=== PATIENT | female | born 1980 | race Two or more races ===

== ENCOUNTER 2020-09-17 15:25 | Outpatient (REF) | payer MEDICAID, SELFPAY | END 2020-09-17 15:26 | disposition home or self-care (01) | LOC: HO.LAB 15:25 | PROVIDERS: PCP Family Medicine; Visit Provider Internal Medicine | DX: Z20.822 Contact with and (suspected) exposure to COVID-19 (principal) | CPT/HCPCS: C9803; U0003; U0005 ==

== ENCOUNTER 2021-01-15 19:39 | Emergency (ER) | payer MEDICAID, SELFPAY ==
--- NOTE | ~2021-01-15 | XR_ITS ---
EXAMINATION: XR TIBIA AND FIBULA, LEFT CLINICAL INFORMATION: Leg pain. History of sarcoidosis. COMPARISON: None TECHNIQUE: AP and lateral views of the left tibia and fibula were obtained. FINDINGS: The bones and soft tissues are normal. No fracture. No osseous lesions. XR/XR tibia fibula LT 2V IMPRESSION: Normal left tibia and fibula.
--- NOTE | ~2021-01-15 | US_ITS ---
EXAMINATION: US VENOUS ULTRASOUND WITH DOPPLER LOWER EXTREMITY, LEFT CLINICAL INFORMATION: Left lower extremity deep COMPARISON: None TECHNIQUE: Ultrasound of the deep veins is performed from the hip to the calf with compression sonography and color and pulse Doppler assessment. Spectral analysis with color-flow imaging is performed. FINDINGS: There is normal venous compression and respiratory variation and augmented flow. The visualized common femoral vein, superficial femoral vein, profunda femoral vein, popliteal vein, and the trifurcation region shows no evidence of deep venous thrombosis. There is no significant popliteal fossa cyst. The contralateral right common femoral vein appears normal. If the patient's symptoms persist, followup ultrasound in 5 days 7 days might be of value to exclude proximal propagation from a non-visualized calf vein. US/US venous duplex LE IMPRESSION: No DVT demonstrated in the left lower extremity.
[2021-01-15 19:43] VITALS: BP 116/96; PULSE 101; RESP 18; TEMP 36.4; O2SAT 98; BMI 20.4
[2021-01-15 20:51] VITALS: BP 129/74; PULSE 87; RESP 18; TEMP 37.2; O2SAT 99
[2021-01-15 22:31] LABS: MANUAL DIFF FLAG NO
[2021-01-15 22:33] LABS: Basophils Percent Auto 0.2 % (0-2); Eosinophils Absolute Auto 0.1 X10*3/uL (0.0-0.4); Eosinophils Percent Auto 1.6 % (0-4); Hematocrit 33.1 % (37.0-47.0); Hemoglobin 11.4 g/dl (12.0-16.0); Imm Gran Abs Auto 0.03 X10*3/uL (0.00-0.03); Imm Gran Pct Auto 0.3 % (0.0-0.4); Lymphocytes Absolute Auto 1.8 X10*3/uL (1.2-4.9); Lymphocytes Percent Auto 19.8 % (20-40); Mean Corpuscular HGB Conc 34.4 g/dl (31.0-35.0); Mean Corpuscular Hemoglobin 29.7 pg (27.0-33.0); Mean Corpuscular Volume 86.2 fL (80.0-98.0); Mean Platelet Volume 9.4 fL (9.4-12.3); Monocytes Absolute Auto 0.7 X10*3/uL (0.1-1.2); Monocytes Percent Auto 8.2 % (2-11); Neutrophils Absolute Auto 6.3 x10*3/uL (2.0-8.3); Neutrophils Percent Auto 69.9 % (45-73); Platelet Count 290 X10*3/uL (160-400); Red Blood Count 3.84 X10*6/uL (4.20-5.50); Red Cell Distribution Width 13.1 % (11.0-16.0)
[2021-01-15 22:56] LABS: Alanine Aminotransferase 8 U/L (0-31); Albumin Level 4.4 g/dL (3.5-5.0); Alkaline Phosphatase 63 U/L (39-117); Anion Gap 9 (12-20); Aspartate Amino Transferase 15 U/L (5-31); Bilirubin Total 0.4 mg/dL (0.0-1.0); Blood Urea Nitrogen 10 mg/dL (9-16); Calcium 9.3 mg/dL (8.4-10.2); Carbon Dioxide 25 mmol/L (22-29); Chloride 108 mmol/L (96-108); Estimated Glomerular Filt Rate > 60; Glucose Random 97 mg/dL (60-115); Magnesium 2.1 mg/dL (1.6-2.6); Potassium 3.9 mmol/L (3.3-5.1); Sodium 138 mmol/L (135-145); Total Protein 7.6 g/dL (6.5-8.0)
[2021-01-15 23:07] VITALS: BP 138/79; PULSE 67; RESP 18; TEMP 36.8; O2SAT 100
--- NOTE | 2021-01-15 23:16 | ED.EXTPRO ---
HPI - Extremity Problem General Chief complaint: Extremity Problem Stated complaint: feet swelling Time Seen by Provider: 01/15/21 19:58 Source: patient Mode of arrival: ambulatory Limitations: no limitations History of Present Illness HPI Narrative: Patient with history of sarcoidosis complaining of left leg pain for last 2 weeks of atraumatic feels slightly swollen no discoloration pain get worse on standing no history of any blood clots Related Data Previous Rx's Medication Instructions Recorded oxycodone-acetaminophen 5 mg-325 1 tab PO Q6H PRN #20 tab 01/15/21 mg tablet (Percocet) Allergies Allergy/AdvReac Type Severity Reaction Status Date / Time tramadol Allergy Unknown nausea and Verified 09/24/17 00:00 vomiting No Known Allergies Allergy Unverified 11/23/19 16:47 [No Known Allergies*] Review of Systems Review of Systems: Yes all other systems are reviewed and are negative FORMERLY [facility], [facility]–1983 Past Medical History Medical History (Updated 01/16/21 @ 02:39 by Donaldo Bowser MD) Sarcoidosis Social History Social History Advance Directives: No Advance Directives Information Provided: Yes Physical Exam Vital Signs: Vital Signs: Last Vital Signs Temp 98.3 F 01/15/21 23:07 Pulse 67 01/15/21 23:07 Resp 16 01/16/21 00:42 BP 138/79 01/15/21 23:07 Pulse Ox 100 01/15/21 23:07 Body Mass Index 20.4 Appearance: Alert. Oriented X3. No acute distress. ENT: Pharynx normal. Oral Mucosa moist Neck: Normal inspection. Neck supple. CVS: Normal heart rate and rhythm. Pulses normal. Respiratory: No respiratory distress. Equal air entry bilateral, Abdomen: Soft and nontender. Skin: Skin warm and dry. Normal skin color. Normal skin turgor. Extremities: No lower extremity edema. No calf tenderness Brant sign negative diffuse tenderness left calf muscles no bony tenderness or deformity Neuro: Oriented X 3. No motor deficit. No sensory deficit MDM - Extremity (Nontraumatic) MDM Narrative Medical decision making narrative: Patient with left leg pain etiology not very clear venous Doppler negative calcium level is normal x-ray also negative for any bony involvement patient does have sarcoidosis advised to follow-up with the specialist to further evaluate for the pain Lab Data Result diagrams: 01/15/21 22:27 01/15/21 22:27 Labs: Lab Results 01/15/21 01/15/21 Range/Units 22:27 22:27 WBC 9.0 (4.8-10.8) X10*3/uL RBC 3.84 L (4.20-5.50) X10*6/uL Hgb 11.4 L (12.0-16.0) g/dl Hct 33.1 L (37.0-47.0) % MCV 86.2 (80.0-98.0) fL MCH 29.7 (27.0-33.0) pg MCHC 34.4 (31.0-35.0) g/dl RDW 13.1 (11.0-16.0) % Plt Count 290 (160-400) X10*3/uL MPV 9.4 (9.4-12.3) fL Immature Gran % (Auto) 0.3 (0.0-0.4) % Neut % (Auto) 69.9 (45-73) % Lymph % (Auto) 19.8 L (20-40) % [place] % (Auto) 8.2 (2-11) % Eos % (Auto) 1.6 (0-4) % Baso % (Auto) 0.2 (0-2) % Lymph # (Auto) 1.8 (1.2-4.9) X10*3/uL [place] # (Auto) 0.7 (0.1-1.2) X10*3/uL Eos # (Auto) 0.1 (0.0-0.4) X10*3/uL Baso # (Auto) 0.0 (0.0-0.2) X10*3/uL Abs Immat Gran (auto) 0.03 (0.00-0.03) X10*3/uL Absolute Neuts (auto) 6.3 (2.0-8.3) x10*3/uL Absolute Nucleated RBC 0.000 (0.0-0.012) X10*3/uL Nucleated RBC % (auto) 0.0 (0.0-0.2) /100WBC Sodium 138 (135-145) mmol/L Potassium 3.9 (3.3-5.1) mmol/L Chloride 108 (96-108) mmol/L Carbon Dioxide 25 (22-29) mmol/L Anion Gap 9 L (12-20) BUN 10 (9-16) mg/dL Creatinine 0.72 (0.5-1.4) mg/dL Estim Creat Clear Calc 76.0 Estimated GFR > 60 Random Glucose 97 (60-115) mg/dL Calcium 9.3 (8.4-10.2) mg/dL Magnesium 2.1 (1.6-2.6) mg/dL Total Bilirubin 0.4 (0.0-1.0) mg/dL AST 15 (5-31) U/L ALT 8 (0-31) U/L Alkaline Phosphatase 63 (39-117) U/L Total Protein 7.6 (6.5-8.0) g/dL Albumin 4.4 (3.5-5.0) g/dL Discharge Plan Discharge Clinical Impression: Musculoskeletal leg pain Qualifiers: Laterality: left Qualified Code(s): M79.605 - Pain in left leg Patient Disposition: Home, Self-Care Instructions: Leg Pain (ED) Additional Instructions: Etiology of pain in her left leg is not very clear follow-up with your specialist regarding sarcoidosis as possible cause Pain medication as advised Use crutches for ambulation Prescriptions: New oxycodone-acetaminophen [Percocet] 5-325 mg tablet 1 tab PO Q6H PRN (Reason: pain) Qty: 20 RF: 0 Interventions: ED Discharge Assessment Last Done: 01/16/21 00:39 Discharge Date/Time: 01/16/21 00:42
[2021-01-15] MEDS: oxyCODONE HCl Immed Release 5 MG TABLET PO (23:33)
[2021-01-16 00:42] VITALS: RESP 16
== END 2021-01-16 00:42 | disposition home or self-care (01) ==
PROVIDERS: Emergency Provider Internal Medicine; PCP Family Medicine
DX: M79.605 Pain in left leg (principal)
CPT/HCPCS: 36415; 73590; 80053; 83735; 85025; 93971; 99283; 99284

== ENCOUNTER 2021-05-22 08:41 | Outpatient (REF) | payer MEDICAID, SELFPAY ==
--- NOTE | ~2021-05-22 | US_ITS ---
EXAMINATION: US RETROPERITONEAL LIMITED (RENAL ONLY) CLINICAL INFORMATION: Microscopic hematuria. COMPARISON: Renal ultrasound 05/15/2016 and 11/18/2015. CT abdomen and pelvis 05/08/2015. TECHNIQUE: Real-time imaging of the kidneys. FINDINGS: RIGHT KIDNEY: 10.1 x 2.9 x 5.9 cm (SAG x AP x TRV). The kidney is normal in size, contour, and echogenicity. Renal cortical thickness is normal. No focal parenchymal lesions or hydronephrosis. There are a few echogenic stones. An upper pole stone measuring 0.4 x 0.3 cm. Midpole stone measuring 0.4 x 0.4 cm, 0.4 0.64 cm midpole/lower pole calculi measuring 0.4 x 0.3 cm and 0.3 x 0.2 cm. There is no caliectasis. LEFT KIDNEY: 9.6 x 4.6 x 4.7 cm (SAG x AP x TRV). The kidney is normal in size, contour, and echogenicity. Renal cortical thickness is normal. No calculi or focal parenchymal lesions. No hydronephrosis. There are multiple punctate calcifications seen with no twinkle. US/US renal BI IMPRESSION: Multiple nonobstructive echogenic right renal calculi. Multiple punctate echogenic calcifications left kidney. No caliectasis or hydronephrosis.
== END 2021-05-22 08:42 | disposition home or self-care (01) ==
LOC: HO.US 08:41
PROVIDERS: PCP Family Medicine; Visit Provider Emergency Medicine
DX: R31.29 Other microscopic hematuria (principal); R39.15 Urgency of urination; Z87.442 Personal history of urinary calculi
CPT/HCPCS: 76775

== ENCOUNTER 2022-01-08 10:29 | Outpatient (REF) | payer MEDICAID, SELFPAY ==
[2022-01-08 11:04] LABS: COVID-19 Test Positive (Negative); IDNOW Serial# 9DB6401D
== END 2022-01-08 10:30 | disposition home or self-care (01) ==
LOC: HO.LAB 10:29
PROVIDERS: Visit Provider Internal Medicine
DX: Z20.822 Contact with and (suspected) exposure to COVID-19 (principal)
CPT/HCPCS: 87635; C9803

== ENCOUNTER 2022-10-16 12:18 | Outpatient (REF) | payer MEDICAID, SELFPAY ==
[2022-10-16 13:50] LABS: MANUAL DIFF FLAG NO
[2022-10-16 14:05] LABS: Basophils Percent Auto 0.5 % (0-2); Eosinophils Absolute Auto 0.1 X10*3/uL (0.0-0.4); Eosinophils Percent Auto 2.4 % (0-4); Hemoglobin 12.3 g/dl (12.0-16.0); Imm Gran Abs Auto 0.02 X10*3/uL (0.00-0.03); Imm Gran Pct Auto 0.3 % (0.0-0.4); Lymphocytes Absolute Auto 1.8 X10*3/uL (1.2-4.9); Lymphocytes Percent Auto 30.9 % (20-40); Mean Corpuscular HGB Conc 34.2 g/dl (31.0-35.0); Mean Corpuscular Hemoglobin 30.2 pg (27.0-33.0); Mean Corpuscular Volume 88.5 fL (80.0-98.0); Mean Platelet Volume 10.1 fL (9.4-12.3); Monocytes Absolute Auto 0.6 X10*3/uL (0.1-1.2); Neutrophils Absolute Auto 3.1 x10*3/uL (2.0-8.3); Neutrophils Percent Auto 54.9 % (45-73); Platelet Count 306 X10*3/uL (160-400); Red Blood Count 4.07 X10*6/uL (4.20-5.50); Red Cell Distribution Width 13.3 % (11.0-16.0); White Blood Count 5.7 X10*3/uL (4.8-10.8)
[2022-10-16 14:34] LABS: Alanine Aminotransferase 7 U/L (0-31); Albumin Level 4.7 g/dL (3.5-5.0); Alkaline Phosphatase 70 U/L (39-117); Anion Gap 10 (12-20); Aspartate Amino Transferase 14 U/L (5-31); Bilirubin Total 0.5 mg/dL (0.0-1.0); Blood Urea Nitrogen 11 mg/dL (9-16); Carbon Dioxide 26 mmol/L (22-29); Chloride 109 mmol/L (96-108); Estimated Glomerular Filt Rate > 60; Glucose Random 83 mg/dL (60-115); Potassium 3.9 mmol/L (3.3-5.1); Sodium 141 mmol/L (135-145); Total Protein 8.4 g/dL (6.5-8.0)
[2022-10-16 14:40] LABS: Cholesterol 162 mg/dL; HDL Cholesterol 38 mg/dL; LDL Cholesterol Calculated 100 mg/dl; Triglycerides 122 mg/dL
[2022-10-16 15:16] LABS: Reflex LDLD? No
[2022-10-16 16:49] LABS: UPreg QC Valid YES; Urine Pregnancy NEGATIVE (NEGATIVE)
[2022-10-17 04:05] LABS: HBS Num1 7.75 mIU/mL (0-7.99); HBc Num1 0.08 S/CO (0.00-0.79); HBsAGNum1 0.41 S/CO (0.00-0.99); HIV AB/AG Nonreactive (Nonreactive); HIV Num 1 0.05 S/CO (0.00-0.99); Hepatitis B Core Antibody Nonreactive (Nonreactive); Hepatitis B Surface Antigen Negative (Negative); ~HepC Num1 0.38 S/CO (0.00-0.79); ~Hepatitis A Antibody IgM Nonreactive (Nonreactive); ~Hepatitis B Surface Antibody NONREACTIVE (Nonreactive); ~Hepatitis C Antibody Nonreactive (Nonreactive)
[2022-10-19 20:58] LABS: TS Negative Control Passed; TS Panel A 1; TS Panel B 2; TS Positive Control Passed; TSpotTB Negative (Negative)
== END 2022-10-16 12:19 | disposition home or self-care (01) ==
LOC: HO.HHCL 12:18
PROVIDERS: Visit Provider Internal Medicine
DX: Z11.4 Encounter for screening for human immunodeficiency virus [HIV] (principal); Z11.1 Encounter for screening for respiratory tuberculosis; L63.9 Alopecia areata, unspecified
CPT/HCPCS: 36415; 80053; 80061; 81025; 85025; 86481; 86704; 86706; 86709; 86803; 87340; 87389

== ENCOUNTER 2023-02-01 14:24 | Outpatient (REF) | payer MEDICAID, SELFPAY ==
[2023-02-01 14:35] LABS: MANUAL DIFF FLAG NO
[2023-02-01 15:30] LABS: Basophils Percent Auto 0.4 % (0-2); Eosinophils Absolute Auto 0.1 X10*3/uL (0.0-0.4); Eosinophils Percent Auto 1.1 % (0-4); Hematocrit 36.7 % (37.0-47.0); Hemoglobin 12.7 g/dl (12.0-16.0); Imm Gran Abs Auto 0.02 X10*3/uL (0.00-0.03); Imm Gran Pct Auto 0.3 % (0.0-0.4); Lymphocytes Absolute Auto 2.8 X10*3/uL (1.2-4.9); Lymphocytes Percent Auto 38.7 % (20-40); Mean Corpuscular HGB Conc 34.6 g/dl (31.0-35.0); Mean Corpuscular Hemoglobin 30.4 pg (27.0-33.0); Mean Corpuscular Volume 87.8 fL (80.0-98.0); Mean Platelet Volume 9.7 fL (9.4-12.3); Monocytes Absolute Auto 0.6 X10*3/uL (0.1-1.2); Monocytes Percent Auto 8.3 % (2-11); Neutrophils Absolute Auto 3.7 x10*3/uL (2.0-8.3); Neutrophils Percent Auto 51.2 % (45-73); Platelet Count 273 X10*3/uL (160-400); Red Blood Count 4.18 X10*6/uL (4.20-5.50); Red Cell Distribution Width 13.9 % (11.0-16.0); White Blood Count 7.3 X10*3/uL (4.8-10.8)
[2023-02-01 15:56] LABS: Alanine Aminotransferase 16 U/L (0-31); Albumin Level 4.9 g/dL (3.5-5.0); Alkaline Phosphatase 54 U/L (39-117); Anion Gap 11 (12-20); Aspartate Amino Transferase 21 U/L (5-31); Bilirubin Direct 0.2 mg/dL (0.0-0.5); Bilirubin Total 0.7 mg/dL (0.0-1.0); Blood Urea Nitrogen 11 mg/dL (9-16); Calcium 9.6 mg/dL (8.4-10.2); Carbon Dioxide 23 mmol/L (22-29); Chloride 108 mmol/L (96-108); Estimated Glomerular Filt Rate > 60; Glucose Random 92 mg/dL (60-115); Magnesium 2.1 mg/dL (1.6-2.6); Potassium 3.4 mmol/L (3.3-5.1); Sodium 139 mmol/L (135-145); Total Protein 8.3 g/dL (6.5-8.0)
[2023-02-01 16:13] LABS: TSH reflex Free T4 1.03 uIU/mL (0.32-4.0)
== END 2023-02-01 14:25 | disposition home or self-care (01) ==
LOC: HO.LAB 14:24
PROVIDERS: PCP Family Medicine; Visit Provider Family Medicine
DX: G43.819 Other migraine, intractable, without status migrainosus (principal)
CPT/HCPCS: 36415; 80048; 80076; 83735; 84443; 85025

== ENCOUNTER 2023-12-28 07:59 | Emergency (ER) | payer MEDICAID, SELFPAY ==
--- NOTE | ~2023-12-28 | XR_ITS ---
EXAMINATION: XR CHEST 2 VIEW CLINICAL INFORMATION: Cough, chest pain COMPARISON: 07/29/2017 TECHNIQUE: PA and lateral views of the chest obtained. FINDINGS: The lungs are hyperinflated. There are patchy bilateral airspace opacities in the periphery of the mid and upper lung zones. There are no pleural effusions. The cardiac silhouette is not enlarged. Hilar and mediastinal contours are normal. XR/XR chest 2V IMPRESSION: 1. Bilateral patchy airspace opacities, new since the prior study. Viral pneumonitis, hypersensitivity pneumonitis, bilateral bronchopneumonia, atypical pneumonia, and granulomatous disease are felt to be considered. Follow-up is recommended to confirm clearing. Thoracic CT might be of benefit in better characterizing the bilateral pulmonary opacities. Electronically signed by: Jim Love MD 12/28/2023 09:36 AM EDT
--- NOTE | 2023-12-28 08:00 | ECG_ITS ---
Test Reason : CHEST PAIN Blood Pressure : / mmHG Vent. Rate : 110 BPM Atrial Rate : 110 BPM P-R Int : 124 ms QRS Dur : 074 ms QT Int : 316 ms P-R-T Axes : 072 066 048 degrees QTc Int : 427 ms Sinus tachycardia Biatrial enlargement Abnormal ECG No previous ECGs available Referred By: Generic ED Physician Electronically Signed By:Gildardo Ramirez
[2023-12-28 08:20] VITALS: BP 119/85; PULSE 102; RESP 18; TEMP 37.5; O2SAT 97; BMI 19.8
[2023-12-28 08:55] LABS: IDNOW Serial# 08D9AD1C; Strep A Nucleic Acid Negative (Negative)
[2023-12-28 09:19] LABS: Influenza A PCR POSITIVE (Negative); Influenza B PCR NEGATIVE (Negative); Resp Syncy Virus RNA Qual PCR NEGATIVE (Negative); SARS COV2 PCR INHOUSE NEGATIVE (Negative)
--- NOTE | 2023-12-28 09:29 | ED_ITS ---
HPI - URI/Sore Throat General Chief Complaint: Upper Respiratory Symptoms Stated Complaint: Chest pain, congestion Time Seen by Provider: 12/28/23 09:06 Source: patient, RN notes reviewed and old records reviewed Mode of arrival: ambulatory History of Present Illness ED Provider: Evonne Nogueira PA-C HPI Narrative: 43-year-old female with a past medical history of sarcoidosis presenting to the ED complaining of productive cough, chest discomfort with coughing, SOB, congestion, chills x yesterday. Denies recent travel, fever, pedal edema, abdominal pain, decreased p.o. intake. Admits son recently had pneumonia. Related Data Previous Rx's ?Medication ?Instructions ?Recorded oxycodone-acetaminophen 5 mg-325 1 tab PO Q6H PRN pain #20 tabs 11//21 mg tablet (Percocet) albuterol sulfate 90 mcg/actuation 2 puff inhalation Q4-6H PRN 12/28/23 aerosol inhaler shortness of breath or wheezing #6.7 grams azithromycin 250 mg tablet See Rx Instructions PO .COMPLEX #6 12/28/23 tabs cefpodoxime 200 mg tablet 200 mg PO BID 7 days #14 tabs 12/28/23 Allergies Allergy/AdvReac Type Severity Reaction Status Date / Time tramadol Allergy Unknown nausea and Verified 12/28/23 08:23 vomiting Review of Systems Review of Systems: Yes all other systems are reviewed and are negative Constitutional: Constitutional: Reports as per [facility] Past Medical History Attestation statement: The following information was validated with the patient. Source: old records reviewed Medical History Sarcoidosis Social History Social History Advance Directives: No Do you have a plan to hurt others: No Plan Physical Exam Vital Signs: Vital Signs: Last Vital Signs Temp 98.7 F 12/28/23 10:59 Pulse 113 H 12/28/23 10:59 Resp 22 H 12/28/23 10:59 BP 00/00 L 12/28/23 10:59 Pulse Ox 98 12/28/23 10:59 O2 Del Method Room Air 12/28/23 08:20 BMI result Body Mass Index 19.8 Const: General: cooperative, healthy appearing and no acute distress Orientation/consciousness: patient oriented x3 Limitations: no limitations HEENT: Head: Yes normal to inspection and Yes atraumatic Ears: hearing grossly normal bilaterally General nose exam: Normal external nose present Face and sinus: Yes normal facial exam Throat: Yes posterior oropharynx normal, Yes uvula midline and No peritonsillar mass Eyes: General: appearance normal, both eyes and all related structures EOM: EOMs intact bilaterally Neck: Neck: Yes normal visual inspection and Yes no meningeal signs Resp: Effort & Inspection: normal respiratory effort and no respiratory distress Auscultation: clear to auscultation bilaterally, no crackles and wheezes expiratory wheezes and lower bilaterally Cardio: Rate: regular rate Heart sounds: S1 normal heart sound present and S2 normal heart sound present GI: Inspection: Yes normal to inspection Palpation (GI): Soft to palpation, nontender, no guarding and not rigid Skin: Rashes: no rashes Wounds: no wounds Neuro: General: patient oriented x3, tone normal and no meningeal signs Cranial nerves: Yes CN's II-XII intact bilaterally Gait exam (Neuro): Normal gait present Extrem: General: Yes normal to inspection and Yes no pedal edema Course Course Course Narrative: -0958--influenza a positive XR chest 2V IMPRESSION: 1. Bilateral patchy airspace opacities, new since the prior study. Viral pneumonitis, hypersensitivity pneumonitis, bilateral bronchopneumonia, atypical pneumonia, and granulomatous disease are felt to be considered. Follow-up is recommended to confirm clearing. Thoracic CT might be of benefit in better characterizing the bilateral pulmonary opacities. > Still low suspicion for severe sepsis as likely viral etiology -1029--tachycardic to 113 likely from albuterol treatment. > with shared decision-making will treat patient with antibiotics for bilateral atypical pneumonia. Will defer Tamiflu at this time Results discussed with patient including worrisome signs and symptoms and strict return precautions, and when to return to the emergency department. They verbalized understanding and feel safe for discharge at this time. > received call from pharmacy, amoxicillin interactive with patient's methotrexate. Switched to cefpodoxime Medications Administered Discontinued Medications Generic Name Dose Route Start Last Admin Trade Name Freq PRN Reason Stop Dose Admin Albuterol/Ipratropium 3 ml 12/28/23 10:06 12/28/23 10:08 Albuterol/Iprat 2.5/0.5mg 3 Ml Ampul.Neb INHALE 12/28/23 10:07 3 ml ONCE ONE Administration Medical Decision Making Medical Decision Making MDM Narrative: 43-year-old female with a past medical history of sarcoidosis presenting to the ED complaining of productive cough, chest discomfort with coughing, SOB, congestion, chills x yesterday. On exam mildly tachycardic, low-grade temp 99.5 degrees, NAD/nontoxic appearing, no respiratory distress, bibasilar expiratory wheeze appreciated. Concern for viral illness vs pneumonia vs bronchitis. Lower suspicion for ACS/PE or CHF. Unlikely DVT. Low suspicion for severe sepsis Plan: Viral testing, rapid strep, CXR Please refer to course for remaining clinical decision making, interpretation of labs/imaging results, and discussions with consultants and/or family members. Differential Diagnosis Differential Diagnoses: The differential diagnosis associated with the presentation includes As above Admission/Observation Consideration of admission/observation: Escalation of care including admission/observation considered Lab Data [facility] Lab Attestation statement: I reviewed the patient's lab results. Labs: Lab Results 12/28/23 Range/Units 08:27 Influenza Type A (PCR) POSITIVE A (Negative) Influenza Type B (PCR) NEGATIVE (Negative) RSV RNA Qual (PCR) NEGATIVE (Negative) SARS-CoV-2 RNA (RT-PCR) NEGATIVE (Negative) S. pyogenes GrpA ANGELO Negative (Negative) Independent Interpretation I performed an independent interpretation of an: Plain X-Ray Radiology Impression Discussion of test interpretation with radiology: I have reviewed the radiologist's reading. External Record Review External record reviewed: Inpatient record, Office record, Outpatient record, Prior outpatient labs, Prior outpatient radiology, Primary care record and Outside ED record Tests considered The following testing was considered but not selected: As above Prescription Management I considered prescription management with: Pain Medication, Antiviral and Antibiotic Discharge Plan Discharge Clinical Impression: Influenza A, Pneumonia Patient Disposition: Home, Self-Care Instructions: Influenza (DC), Pneumonia (ED) Additional Instructions: You have influenza a. This is contagious. Wash her hands. Wear a mask. Your x-ray also shows bilateral pneumonia. Amoxicillin and azithromycin or antibiotics please take as prescribed. Make sure you are staying hydrated. Drink plenty of fluids. Rest Alternate Tylenol and Motrin at home as needed for body aches and fever Follow-up with your doctor. If symptoms persist or worsen return to the emergency department *If you are a child & not tolerating liquid or urinating for more than 6 hours, or fevers are uncontrolled with medications at home, return to the emergency department* Prescriptions: New azithromycin 250 mg tablet See Rx Instructions .ROUTE .COMPLEX Qty: 6 0RF Rx Instructions: take 500 mg today (day 1), then 250 mg for 4 days (days 2-5) albuterol sulfate 90 mcg/actuation HFA aerosol inhaler 2 puff inhalation Q4-6H PRN (Reason: shortness of breath or wheezing) Qty: 6.7 0RF cefpodoxime 200 mg tablet 200 mg PO BID 7 Days Qty: 14 0RF Rx Instructions: must administer with a meal/food No Action oxycodone-acetaminophen [Percocet] 5-325 mg tablet 1 tab PO Q6H PRN (Reason: pain) Qty: 20 0RF Referrals: Marzena Loo MD [Primary Care Provider] - 1 week Stand Alone Forms: Work/School Release Interventions: ED Discharge Assessment Last Done: 12/28/23 10:59 Discharge Date/Time: 12/28/23 11:00 Print Language: Yakut
[2023-12-28] MEDS: Albuterol/Iprat 2.5/0.5MG 3 ML AMPUL.NEB INHALE (10:08)
[2023-12-28 10:09] VITALS: PULSE 113; RESP 22; O2SAT 96
[2023-12-28 10:59] VITALS: BP 00/00; PULSE 113; RESP 22; TEMP 37.1; O2SAT 98
== END 2023-12-28 11:00 | disposition home or self-care (01) ==
PROVIDERS: Emergency Provider Emergency Medicine; PCP Family Medicine
DX: J10.00 Influenza due to other identified influenza virus with unspecified type of pneumonia (principal); R07.89 Other chest pain; R09.89 Other specified symptoms and signs involving the circulatory and respiratory systems; R05.9 Cough, unspecified; R06.02 Shortness of breath; Z03.818 Encounter for observation for suspected exposure to other biological agents ruled out
CPT/HCPCS: 0241U; 71046; 87651; 93005; 94640; 99284

== ENCOUNTER → 2023-12-28 08:00 | Outpatient (BNV) | payer MEDICAID, SELFPAY | PROVIDERS: Emergency Provider Emergency Medicine; PCP Family Medicine; Visit Provider Internal Medicine Cardiovascular Disease | DX: R07.9 Chest pain, unspecified (principal) | CPT/HCPCS: 93010 ==

== ENCOUNTER 2023-12-30 16:36 | Emergency (ER) | payer MEDICAID, SELFPAY ==
[2023-12-30 16:40] VITALS: BP 141/84; PULSE 100; RESP 18; TEMP 36.4; O2SAT 97; BMI 18.4
--- NOTE | 2023-12-30 16:44 | ED.GENADULT ---
HPI - General Adult General Chief complaint: General Medical Stated complaint: rash ? from meds Time Seen by Provider: 12/30/23 21:37 Source: patient Mode of arrival: ambulatory Limitations: no limitations History of Present Illness ED Provider: Dr. Nicolette Chapa HPI narrative: patient comes to the emergency room complaining of a rash secondary to medications. Patient states that the rash comes and goes, states that the rash consists of her veins looking more pronounced. Patient denies hives, itching is or shortness of breath. Related Data Previous Rx's ?Medication ?Instructions ?Recorded oxycodone-acetaminophen 5 mg-325 1 tab PO Q6H PRN pain #20 tabs 01/15/21 mg tablet (Percocet) albuterol sulfate 90 mcg/actuation 2 puff inhalation Q4-6H PRN 12/28/23 aerosol inhaler shortness of breath or wheezing #6.7 grams azithromycin 250 mg tablet See Rx Instructions PO .COMPLEX #6 12/28/23 tabs cefpodoxime 200 mg tablet 200 mg PO BID 7 days #14 tabs 12/28/23 ondansetron HCl 4 mg tablet 4 mg PO BID #14 tabs 12/30/23 Allergies Allergy/AdvReac Type Severity Reaction Status Date / Time tramadol Allergy Unknown nausea and Verified 12/30/23 16:46 vomiting Review of Systems Review of Systems: Constitutional : No Weight loss, No Fever, No Chills, No Night Sweats, No Fatigue, No Malaise ENT/Mouth : No Hearing loss, No Ear Pain, No Nasal Congestion, No Sinus Pain, No Hoarseness, No sore throat, No Rhinorrhea, No Swallowing Difficulty Eyes: No Eye Pain, No Swelling, No Redness, No Foreign Body, No Discharge, No Vision Changes Cardiovascular : No Chest Pain, No SOB, No Dyspnea on Exertion, No Orthopnea, No Edema, No Palpitations Respiratory : No Cough, No Sputum, No Wheezing, No Smoke Exposure, No Dyspnea Gastrointestinal : No Nausea, No Vomiting, No Diarrhea, No Constipation, No abdominal Pain, No Hematochezia, No Melena Genitourinary : no irregular bleeding, No Dysuria, No Urinary Frequency, No Hematuria, No Urinary Incontinence, No Urgency, No Flank Pain, No Urinary Flow Changes, No Hesitancy Musculoskeletal : No joint pain, No Myalgias, No Joint Swelling Skin : Complaining of a lash consisting of the veins looking more prominent in the thighs Neuro : No Weakness, No Numbness, No Paresthesias, No Loss of Consciousness, No Dizziness, No Headache Psych : No Anxiety/Panic, No Depression, No SI/HI/AH/VH, No Social Issues, Heme/Lymph: No Bruising, No Bleeding,No Lymphadenopathy Endocrine : No Polyuria, No Polydipsia, No Temperature Intolerance PMFSH Past Medical History Medical History Sarcoidosis Social History Social History Advance Directives: No Advance Directives Information Provided: No Do you have a plan to hurt others: No Plan Physical Exam ED Vital Signs: Vital Signs - 24 hr 12/30/23 16:40 12/30/23 19:29 Temperature 97.6 F 98.0 F Pulse Rate 100 80 Respiratory Rate 18 15 Blood Pressure 141/84 H 111/80 Pulse Oximetry 97 98 Oxygen Delivery Method Room Air Room Air BMI result Body Mass Index 18.4 Const Other: Appearance: Alert. Oriented X3. No acute distress. Eyes: Pupils equal, round and reactive to light. ENT: Pharynx normal. Neck: Normal inspection. Neck supple. No lymph nodes noted. No crepitus CVS: Normal heart rate and rhythm. Pulses normal. Normal S1 and S2 Respiratory: No respiratory distress. Breath sounds normal. No Wheezing. No rales Abdomen: Soft and nontender. No rigidity. No distention. Skin: Skin warm and dry. Normal skin color. Normal skin turgor. Extremities: No lower extremity edema. No Lacerations. No Rash Neuro: Oriented X 3. No motor deficit. No sensory deficit. Moving all extremities. No slurred speech. CN 2 through 12 grossly intact Psych: calm, cooperative, normal affect Course Course Course Narrative: RME, this is a rapid medical exam performed by Randal Hoff please refer to primary provider for complete H&P- 43-year-old female presents for evaluation of vomiting and a rash. She was diagnosed with influenza a and pneumonia 2 days ago. She was discharged with azithromycin, cefuroxime for the pneumonia. She reports taking the medications. She reports noticing a rash on her thighs which she describes as ?bruising that comes and goes. plan for labs and coags Medications Administered Discontinued Medications Generic Name Dose Route Start Last Admin Trade Name Sofia PRN Reason Stop Dose Admin Ondansetron HCl 4 mg 12/30/23 21:31 12/30/23 21:35 Ondansetron Odt 4 Mg Tab.Nancy HUBER 12/30/23 21:32 4 mg ONCE ONE Administration Medical Decision Making Medical Decision Making MDM Narrative: on physical exam, patient did not have any rash. I discussed with the patient that veins looking more prominence is not an allergic reaction. Then patient went on to say that she does not like taking this medications because they make her nauseous. I offer Zofran. Patient states that she can not take Zofran under the tongue because it makes her vomit. Discussed with the patient and then she can swallow it. Also, I offered with the patient changing her antibiotics to a different antibiotic but patient declined, states that she went to [facility] and they told her that that is the only medication that works and does not interact with her infusions. - Overall, patient will take Zofran tablets before taking her current antibiotics. Patient did not have an allergic reaction. Patient asymptomatic. Lab Data 12/30/23 16:53 12/30/23 16:53 Labs: Lab Results 12/30/23 Range/Units 16:53 WBC 6.0 (4.8-10.8) X10*3/uL RBC 4.52 (4.20-5.50) X10*6/uL Hgb 13.6 (12.0-16.0) g/dl Hct 37.9 (37.0-47.0) % MCV 83.8 (80.0-98.0) fL MCH 30.1 (27.0-33.0) pg MCHC 35.9 H (31.0-35.0) g/dl RDW 12.6 (11.0-16.0) % Plt Count 281 (160-400) X10*3/uL MPV 9.9 (9.4-12.3) fL Immature Gran % (Auto) 0.3 (0.0-0.4) % Neut % (Auto) 59.7 (45-73) % Lymph % (Auto) 25.4 (20-40) % [place] % (Auto) 13.6 H (2-11) % Eos % (Auto) 0.7 (0-4) % Baso % (Auto) 0.3 (0-2) % Lymph # (Auto) 1.5 (1.2-4.9) X10*3/uL [place] # (Auto) 0.8 (0.1-1.2) X10*3/uL Eos # (Auto) 0.0 (0.0-0.4) X10*3/uL Baso # (Auto) 0.0 (0.0-0.2) X10*3/uL Abs Immat Gran (auto) 0.02 (0.00-0.03) X10*3/uL Absolute Neuts (auto) 3.6 (2.0-8.3) x10*3/uL Absolute Nucleated RBC 0.000 (0.0-0.012) X10*3/uL Nucleated RBC % (auto) 0.0 (0.0-0.2) /100WBC PT 12.4 (10.9-12.4) SEC INR 1.1 (0.9-1.1) Sodium 139 (135-145) mmol/L Potassium 3.3 (3.3-5.1) mmol/L Chloride 106 (96-108) mmol/L Carbon Dioxide 22 (22-29) mmol/L Anion Gap 14 (12-20) BUN 9 (9-16) mg/dL Creatinine 0.77 (0.5-1.4) mg/dL Estim Creat Clear Calc 64.2 Estimated GFR > 60 Random Glucose 100 (60-115) mg/dL Calcium 9.7 (8.4-10.2) mg/dL Total Bilirubin 0.4 (0.0-1.0) mg/dL AST 41 H (5-31) U/L ALT 25 (0-31) U/L Alkaline Phosphatase 76 (39-117) U/L Total Protein 8.5 H (6.5-8.0) g/dL Albumin 4.8 (3.5-5.0) g/dL Lipase 23 (8-78) U/L Discharge Plan Discharge Clinical Impression: Medication side effect, Nausea Patient Disposition: Home, Self-Care Instructions: Acute Nausea and Vomiting (ED) Additional Instructions: Please follow-up with your primary care physician tomorrow. If you have any worsening or new symptoms, please return to the emergency room or call 911 Prescriptions: New ondansetron HCl 4 mg tablet 4 mg PO BID Qty: 14 0RF Rx Instructions: take before ingesting your antibiotics No Action oxycodone-acetaminophen [Percocet] 5-325 mg tablet 1 tab PO Q6H PRN (Reason: pain) Qty: 20 0RF azithromycin 250 mg tablet See Rx Instructions .ROUTE .COMPLEX Qty: 6 0RF Rx Instructions: take 500 mg today (day 1), then 250 mg for 4 days (days 2-5) albuterol sulfate 90 mcg/actuation HFA aerosol inhaler 2 puff inhalation Q4-6H PRN (Reason: shortness of breath or wheezing) Qty: 6.7 0RF cefpodoxime 200 mg tablet 200 mg PO BID 7 Days Qty: 14 0RF Rx Instructions: must administer with a meal/food Print Language: Citizen Of [place]
[2023-12-30 17:02] LABS: MANUAL DIFF FLAG NO
[2023-12-30 17:04] LABS: Basophils Percent Auto 0.3 % (0-2); Eosinophils Percent Auto 0.7 % (0-4); Hematocrit 37.9 % (37.0-47.0); Hemoglobin 13.6 g/dl (12.0-16.0); Imm Gran Abs Auto 0.02 X10*3/uL (0.00-0.03); Imm Gran Pct Auto 0.3 % (0.0-0.4); Lymphocytes Absolute Auto 1.5 X10*3/uL (1.2-4.9); Lymphocytes Percent Auto 25.4 % (20-40); Mean Corpuscular HGB Conc 35.9 g/dl (31.0-35.0); Mean Corpuscular Hemoglobin 30.1 pg (27.0-33.0); Mean Corpuscular Volume 83.8 fL (80.0-98.0); Mean Platelet Volume 9.9 fL (9.4-12.3); Monocytes Absolute Auto 0.8 X10*3/uL (0.1-1.2); Monocytes Percent Auto 13.6 % (2-11); Neutrophils Absolute Auto 3.6 x10*3/uL (2.0-8.3); Neutrophils Percent Auto 59.7 % (45-73); Platelet Count 281 X10*3/uL (160-400); Red Blood Count 4.52 X10*6/uL (4.20-5.50); Red Cell Distribution Width 12.6 % (11.0-16.0)
[2023-12-30 17:10] LABS: INTERNATIONAL NORM RATIO 1.1 (0.9-1.1); Prothrombin Time 12.4 SEC (10.9-12.4)
[2023-12-30 17:24] LABS: Alanine Aminotransferase 25 U/L (0-31); Albumin Level 4.8 g/dL (3.5-5.0); Alkaline Phosphatase 76 U/L (39-117); Anion Gap 14 (12-20); Aspartate Amino Transferase 41 U/L (5-31); Bilirubin Total 0.4 mg/dL (0.0-1.0); Blood Urea Nitrogen 9 mg/dL (9-16); Calcium 9.7 mg/dL (8.4-10.2); Carbon Dioxide 22 mmol/L (22-29); Chloride 106 mmol/L (96-108); Creatinine Clr Calc Pharmacy 64.2; Estimated Glomerular Filt Rate > 60; Glucose Random 100 mg/dL (60-115); Lipase 23 U/L (8-78); Potassium 3.3 mmol/L (3.3-5.1); Sodium 139 mmol/L (135-145); Total Protein 8.5 g/dL (6.5-8.0)
[2023-12-30 19:29] VITALS: BP 111/80; PULSE 80; RESP 15; TEMP 36.7; O2SAT 98
[2023-12-30] MEDS: Ondansetron ODT 4 MG TAB.RAPDIS TRANSLINGU (21:35)
[2023-12-30 22:04] VITALS: BP 108/85; PULSE 91; RESP 18; TEMP 36.7; O2SAT 98
== END 2023-12-30 22:05 | disposition home or self-care (01) ==
PROVIDERS: Physician Assistant; Emergency Provider Emergency Medicine; PCP Family Medicine
DX: R11.2 Nausea with vomiting, unspecified (principal); R21 Rash and other nonspecific skin eruption; Z79.899 Other long term (current) drug therapy
CPT/HCPCS: 36415; 80053; 83690; 85025; 85610; 99283

== ENCOUNTER 2024-01-12 | Outpatient (REF) | payer MEDICAID, SELFPAY ==
[2024-01-13 10:33] LABS: HPV 16,18/45 See PAP report
[2024-01-15 00:29] LABS: C. trachomatis RNA TMA NOT DETECTED (NOT DETECTED); N. gonorrhoeae RNA TMA NOT DETECTED (NOT DETECTED)
[2024-01-15 00:33] LABS: Trichomonas (NAAT) NOT DETECTED (NOT DETECTED)
== END 2024-01-12 00:01 | disposition home or self-care (01) ==
LOC: HO.LNP
PROVIDERS: Visit Provider Family Medicine
DX: Z12.4 Encounter for screening for malignant neoplasm of cervix (principal); Z11.51 Encounter for screening for human papillomavirus (HPV); Z11.3 Encounter for screening for infections with a predominantly sexual mode of transmission
CPT/HCPCS: 87491; 87591; 87624; 87661; 88175

== ENCOUNTER 2024-01-12 08:59 | Outpatient (REF) | payer MEDICAID, SELFPAY ==
--- NOTE | ~2024-01-12 | MM_ITS ---
EXAMINATION: MM SCREENING DIGITAL BREAST TOMOSYNTHESIS, BILATERAL CLINICAL INFORMATION: Screening. Asymptomatic. COMPARISON: Mammography: Comparison is made with available priors TECHNIQUE: Digital breast mammography with tomosynthesis is performed in both the craniocaudal and mediolateral oblique views along with computer-aided detection (CAD). FINDINGS: The breasts are extremely dense, which lowers the sensitivity of mammography (ACR BI-RADS breast composition Category d). There are no significant masses, abnormal calcifications, or other abnormalities. MM/MM tomosynthesis screening BI IMPRESSION: No mammographic evidence of malignancy. ASSESSMENT: BI-RADS BI-RADS 1 - Negative RECOMMENDATION: Routine annual mammography screening. 1 year F/U This examination should not preclude the clinical evaluation of a suspicious palpable abnormality. This patient's information was entered into a reminder system with a target due date for their next mammogram. Electronically signed by: Gianna Hou DO 01/21/2024 12:59 PM CAIN
== END 2024-01-12 09:00 | disposition home or self-care (01) ==
LOC: HO.MAMMO 08:59
PROVIDERS: PCP Family Medicine; Visit Provider Family Medicine
DX: Z12.31 Encounter for screening mammogram for malignant neoplasm of breast (principal)
CPT/HCPCS: 77063; 77067

== ENCOUNTER → 2024-01-12 09:30 | Outpatient (BNV) | payer MEDICAID, SELFPAY | PROVIDERS: PCP Family Medicine; Visit Provider Internal Medicine | DX: Z12.31 Encounter for screening mammogram for malignant neoplasm of breast (principal) | CPT/HCPCS: 77063; 77067 ==

== ENCOUNTER 2024-05-07 15:26 | Emergency (ER) | payer MEDICAID, SELFPAY ==
--- NOTE | ~2024-05-07 | CT_ITS ---
CLINICAL HISTORY: flank pain. Kidney stones? CT abdomen and pelvis without contrast Comparison: CT/SR - CHEST WITH IV CONTRAST [id number] - 08/19/17 10:[address]/SR - ABD PELVIS WITH CONT [id number] - 05/08/15 16:44 EST Findings: The prior CT reports are not available for review. Examination is limited by without contrast. Opacity of the bilateral lung base. Liver, Pancreas, Spleen and both adrenals show normal size, shape and attenuation on present unenhanced scan. No CBD dilatation. No calcified gallstone in the gallbladder. Both kidneys reveal normal in size, shape, position and attenuation. There are stones in the bilateral renal pelvis. Mild dilation of the right renal pelvis is unchanged from prior examination. The IVC, aorta and portal vein are within normal position and caliber. No evidence of retroperitoneal lymphadenopathy or ascites. Small calcification of the pelvis are likely to be phleboliths. The visible parts of the bowel loops show no obvious mass lesions or wall thickening. Appendix appears normal. Urinary bladder reveals normal lumen and neumann. The pelvic organs are unremarkable. Prosthesis in the right femur. IMPRESSION: There are nonobstructing bilateral renal calculi. Stable mild hydronephrosis of the right kidney. Opacity of the bilateral lung base concerning for pneumonia. Clinical correlation is recommended. This document has been electronically signed by: Leanne Church MD on 05/07/2024 18:45:40
[2024-05-07 15:30] VITALS: BP 133/88; PULSE 86; RESP 16; TEMP 36.2; O2SAT 100; BMI 20.1
--- NOTE | 2024-05-07 15:37 | ED.GENADULT ---
HPI - General Adult General Chief complaint: Abdominal Pain Stated complaint: quest kidney stone Time Seen by Provider: 05/07/24 19:49 Source: patient, RN notes reviewed and old records reviewed Mode of arrival: ambulatory Limitations: no limitations History of Present Illness ED Provider: Luis Eduardo ASENCIO narrative: 44-year-old female presents for evaluation of right flank pain and blood in her urine. Patient reports her symptoms started this morning. She endorses urinary urgency and then reports urinating blood. She states he has happened once a little over year ago that self resolved. The patient reports a her right flank pain has also resolved. She has no nausea vomiting or diarrhea. She reports a remote history of kidney stones she reports that her last pelvic exam was about a month ago everything was normal. She also reports that she recently changed from Depo-Provera contraception to topical patch contraception that she started today denies any fevers, chills. She has a history of sarcoidosis and receives injections monthly at [facility]. She denies any cough, shortness of breath Related Data Previous Rx's ?Medication ?Instructions ?Recorded oxycodone-acetaminophen 5 mg-325 1 tab PO Q6H PRN pain #20 tabs 01/15/ mg tablet (Percocet) albuterol sulfate 90 mcg/actuation 2 puff inhalation Q4-6H PRN 12/28/23 aerosol inhaler shortness of breath or wheezing #6.7 grams azithromycin 250 mg tablet See Rx Instructions PO .COMPLEX #6 12/28/23 tabs cefpodoxime 200 mg tablet 200 mg PO BID 7 days #14 tabs 12/28/23 ondansetron HCl 4 mg tablet 4 mg PO BID #14 tabs 12/30/23 phenazopyridine 200 mg tablet 200 mg PO TID PRN pain 6 doses #6 05/07/24 (Pyridium) tabs Allergies Allergy/AdvReac Type Severity Reaction Status Date / Time tramadol Allergy Unknown nausea and Verified 05/07/24 15:32 vomiting Review of Systems Constitutional: Constitutional: Denies body ache(s), Denies chills and Denies fever(s) Eyes: Eyes: Denies blurry vision ENT: Denies vertigo Cardiovascular: Cardiovascular: Denies chest pain Gastrointestinal: Gastrointestinal: Reports abdominal pain, Denies nausea and Denies vomiting Genitourinary: Genitourinary: Reports hematuria, Denies dysuria, Denies pelvic pain and Reports urinary urgency Musculoskeletal: Musculoskeletal: Reports back pain Integumentary/Breasts: Skin/Breast: Denies rash Neurologic: Denies vertigo Psychiatric: Psychiatric: Denies anxiety PMFSH Past Medical History Medical History Sarcoidosis Physical Exam ED Vital Signs: Vital Signs - 24 hr 05/07/24 20:27 05/07/24 20:31 Temperature 98.1 F 98.1 F Pulse Rate 78 78 Respiratory Rate 16 16 Blood Pressure 117/74 117/74 Pulse Oximetry 98 98 Oxygen Delivery Method Room Air Room Air BMI result Body Mass Index 20.1 Const General: healthy appearing, comfortable, no acute distress, alert and awake Nutritional Appearance: well nourished Orientation/consciousness: patient oriented x3 HENMT Head: Yes normocephalic and Yes atraumatic Eyes Eyelids: Yes eyelids normal Conjunctivae: conjunctivae normal Sclerae: sclerae normal Corneas: corneas normal Pupils: Equal, round and reactive pupils present EOM: EOMs intact bilaterally Neck Neck: Yes full ROM Resp Effort & Inspection: normal respiratory effort, able to speak in complete sentences, no audible wheezes and not labored Auscultation: clear to auscultation bilaterally GI Inspection: No distended Palpation (GI): Soft to palpation, not firm, nontender, no guarding and not rigid Skin General skin exam: elasticity normal Neuro General: patient oriented x3 Cranial nerves: Yes Equal, round and reactive pupils present and Yes Bilaterally intact EOM present Cognition (Neuro): normal cognition Extrem Other: Moving all extremities well without any obvious deformities Course Course Course Narrative: RME: 44-year-old female presents to ED right-sided flank pain with hematuria with history <del>of</del> <del>kidney</del> <del>stones</del>. Labs UA ordered. Medications Administered Discontinued Medications Generic Name Dose Route Start Last Admin Trade Name Freq PRN Reason Stop Dose Admin Phenazopyridine HCl 200 mg 05/07/24 20:19 05/07/24 20:29 Phenazopyridine Hcl 200 Mg Tablet PO 05/07/24 20:20 200 mg ONCE ONE Administration Medical Decision Making Medical Decision Making MDM Narrative: 44-year-old female presents for evaluation of flank pain and blood in the urine. Her symptoms started this morning. She does have a mild anemia with a normal hemoglobin and this is a normocytic anemia, there is no left shift. patient's chemistries have no significant abnormalities. Urinalysis has blood but no evidence of infection. patient had a CT scan of the abdomen pelvis that showed no evidence of obstructive uropathy, hydronephrosis or perinephric fat stranding. The lungs showed opacities concerning for pneumonia. However the patient has a known history of sarcoidosis, no symptoms of pneumonia, this is likely a chronic /incidental finding. We will defer antibiotic treatment at this time. the patient is reports a recent pelvic exam with her primary. We will have the urology for likely cystoscopy due to the hematuria. She will be prescribed Pyridium for discomfort and urgency Differential Diagnosis Differential Diagnoses: The differential diagnosis associated with the presentation includes hematuria Cystitis Bladder mass Obstructive uropathy Pneumonia less likely Lab Data MDM Lab Attestation statement: I reviewed the patient's lab results. as above 05/07/24 15:59 05/07/24 15:59 Labs: Lab Results 05/07/24 Range/Units 15:59 WBC 7.2 (4.8-10.8) X10*3/uL RBC 4.19 L (4.20-5.50) X10*6/uL Hgb 12.4 (12.0-16.0) g/dl Hct 35.8 L (37.0-47.0) % MCV 85.4 (80.0-98.0) fL MCH 29.6 (27.0-33.0) pg MCHC 34.6 (31.0-35.0) g/dl RDW 13.8 (11.0-16.0) % Plt Count 303 (160-400) X10*3/uL MPV 9.7 (9.4-12.3) fL Immature Gran % (Auto) 0.3 (0.0-0.4) % Neut % (Auto) 48.3 (45-73) % Lymph % (Auto) 39.1 (20-40) % [place] % (Auto) 9.8 (2-11) % Eos % (Auto) 1.8 (0-4) % Baso % (Auto) 0.7 (0-2) % Lymph # (Auto) 2.8 (1.2-4.9) X10*3/uL [place] # (Auto) 0.7 (0.1-1.2) X10*3/uL Eos # (Auto) 0.1 (0.0-0.4) X10*3/uL Baso # (Auto) 0.1 (0.0-0.2) X10*3/uL Abs Immat Gran (auto) 0.02 (0.00-0.03) X10*3/uL Absolute Neuts (auto) 3.5 (2.0-8.3) x10*3/uL Absolute Nucleated RBC 0.000 (0.0-0.012) X10*3/uL Nucleated RBC % (auto) 0.0 (0.0-0.2) /100WBC PT 11.1 (10.9-12.4) SEC INR 1.0 (0.9-1.1) APTT 30.4 (26.0-36.8) SEC Sodium 142 (135-145) mmol/L Potassium 3.4 (3.3-5.1) mmol/L Chloride 108 (96-108) mmol/L Carbon Dioxide 25 (22-29) mmol/L Anion Gap 12 (12-20) BUN 9 (9-16) mg/dL Creatinine 0.65 (0.5-1.4) mg/dL Estim Creat Clear Calc 77.6 Estimated GFR > 60 Random Glucose 94 (60-115) mg/dL Calcium 9.5 (8.4-10.2) mg/dL Total Bilirubin 0.3 (0.0-1.0) mg/dL AST 23 (5-31) U/L ALT 16 (0-31) U/L Alkaline Phosphatase 86 (39-117) U/L Total Protein 8.6 H (6.5-8.0) g/dL Albumin 4.5 (3.5-5.0) g/dL Beta HCG, Quant < 2 mIU/mL Urine Color RED Urine Appearance Turbid Urine pH 6.5 (5.0-9.0) Ur Specific [place] 1.025 (1.005-1.025) Urine Protein 300 (3+) H (Neg-Trace) mg/dL Urine Glucose (UA) Negative (Negative) mg/dL Urine Ketones Negative (Negative) mg/dL Urine Blood Large (3+) H (Negative) Urine Nitrite Negative (Negative) Ur Leukocyte Esterase Negative (Negative) Urine RBC >20 H (0-2) /HPF Urine WBC 0-5 (0-5) /HPF Ur Squamous Epith Cells 0-2 (0-2) /HPF Urine Bacteria None Seen (None Seen) Hyaline Casts 0-2 (0-2) /LPF Urine Test NEGATIVE (NEGATIVE) Independent Interpretation I performed an independent interpretation of an: Plain X-Ray Interpretation: agree with Radiology interpretation Radiology Impression Discussion of test interpretation with radiology: I have reviewed the radiologist's reading. Radiologist Impression: IMPRESSION: There are nonobstructing bilateral renal calculi. Stable mild hydronephrosis of the right kidney. Opacity of the bilateral lung base concerning for pneumonia. Clinical correlation is recommended. This document has been electronically signed by: Leanne Church MD on 05/07/2024 18:45:40 Discharge Plan Discharge Clinical Impression: Hematuria Patient Disposition: Home, Self-Care Instructions: Hematuria (ED) Additional Instructions: your workup in the ER today was reassuring. Your urinalysis did show blood but no evidence of infection. Your CT scan showed no findings concerning on your CT scan you did have some inflammation in your lungs it was likely related to your sarcoidosis follow-up with Urology, Dr. Merino at the number provided. You may use Pyridium as needed for help with pain with urination Prescriptions: New phenazopyridine [Pyridium] 200 mg tablet 200 mg PO TID PRN (Reason: pain) Qty: 6 0RF No Action oxycodone-acetaminophen [Percocet] 5-325 mg tablet 1 tab PO Q6H PRN (Reason: pain) Qty: 20 0RF azithromycin 250 mg tablet See Rx Instructions .ROUTE .COMPLEX Qty: 6 0RF Rx Instructions: take 500 mg today (day 1), then 250 mg for 4 days (days 2-5) albuterol sulfate 90 mcg/actuation HFA aerosol inhaler 2 puff inhalation Q4-6H PRN (Reason: shortness of breath or wheezing) Qty: 6.7 0RF cefpodoxime 200 mg tablet 200 mg PO BID 7 Days Qty: 14 0RF Rx Instructions: must administer with a meal/food ondansetron HCl 4 mg tablet 4 mg PO BID Qty: 14 0RF Rx Instructions: take before ingesting your antibiotics Referrals: Elliott Merino MD [Physician] - (hematuria) Stand Alone Forms: Work/School Release Interventions: ED Discharge Assessment Last Done: 05/07/24 20:31 Discharge Date/Time: 05/07/24 20:34 Print Language: [place]
[2024-05-07 16:04] LABS: MANUAL DIFF FLAG NO
[2024-05-07 16:05] LABS: Basophils Absolute Auto 0.1 X10*3/uL (0.0-0.2); Basophils Percent Auto 0.7 % (0-2); Eosinophils Absolute Auto 0.1 X10*3/uL (0.0-0.4); Eosinophils Percent Auto 1.8 % (0-4); Hematocrit 35.8 % (37.0-47.0); Hemoglobin 12.4 g/dl (12.0-16.0); Imm Gran Abs Auto 0.02 X10*3/uL (0.00-0.03); Imm Gran Pct Auto 0.3 % (0.0-0.4); Lymphocytes Absolute Auto 2.8 X10*3/uL (1.2-4.9); Lymphocytes Percent Auto 39.1 % (20-40); Mean Corpuscular HGB Conc 34.6 g/dl (31.0-35.0); Mean Corpuscular Hemoglobin 29.6 pg (27.0-33.0); Mean Corpuscular Volume 85.4 fL (80.0-98.0); Mean Platelet Volume 9.7 fL (9.4-12.3); Monocytes Absolute Auto 0.7 X10*3/uL (0.1-1.2); Monocytes Percent Auto 9.8 % (2-11); Neutrophils Absolute Auto 3.5 x10*3/uL (2.0-8.3); Neutrophils Percent Auto 48.3 % (45-73); Platelet Count 303 X10*3/uL (160-400); Red Blood Count 4.19 X10*6/uL (4.20-5.50); Red Cell Distribution Width 13.8 % (11.0-16.0); White Blood Count 7.2 X10*3/uL (4.8-10.8)
[2024-05-07 16:17] LABS: Appearance Urine Turbid; Glucose Urine UA Negative (Negative); Leukocyte Esterase Urine Negative (Negative); Nitrite Urine Negative (Negative); PH 6.5 (5.0-9.0); Specific Gravity - Urine 1.025 (1.005-1.025); UMIC TRIGGER UACC YES; Urine Blood Large (3+) (Negative); Urine Ketones Negative (Negative); Urine Protein 300 (3+) mg/dL (Neg-Trace)
[2024-05-07 16:24] LABS: Color Urine RED
[2024-05-07 16:26] LABS: RBC Urine >20 /HPF (0-2); WBC Urine 0-5 /HPF (0-5)
[2024-05-07 16:27] LABS: Bacteria Urine None Seen (None Seen); Hyaline Casts Urine 0-2 /LPF (0-2); Squamous Epithelial Cell Urine 0-2 /HPF (0-2); UPreg QC Valid YES; Urine Pregnancy NEGATIVE (NEGATIVE)
[2024-05-07 16:33] LABS: Prothrombin Time 11.1 SEC (10.9-12.4)
[2024-05-07 16:35] LABS: Partial Thromboplastin Time 30.4 SEC (26.0-36.8)
[2024-05-07 16:51] LABS: Alanine Aminotransferase 16 U/L (0-31); Albumin Level 4.5 g/dL (3.5-5.0); Alkaline Phosphatase 86 U/L (39-117); Anion Gap 12 (12-20); Aspartate Amino Transferase 23 U/L (5-31); Bilirubin Total 0.3 mg/dL (0.0-1.0); Blood Urea Nitrogen 9 mg/dL (9-16); Calcium 9.5 mg/dL (8.4-10.2); Carbon Dioxide 25 mmol/L (22-29); Chloride 108 mmol/L (96-108); Creatinine Clr Calc Pharmacy 77.6; Estimated Glomerular Filt Rate > 60; Glucose Random 94 mg/dL (60-115); Potassium 3.4 mmol/L (3.3-5.1); Sodium 142 mmol/L (135-145); Total Protein 8.6 g/dL (6.5-8.0)
[2024-05-07 16:54] LABS: HCG Quantitative < 2 mIU/mL
--- OUTSIDE RECORDS SUMMARY | 2024-05-07 20:17 | XMS_ITS | Encounter Summary ---
Author Organization [employer] Address [address] [facility] [address] [place] [address] Care Team Providers Care Drafting Clerk Name Role Phone Marzena Loo MD Primary Care Provider [phone] Vicky Ibarar MD Unavailable + [phone] Encounter Details Date Type Department Care Team (Late st Contact Info) Description 05/07/2024 Orders Only GENERIC EXTERNAL DATA DEPARTMENT Provider, Generic External Data Social History Tobacco Use Types Packs/Day Years Used Date Smoking Tobacco: Former Cigarettes Q uit: 2020 Smokeless Tobacco: Never Alcohol Use Standard Drinks/Week Comments Never 0 (1 standard drink = 0.6 oz pur e alcohol) Depression Answer Date Recorded Patient Health Questionnaire-9 Score 3 01/12/2024 Patient Health Questionnaire-9 Score 3 01/12/2024 Last PHQ-9: Questionnaire Data Not on file 1 03/13/2023 Housing Stability Answer Date Recorded What is your housing situation today? I have dean figueroa 01/12/[address] you li ve. Do you have problems with any of the following? I am not sure 01/12/2024 Food Insecurity Answer Date Recorded Within the past 12 months, y ou worried that your food would run out before you got money to buy more: Never True 2023 Within the past 12 months,th e food you bought just didn't last and you didn't have enough money to get more: Sometimes True 01/12/2024 Transportation Answer Date Recorded In the past 12 months, has l ack of transportation kept you from medical appts, meetings, work or from getting things needed for daily living? No 01/12/2024 Utilities Answer Date Recorded In the past 12 months, has t he electric, gas, oil or water [employer] threatened to shut off services in your home? I am not sure 01/12/2024 Depression Answer Date Recorded Patient Health Questionnaire-2 Score 1 01/12/2024 Internet Access Answer Date Recorded Internet Access Q1 No 01/12/2024 Internet Access Q2 Not on file 01/12/2024 Comments No Sex and Gender Information Value Date Recorded Sex Assigned at Female 01/05/2022 10:15 AM EDT Legal Sex Female 10:15 AM EDT Gender Identity Female 01/05/2022 10:15 AM EDT Sexual Orientation Straight 01/05/2022 10 :15 AM EDT documented as of this encounter Plan of Treatment Not on file documented as of this encounter Procedures Procedure Name Priority Date/Time Associated Diagnosis Comments CT ABDOMEN PELVIS WO CONTRAST Routine 05/07/2024 6:45 PM EST URINALYSIS, COMPLETE, WITH REFLEX TO CULTURE Routine 05/07/2024 3:59 PM EST CBC WITH AUTO DIFFERENTIAL Routine 05/07/2024 3:59 PM EST HCG, QL, URINE Routine 05/07/2024 3:59 PM EST APTT Routine 05/07/2024 3:59 PM EST PROTHROMBIN TIME-INR Routine 05/07/2024 3:59 PM EST HCG, TOTAL, QN Routine 05/07/2024 3:59 PM EST COMPREHENSIVE METABOLIC PANEL Routine 05/07/2024 3:59 PM EST documented in this encounter Results * CT Abdomen Pelvis w/o Contrast (05/07/2024 6:45 PM EST) Anatomical Region Laterality Modality Body, Pelvis, Abdomen Computed T omography 05/07/2024 6:45 PM EST Narrative 05/07/2024 6:47 PM EST ? [facility] ?[address] ?[place] [address] ? CT Scan Report ? Signed ? Patient: Lew Daljit,Leila A ?MR#: ?? [id number] ? : 1980 ?Acct:[id number] ? Age/Sex: 44 / F ?ADM Date: 05/07/24 ? Loc: HO.ED ? Attending Dr: ? Ordering Physician: Jose Antonio Mills ?? Date of Service: 05/07/24 ?? Procedure(s): CT abdomen pelvis wo IV con ?? Accession Number(s): [id number] ? cc: Jose Antonio Mills; Marzena Loo MD ? Report Number: ?? [id number]: Total DLP = ??278.00 mGy-cm ? CLINICAL HISTORY: flank pain. Kidney stones? CT abdomen and pelvis without contrast ? Comparison: CT/SR - CHEST WITH IV CONTRAST [id number] - 08/19/17 10:11 EDT ?? CT/SR - ABD PELVIS WITH CONT [id number] - 05/08/15 16:44 EST ? Findings: The prior CT reports are not available for review. ?? Examination is limited by without contrast. ? Opacity of the bilateral lung base. ? Liver, Pancreas, Spleen and both adrenals show normal size, shape and ?? attenuation on present unenhanced scan. No CBD dilatation. ? No calcified gallstone in the gallbladder. ? Both kidneys reveal normal in size, shape, position and attenuation. There ?? are stones in the bilateral renal pelvis. Mild dilation of the right renal ?? pelvis is unchanged from prior examination. ? The IVC, aorta and portal vein are within normal position and caliber. No ?? evidence of retroperitoneal lymphadenopathy or ascites. Small ?? calcification of the pelvis are likely to be phleboliths. ? The visible parts of the bowel loops show no obvious mass lesions or wall ?? thickening. Appendix appears normal. ? Urinary bladder reveals normal lumen and neumann. ? The pelvic organs are unremarkable. ? Prosthesis in the right femur. ? IMPRESSION: ?? There are nonobstructing bilateral renal calculi. Stable mild ?? hydronephrosis of the right kidney. ?? Opacity of the bilateral lung base concerning for pneumonia. Clinical ?? correlation is recommended. ? This document has been electronically signed by: Leanne Church MD on ?? 05/07/2024 18:45:40 ? Dictated By: ?Leanne Church MD ? Signed By: ?<Electronically signed by Leanne Church MD in OV> ? 05/07/241845 ? DD/ 44 ? TD/TT: 05/07/24 1845 ? Financial Aid Manager: ? Procedure Note Donotuseinterpreter, Image - 05/07/[address] [place] [id number] [address] Scan Report Signed Patient: Leila Fernandez [facility]#: [id number] : 1980Acct:[id number] Age/Sex: 44 / FADM Date: 05/07/24 Loc: HO.ED Attending Dr: Ordering Physician: Jose Antonio Mills Date of Service: 05/07/24 Procedure(s): CT abdomen pelvis wo IV con Accession Number(s): [id number] cc: Jose Antonio Mills; Marzena Loo MD Report Number: [id number]: Total DLP = 278.00 mGy-cm CLINICAL HISTORY: flank pain. Kidney stones? CT abdomen and pelvis without contrast Comparison: CT/SR - CHEST WITH IV CONTRAST [id number] - 08/19/17 10:[address]/SR - ABD PELVIS WITH CONT [id number] - 05/08/15 16:44 EST Findings: The prior CT reports are not available for review. Examination is limited by without contrast. Opacity of the bilateral lung base. Liver, Pancreas, Spleen and both adrenals show normal size, shape and attenuation on present unenhanced scan. No CBD dilatation. No calcified gallstone in the gallbladder. Both kidneys reveal normal in size, shape, position and attenuation. There are stones in the bilateral renal pelvis. Mild dilation of the right renal pelvis is unchanged from prior examination. The IVC, aorta and portal vein are within normal position and caliber. No evidence of retroperitoneal lymphadenopathy or ascites. Small calcification of the pelvis are likely to be phleboliths. The visible parts of the bowel loops show no obvious mass lesions or wall thickening. Appendix appears normal. Urinary bladder reveals normal lumen and neumann. The pelvic organs are unremarkable. Prosthesis in the right femur. IMPRESSION: There are nonobstructing bilateral renal calculi. Stable mild hydronephrosis of the right kidney. Opacity of the bilateral lung base concerning for pneumonia. Clinical correlation is recommended. This document has been electronically signed by: Leanne Church MD on 05/07/2024 18:45:40 Dictated By: Leanne Church MD Signed By: <Electronically signed by Leanne Church MD in OV> 05/07/241845 DD/ 44 TD/TT: 05/07/241844 Financial Aid Manager: [facility] External Provider IMG CT PROCEDURES Edited Result - Final * hCG, Total, Quantitative (05/07/2024 3:59 PM EST) HCG Quantitative <2 mIU/mL [facility] Comment:Weeks post LMP Appro ximate hCG(Last Menstrual Period) Range (mIU/ml)3 - 4 weeks 9 - 1304 - 5 weeks 75 - 2,6005 - 6 weeks 850 - 20,8006 - 7 weeks 4000 - 100,2007 - 12 weeks 11,500 - 289,27787 - 16 weeks 18,300 - 137,71638 - 29 weeks (2nd trimester) 1,400 - 53,17274 - 41 weeks (3rd trimester) 940 - 60,000The Arthur B- hCG assay is used for the early detection ofpregnancy; it cannot be used to diagnose any conditionunrelated to . If a B-hCG level is not supportedby the clinical evidence, results should be confirmed by analternative method (qualitative urine hCG, for example). 05/07/2024 3:59 PM EST 05/07/2024 4:03 PM EST Generic External Data Provider LAB BLOOD ORDERAB LES Final Result [facility] [address] [place] [phone] * (ABNORMAL) Comprehensive Metabolic Panel (05/07/2024 3:59 PM EST) Sodium 142 135 - 145 mmol/L [facility] Potassium 3.4 3.3 - 5.1 mmol/L [facility] Chloride 108 96 - 108 mmol/L [facility] Carbon Dioxide 25 22 - 29 mmol/L [facility] Anion Gap 12 12 - 20 [facility] Urea Nitrogen (BUN) 9 9 - 16 mg/dL [facility] Creatinine, Serum 0.65 0.5 - 1.4 mg/dL [facility] Creatinine Clr Calc Pharmacy 77.6 [facility] Comment:Provided height and weight: 152.4 cm,46.8 kg.eGFR (calculated from the MDRD study equation) and eCrCl(calculated from the Cockcroft-Gault equation) are based ondifferent parameters and may not yield comparable results.If eCrCl result is absurd, please check patient'sheight/weight. Estimated Glomerular Filt Rate >60 [facility] Comment:Chronic Kidney Disea se: Estimated GFR < 60 mL/min/1.64i0Pfhfci Kidney Disease: Estimated GFR < 15 mL/min/1.73m2 Glucose 94 60 - 115 mg/dL [facility] Calcium 9.5 8.4 - 10.2 mg/dL [facility] Bilirubin, Total 0.3 0.0 - 1.0 mg/dL [facility] Aspartate Amino Transferase 23 5 - 31 U/L [facility] Alanine Aminotransferase 16 0 - 31 U/L [facility] Total Protein 8.6(H) 6.5 - 8.0 g/dL [facility] Albumin Level 4.5 3.5 - 5.0 g/dL [facility] Alkaline Phosphatase 86 39 - 117 U/L [facility] 05/07/2024 3:59 PM EST 05/07/2024 4:03 PM EST us Generic External Data Provider LAB BLOOD ORDERAB LES Final Result [facility] [address] [place] [address] [phone] * Partial Thromboplastin Time, Activated (APTT) (05/07/2024 3:59 PM EST) Partial Thromboplastin Time 30.4 26.0 - 36.8 SEC [facility] Comment:For information rega rding the monitoring of direct thrombininhibitors, please refer to Pharmacy. 05/07/2024 3:59 PM EST 05/07/2024 4:03 PM EST Generic External Data Provider LAB BLOOD ORDERAB LES Final Result Performing Organization Address [facility] Co de Phone Number [facility] [address] [place] [phone] * Prothrombin Time-INR (05/07/2024 3:59 PM EST) [facility] Prothrombin Time 11.1 10.9 - 12.4 SEC [facility] INTERNATIONAL NORM RATIO 1.0 0.9 - 1.1 [facility] Comment:INTERNATIONAL NORMAL IZED RATIO (INR) REFERENCE RANGES Reference RangeFor patients not on anticoagulant therapy: 0.9 - 1.1INR ranges for oral anticoagulanttherapy:For prevention and treatment of venous thrombosis and pulmonary embolism: 2.0 - 3.0For acute myocardial infarction with aspirin therapy: 2.0 - 3.0For acute myocardial infarction without aspirin therapy: 3.0 - 4.0For patients with mechanical prosthetic heart valves: 2.5 - 3.5 05/07/2024 3:59 PM EST 05/07/2024 4:03 PM EST [email or web address] External Data Provider LAB BLOOD ORDERAB LES Final Result Performing Organization Address [facility] de Phone Number [facility] [address] [place] [phone] * HCG, Qualitative, Urine (05/07/2024 3:59 PM EST) Pathologist [facility] Urine NEGATIVE NEGATIVE [facility] Comment:This test was develo ped to detect early . Falsenegative results may occur after the 5th - 7th week ofpregnancy when using this test method. If clinicallyindicated, consider a serum hCG. 05/07/2024 3:59 PM EST 05/07/2024 4:27 PM EST us Generic External Data Provider LAB URINE ORDERAB LES Final Result Performing Organization Address City/[facility]/ZIP Co de Phone Number [facility] [address] [place] [phone] * (ABNORMAL) Urinalysis, Complete, with Reflex to Culture (05/07/2024 3:59 PM EST) Color Urine RED [facility] Comment:Dipstick performed o n centrifuged urine. Results may notcorrelate with microscopic values. Appearance Urine Turbid [facility] PH 6.5 5.0 - 9.0 [facility] Glucose Urine UA Negative Negative mg/dL [facility] Urine Blood Large (3+)(A) Negative [facility] Specific [place] - Urine 1.025 1.005 - 1.025 [facility] Urine Protein 300 (3+)(A) Neg-Trace mg/dL [facility] Urine Ketones Negative Negative mg/dL [facility] Nitrite Urine Negative Negative [facility] Leukocyte Esterase Urine Negative Negative [facility] RBC Urine >20(A) 0 - 2 /HPF [facility] Urine WBC 0-5 0 - 5 /HPF [facility] Urine Squamous Epithelial Cell 0-2 0 - 2 /HPF [facility] Urine Bacteria None Seen None Seen [facility] Hyaline Casts, Urine 0-2 0 - 2 /LPF [facility] 05/07/2024 3:59 PM EST 05/07/2024 4:03 PM EST Narrative [facility] - 05/07/2024 4:27 PM EST [id number], Clean Catch us Generic External Data Provider LAB URINE ORDERAB LES Final Result Performing Organization Address [facility]/ZIP Co de Phone Number [facility] [address] [place] [phone] * (ABNORMAL) CBC auto differential (05/07/2024 3:59 PM EST) White Blood Count 7.2 4.8 - 10.8 X10*3/uL [facility] Red Blood Count 4.19(L) 4.20 - 5.50 X10*6/uL [facility] Hemoglobin 12.4 12.0 - 16.0 g/dl [facility] Hematocrit 35.8(L) 37.0 - 47.0 % [facility] Mean Corpuscular Volume 85.4 80.0 - 98.0 fL [facility] Mean Corpuscular Hemoglobin 29.6 27.0 - 33.0 pg [facility] Mean Corpuscular HGB Conc 34.6 31.0 - 35.0 g/dl [facility] Red Cell Distribution Width 13.8 11.0 - 16.0 % [facility] Platelet Count 303 160 - 400 X10*3/uL [facility] Mean Platelet Volume 9.7 9.4 - 12.3 fL [facility] Neutrophils Percent Auto 48.3 45 - 73 % [facility] Imm Gran Pct Auto 0.3 0.0 - 0.4 % [facility] Lymphocytes Percent Auto 39.1 20 - 40 % [facility] Monocytes Percent Auto 9.8 2 - 11 % [facility] Eosinophils Percent Auto 1.8 0 - 4 % [facility] Basophils Percent Auto 0.7 0 - 2 % [facility] NRBC Pct Auto 0.0 0.0 - 0.2 /100WBC [facility] Neutrophils Absolute Auto 3.5 2.0 - 8.3 x10*3/uL [facility] Imm Gran Abs Auto 0.02 0.00 - 0.03 X10*3/uL [facility] Lymphocytes Absolute Auto 2.8 1.2 - 4.9 X10*3/uL [facility] Monocytes Absolute Auto 0.7 0.1 - 1.2 X10*3/uL [facility] Eosinophils Absolute Auto 0.1 0.0 - 0.4 X10*3/uL [facility] Basophils Absolute Auto 0.1 0.0 - 0.2 X10*3/uL [facility] NRBC Abs Auto 0.000 0.0 - 0.012 X10*3/uL [facility] 05/07/2024 3:59 PM EST 05/07/2024 4:03 PM EST us Generic External Data Provider LAB BLOOD ORDERAB LES Final Result [facility] [address] [place] [phone] documented in this encounter Visit Diagnoses Not on filedocumented in this encounter Additional Health Concerns Assessment Noted Time PHQ-9 Depression Total Score: 3 01/12/20 24 12:28 PM EST documented as of this encounter Care Teams Drafting Clerk Relationship Specialty Start Date End Date Marzena Loo MD [address] [place] [phone] PCP - General Family Medicine 03/08/18 Vicky Ibarra MD [address] [place] [phone] Neurology 03/16/24 Dr. Erick Pitts [facility] Pulmonology [address] [place] [phone] Pulmonary Disease 03/16/24 [facility] [address] [facility] [phone] Optometry 03/16/24 documented as of this encounter
--- OUTSIDE RECORDS SUMMARY | 2024-05-07 20:17 | XMS_ITS | Clinical Summary ---
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 eligible based on patient's age to complete this topic Pneumococcal Vaccine: Pediatrics (0 to 5 Years) and At-Risk Patients (6 to 49) Years) Aged Out No longer eligible based on patient's age to complete this topic RSV under 20 months Aged Out No longe r eligible based on patient's age to complete this topic Rotavirus Vaccines Aged Out No longer eligible based on patient's age to complete this topic Procedures Procedure Name Priority Date/Time Associated Diagnosis Comments CT ABDOMEN PELVIS WO CONTRAST Routine 05/07/2024 6:45 PM EST HCG, TOTAL, QN Routine 05/07/2024 3:59 PM EST COMPREHENSIVE METABOLIC PANEL Routine 05/07/2024 3:59 PM EST APTT Routine 05/07/2024 3:59 PM EST PROTHROMBIN TIME-INR Routine 05/07/2024 3:59 PM EST HCG, QL, URINE Routine 05/07/2024 3:59 PM EST URINALYSIS, COMPLETE, WITH REFLEX TO CULTURE Routine 05/07/2024 3:59 PM EST CBC WITH AUTO DIFFERENTIAL Routine 05/07/2024 3:59 PM EST BI MAMMOGRAM SCREENING TOMOSYNTHESIS BILATERAL Routine 01/12/2024 9:30 AM EST Screening mammogram for breast cancer PAP SMEAR Routine 01/12/2024 12:00 AM EST Cervical cancer screening HEPATITIS PANEL, GENERAL Routine 10/16/2022 12:24 PM EDT Alopecia areata HIV ANTIBODY/ANTIGEN ([place] [facility]) Routine 10/16/2022 12:24 PM EDT from Last 3 Months or Most Recently Relevant to Health Maintenance Results * CT Abdomen Pelvis w/o Contrast (05/07/2024 6:45 PM EST) Anatomical Region Laterality Modality Body, Pelvis, Abdomen Computed T omography 05/07/2024 6:45 PM EST Narrative 05/07/2024 6:47 PM EST ? [facility] ?[address] ?[place] [address] ? CT Scan Report ? Signed ? Patient: Lew Daljit,Leila A ?MR#: ?? [id number] ? : 1980 ?Acct:[id number] ? Age/Sex: 44 / F ?ADM Date: 05/07/24 ? Loc: HO.ED ? Attending Dr: ? Ordering Physician: Jose Antonio Mills ?? Date of Service: 05/07/24 ?? Procedure(s): CT abdomen pelvis wo IV con ?? Accession Number(s): [id number] ? cc: Jose Antonio Mills; Marzena Loo MD ? Report Number: ?? [id number]: Total DLP = ??278.00 mGy-cm ? CLINICAL HISTORY: flank pain. Kidney stones? CT abdomen and pelvis without contrast ? Comparison: CT/SR - CHEST WITH IV CONTRAST [id number] - 08/19/17 10:[address]T ?? CT/SR - ABD PELVIS WITH CONT [id number] - 05/08/15 16:44 EST ? Findings: The [...] DD/ 44 ? TD/TT: 05/07/24 1845 ? Sports Medicine Physician: ? Procedure Note Donotuseinterpreter, Image - 05/07/[address] [place] [id number] [address] Scan Report Signed Patient: Leila Fernandez AMR#: [id number] : 1980Acct:[id number] Age/Sex: 44 / FADM Date: 05/07/24 Loc: HO.ED Attending Dr: Ordering Physician: Jose Antonio Mills Date of Service: 05/07/24 Procedure(s): CT abdomen pelvis wo IV con Accession Number(s): [id number] cc: Jose Antonio Mills; Marzena Loo MD Report Number: [id number]: Total DLP = 278.00 mGy-cm CLINICAL HISTORY: flank pain. Kidney stones? CT abdomen and pelvis without contrast Comparison: CT/SR - CHEST WITH IV CONTRAST [id number] - 08/19/17 10:[address]/SR - ABD PELVIS WITH CONT [id number] - 05/08/15 16:44 EST Findings: The prior [...] in OV> 05/07/241845 DD/ 44 TD/TT: 05/07/241844 Sports Medicine Physician: us [facility] External Provider IMG CT PROCEDURES Edited Result - Final * (ABNORMAL) Urinalysis, Complete, with Reflex to Culture (05/07/2024 3:59 PM EST) Color Urine RED [facility] Comment:Dipstick performed o n centrifuged urine. Results may notcorrelate with microscopic values. Appearance Urine Turbid [facility] PH 6.5 5.0 - 9.0 [facility] Glucose Urine UA Negative Negative mg/dL [facility] Urine Blood Large (3+)(A) Negative [facility] Specific Muse - Urine 1.025 1.005 - 1.025 [facility] Urine Protein 300 (3+)(A) Neg-Trace mg/dL [facility] Urine Ketones Negative Negative mg/dL [facility] Nitrite Urine Negative Negative [facility] Leukocyte Esterase Urine Negative Negative [facility] RBC Urine >20(A) 0 - 2 /HPF [facility] Urine WBC 0-5 0 - 5 /HPF [facility] Urine Squamous Epithelial Cell 0-2 0 - 2 /HPF [facility] Urine Bacteria None Seen None Seen [facility] Hyaline Casts, Urine 0-2 0 - 2 /LPF [facility] 05/07/2024 3:59 PM EST 05/07/2024 4:03 PM EST Narrative [facility] - 05/07/2024 4:27 PM EST [id number], [employer] Generic External Data Provider LAB URINE ORDERAB LES Final Result [facility] [address] [place] [address] [phone] * (ABNORMAL) CBC auto differential (05/07/2024 3:59 PM EST) White Blood Count 7.2 4.8 - 10.8 X10*3/uL [facility] Red Blood Count 4.19(L) 4.20 - 5.50 X10*6/uL [facility] Hemoglobin 12.4 12.0 - 16.0 g/dl [facility] Hematocrit 35.8(L) 37.0 - 47.0 % [facility] Mean Corpuscular Volume 85.4 80.0 - 98.0 fL [facility] Mean Corpuscular Hemoglobin 29.6 27.0 - 33.0 pg [facility] Mean Corpuscular HGB Conc 34.6 31.0 - 35.0 g/dl [facility] Red Cell Distribution Width 13.8 11.0 - 16.0 % [facility] Platelet Count 303 160 - 400 X10*3/uL [facility] Mean Platelet Volume 9.7 9.4 - 12.3 fL [facility] Neutrophils Percent Auto 48.3 45 - 73 % [facility] Imm Gran Pct Auto 0.3 0.0 - 0.4 % [facility] Lymphocytes Percent Auto 39.1 20 - 40 % [facility] Monocytes Percent Auto 9.8 2 - 11 % [facility] Eosinophils Percent Auto 1.8 0 - 4 % [facility] Basophils Percent Auto 0.7 0 - 2 % [facility] NRBC Pct Auto 0.0 0.0 - 0.2 /100WBC [facility] Neutrophils Absolute Auto 3.5 2.0 - 8.3 x10*3/uL [facility] Imm Gran Abs Auto 0.02 0.00 - 0.03 X10*3/uL [facility] Lymphocytes Absolute Auto 2.8 1.2 - 4.9 X10*3/uL [facility] Monocytes Absolute Auto 0.7 0.1 - 1.2 X10*3/uL [facility] Eosinophils Absolute Auto 0.1 0.0 - 0.4 X10*3/uL [facility] Basophils Absolute Auto 0.1 0.0 - 0.2 X10*3/uL [facility] NRBC Abs Auto 0.000 0.0 - 0.012 X10*3/uL [facility] 05/07/2024 3:59 PM EST 05/07/2024 4:03 PM EST us Generic External Data Provider LAB BLOOD ORDERAB LES Final Result Performing Organization Address [facility]/ZIP Co de Phone Number [facility] [address] [place] [phone] * HCG, Qualitative, Urine (05/07/2024 3:59 PM EST) Urine NEGATIVE NEGATIVE [facility] Comment:This test was develo ped to detect early . Falsenegative results may occur after the 5th - 7th week ofpregnancy when using this test method. If clinicallyindicated, consider a serum hCG. 05/07/2024 3:59 PM EST 05/07/2024 4:27 PM EST us Generic External Data Provider LAB URINE ORDERAB LES Final Result Performing Organization Address City/[facility]/ZIP Co de Phone Number [facility] [address] [place] [phone] * Partial Thromboplastin Time, Activated (APTT) (05/07/2024 3:59 PM EST) Partial Thromboplastin Time 30.4 26.0 - 36.8 SEC [facility] Comment:For information rega rding the monitoring of direct thrombininhibitors, please refer to Pharmacy. 05/07/2024 3:59 PM EST 05/07/2024 4:03 PM EST us Generic External Data Provider LAB BLOOD ORDERAB LES Final Result Performing Organization Address [facility] Co de Phone Number [facility] [address] [place] [phone] * Prothrombin Time-INR (05/07/2024 3:59 PM EST) Prothrombin Time 11.1 10.9 - 12.4 SEC [facility] INTERNATIONAL NORM RATIO 1.0 0.9 - 1.1 [facility] Comment:INTERNATIONAL NORMAL IZED RATIO (INR) [...] 3:59 PM EST 05/07/2024 4:03 PM EST [employer] External Data Provider LAB BLOOD ORDERAB LES Final Result Performing Organization Address [facility] de Phone Number [facility] [address] [place] [phone] * hCG, Total, Quantitative (05/07/2024 3:59 PM EST) HCG Quantitative <2 mIU/mL [facility] Comment:Weeks post LMP Appro ximate hCG(Last Menstrual Period) Range (mIU/ml)3 - 4 weeks 9 - 1304 - 5 weeks 75 - 2,6005 - 6 weeks 850 - 20,8006 - 7 weeks 4000 - 100,2007 - 12 weeks 11,500 - 289,70408 - 16 weeks 18,300 - 137,79452 - 29 weeks (2nd trimester) 1,400 - 53,33903 - 41 weeks (3rd trimester) 940 - [...] Provider LAB BLOOD ORDERAB LES Final Result [facility] [address] [place] [address] [phone] * (ABNORMAL) Comprehensive Metabolic Panel (05/07/2024 3:59 PM EST) Sodium 142 135 - 145 mmol/L [facility] Potassium 3.4 3.3 - 5.1 mmol/L [facility] Chloride 108 96 - 108 mmol/L [facility] Carbon Dioxide 25 22 - 29 mmol/L [facility] Anion Gap 12 12 - 20 [facility] Urea Nitrogen (BUN) 9 9 - 16 mg/dL [facility] Creatinine, Serum 0.65 0.5 - 1.4 mg/dL [facility] Creatinine Clr Calc Pharmacy 77.6 [facility] Comment:Provided height and weight: 152.4 cm,46.8 kg.eGFR (calculated from the MDRD study equation) and eCrCl(calculated from the Cockcroft-Gault equation) are based ondifferent parameters and may not yield comparable results.If eCrCl result is absurd, please check patient'sheight/weight. Estimated Glomerular Filt Rate >60 [facility] Comment:Chronic Kidney Disea se: Estimated GFR < 60 mL/min/1.94u4Mvrblx Kidney Disease: Estimated GFR < 15 mL/min/1.73m2 Glucose 94 60 - 115 mg/dL [facility] Calcium 9.5 8.4 - 10.2 mg/dL [facility] Bilirubin, Total 0.3 0.0 - 1.0 mg/dL [facility] Aspartate Amino Transferase 23 5 - 31 U/L [facility] Alanine Aminotransferase 16 0 - 31 U/L [facility] Total Protein 8.6(H) 6.5 - 8.0 g/dL [facility] Albumin Level 4.5 3.5 - 5.0 g/dL [facility] Alkaline Phosphatase 86 39 - 117 U/L [facility] 05/07/2024 3:59 PM EST 05/07/2024 4:03 PM EST us Generic External Data Provider LAB BLOOD ORDERAB LES Final Result Performing Organization Address City/State/[facility] Co de Phone Number [facility] [address] [place] [phone] * BI Mammogram Screening Tomosynthesis Bilateral (01/12/2024 9:30 AM EST) Anatomical Region Laterality Modality Breast Bilateral Mammography 01/12/2024 9:30 AM EST Narrative 01/21/2024 1:02 PM EST ? [facility] [place] ? [address] ?[place] [address] ? Mammography Report ? Signed ? Patient: Lew Daljit,Leila A ?MR#: ?? [id number] ? : 1980 ?Acct:[id number] ? Age/Sex: 44 / F ?ADM Date: 01/12/24 ? Loc: HO.MAMMO ? Attending Dr: Marzena Loo MD ? Ordering Physician: Marzena Loo MD ?Results: 1N ?? egative ? Date of Service: 01/12/24 ?Follow Up: 1 Year From Orig ?? inal Mammogram ? Procedure(s): MM tomosynthesis screening BI ?? Accession Number(s): [id number] ? cc: Marzena Loo MD ? EXAMINATION: ?? MM SCREENING DIGITAL BREAST TOMOSYNTHESIS, BILATERAL ? CLINICAL INFORMATION: ? Screening. Asymptomatic. ? COMPARISON: ?? Mammography: Comparison is made with available priors ? TECHNIQUE: ?? Digital breast mammography with tomosynthesis is performed in both the ?? craniocaudal and mediolateral oblique views along with computer-aided ?? detection (CAD). ? FINDINGS: ?? The breasts are extremely dense, which lowers the sensitivity of ?? mammography (ACR BI-RADS breast composition Category d). ? There are no significant masses, abnormal calcifications, or other ?? abnormalities. ? MM/MM tomosynthesis screening BI ?? IMPRESSION: ?? No mammographic evidence of malignancy. ? ASSESSMENT: ? BI-RADS BI-RADS 1 - Negative ? RECOMMENDATION: ?? Routine annual mammography screening. ? 1 year F/U ? This examination should not preclude the clinical evaluation of a ?? suspicious palpable abnormality. ? This patient's information was entered into a reminder system with a ?? target due date for their next mammogram. ? Electronically signed by: ??Gianna Hou DO ??01/21/2024 12:59 PM EST ? Dictated By: ?Gianna Hou DO ? Signed By: ?<Electronically signed by Gianna Hou, DO in OV> ? 01/21/24 1259 ? DD/ 0930 ? TD/TT: 01/12/24 0945 ? Sports Medicine Physician: ? Procedure Note Rashmi, Jay - 01/21/2024 [place] [facility] [address] [place], [place] [address] Mammography Report Signed Patient: Leila Fernandez AMR#: [id number] : 1980Acct:[id number] Age/Sex: 44 / FADM Date: 01/12/24 Loc: HO.MAMMO Attending Dr: Marzena Loo MD Ordering Physician: Marzena Loo MDResults: 1N egative Date of Service: 01/12/24Follow Up: 1 Year From Orig ina Mammogram Procedure(s): MM tomosynthesis screening BI Accession Number(s): [id number] cc: Marzena Loo MD EXAMINATION: MM SCREENING DIGITAL BREAST TOMOSYNTHESIS, BILATERAL CLINICAL INFORMATION: Screening. Asymptomatic. COMPARISON: Mammography: Comparison is made with available priors TECHNIQUE: Digital breast mammography with tomosynthesis is performed in both the craniocaudal and mediolateral oblique views along with computer-aided detection (CAD). FINDINGS: The breasts are extremely dense, which lowers the sensitivity of mammography (ACR BI-RADS breast composition Category d). There are no significant masses, abnormal calcifications, or other abnormalities. MM/MM tomosynthesis screening BI IMPRESSION: No mammographic evidence of malignancy. ASSESSMENT: BI-RADS BI-RADS 1 - Negative RECOMMENDATION: Routine annual mammography screening. 1 year F/U This examination should not preclude the clinical evaluation of a suspicious palpable abnormality. This patient's information was entered into a reminder system with a target due date for their next mammogram. Electronically signed by: Gianna Hou DO 01/21/2024 12:59 PM EST Dictated By: Gianna Hou DO Signed By: <Electronically signed by Gianna Hou DO in OV> 01/21/24 1259 DD/ 0930 TD/TT: 01/12/24 0945 Sports Medicine Physician: us Marzena Loo MD IMG BI PROCEDURES Final Re sult * Pap Smear (01/12/2024 12:00 AM EST) Swab Cervix uteri structure / Unknown 01/12/2024 01/13/2024 8:45 AM EST [facility] - 01/17/2024 8:26 AM EST ----- ------- Name: Leila Fernandez ? Age/Sex: 44/F ? : 1980 Unit#: [id number] ?? Attend Dr: ?Re01/12/24 ?Status: PRE REF ? Location: HO.LNP ?Disch: ? ----- ------- SPEC : [id number] ?RECD: 01/13/24 ? STATUS: ??SOUT ? REQ NUM: [id number] ? SWETA: 01/12/24- ? SUBM DR: Marzena Loo MD ? ENTERED: ??01/13/24 ?SP TYPE: Pap Smr ?OTHR : ? ORDERED: ??Pap Smear ? Interpretation ?? Satisfactory for evaluation. ?? Negative for intraepithelial lesion or malignancy. ?? Coccobacilli consistent with shift in vaginal lit. ? HPV High Risk: ??Negative ? HPV Genotyping 16: ??Negative ?? HPV Genotyping 18: ??Negative ?Clinical Information LMP: Unknown date Previous PAP test: Five years ago, WNL ? Material Received ?? ThinPrep-Cervical ----- ------- Signed (signature on file) HILARIO Duran (ASCP) 01/17/24 0826 ? ----- ------- ? END OF REPORT ? us Marzena Loo MD LAB CYTOLOGY ORDERABLES Fi nal Result [facility] [address] [place] [address] [phone] * HIV Ab/Ag ([place] [facility]) (10/16/2022 12:24 PM EDT) HIV AB/AG Nonreactive Nonreactive [facility] Comment:HIV-1 p24 Ag and/or HIV-1/HIV-2 Ab not detected.A test result that is nonreactive does not exclude thepossibility of exposure to or infection with HIV-1 and/orHIV-2. Nonreactive results in this assay for individualswith prior exposure to HIV-1 and/or HIV-2 may be due toantigen and antibody levels that are below the limit ofdetection of this assay.The [employer] HIV Ag/Ab Combo assay result andsupplemental assay results should be interpreted inconjunction with the patient's clinical presentation,history and other laboratory results. If the results areinconsistent with clinical evidence, additional testing issuggested to confirm the result. 10/16/2022 12:2 4 PM EDT 10/16/2022 1:48 PM EDT us Shelly Rodrigues MD LAB BLOOD ORDERABLES Final Re sult [facility] [address] [place] [phone] * Hepatitis A,B,C Profile (10/16/2022 12:24 PM EDT) Pathologist [facility] Hepatitis A IgM Nonreactive Nonreactive [facility] Comment:IgM antibodies to BRADLEY V not detected; does not exclude earlyacute or recovered HAV infection. ~Hepatitis B Surface Antibody NONREACTIVE Nonreactive [facility] Comment:Nonreactive: < 8.00 mIU/mL Hepatitis B Core Antibody Nonreactive Nonreactive [facility] Hepatitis C Antibody Nonreactive Nonreactive [facility] Comment:Antibodies to HCV no t detected; does not exclude early acuteHCV infection. 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 Erick Pitts [facility] Pulmonology [address] [place] [address] [place] [address] Pulmonary Disease 03/16/24 [facility] [address] [place] [address] Optometry 03/16/24
--- OUTSIDE RECORDS SUMMARY | 2024-05-07 20:17 | XMS_ITS | Encounter Summary ---
Author Organization [employer] Address [address] [facility] 7t [place] [address] Care Team Providers Care Residential Pest Control Technician Name Role Phone Marzena Loo MD Primary Care Provider [phone] Vicky Ibarra MD Unavailable + [phone] Reason for Visit * Reason Onset Date Comments Durable Medical Equipment 04/13/2024 boost Encounter Details Date Type Department Care Team ([facility] st Contact Info) Description 04/13/2024 Telephone [facility] [address] [place] [address] Marzena Loo MD [address] [place] [address] Durable Medical Equipment (boost) Social History Tobacco Use Types Packs/Day Years [...] AM EDT documented as of this encounter Miscellaneous Notes * Telephone Encounter - Nohemi Delgadillo - 04/14/2024 2:28 PM EST RX for Boost signed and faxed to Alecia . Confirmation received and sent to scan. If patient calls to check status on above, please advise them to contact Alecia at [phone]. * Telephone Encounter - Nohemi Delgadillo - 04/13/2024 2:11 PM EST DME RX for Boost generated and placed on providers desk for signature. * Telephone Encounter - Marzena Loo MD - 04/13/2024 10:[address] order for vanilla boost. I can po tid for 11 months, dx failure to thrive and sarcoidosis. Thank you. documented in this encounter Plan of Treatment Not on file documented as of this encounter Visit Diagnoses Not on filedocumented in this encounter Additional Health Concerns Assessment Noted Time PHQ-9 Depression Total Score: 3 01/12/20 24 12:28 PM EST documented as of this encounter Care Teams Residential Pest Control Technician Relationship Specialty Start Date End Date Marzena Loo MD [address] [place] [address] PCP - General Family Medicine 03/08/18 Vicky Ibarra MD [address] [place] [address] Neurology 03/16/24 Dr. Erick Pitts [facility] Pulmonology [address] [place] [address] Pulmonary Disease 03/16/24 [facility] [address] [facility] [phone] Optometry 03/16/24 documented as of this encounter
--- OUTSIDE RECORDS SUMMARY | 2024-05-07 20:17 | XMS_ITS | Encounter Summary ---
Author Organization [employer] Address [address] [facility] [address] 7[address] [place] [address] Care Team Providers Care Rug Dyer Name Role Phone Marzena Loo MD Primary Care Provider [phone]- [phone] Vicky Ibarra MD Unavailable + [phone] Reason for Visit * Reason Onset Date Comments chartprep 04/12/2024 Encounter Details Date Type Department Care Team (Late st Contact Info) Description 04/12/2024 Telephone [facility] [address] [place] [address] Pat Del Castillo MA chartprep Social History Tobacco Use Types Packs/Day Years [...] encounter Miscellaneous Notes * Telephone Encounter - Pat Del Castillo MA - 04/12/2024 2:18 PM EST Chart Prep Labs: not applicable Images: not applicable Vaccines due: Tdap Due Referrals: Not Applicable Screenings: Colonoscopy Overdue care gaps: None documented in this encounter Plan of Treatment Not on file documented as of this encounter Visit Diagnoses Not on filedocumented in this encounter Additional Health Concerns Assessment Noted Time PHQ-9 Depression Total Score: 3 01/12/20 24 12:28 PM EST documented as of this encounter Care Teams Rug Dyer Relationship Specialty Start Date End Date Marzena Loo MD [address] [place] [address] [place] [address] PCP - General Family Medicine 03/08/18 Vicky Ibarra MD [address] [place] [address] [place] [address] Neurology 03/16/24 Dr. Erick Pitts [facility] Pulmonology [address] [place] [address] Pulmonary Disease 03/16/24 [facility] [address] [facility] [address] Optometry 03/16/24 documented as of this encounter
--- OUTSIDE RECORDS SUMMARY | 2024-05-07 20:17 | XMS_ITS | Encounter Summary ---
Author Organization [employer] Address [address] [facility] 7t [place] [address] Care Team Providers Care Department Assistant Name Role Phone Marzena Loo MD Primary Care Provider [phone]- [phone] Vicky Ibarra MD Unavailable + [phone] Encounter Details Date Type Department Care Team (Latest Contact Info) Description 04/13/2024 Travel Social History Tobacco Use Types Packs/Day Years [...] documented as of this encounter Care Teams Department Assistant Relationship Specialty Start Date End Date Marzena Loo MD [address] [place] [address] PCP - General Family Medicine 03/08/18 Vicky Ibarra MD [address] [place] [address] Dr Crews [address] [place] [address] Neurology 03/16/24 Dr. Erick Pitts [facility] Pulmonology [address] [address] Pulmonary Disease 03/16/24 [facility] [address] [facility] [phone] Optometry 03/16/24 documented as of this encounter
--- OUTSIDE RECORDS SUMMARY | 2024-05-07 20:17 | XMS_ITS | Encounter Summary ---
Author Organization [employer] Address [address] [facility] 7t [place] [address] Care Team Providers Care Ad Compositor Name Role Phone Marzena Loo MD Primary Care Provider +1- [phone] Vicky Ibarra MD Unavailable + [phone] Encounter Details Date Type Department Care Team ([facility] st Contact Info) Description 04/13/2024 Telephone [facility] MEDICINE 230 [place], [place] [phone] Marzena Loo MD 230 [place], [place] [phone] Social History Tobacco Use Types Packs/Day Years [...] encounter Miscellaneous Notes * Telephone Encounter - Marzena Loo MD - 04/13/2024 10:01 AM EST Leila is switching from Depo to control patch. Instead of depo shot at her next nurse visit, she will bring in her ptch. Can you please show her how to use them and help her set up a reminder on her phone on when to change patch. It is one patch every week for 3 weeks then no patch for the 4th week. She will need a reminder on when to restart the cycle on her phone. Thank you. documented in this encounter Plan of Treatment Not on file documented as of this encounter Visit Diagnoses Not on filedocumented in this encounter Additional Health Concerns Assessment Noted Time PHQ-9 Depression Total Score: 3 01/12/20 24 12:28 PM EST documented as of this encounter Care Teams Ad Compositor Relationship Specialty Start Date End Date Marzena Loo MD [facility] [address] PCP - General Family Medicine 03/08/18 Vicky Ibarra MD [address] [place] [address] [place] [address] Neurology 03/16/[address] [facility] Pulmonology [address] [place] [address] Pulmonary Disease 03/16/24 Dr[facility] 180 [facility] [id number] Optometry 03/16/24 documented as of this encounter
--- OUTSIDE RECORDS SUMMARY | 2024-05-07 20:17 | XMS_ITS | Encounter Summary ---
Author Organization [employer] Address [address] [facility] 7t [place] [address] Care Team Providers Care Telecom Manager Name Role Phone Marzena Loo MD Primary Care Provider +1- [phone] Vicky Ibarra MD Unavailable + [phone] Encounter Details Date Type Department Care Team ([facility] st Contact Info) Description 04/13/2024 9:15 AM EST Telemedicine [facility] MEDICINE 230 [place], [place] [phone] Marzena Loo MD 230 [place], [place] [phone] Family planning (Primary Dx); Interstitial lung disease (CMS/HCC); Sarcoidosis; Acute intractable headache, unspecified headache type; 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 female with past medical history of sarcoidosis, interstitial lung disease, chronic headaches, and depression who is contacted via telemedicine for follow-up. Overall pt reports she is doing well. Pt says she saw neurology, Dr. Ibarra for her headaches in March 2023 and has been feeling better lately. He wanted to review her MRI prior to her diagnosis and she notes she did not get a follow-up after that, but notes regarding her headaches she has been doing much better. She reports in terms of her sarcoidosis she is still taking her methotrexate weekly and getting herRemicade infusions every 6 weeks. Her last one was in March. Pt believes she missed her appointment with her director of materials, Dr Pitts, but will call back to reschedule. Pt reports she has upcoming due date for seeing her eye doctor, Dr. Hodge and pt will call and schedule an appt. She reports she needs a new prescription for her vanilla flavored boost due to failure to thrive and increased metabolic needs. Pt reports she has been on Depo-Provera since 2019 and discussed family planning. Interested in changing control. Denies smoking or any personal or family history of blood clots. Problem List Items Addressed This Visit Family planning - Primary -on DepoProvera due to being on methotrexate [...] cancel her next follow-up with nurses for depo- provera and instead have her come in to get assistance with her calendar and go over patch application needed weekly for 3 weeks and then no patchon the 4th week and then restarting the cycle the 5th week. -prescribed norelgestromin-ethinyl estradiol (Xulane) 150-35 MCG/24HR 04/13/24 Relevant Medications norelgestromin-ethinyl estradiol (Xulane) 150-35 MCG/24HR Interstitial lung disease (CMS/HCC) Biopsy proven sarcoidosis dx on CT, PET [...] mildy reduced but overall stable -seen by [facility] pulmonology with Dr. Erick Pitts MD 07/28/23: methotrexate previously increased to 20mg weekly( 8 tablets of 2.5mg); continued on Remicade (infliximab 200mg) infused q 6 weeks -Thinks she might have missed appt with director of materials, given phone number to call 04/13/24 Sarcoidosis Biopsy proven sarcoidosis dx on CT, PET [...] mildy reduced but overall stable -seen by [facility] pulmonology with Dr. Erick Pitts MD 07/28/23: methotrexate previously increased to 20mg weekly( 8 tablets of 2.5mg); continued on Remicade (infliximab 200mg) infused q 6 weeks -Thinks she might have missed appt with director of materials, given phone number to call 04/13/24 Relevant Medications inFLIXimab (Remicade) 100 MG injection folic acid (Folvite) 1 MG tablet Acute intractable headache Pt with sarcoidosis, on immunosuppressive therapy with [...] to neurology 02/10/23 Ml note to pulmonology [facility]. 02/10/23 pt repots pain improved. Seen by neurologist Dr. 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 01/12/24, encouraged to call neurologist again 04/13/2024 Glaucoma associated with ocular inflammation -[facility]ed [facility] with Dr. Hodge for glaucoma, likely Kerlineterri Tabares. -due for appt, pt agrees to call, given phone number 04/13/24 Relevant Medications dorzolamide-timolol (Cosopt) 2-0.5 % ophthalmic solution Uveitis -Followed by [facility] with Dr. Hodge for glaucoma, likely Kerline Rayshawn. -due for appt, pt agrees to call, given phone number 04/13/24 Failure to thrive (child) Due to increased metabolic demand from sarcoidosis. -resent vanilla boost 04/13/24 Complex care coordination Team includes: -[facility] with Dr. Hodge for glaucoma -Dr. Vick Machado of [facility] -Pulmonology (lung doctor) [facility] [phone] -Neurology (brain doctor) Dr. Vicky Ibarra, [facility] [phone] Colon cancer screening -pt due for colon cancer screening, discuss next visit -referred to GI 01/12/24, for colonoscopy Reports upcoming appt, unsure what date 04/13/24 Follow up in about 4 months (around 08/11/2024) for sarcoidosis and control. Patient gave verbal consent to be seen in this manner. A complete assessment and plan is detailed in the note, all of which were conducted remotely using virtual audio technology. Patient identity was verbally confirmed with 2 identifiers at the start of the visit. Patient verbalized being located in the [facility] during the televisit. Provider was located at a secure location duringthe visits. I identified myself and credentials. Pt consented to telephone visit, and understand that they have the option to seek in-person care. I, Dereck Brewster, am serving as a scribe to document services personally performed by Dr. Otero, based on the patient's response to questions by provider and providers statements to me. documented in this encounter Miscellaneous Notes * Assessment & Plan Note - Dereck Brewster - 04/13/2024 12:06 PM ESTAssociated Problem(s): Colon cancer screening -pt due for colon cancer screening, discuss next visit -referred to GI 01/12/24, for colonoscopy Reports upcoming appt, unsure what date 04/13/24 * Assessment & Plan Note - Dereck Brewster - 04/13/2024 12:05 PM ESTAssociated Problem(s): Family planning -on DepoProvera due to being on methotrexate [...] cancel her next follow-up with nurses for depo- provera and instead have her come in to get assistance with her calendar and go over patch application needed weekly for 3 weeks and then no patchon the 4th week and then restarting the cycle the 5th week. -prescribed norelgestromin-ethinyl estradiol (Xulane) 150-35 MCG/24HR 04/13/24 * Assessment & Plan Note - Dereck Brewster - 04/13/2024 12:01 PM ESTAssociated Problem(s): Complex care coordination Team includes: -[facility] with Dr. Hodge for glaucoma -Dr. Vick Machado of [facility] -Pulmonology (lung doctor) [facility] [phone] -Neurology (brain doctor) Dr. Vicky Ibarra, [facility] [phone] * Assessment & Plan Note - Dereck Brewster - 04/13/2024 11:59 AM ESTAssociated Problem(s): Uveitis -Followed [facility] with Dr. Hodge for glaucoma, likely Kerline Schlossmann. -due for appt, pt agrees to call, given phone number 04/13/24 * Assessment & Plan Note - Dereck Brewster - 04/13/2024 11:59 AM ESTAssociated Problem(s): Sarcoidosis Biopsy proven sarcoidosis dx on CT, PET [...] mildy reduced but overall stable -seen by [facility] pulmonology with Dr. Erick Pitts MD 07/28/23: methotrexate previously increased to 20mg weekly( 8 tablets of 2.5mg); continued on Remicade (infliximab 200mg) infused q 6 weeks -Thinks she might have missed appt with director of materials, given phone number to call 04/13/24 * Assessment & Plan Note - Dereck Brewster - 04/13/2024 11:58 AM ESTAssociated Problem(s): Glaucoma associated with ocular inflammation -Followed by [facility] with Dr. Hodge for glaucoma, likely Kerline Schlossmann. -due for appt, pt agrees to call, given phone number 04/13/24 * Assessment & Plan Note - Dereck Brewster - 04/13/2024 11:58 AM ESTAssociated Problem(s): Failure to thrive (child) Due to increased metabolic demand from sarcoidosis. -resent vanilla boost 04/13/24 * Assessment & Plan Note - Dereck Brewster - 04/13/2024 11:57 AM ESTAssociated Problem(s): Interstitial lung disease (CMS/HCC) Biopsy proven sarcoidosis dx on CT, PET [...] mildy reduced but overall stable -seen by [facility] pulmonology with Dr. Erick Pitts MD 07/28/23: methotrexate previously increased to 20mg weekly( 8 tablets of 2.5mg); continued on Remicade (infliximab 200mg) infused q 6 weeks -Thinks she might have missed appt with director of materials, given phone number to call 04/13/24 * Assessment & Plan Note - Dereck Brewster - 04/13/2024 11:57 AM ESTAssociated Problem(s): Acute intractable headache Pt with sarcoidosis, on immunosuppressive therapy with [...] to neurology 02/10/23 Ml note to pulmonology [facility]. 02/10/23 pt repots pain improved. Seen by neurologist Dr. 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, unspecified glaucoma stage Uveitis Unspecified iridocyclitis Adult failure to thrive Complex care coordination Colon cancer screening Special screening for malignant neoplasms, colon documented in this encounter Additional Health Concerns Assessment Noted Time PHQ-9 Depression Total Score: 3 01/12/20 24 12:28 PM EST documented as of this encounter Care Teams Telecom Manager Relationship Specialty Start Date End Date Marzena Loo MD [address] [place] [address] PCP - General Family Medicine 03/08/18 Vicky Ibarra MD [address] [place] [address] [place] [address] Neurology 03/16/24 Dr. Erick Pitts [facility] Pulmonology [address] [place] [address] [place] [address] Pulmonary Disease 03/16/24 Dr[facility] 180 [facility] [phone] Optometry 03/16/24 documented as of this encounter
--- OUTSIDE RECORDS SUMMARY | 2024-05-07 20:17 | XMS_ITS | Encounter Summary ---
Author Organization [employer] Address [address] [facility] 7t [place] [address] Care Team Providers Care Health And Fitness Professor Name Role Phone Marzena Loo MD Primary Care Provider +1- [phone] Vicky Ibarra MD Unavailable + [phone] Reason for Visit * Reason Comments Med Refill Encounter Details Date Type Department Care Team ([facility] st Contact Info) Description 05/05/2022 Refill [facility] MEDICINE 230 [place] [address] Marzena Loo MD 230 [place] [address] Social History Tobacco Use Types Packs/Day Years Used Date Smoking Tobacco: Former Cigarettes Q uit: 2020 Smokeless Tobacco: Never Alcohol Use Standard Drinks/Week Comments Never 0 (1 standard drink = 0.6 oz pur e alcohol) Comments Unknown Sex and Gender Information Value Date Recorded Sex Assigned at Female 01/05/2022 10:15 AM EDT Legal Sex Female 10:15 AM EDT Gender Identity Female 01/05/2022 10:15 AM EDT Sexual Orientation Straight 01/05/2022 10 :15 AM EDT COVID-19 Exposure Response Date Recorded In the last 10 days, have yo u been in contact with someone who was confirmed or suspected to have Coronavirus/COVID-19? No / Unsure 05/01/2022 10:37 AM EST documented as of this encounter Plan of Treatment Not on file documented as of this encounter Visit Diagnoses Not on filedocumented in this encounter Care Teams Health And Fitness Professor Relationship Specialty Start Date End Date Marzena Loo MD [address] [place] [address] PCP - General Family Medicine 03/08/18 Vicky Ibarra MD [address] [place] [address] Neurology 03/16/24 Dr. Erick Pitts [facility] Pulmonology [address] [place] [address] Pulmonary Disease 03/16/24 [facility] [address] [place] [address] Optometry 03/16/24 documented as of this encounter
--- OUTSIDE RECORDS SUMMARY | 2024-05-07 20:17 | XMS_ITS | Encounter Summary ---
Author Organization [employer] Address [address] [facility] 7t [place] [address] Care Team Providers Care Cash Applications Associate Name Role Phone Marzena Loo MD Primary Care Provider +1- [phone] iVcky Ibarra MD Unavailable + [phone] Encounter Details Date Type Department Care Team ([facility] st Contact Info) Description 04/13/2024 Orders Only [facility] MEDICINE 230 [place], [place] [phone] Marzena Loo MD 230 [place] [address] Social History Tobacco Use Types Packs/Day Years [...] documented as of this encounter Care Teams Cash Applications Associate Relationship Specialty Start Date End Date Marzena Loo MD [address] [place] [address] PCP - General Family Medicine 03/08/18 Vicky Ibarra MD [address] [place] [address] Dr Crews [address] [place] [address] Neurology 03/16/24 Dr. Erick Pitts [facility] Pulmonology [address] [address] Pulmonary Disease 03/16/24 [facility] 180 [facility] [phone] Optometry 03/16/24 documented as of this encounter
--- OUTSIDE RECORDS SUMMARY | 2024-05-07 20:17 | XMS_ITS | Encounter Summary ---
Author Organization [employer] Address [address] [facility] 7t [place] [address] Care Team Providers Care Agricultural Researcher Name Role Phone Marzena Loo MD Primary Care Provider +1- [phone] Vicky Ibarra MD Unavailable + [phone] Reason for Visit * Reason Comments Med Refill Encounter Details Date Type Department Care Team ([facility] st Contact Info) Description 04/14/2024 Refill [facility] MEDICINE 230 [place] [address] Marzena Loo MD 230 [place] [address] Social History Tobacco Use Types Packs/Day Years [...] documented as of this encounter Care Teams Agricultural Researcher Relationship Specialty Start Date End Date Marzena Loo MD [address] [place] [address] PCP - General Family Medicine 03/08/18 Vicky Ibarra MD [address] [place] [address] [address] Neurology 03/16/24 Dr. Erick Pitts [facility] Pulmonology [address] [address] Pulmonary Disease 03/16/24 [facility] 180 [facility] [phone] Optometry 03/16/24 documented as of this encounter
--- OUTSIDE RECORDS SUMMARY | 2024-05-07 20:17 | XMS_ITS | Encounter Summary ---
Author Organization [employer] Address [address] [place] [address] 7 [place] [address] Care Team Providers Care Public Speaker Name Role Phone Marzena Loo MD Primary Care Provider +- [phone] Vicky Ibarra MD Unavailable + [phone] Encounter Details Date Type Department Care Team (Late st Contact Info) Description 01/30/2022 Abstract [facility] MED & PEDS [address] [place], [place] [phone] Marzena Loo MD 230 [place], [place] [phone] Social History Tobacco Use Types Packs/Day Years Used Date Smoking Tobacco: Never Assessed Comments Unknown Sex and Gender Information Value [...] on filedocumented in this encounter Care Teams Public Speaker Relationship Specialty Start Date End Date Marzena Loo MD 230 [place], [place] [phone] PCP - General Family Medicine 03/08/18 Vicky Ibarra MD [address] [place] [address] Dr [place], [place] [phone] Neurology 03/16/[address] [facility] Pulmonology [address] [address] Pulmonary Disease 03/16/24 [facility] 180 [facility] [phone] Optometry 03/16/24 documented as of this encounter
--- OUTSIDE RECORDS SUMMARY | 2024-05-07 20:17 | XMS_ITS | Encounter Summary ---
Author Organization [employer] Address [address] [facility] 7t [place] [address] Care Team Providers Care Lead Scientist Name Role Phone Marzena Loo MD Primary Care Provider +1- [phone] Vicky Ibarra MD Unavailable + [phone] Reason for Visit * Reason Onset Date Comments Medication Question 04/17/2024 Encounter Details Date Type Department Care Team ([facility] st Contact Info) Description 04/17/2024 Telephone [facility] MEDICINE 230 [place] [address] Yue Wilson, RN 230 [place], [place] [phone] Medication Question Social History Tobacco Use Types Packs/Day Years [...] encounter Miscellaneous Notes * Telephone Encounter - Yue Wilson RN - 04/17/2024 10:03 AM EST Pt presented to [facility]. Was supposed to have depo today but states PCP switched her to the patch. Did brief teaching. Explained patch is 3 weeks on, 1 week off. Makes ure she rotates sites,informed of best sites to use. Let us know if she develops a rash as this is a common side effect. Pt verbalized understanding and denied having any further questions or concerns at this time. documented in this encounter Plan of Treatment Not on file documented as of this encounter Visit Diagnoses Not on filedocumented in this encounter Additional Health Concerns Assessment Noted Time PHQ-9 Depression Total Score: 3 01/12/20 24 12:28 PM EST documented as of this encounter Care Teams Lead Scientist Relationship Specialty Start Date End Date Marzena Loo MD 230 [facility] [place] [address] PCP - General Family Medicine 03/08/18 Vicky bIarra MD [address] [place] [address] [place] [address] Neurology 03/16/24 Dr. Erick Pitts [facility] Pulmonology [address] [place] [address] Pulmonary Disease 03/16/24 [facility] 180 [facility] [address] Optometry 03/16/24 documented as of this encounter
--- OUTSIDE RECORDS SUMMARY | 2024-05-07 20:17 | XMS_ITS | Encounter Summary ---
Author Organization [employer] Address [address] [facility] 7t [place] [address] Care Team Providers Care Clay Washer Name Role Phone Marzena Loo MD Primary Care Provider +1- [phone] Vicky Ibarra MD Unavailable + [phone] Encounter Details Date Type Department Care Team (Latest Contact Info) Description 04/17/2024 Travel Social History Tobacco Use Types Packs/Day [...] documented as of this encounter Care Teams Clay Washer Relationship Specialty Start Date End Date Marzena Loo MD [address] [place] [address] PCP - General Family Medicine 03/08/18 Vicky Ibarra MD [address] [place] [place] [address] Dr Crews [address] [place] [address] Neurology 03/16/[address] [facility] Pulmonology [address] [address] Pulmonary Disease 03/16/24 [facility] 180 [facility] [phone] Optometry 03/16/24 documented as of this encounter
--- OUTSIDE RECORDS SUMMARY | 2024-05-07 20:17 | XMS_ITS | Encounter Summary ---
Author Organization [employer] Address 75 [facility] 7t [place] [address] Care Team Providers Care Wellness Coach Name Role Phone Marzena Loo MD Primary Care Provider +1- [phone] Vicky Ibarra MD Unavailable + [phone] Reason for Visit * Reason Onset Date Comments Appointment Request 05/08/2022 Encounter Details Date Type Department Care Team ([facility] st Contact Info) Description 05/08/2022 Telephone [facility] MEDICINE 230 [place] [address] Marzena Loo MD 230 [place], [place] [phone] Appointment Request Social History Tobacco Use Types Packs/Day Years [...] AM EST documented as of this encounter Miscellaneous Notes * Telephone Encounter - Prema Hamlivier Lynch - 05/08/2022 11:21 AM EST Tc from pt wanting to schedule an appt with the derm. Please contact pt at [phone] documented in this encounter Plan of Treatment Not on file documented as of this encounter Visit Diagnoses Not on filedocumented in this encounter Care Teams Wellness Coach Relationship Specialty Start Date End Date Marzena Loo MD [address] [place] [address] PCP - General Family Medicine 03/08/18 Vicky Ibarra MD [address] [place] [address] [address] Neurology 03/16/24 Dr. Erick Pitts [facility] Pulmonology [address] [address] Pulmonary Disease 03/16/24 [facility] 180 [facility] [address] Optometry 03/16/24 documented as of this encounter
[2024-05-07 20:27] VITALS: BP 117/74; PULSE 78; RESP 16; TEMP 36.7; O2SAT 98
[2024-05-07] MEDS: Phenazopyridine HCL 200 MG TABLET PO (20:29)
[2024-05-07 20:31] VITALS: BP 117/74; PULSE 78; RESP 16; TEMP 36.7; O2SAT 98
== END 2024-05-07 20:34 | disposition home or self-care (01) ==
PROVIDERS: Physician Assistant; Emergency Provider Emergency Medicine; PCP Family Medicine
DX: R10.9 Unspecified abdominal pain (principal); R10.2 Pelvic and perineal pain; R31.9 Hematuria, unspecified; D64.9 Anemia, unspecified; Z87.442 Personal history of urinary calculi; Z79.899 Other long term (current) drug therapy
CPT/HCPCS: 36415; 74176; 80053; 81001; 81025; 84702; 85025; 85610; 85730; 99284

== ENCOUNTER → 2024-05-07 17:16 | Outpatient (BNV) | payer MEDICAID, SELFPAY | PROVIDERS: PCP Family Medicine; Visit Provider Nuclear Medicine | DX: N20.0 Calculus of kidney (principal); R91.8 Other nonspecific abnormal finding of lung field | CPT/HCPCS: 74176 ==

== ENCOUNTER 2024-05-08 18:26 | Outpatient (REF) | payer MEDICAID, SELFPAY ==
--- OUTSIDE RECORDS SUMMARY | 2024-05-08 19:26 | XMS_ITS | Encounter Summary ---
Author Organization [employer] Address 75 [facility] 7t [place] [address] Care Team Providers Care E Learning Specialist Name Role Phone Marzena Loo MD Primary Care Provider +1- [phone] Vicky Ibarra MD Unavailable + [phone] Encounter Details Date Type Department Care Team ([facility] st Contact Info) Description 04/13/2024 9:15 AM EST Telemedicine [facility] MEDICINE 230 [place], [place] [phone] Marzena Loo MD 230 [place], [place] [phone] Family planning (Primary Dx); Interstitial lung disease [...] the past 12 months, has t he [place], gas, oil or water [employer] threatened to shut off services in your [...] believes she missed her appointment with her furniture removalist, Dr Pitts, but will call back to [...] mildy reduced but overall stable -seen by [facility] pulmonology with Dr. Erick Pitts MD 07/28/23: methotrexate previously increased to 20mg weekly( 8 tablets of 2.5mg); continued on Remicade (infliximab 200mg) infused q 6 weeks -Thinks she might have missed appt with furniture removalist, given phone number to call 04/13/24 Sarcoidosis [...] mildy reduced but overall stable -seen by [facility] pulmonology with Dr. Erick Pitts MD 07/28/23: methotrexate previously increased to 20mg weekly( 8 tablets of 2.5mg); continued on Remicade (infliximab 200mg) infused q 6 weeks -Thinks she might have missed appt with furniture removalist, given phone number to call 04/13/24 Relevant [...] to neurology 02/10/23 Ml note to pulmonology [facility]. 02/10/23 pt repots pain improved. Seen [...] Hodge for glaucoma -Dr. Vick Machado of [facility] -Pulmonology (lung doctor) [facility] [phone] -Neurology (brain doctor) Dr. Vicky Ibarra, [facility] [phone] Colon cancer screening -pt due for colon [...] visit. Patient verbalized being located in the [facility] during the televisit. Provider was located at [...] Hodge for glaucoma -Dr. Vick Machado of [facility] -Pulmonology (lung doctor) [facility] [phone] -Neurology (brain doctor) Dr. Vicky Ibarra, [facility] [phone] * Assessment & Plan Note - Dereck [place] - 04/13/2024 11:59 AM ESTAssociated Problem(s): Uveitis -Followed [facility] with Dr. Hodge for glaucoma, likely Kerline [...] mildy reduced but overall stable -seen by [facility] pulmonology with Dr. Erick Pitts MD 07/28/23: methotrexate previously increased to 20mg weekly( 8 tablets of 2.5mg); continued on Remicade (infliximab 200mg) infused q 6 weeks -Thinks she might have missed appt with furniture removalist, given phone number to call 04/13/24 * Assessment & Plan Note - Dereck [place] - 04/13/2024 11:58 AM ESTAssociated Problem(s): Glaucoma associated with ocular inflammation -Followed by [facility] with Dr. Hodge for glaucoma, likely Kerline [...] mildy reduced but overall stable -seen by [facility] pulmonology with Dr. Erick Pitts MD 07/28/23: methotrexate previously increased to 20mg weekly( 8 tablets of 2.5mg); continued on Remicade (infliximab 200mg) infused q 6 weeks -Thinks she might have missed appt with furniture removalist, given phone number to call 04/13/24 * [...] to neurology 02/10/23 Ml note to pulmonology [facility]. 02/10/23 pt repots pain improved. Seen [...] documented as of this encounter Care Teams E Learning Specialist Relationship Specialty Start Date End Date Marzena Loo MD [address] [place] [address] PCP - General Family Medicine 03/08/18 Vicky Ibarra MD [address] [place] [address] [place] [address] Neurology 03/16/24 Dr. Erick Pitts [facility] Pulmonology [address] [place] [address] [place] [address] Pulmonary Disease 03/16/24 [facility] 180 [facility] [id number] Optometry 03/16/24 documented as of this encounter
--- OUTSIDE RECORDS SUMMARY | 2024-05-08 19:26 | XMS_ITS | Encounter Summary ---
Author Organization [employer] Address 75 [facility] 7t [place] [address] Care Team Providers Care Seed Buyer Name Role Phone Marzena Loo MD Primary Care Provider [phone]- [phone] Vicky Ibarra MD Unavailable + [phone] Reason for Visit * Reason Onset Date Comments Appointment Request 05/08/2022 Encounter Details Date Type Department Care Team ([facility] st Contact Info) Description 05/08/2022 Telephone [facility] MEDICINE 230 [place] [address] Marzena Loo MD 230 [place], [place] [phone] Appointment Request Social History Tobacco Use Types [...] with the derm. Please contact pt at [phone] documented in this encounter Plan of Treatment Not on file documented as of this encounter Visit Diagnoses Not on filedocumented in this encounter Care Teams Seed Buyer Relationship Specialty Start Date End Date Marzena Loo MD [address] [place] [address] PCP - General Family Medicine 03/08/18 Vicky Ibarra MD [address] [place] [address] [address] Neurology 03/16/24 Dr. Erick Pitts [facility] Pulmonology [address] [address] Pulmonary Disease 03/16/24 [facility] [address] [facility] [address] Optometry 03/16/24 documented as of this encounter
--- OUTSIDE RECORDS SUMMARY | 2024-05-08 19:26 | XMS_ITS | Encounter Summary ---
Author Organization [employer] Address 75 [facility] 7t [place] [address] Care Team Providers Care Director Of Sales And Marketing Name Role Phone Marzena Loo MD Primary Care Provider +1- [phone] Vicky Ibarra MD Unavailable + [phone] Encounter Details Date Type Department Care Team ([facility] st Contact Info) Description 04/13/2024 Telephone [facility] MEDICINE 230 [place], [place] [phone] Marzena Loo MD 230 [place], [place] [phone] Social History Tobacco Use Types Packs/Day Years [...] documented as of this encounter Care Teams Director Of Sales And Marketing Relationship Specialty Start Date End Date Marzena Loo MD [facility] [place] [address] PCP - General Family Medicine 03/08/18 Vicky Ibarra MD [address] [place] [address] [place] [address] Neurology 03/16/24 Dr. Erick Pitts [facility] Pulmonology [address] [place] [address] Pulmonary Disease 03/16/24 [facility] 180 [facility] [phone] Optometry 03/16/24 documented as of this encounter
--- OUTSIDE RECORDS SUMMARY | 2024-05-08 19:26 | XMS_ITS | Encounter Summary ---
Author Organization [employer] Address [address] [facility] [address] 7t [place] [address] Care Team Providers Care Nut Orchardist Name Role Phone Marzena Loo MD Primary Care Provider +1- [phone] Vicky Ibarra MD Unavailable + [phone] Reason for Visit * Reason Comments Blood in Urine Encounter Details Date Type Department Care Team ([facility] st Contact Info) Description 05/08/2024 2:40 PM EST Office Visit [facility] 230 [place] [address] Leila Garcia MD 230 [place] [address] Acute cystitis with hematuria (Primary Dx); Hematuria, unspecified type; Kidney stones Social History Tobacco Use Types Packs/Day Years [...] AM EDT documented as of this encounter Last Filed Vital Signs Vital Sign Reading Time Taken Comments Blood Pressure 121/84 05/08/2024 2:22 PM EST Pulse 81 05/08/2024 2:22 PM EST Temperature 36.7 ??C (98.1 ??F) 05/08/2024 2:22 PM ES T Respiratory Rate 16 05/08/2024 2:22 PM EST Oxygen Saturation 99% 05/08/2024 2:22 PM EST Inhaled Oxygen Concentration - - Weight 47.2 kg (104 lb) 05/08/2024 2:22 PM EST Height - - Body Mass Index 19.65 01/12/2024 11:57 AM EST documented in this encounter Progress Notes * Leila Garcia MD - 05/08/2024 2:40 PM EST SUBJECTIVE: Leila Bocanegra is a 44 y.o. year old female who presents for Walk In Center/UTI sxs . Denies recent illness, injury, or hospitalization. Acute Concerns: Patient complaining of lower abdominal pain, increased urinary frequency, dysuria and gross hematuria x 2d. She has not had any fever, abdominal pain, nausea or vomiting. She presents severe back pain yesterday for few hours that resolved with Tylenol. She has mild back pain this morning. She went to the ED yesterday and had a CT scan of the abdomen showing bilateral renal calculi/nonobstructing with mild right hydronephrosis. There was also finding of bilateral lung opacities on the CT scan. Patient does not have any cough, chest pain shortness of breath and she is treated for sarcoidosis, she is tell me that she has had similar finding for many years and sees pulmonary at [facility]. Social History Social History Narrative Not on file Patient Active Problem List Diagnosis Anemia Chorioretinal scar Constipation Depressive disorder Glaucoma associated with ocular inflammation Interstitial lung disease (CMS/HCC) Presbyopia Primary open angle glaucoma Regular astigmatism Sarcoidosis Sickle cell trait (CMS/HCC) Uveitis Alopecia areata Other specified health status Family planning Acute intractable headache Colon cancer screening Breast screening Complex care coordination Failure to thrive (child) Acute cystitis with hematuria Hematuria Kidney stones Family History Problem Relation Name Age of Onset Colon cancer Father Diabetes Father Colon cancer Sister Review of Systems Constitutional: Negative for chills, fatigue and fever. HENT: Negative for congestion, ear pain, nosebleeds, rhinorrhea, sinus pressure, sore throat and trouble swallowing. Eyes: Negative for pain and discharge. Respiratory: Negative for cough, chest tightness and shortness of breath. Cardiovascular: Negative for chest pain, palpitations and leg swelling. Gastrointestinal: Negative for abdominal pain, blood in stool, constipation, diarrhea and nausea. Endocrine: Negative for polydipsia and polyuria. Genitourinary: Positive for dysuria, frequency, pelvic pain and urgency. Negative for genital soresand vaginal discharge. Musculoskeletal: Positive for back pain. Negative for neck pain. Skin: Negative for rash. Allergic/Immunologic: Negative for environmental allergies. Neurological: Negative for dizziness, seizures, weakness, light-headedness and headaches. Hematological: Negative for adenopathy. Psychiatric/Behavioral: Negative for agitation, behavioral problems, self-injury and suicidal ideas. OBJECTIVE: Vitals: 05/08/24 1422 BP: 121/84 Pulse: 81 Resp: 16 Temp: 98.1 ??F (36.7 ??C) SpO2: 99% Physical Exam Constitutional: Appearance: Normal appearance. HENT: Right Ear: Tympanic membrane and ear canal normal. Left Ear: Tympanic membrane and ear canal normal. Mouth/Throat: Mouth: Mucous membranes are moist. Pharynx: No oropharyngeal exudate or posterior oropharyngeal erythema. Eyes: Pupils: Pupils are equal, round, and reactive to light. Cardiovascular: Rate and Rhythm: Normal rate and regular rhythm. Heart sounds: No murmur heard. Pulmonary: Breath sounds: Normal breath sounds. No wheezing. Abdominal: General: Bowel sounds are normal. Palpations: Abdomen is soft. Tenderness: There is abdominal tenderness in the suprapubic area. There is right CVA tenderness. There is no left CVA tenderness. Musculoskeletal: General: No tenderness. Normal range of motion. Cervical back: Normal range of motion. No tenderness. Skin: General: Skin is warm. Neurological: General: No focal deficit present. Mental Status: She is alert and oriented to person, place, and time. Psychiatric: Mood and Affect: Mood normal. Office Visit on 05/08/2024 Component Date Value Ref Range Status Color, UA 05/08/2024 Red Final Clarity, UA 05/08/2024 Cloudy Final Glucose, UA 05/08/2024 2+ 125++ Final 100MG Bilirubin, UA 05/08/2024 Many Final Large Ketones, UA 05/08/2024 Positive Final 40mg Spec Grav, UA 05/08/2024 1.005 Final Blood, UA 05/08/2024 Positive (A) Negative, None Detected Final Large pH, UA 05/08/2024 8.5 Final Protein, UA 05/08/2024 3+ 500+++ Final 300mg Urobilinogen, UA 05/08/2024 >=8.0 Final Leukocytes, UA 05/08/2024 Many (A) Negative, Rare, Trace Final Large Nitrite, UA 05/08/2024 Positive (A) Negative, None Detected Final Appearance, UA 05/08/2024 Red Final Problem List Items Addressed This Visit Acute cystitis with hematuria - Primary Start Bactrim x 5 to 7 days, continue Pyridium and increase water intake. Follow-up urine culture results Take Flomax nightly for 2 to 4 weeks or until symptoms resolve completely, she has appointment withurology on June. Advised to take Tylenol or ibuprofen as needed pain and return to clinic as needed if symptoms do not resolve Hematuria Most likely related to kidney stones, see above Relevant Orders POCT urinalysis dipstick manually resulted (Completed) Culture, Urine, Routine Kidney stones Follow Up: Current Outpatient Medications on File Prior to Visit Medication Sig Dispense Refill baricitinib (Olumiant) 2 MG tablet Take 1 tablet (2 mg) by mouth in the morning. 30 tablet 3 dorzolamide-timolol (Cosopt) 2-0.5 % ophthalmic solution 1 drop 2 times daily. folic acid (Folvite) 1 MG tablet Take by mouth Once per day. Per pulmonology inFLIXimab (Remicade) 100 MG injection Infuse into a venous catheter. Per pulmonology loratadine (Claritin) 10 MG tablet TAKE 1 TABLET BY MOUTH EVERY DAY 90 tablet 1 methotrexate 2.5 MG tablet TAKE 8 TABLETS BY MOUTH EVERY WEDNESDAY norelgestromin-ethinyl estradiol (Xulane) 150-35 MCG/24HR Apply 1 patch each week for 3 weeks, thenremove for 1 week. 3 patch 12 SUMAtriptan (Imitrex) 50 MG tablet TAKE 1 TABLET BY MOUTH AT ONSET OF MIGRAINE, MAY REPEAT ONCE IN 4 HOURS, DO NOT EXCEED 2 TABLETS / 24 HOURS Current Facility-Administered Medications on File Prior to Visit Medication Dose Route Frequency Provider Last Rate Last Admin medroxyPROGESTERone (Depo-Provera) injection 150 mg 150 mg Intramuscular q3 months Yue Wilson, RN 150 mg at 01/28/24 0830 triamcinolone acetonide (Kenalog-40) injection 40 mg 40 mg Intramuscular Once Shelly Rodrigues MD documented in this encounter Miscellaneous Notes * Assessment & Plan Note - Leila Garcia MD - 05/08/2024 5:52 PM EST Associated Problem(s): Hematuria Most likely related to kidney stones, see above * Assessment & Plan Note - Leila Garcia MD - 05/08/2024 5:51 PM EST Associated Problem(s): Acute cystitis with hematuria Start Bactrim x 5 to 7 days, continue Pyridium and increase water intake. Follow-up urine culture results Take Flomax nightly for 2 to 4 weeks or until symptoms resolve completely, she has appointment withurology on June. Advised to take Tylenol or ibuprofen as needed pain and return to clinic as needed if symptoms do not resolve documented in this encounter Plan of Treatment Scheduled Orders Name Type Priority Associated Diagnoses Orde r Schedule Culture, Urine, Routine Microbiology Routine Hematuria, unspecified type Ordered: 05/08/2024 documented as of this encounter Procedures Procedure Name Priority Date/Time Associated Diagnosis Comments POCT URINALYSIS DIPSTICK Routine 05/08/2024 2:37 PM EST Hematuria, unspecified type documented in this encounter Results * (ABNORMAL) POCT urinalysis dipstick manually resulted (05/08/2024 2:37 PM EST) Color, UA Red Clarity, UA Cloudy Glucose, UA 2+ 125++ Comment:100MG Bilirubin, UA Many Comment:Large Ketones, UA Positive Comment:40mg Spec Grav, UA 1.005 Blood, UA Positive(A) Negative, None Detected Comment:Large pH, UA 8.5 Protein, UA 3+ 500+++ Comment:300mg Urobilinogen, UA >=8.0 Leukocytes, UA Many(A) Negative, Rare, Trace Comment:Large Nitrite, UA Positive(A) Negative, None Detected Appearance, UA Red Urine 05/08/2024 2:37 PM EST us Leila Garcia MD POINT OF CARE TEST ENTER /EDIT ORDERABLES Final Result documented in this encounter Visit Diagnoses Diagnosis Acute cystitis with hematuria- Primary Hematuria, unspecified type Kidney stones Calculus of kidney documented in this encounter Additional Health Concerns Assessment Noted Time PHQ-9 Depression Total Score: 3 01/12/20 24 12:28 PM EST documented as of this encounter Care Teams Nut Orchardist Relationship Specialty Start Date End Date Marzena Loo MD [address] [place] [address] PCP - General Family Medicine 03/08/18 Vicky Ibarra MD [address] [place] [address] [place] [address] Neurology 03/16/24 Dr. Erick Pitts [facility] Pulmonology [address] [place] [address] Pulmonary Disease 03/16/24 [facility] [address] [place] [id number] Optometry 03/16/24 documented as of this encounter
--- OUTSIDE RECORDS SUMMARY | 2024-05-08 19:26 | XMS_ITS | Encounter Summary ---
Author Organization [employer] Address 75 [facility] 7t [place] [address] Care Team Providers Care Pharmacy Services Director Name Role Phone Marzena Loo MD Primary Care Provider +[phone]- [phone] Vicky Ibarra MD Unavailable + [phone] Encounter Details Date Type Department Care Team ([facility] st Contact Info) Description 04/13/2024 Orders Only [facility] MEDICINE 230 [place], [place] [phone] Marzena Loo MD 230 [place] [address] Social History Tobacco Use Types Packs/Day Years [...] documented as of this encounter Care Teams Pharmacy Services Director Relationship Specialty Start Date End Date Marzena Loo MD [address] [place] [address] PCP - General Family Medicine 03/08/18 Vicky Ibarra MD [address] [place] [address] Dr Crews [address] [place] [address] Neurology 03/16/24 Dr. Erick Pitts [facility] Pulmonology [address] [address] Pulmonary Disease 03/16/24 [facility] 180 [facility] [phone] Optometry 03/16/24 documented as of this encounter
--- OUTSIDE RECORDS SUMMARY | 2024-05-08 19:26 | XMS_ITS | Encounter Summary ---
Author Organization [employer] Address 75 [facility] 7t [place] [address] Care Team Providers Care Professor Of French Name Role Phone Marzena Loo MD Primary Care Provider [phone]- [phone] Vicky Ibarra MD Unavailable + [phone] Reason for Visit * Reason Comments Med Refill Encounter Details Date Type Department Care Team ([facility] st Contact Info) Description 04/14/2024 Refill [facility] MEDICINE 230 [place] [address] Marzena Loo MD 230 [place] [address] Social History Tobacco Use Types Packs/Day Years [...] documented as of this encounter Care Teams Professor Of French Relationship Specialty Start Date End Date Marzena Loo MD [address] [place] [address] PCP - General Family Medicine 03/08/18 Vicky Ibarra MD [address] [place] [address] [address] Neurology 03/16/24 Dr. Erick Pitts [facility] Pulmonology [address] [address] Pulmonary Disease 03/16/24 [facility] 180 [facility] [phone] Optometry 03/16/24 documented as of this encounter
--- OUTSIDE RECORDS SUMMARY | 2024-05-08 19:26 | XMS_ITS | Encounter Summary ---
Author Organization [employer] Address 75 [facility] 7t [place] [address] Care Team Providers Care Teacher Vocal Name Role Phone Marzena Loo MD Primary Care Provider [phone]- [phone] Vicky Ibarra MD Unavailable + [phone] Encounter Details Date Type Department Care Team [...] documented as of this encounter Care Teams Teacher Vocal Relationship Specialty Start Date End Date Marzena Loo MD [address] [place] [address] PCP - General Family Medicine 03/08/18 Vicky Ibarra MD [address] [place] [address] Dr Crews [address] [place] [address] Neurology 03/16/24 Dr. Erick Pitts [facility] Pulmonology [address] [address] Pulmonary Disease 03/16/24 [facility] 180 [facility] [phone] Optometry 03/16/24 documented as of this encounter
--- OUTSIDE RECORDS SUMMARY | 2024-05-08 19:26 | XMS_ITS | Encounter Summary ---
Author Organization [employer] Address [address] [place] [address] 7t [place] [address] Care Team Providers Care Customer Experience Professional Name Role Phone Marzena Loo MD Primary Care Provider +- [phone] Vicky Ibarra MD Unavailable + [phone] Reason for Visit * Reason Comments Med Refill Encounter Details Date Type Department Care Team (Late st Contact Info) Description 05/10/2023 Refill [facility] MEDICINE 230 [place], [place] [phone] Dior Forman MD 230 [place], [place] [phone] Social History Tobacco Use Types Packs/Day Years Used Date Smoking Tobacco: Former Cigarettes Q uit: 2020 Smokeless Tobacco: Never Alcohol Use Standard Drinks/Week Comments Never 0 (1 standard drink = 0.6 oz pur e alcohol) Comments No Sex and Gender Information Value [...] on filedocumented in this encounter Care Teams Customer Experience Professional Relationship Specialty Start Date End Date Marzena Loo MD 230 [place], [place] [phone] PCP - General Family Medicine 03/08/18 Vicky Ibarra MD [address] [place] [address] [place] [address] Neurology 03/16/24 Dr. Erick Pitts [facility] Pulmonology [address] [place] [address] Pulmonary Disease 03/16/24 [facility] [address] [place] [address] [id number] Optometry 03/16/24 documented as of this encounter
--- OUTSIDE RECORDS SUMMARY | 2024-05-08 19:26 | XMS_ITS | Encounter Summary ---
Author Organization [employer] Address [address] [facility] 7t [place] [address] Care Team Providers Care Staple Laster Name Role Phone Marzena Loo MD Primary Care Provider [phone]- [phone] Vicky Ibarra MD Unavailable + [phone] Reason for Visit * Reason Onset Date Comments Durable Medical Equipment 04/13/2024 boost Encounter Details Date Type Department Care Team ([facility] st Contact Info) Description 04/13/2024 Telephone [facility] MEDICINE [address] [place] [address] Marzena Loo MD [address] [place] [address] Durable Medical Equipment (boost) Social History Tobacco [...] please advise them to contact Alecia at [phone]. * Telephone Encounter - Nohemi Delgadillo - [...] documented as of this encounter Care Teams Staple Laster Relationship Specialty Start Date End Date Marzena Loo MD [address] [place] [id number] PCP - General Family Medicine 03/08/18 Vicky Ibarra MD [address] [place] [address] Neurology 03/16/24 Dr. Erick Pitts [facility] Pulmonology [address] [place] [address] Pulmonary Disease 03/16/24 [facility] [address] [facility] [id number] Optometry 03/16/24 documented as of this encounter
--- OUTSIDE RECORDS SUMMARY | 2024-05-08 19:26 | XMS_ITS | Encounter Summary ---
Author Organization [employer] Address [address] [facility] 7t [place] [address] Care Team Providers Care Television Cable Installer Name Role Phone Marzena Loo MD Primary Care Provider +1- [phone] Vicky Ibarra MD Unavailable + [phone] Reason for Visit * Reason Onset Date Comments Medication Question 04/17/2024 Encounter Details Date Type Department Care Team ([facility] st Contact Info) Description 04/17/2024 Telephone [facility] MEDICINE [address] [place] [address] Yue Wilson, RN [address] [place], [place] [phone] Medication Question Social History Tobacco Use Types [...] documented as of this encounter Care Teams Television Cable Installer Relationship Specialty Start Date End Date Marzena Loo MD [address] [facility] [address] PCP - General Family Medicine 03/08/18 Vicky Ibarra MD [address] [place] [address] [place] [address] Neurology 03/16/24 Dr. Erick Pitts [facility] Pulmonology [address] [place] [address] Pulmonary Disease 03/16/24 [facility] 180 [facility] [address] Optometry 03/16/24 documented as of this encounter
--- OUTSIDE RECORDS SUMMARY | 2024-05-08 19:26 | XMS_ITS | Encounter Summary ---
Author Organization [employer] Address [address] [facility] 7[address] [place] [address] Care Team Providers Care Informatics Scientist Name Role Phone Marzena Loo MD Primary Care Provider [phone]- [phone] Vicky Ibarra MD Unavailable + [phone] Reason for Visit * Reason Onset Date Comments Nurse Triage 05/08/2024 Encounter Details Date Type Department Care Team ([facility] st Contact Info) Description 05/08/2024 Telephone [facility] MEDICINE [address] [place] [address] Marzena Loo MD [address] [place], [place] [phone] Nurse Triage Social History Tobacco Use Types Packs/Day Years [...] encounter Miscellaneous Notes * Telephone Encounter - Mary Jo Bonner LPN - 05/08/2024 10:32 AM EST Triage call returned to patient who reports that she has ongoing painful urination and is voiding blood. Patient seen at [facility] and noted to have large volume of blood in urine no noted bacteria. Urine result in chart and full note requested. Patient was told that the ED was sending medication orders to [facility]. No meds available this morning per patient call. Patient referred to Dr.Alexander Antoine to follow but first appt is 05/22/24. Patient concerned with volume of blood and that she has pain with voiding. Disposition reviewed with patient in agreement with plan. No PCP or Team appts. Available at time of call. [facility] Walk In Center hours and availability provided for patient evaluation. Triage nurse informed the patient may have a wait of 1-2 hours because Walk In Clinic may have delays due to patient volume or symptom acuity. Insurance verified as active. Protocol Used: Urine - Blood In (Adult) Protocol-Based Disposition: Go to Office or Video Visit Now Positive Triage Question: * Known sickle cell disease * All higher-acuity triage questions were negative Care Advice Discussed: * Drink Extra Fluids * Reasons To Call Back * Telephone Encounter - Mary Jo Bonner LPN - 05/08/2024 10:30 AM EST Please obtain [facility] ED note from yesterday 05/07/24 for patient chart. Pending reeval at [facility] today * Telephone Encounter - Nazanin Navas - 05/08/2024 9:52 AM EST Symptom: Urination Pain Outcome: Schedule an urgent appointment (within 1 hour) or talk to a nurse or provider soon Reason: Blood in urine The caller accepted this outcome. [phone] documented in this encounter Plan of Treatment Not on file documented as of this encounter Visit Diagnoses Not on filedocumented in this encounter Additional Health Concerns Assessment Noted Time PHQ-9 Depression Total Score: 3 01/12/20 24 12:28 PM EST documented as of this encounter Care Teams Informatics Scientist Relationship Specialty Start Date End Date Marzena Loo MD [address] [place] [address] PCP - General Family Medicine 03/08/18 Vicky Ibarra MD [address] [place] [address] [address] Neurology 03/16/24 Dr. Erick Pitts [facility] Pulmonology [address] [address] Pulmonary Disease 03/16/24 [facility] 180 [facility] [id number] Optometry 03/16/24 documented as of this encounter
--- OUTSIDE RECORDS SUMMARY | 2024-05-08 19:26 | XMS_ITS | Clinical Summary ---
Author Organization [employer] Address [address] [place] [address] [address] [place] [address] Care Team Providers Care Bead Wire Insulator Name Role Phone Marzena Loo MD Primary Care Provider [phone] Vicky Ibarra MD Unavailable [phone] Allergies Active Allergy Reactions Criticality Noted Date [...] stage 1 drop 2 times daily. Active sulfamethoxazo le-trimethopri m (Bactrim DS) 800-160 MG tablet Take 1 tablet by mouth 2 times daily for 7 days. 14 tablet 025 2024 Active tamsulosin (Flomax) 0.4 MG 24 hr capsule Take 1 capsule (0.4 mg) by mouth Once per day. 30 capsule Active acetaminophen (Tylenol Extra Strength) 500 MG tablet Take 1 tablet (500 mg) by mouth every 8 (eight) hours if needed for mild pain. 90 tablet 025 2024 Active ibuprofen 400 MG tablet Take 1.5 tablets (600 mg) by mouth every 8 (eight) hours if needed for mild pain or moderate pain. 60 tablet 025 2024 Active dorzolamide-ti molol (Cosopt) 22.3-6.8 MG/ML ophthalmic [...] Active Problems Problem Noted Date Diagnosed Date Acute cystitis with hematuria 05/08/2024 Assessment & Plan (05/08/2024 5:51 PM EST): Start Bactrim x 5 to 7 days, continue Pyridium and increase water intake. Follow-up urine culture results Take Flomax nightly for 2 to 4 weeks or until symptoms resolve completely, she has appointment with urology on June. Advised to take Tylenol or ibuprofen as needed pain and return to clinic as needed if symptoms do not resolve Hematuria 05/08/2024 Overview (05/08/2024): [place] [facility] [place]: nonobstructing bilateral renal calculi. Stable mild hydronephrosis of the right kidney. Assessment & Plan (05/08/2024 5:52 PM EST): Most likely related to kidney stones, see above Kidney stones 05/08/2024 Failure to thrive (child) 04/13/2024 Overview (04/13/2024): [...] Hodge for glaucoma -Dr. Vick Machado of [facility] -Pulmonology (lung doctor) [facility] [phone] -Neurology (brain doctor) Dr. Vicky Ibarra, [facility] [phone] Assessment & Plan (04/13/2024 12:01 PM EST): Team includes: -[facility]. [facility] with Dr. Hodge for glaucoma -Dr. Vick Machado of [facility] -Pulmonology (lung doctor) [facility] [phone] -Neurology (brain doctor) Dr. Vicky Ibarra, [facility] [phone] Colon cancer screening 04/14/2023 Overview (04/13/2024): -pt [...] to neurology 02/10/23 Ml note to pulmonology [facility]. 02/10/23 pt repots pain improved. Seen [...] to neurology 02/10/23 Ml note to pulmonology [facility]. 02/10/23 pt repots pain improved. Seen [...] to neurology 02/10/23 Ml note to pulmonology [facility]. 02/10/23 pt repots pain improved. Seen [...] to neurology 02/10/23 Ml note to pulmonology [facility]. 02/10/23 pt repots pain improved. Other specified health status 01/16/2023 Overview (01/12/2024): -next comprehensive annual evaluation due after 01/11/25 -followed by Dr. Vick Machado of [facility] -dental home [place] [facility] proxy given and filed 01/12/24 Assessment & Plan (01/12/2024 12:04 PM EST): -next comprehensive annual evaluation due after 01/11/25 -followed by Dr. Vick Machado of [facility] -dental home is at the [facility] proxy given and filed 01/12/24 Family planning [...] mildy reduced but overall stable -seen by [facility] pulmonology with Dr. Erick Pitts MD 07/28/23: methotrexate previously increased to 20mg weekly( 8 tablets of 2.5mg); continued on Remicade (infliximab 200mg) infused q 6 weeks -Thinks she might have missed appt with manager field investigations, given phone number to call 04/13/24 Assessment [...] mildy reduced but overall stable -seen by [facility] pulmonology with Dr. Erick Pitts MD 07/28/23: methotrexate previously increased to 20mg weekly( 8 tablets of 2.5mg); continued on Remicade (infliximab 200mg) infused q 6 weeks -Thinks she might have missed appt with manager field investigations, given phone number to call 04/13/24 Primary [...] mildy reduced but overall stable -seen by [facility] pulmonology with Dr. Erick Pitts MD 07/28/23: methotrexate previously increased to 20mg weekly( 8 tablets of 2.5mg); continued on Remicade (infliximab 200mg) infused q 6 weeks -Thinks she might have missed appt with manager field investigations, given phone number to call 04/13/24 Assessment [...] mildy reduced but overall stable -seen by [facility] pulmonology with Dr. Erick Pitts MD 07/28/23: methotrexate previously increased to 20mg weekly( 8 tablets of 2.5mg); continued on Remicade (infliximab 200mg) infused q 6 weeks -Thinks she might have missed appt with manager field investigations, given phone number to call 04/13/24 Assessment [...] mildy reduced but overall stable -seen by [facility] pulmonology with Dr. Erick Pitts MD [...] -HIV negative 07/29/2017 -continue Methotrexate 12.mg on arted 05/04/2019 with folic acid (Deop Provera for control) -CT 05/2020 nodular component of pulmonary parenchyma c/w sarcoidosis, PFTs mild reduced diffusion capacity of 59% predicted at 11.83 mL/min/mmHg -continue Remicade (infliximab) q 6weeks with Dr. Erick Pitts of [facility] pulmonology -Seen previously with Dr. Dex Whitney at the [facility] last 04/08/2021 -[facility]. Hodge for glaucoma, likely Kerline Schlossmann. 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, likely Kerline Schlossmann. Presbyopia 07/28/2017 Depressive disorder 09/24/2011 Sickle cell trait 09/24/2011 Anemia 08/26/2011 Constipation 08/26/2011 Encounters Date Type Department Care Team Description 05/08/2024 2:40 PM EST Office Visit [facility] [address] [place] [phone] Leila Garcia MD Acute cystitis with hematuria (Primary Dx); Hematuria, unspecified type; Kidney stones 05/08/2024 Telephone [facility] [address] [place] [phone] Marzena Loo MD Nurse Triage 05/07/2024 Orders Only GENERIC EXTERNAL DATA DEPARTMENT Provider, Generic External Data 04/17/[address] [address] Yue Wilson, can patcher Question 04/17/2024 Travel 04/14/[address] [address] Marzena Loo MD 04/13/2024 9:15 AM EST Telemedicine [address] [address] Marzena Loo MD Family planning (Primary Dx); Interstitial lung disease (CMS/HCC); Sarcoidosis; Acute intractable headache, unspecified headache type; 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, unspecified glaucoma stage; Uveitis; Adult failure to thrive; Complex care coordination; Colon cancer screening 04/13/[address] [address] Marzena Loo MD Durable Medical Equipment (boost) 04/13/[address] [address] Marzena Loo MD 04/13/2024 Orders Only [facility] [address] [place] [address] Marzena Loo MD 04/13/2024 Travel 04/12/2024 Telephone [facility] [address] [place] [address] Pat Del Castillo MA chartprep 04/01/2024 Telephone [facility] [address] [place] [address] Marzena Loo MD 04/01/2024 Travel 03/16/[address] [address] Marzena Loo MD Paperwork/Forms 03/09/2024 Telephone [facility] [address] [place] [address] Yun Jackson MA April Recall 02/09/2024 Telephone [facility] [address] [place], [place] [phone] Kali Buck MA DME L&C from Last 3 Months Immunizations Name Administration [...] (104 lb) 05/08/2024 2:22 PM EST Height 154.9 cm (5' 1 ) 01/12/2024 11:57 AM EST Body Mass Index 19.65 01/12/2024 11:57 AM EST Plan of Treatment [...] 01/11/2029 HPV/Cotest 01/11/2029 Pap Smear 01/11/2029 01/12/2024, 10/0 03/2020, 12/06/2020, Additional history exists RSV Patients and [...] 05/08/2024 2:37 PM EST Hematuria, unspecified type CT ABDOMEN PELVIS WO CONTRAST Routine 05/07/2024 [...] Recently Relevant to Health Maintenance Results * (ABNORMAL) POCT urinalysis dipstick manually [...] CARE TEST ENTER /EDIT ORDERABLES Final Result * CT Abdomen Pelvis w/o Contrast (05/07/2024 6:45 PM EST) Anatomical Region Laterality Modality Body, Pelvis, Abdomen Computed T omography 05/07/2024 6:45 PM EST Narrative 05/07/2024 6:47 PM EST ? [facility] ?[address] ?[place] [address] ? CT Scan Report ? Signed ? Patient: Leila Fernandez ?MR#: ?? [id number] ? : 1980 ?Acct:[id number] ? Age/Sex: 44 / F ?ADM Date: 05/07/24 ? Loc: HO.ED ? Attending Dr: ? Ordering Physician: Jose Antonio Mills ?? Date of Service: 05/07/24 ?? Procedure(s): CT abdomen pelvis wo IV con ?? Accession Number(s): [id number] ? cc: Jose Antonio Mills; Marzena oLo MD ? Report Number: ?? [id number]: Total DLP = ??278.00 mGy-cm ? CLINICAL HISTORY: flank pain. Kidney stones? CT abdomen and pelvis without contrast ? Comparison: CT/SR - CHEST WITH IV CONTRAST [id number] - 08/19/17 10:11 EDT ?? CT/SR - ABD PELVIS WITH CONT [id number] - 05/08/15 16:44 EST ? Findings: The [...] by Leanne Church MD in OV> ? 05/07/24 1846 ? DD/ 44 ? TD/TT: 05/07/241844 ? Vocational Aide: ? Procedure Note Rashmi, Jay - 05/07/[address] [place] [address] [address] Scan Report Signed Patient: Leila Fernandez AMR#: [id number] : 1980Acct:[id number] Age/Sex: 44 / FADM Date: 05/07/24 Loc: HO.ED Attending Dr: Ordering Physician: Jose Antonio Mills Date of Service: 05/07/24 Procedure(s): CT abdomen pelvis wo IV con Accession Number(s): [id number] cc: Jose Antonio Mills; Marzena Loo MD Report Number: [id number]: Total DLP = 278.00 mGy-cm CLINICAL HISTORY: flank pain. Kidney stones? CT abdomen and pelvis without contrast Comparison: CT/SR - CHEST WITH IV CONTRAST [id number] - 08/19/17 10:[address]/SR - ABD PELVIS WITH CONT [id number] - 05/08/15 16:44 EST Findings: The prior [...] in OV> 05/07/241845 DD/ 44 TD/TT: 05/07/241844 Vocational Aide: [facility] External Provider IMG CT PROCEDURES Edited Result - Final * (ABNORMAL) Urinalysis, Complete, with Reflex to Culture (05/07/2024 3:59 PM EST) Color Urine RED [facility] Comment:Dipstick performed o n centrifuged urine. Results may notcorrelate with microscopic values. Appearance Urine Turbid [facility] PH 6.5 5.0 - 9.0 [facility] Glucose Urine UA Negative Negative mg/dL [facility] Urine Blood Large (3+)(A) Negative [facility] Specific [place] - Urine 1.025 1.005 - 1.025 [facility] Urine Protein 300 (3+)(A) Neg-Trace mg/dL [facility] Urine Ketones Negative Negative mg/dL [facility] Nitrite Urine Negative Negative [facility] Leukocyte Esterase Urine Negative Negative [facility] RBC Urine >20(A) 0 - 2 /HPF [facility] Urine WBC 0-5 0 - 5 /HPF [facility] Urine Squamous Epithelial Cell 0-2 0 - 2 /HPF [facility] Urine Bacteria None Seen None Seen [facility] Hyaline Casts, Urine 0-2 0 - 2 /LPF [facility] 05/07/2024 3:59 PM EST 05/07/2024 4:03 PM EST Narrative [facility] - 05/07/2024 4:27 PM EST [id number], Clean [employer] us Generic External Data Provider LAB URINE ORDERAB LES Final Result [facility] [address] [place] [phone] * (ABNORMAL) CBC auto differential (05/07/2024 3:59 PM EST) White Blood Count 7.2 4.8 - 10.8 X10*3/uL [facility] Red Blood Count 4.19(L) 4.20 - 5.50 X10*6/uL [facility] Hemoglobin 12.4 12.0 - 16.0 g/dl [facility] Hematocrit 35.8(L) 37.0 - 47.0 % [facility] Mean Corpuscular Volume 85.4 80.0 - 98.0 fL [facility] Mean Corpuscular Hemoglobin 29.6 27.0 - 33.0 pg [facility] Mean Corpuscular HGB Conc 34.6 31.0 - 35.0 g/dl [facility] Red Cell Distribution Width 13.8 11.0 - 16.0 % [facility] Platelet Count 303 160 - 400 X10*3/uL [facility] Mean Platelet Volume 9.7 9.4 - 12.3 fL [facility] Neutrophils Percent Auto 48.3 45 - 73 % [facility] Imm Gran Pct Auto 0.3 0.0 - 0.4 % [facility] Lymphocytes Percent Auto 39.1 20 - 40 % [facility] Monocytes Percent Auto 9.8 2 - 11 % [facility] Eosinophils Percent Auto 1.8 0 - 4 % [facility] Basophils Percent Auto 0.7 0 - 2 % [facility] NRBC Pct Auto 0.0 0.0 - 0.2 /100WBC [facility] Neutrophils Absolute Auto 3.5 2.0 - 8.3 x10*3/uL [facility] Imm Gran Abs Auto 0.02 0.00 - 0.03 X10*3/uL [facility] Lymphocytes Absolute Auto 2.8 1.2 - 4.9 X10*3/uL [facility] Monocytes Absolute Auto 0.7 0.1 - 1.2 X10*3/uL [facility] Eosinophils Absolute Auto 0.1 0.0 - 0.4 X10*3/uL [facility] Basophils Absolute Auto 0.1 0.0 - 0.2 X10*3/uL [facility] NRBC Abs Auto 0.000 0.0 - 0.012 X10*3/uL [facility] 05/07/2024 3:59 PM EST 05/07/2024 4:03 PM EST us Generic External Data Provider LAB BLOOD ORDERAB LES Final Result [facility] [address] [place] [address] [phone] * HCG, Qualitative, Urine (05/07/2024 3:59 PM EST) Urine NEGATIVE NEGATIVE [facility] Comment:This test was develo ped to detect early . Falsenegative results may occur after the 5th - 7th week ofpregnancy when using this test method. If clinicallyindicated, consider a serum hCG. 05/07/2024 3:59 PM EST 05/07/2024 4:27 PM EST us Generic External Data Provider LAB URINE ORDERAB LES Final Result Performing Organization Address [facility] Co de Phone Number [facility] [address] [place] [phone] * Partial Thromboplastin Time, Activated (APTT) (05/07/2024 3:59 PM EST) Partial Thromboplastin Time 30.4 26.0 - 36.8 SEC [facility] Comment:For information rega rding the monitoring of direct thrombininhibitors, please refer to Pharmacy. 05/07/2024 3:59 PM EST 05/07/2024 4:03 PM EST Generic External Data Provider LAB BLOOD ORDERAB LES Final Result Performing Organization Address [facility] Co de Phone Number [facility] [address] [place] [phone] * Prothrombin Time-INR (05/07/2024 3:59 PM EST) Prothrombin Time 11.1 10.9 - 12.4 SEC [facility] INTERNATIONAL NORM RATIO 1.0 0.9 - 1.1 [facility] Comment:INTERNATIONAL NORMAL IZED RATIO (INR) [...] ORDERAB LES Final Result Performing Organization Address [facility] Co de Phone Number [facility] [address] [place] [phone] * hCG, Total, Quantitative (05/07/2024 3:59 PM EST) Pathologist [facility] HCG Quantitative <2 mIU/mL [facility] Comment:Weeks post LMP Appr oximate hCG(Last Menstrual Period) Range (mIU/ml)3 - 4 weeks 9 - 1304 - 5 weeks 75 - 2,6005 - 6 weeks 850 - 20,8006 - 7 weeks 4000 - 100,2007 - 12 weeks 11,500 - 289,82766 - 16 weeks 18,300 - 137,71992 - 29 weeks (2nd trimester) 1,400 - 53,73862 - 41 weeks (3rd trimester) 940 - 60,000The Arthur B-hCG assay is used for the early detection ofpregnancy; it cannot be used to diagnose any conditionunrelated to . If a B-hCG level is not supportedby the clinical evidence, results should be confirmed by analternative method (qualitative urine hCG, for example). 05/07/2024 3:59 PM EST 05/07/2024 4:03 PM EST us Generic External Data Provider LAB BLOOD ORDERAB LES Final Result [facility] [address] [place] [address] [phone] * (ABNORMAL) Comprehensive Metabolic Panel (05/07/2024 3:59 PM EST) [facility] Sodium 142 135 - 145 mmol/L [facility] Potassium 3.4 3.3 - 5.1 mmol/L [facility] Chloride 108 96 - 108 mmol/L [facility] Carbon Dioxide 25 22 - 29 mmol/L [facility] Anion Gap 12 12 - 20 [facility] Urea Nitrogen (BUN) 9 9 - 16 mg/dL [facility] Creatinine, Serum 0.65 0.5 - 1.4 mg/dL [facility] Creatinine Clr Calc Pharmacy 77.6 [facility] Comment:Provided height and weight: 152.4 cm,46.8 kg.eGFR (calculated from the MDRD study equation) and eCrCl(calculated from the Cockcroft-Gault equation) are based ondifferent parameters and may not yield comparable results.If eCrCl result is absurd, please check patient'sheight/weight. Estimated Glomerular Filt Rate >60 [facility] Comment:Chronic Kidney Disea se: Estimated GFR < 60 mL/min/1.72t5Fjtxmc Kidney Disease: Estimated GFR < 15 mL/min/1.73m2 Glucose 94 60 - 115 mg/dL [facility] Calcium 9.5 8.4 - 10.2 mg/dL [facility] Bilirubin, Total 0.3 0.0 - 1.0 mg/dL [facility] Aspartate Amino Transferase 23 5 - 31 U/L [facility] Alanine Aminotransferase 16 0 - 31 U/L [facility] Total Protein 8.6(H) 6.5 - 8.0 g/dL [facility] Albumin Level 4.5 3.5 - 5.0 g/dL [facility] Alkaline Phosphatase 86 39 - 117 U/L [facility] 05/07/2024 3:59 PM EST 05/07/2024 4:03 PM EST us Generic External Data Provider LAB BLOOD ORDERAB LES Final Result Performing Organization Address City/State/[facility] Co de Phone Number [facility] [address] [place] [phone] * BI Mammogram Screening Tomosynthesis Bilateral (01/12/2024 9:30 AM EST) Anatomical Region Laterality Modality Breast Bilateral Mammography 01/12/2024 9:30 AM EST Narrative 01/21/2024 1:02 PM EST ? [facility] ? [address] ?[place] [address] ? Mammography Report ? Signed ? Patient: Lew Daljit,Leila A ?MR#: ?? [id number] ? : 1980 ?Acct:[id number] ? Age/Sex: 44 / F ?ADM Date: 01/11/ ? Loc: HO.MAMMO ? Attending Dr: Marzena Loo MD ? Ordering Physician: Marzena Loo MD ?Results: 1N ?? egative ? Date of Service: 01/12/24 ?Follow Up: 1 Year From Orig ?? inal Mammogram ? Procedure(s): MM tomosynthesis screening BI ?? Accession Number(s): [id number] ? cc: Marzena Loo MD ? EXAMINATION: [...] ??Gianna Hou DO ??01/21/2024 12:59 PM EST ?? RP ? Dictated By: ?Gianna Hou DO ? Signed By: ?<Electronically signed by Gianna Hou, DO in OV> ? 01/21/24 1259 ? DD/ 0930 ? TD/TT: 01/12/24 0945 ? Vocational Aide: ? Procedure Note Donotuseinterpreter, Image - 01/21/2024 [facility] [address] [place] [address] Mammography Report Signed Patient: Leila Fernandez AMR#: [id number] : 1980Acct:[id number] Age/Sex: 44 / FADM Date: 01/12/24 Loc: HO.MAMMO Attending Dr: Marzena Loo MD Ordering Physician: Marzena Loo MDResults: 1N egative Date of Service: 01/12/24Follow Up: 1 Year From Orig inal Mammogram Procedure(s): MM tomosynthesis screening BI Accession Number(s): [id number] cc: Marzena Loo MD EXAMINATION: MM SCREENING [...] Gianna Hou DO 01/21/2024 12:59 PM EST RP Dictated By: Gianna Hou DO Signed By: <Electronically signed by Gianna Hou DO in OV> 01/21/24 1259 DD/ 9 TD/TT: 01/12/24944 Vocational Aide: Marzena Loo MD IMG BI PROCEDURES Final Re sult * Pap Smear (01/12/2024 12:00 AM EST) Swab Cervix uteri structure / Unknown 01/12/2024 01/13/2024 8:45 AM EST Ryder [facility] - 01/17/2024 8:26 AM EST ----- ------- Name: Leila Fernandez ? Age/Sex: 44/F ? : 1980 Unit#: [id number] ?? Attend Dr: ?Re01/12/24 ?Status: PRE REF ? Location: HO.LNP ?Disch: ? ----- ------- SPEC : [id number] ?RECD: 01/13/24 ? STATUS: ??SOUT ? REQ NUM: [id number] ? SWETA: 01/12/24 ? SUBM DR: Marzena Loo MD ? [...] ThinPrep-Cervical ----- ------- Signed (signature on file) Reymundo HILARIO Loera (ASCP) 01/17/24 0826 ? ----- ------- ? END OF REPORT ? us Marzena Loo MD LAB CYTOLOGY ORDERABLES Fi nal Result Performing Organization Address [facility] Co de Phone Number [facility] [address] [place] [phone] * HIV Ab/Ag ([facility]) (10/16/2022 12:24 PM EDT) [facility] HIV AB/AG Nonreactive Nonreactive [facility] Comment:HIV-1 p24 Ag and/or HIV-1/HIV-2 Ab not detected.A test result that is nonreactive does not exclude thepossibility of exposure to or infection with HIV-1 and/orHIV-2. Nonreactive results in this assay for individualswith prior exposure to HIV-1 and/or HIV-2 may be due toantigen and antibody levels that are below the limit ofdetection of this assay.The [facility] [employer] HIV Ag/Ab Combo assay result andsupplemental assay results should be interpreted inconjunction with the patient's clinical presentation,history and other laboratory results. If the results areinconsistent with clinical evidence, additional testing issuggested to confirm the result. 10/16/2022 12:2 4 PM EDT 10/16/2022 1:48 PM EDT us Shelly Rodrigues MD LAB BLOOD ORDERABLES Final Re sult Performing Organization Address [facility] Co de Phone Number [facility] [address] [place] [address] [phone] * Hepatitis A,B,C Profile (10/16/2022 12:24 PM EDT) Hepatitis A IgM Nonreactive Nonreactive [facility] Comment:IgM antibodies to BRADLEY V not detected; does not exclude earlyacute or recovered HAV infection. ~Hepatitis B Surface Antibody NONREACTIVE Nonreactive [facility] Comment:Nonreactive: < 8.00 mIU/mL Hepatitis B Core Antibody Nonreactive Nonreactive [facility] Hepatitis C Antibody Nonreactive Nonreactive [facility] Comment:Antibodies to HCV no t detected; does not exclude early acuteHCV infection. Hepatitis B Surface Ag Negative Negative [facility] Blood 10/16/2022 12:2 4 PM EDT 10/16/2022 1:48 PM EDT Shelly Rodrigues MD LAB BLOOD ORDERABLES Final Re sult Performing Organization Address [facility] Co de Phone Number [facility] [address] [place] [address] [phone] from Last 3 Months or Most Recently Relevant to Health Maintenance Insurance [facility] C3 Advance Directives Documents on File Type Date Recorded Patient House Repairer Expl anation Advance Directives and Living Will 01/14/2024 11:42 AM Health Care Proxy Care Teams Bead Wire Insulator Relationship Specialty Start Date End Date [place], MD Marzena [address] [place] [phone] PCP - General Family Medicine 03/08/18 Vicky Ibarra MD [address] [place] [address] [place] [address] Neurology 03/16/[address] [facility] Pulmonology [address] [address] Pulmonary Disease 03/16/24 Dr. [facility] [address] [facility] [address] Optometry 03/16/24
--- OUTSIDE RECORDS SUMMARY | 2024-05-08 19:26 | XMS_ITS | Encounter Summary ---
Author Organization [employer] Address [address] [facility] 7t [place] [address] Care Team Providers Care Stewardess Supervisor Name Role Phone Marzena Loo MD Primary Care Provider +1- [phone] Vicky Ibarra MD Unavailable + [phone] Encounter Details Date Type Department Care Team [...] t he electric, gas, oil or water [employer] threatened to shut off services in your [...] EST Narrative 05/07/2024 6:47 PM EST ? [facility] ?[address] ?[place] [address] ? CT Scan Report ? Signed ? Patient: Lew Daljit,Leila A ?MR#: ?? [id number] ? : 1980 ?Acct:[id number] ? Age/Sex: 44 / F ?ADM Date: 05/07/24 ? Loc: HO.ED ? Attending Dr: ? Ordering Physician: Jose Antonio Mills ?? Date of Service: 05/07/24 ?? Procedure(s): CT abdomen pelvis wo IV con ?? Accession Number(s): [id number] ? cc: Jose Antonio Mills; Marzena Loo MD ? Report Number: ?? [id number]: Total DLP = ??278.00 mGy-cm ? CLINICAL HISTORY: flank pain. Kidney stones? CT abdomen and pelvis without contrast ? Comparison: CT/SR - CHEST WITH IV CONTRAST [id number] - 08/19/17 10:[address]T ?? CT/SR - ABD PELVIS WITH CONT [id number] - 05/08/15 16:44 EST ? Findings: The [...] DD/ 44 ? TD/TT: 05/07/24 1845 ? Paste Thinner: ? Procedure Note Donotuseinterpreter, Image - 05/07/[address] [place] [id number] [address] Scan Report Signed Patient: Leila Fernandez AMR#: [id number] : 1980Acct:[id number] Age/Sex: 44 / FADM Date: 05/07/24 Loc: HO.ED Attending Dr: Ordering Physician: Jose Antonio Mills Date of Service: 05/07/24 Procedure(s): CT abdomen pelvis wo IV con Accession Number(s): [id number] cc: Jose Antonio Mills; Marzena Loo MD Report Number: [id number]: Total DLP = 278.00 mGy-cm CLINICAL HISTORY: flank pain. Kidney stones? CT abdomen and pelvis without contrast Comparison: CT/SR - CHEST WITH IV CONTRAST [id number] - 08/19/17 10:[address]/SR - ABD PELVIS WITH CONT [id number] - 05/08/15 16:44 EST Findings: The prior [...] document has been electronically signed by: Leanne Chucrh MD on 05/07/2024 18:45:40 Dictated By: Leanne Church MD Signed By: <Electronically signed by Leanne Church MD in OV> 05/07/241845 DD/ 44 TD/TT: 05/07/241844 Paste Thinner: [facility] External Provider IMG CT PROCEDURES Edited Result - Final * hCG, Total, Quantitative (05/07/2024 3:59 PM EST) HCG Quantitative <2 mIU/mL [facility] Comment:Weeks post LMP Appro ximate hCG(Last Menstrual Period) Range (mIU/ml)3 - 4 weeks 9 - 1304 - 5 weeks 75 - 2,6005 - 6 weeks 850 - 20,8006 - 7 weeks 4000 - 100,2007 - 12 weeks 11,500 - 289,32217 - 16 weeks 18,300 - 137,30100 - 29 weeks (2nd trimester) 1,400 - 53,99932 - 41 weeks (3rd trimester) 940 - [...] Provider LAB BLOOD ORDERAB LES Final Result [facility] [address] [place] [address] [phone] * (ABNORMAL) Comprehensive Metabolic Panel (05/07/2024 3:59 PM EST) Sodium 142 135 - 145 mmol/L [facility] Potassium 3.4 3.3 - 5.1 mmol/L [facility] Chloride 108 96 - 108 mmol/L [facility] Carbon Dioxide 25 22 - 29 mmol/L [facility] Anion Gap 12 12 - 20 [facility] Urea Nitrogen (BUN) 9 9 - 16 mg/dL [facility] Creatinine, Serum 0.65 0.5 - 1.4 mg/dL [facility] Creatinine Clr Calc Pharmacy 77.6 [facility] Comment:Provided height and weight: 152.4 cm,46.8 kg.eGFR (calculated from the MDRD study equation) and eCrCl(calculated from the Cockcroft-Gault equation) are based ondifferent parameters and may not yield comparable results.If eCrCl result is absurd, please check patient'sheight/weight. Estimated Glomerular Filt Rate >60 [facility] Comment:Chronic Kidney Disea se: Estimated GFR < 60 mL/min/1.24g2Rczwge Kidney Disease: Estimated GFR < 15 mL/min/1.73m2 Glucose 94 60 - 115 mg/dL [facility] Calcium 9.5 8.4 - 10.2 mg/dL [facility] Bilirubin, Total 0.3 0.0 - 1.0 mg/dL [facility] Aspartate Amino Transferase 23 5 - 31 U/L [facility] Alanine Aminotransferase 16 0 - 31 U/L [facility] Total Protein 8.6(H) 6.5 - 8.0 g/dL [facility] Albumin Level 4.5 3.5 - 5.0 g/dL [facility] Alkaline Phosphatase 86 39 - 117 U/L [facility] 05/07/2024 3:59 PM EST 05/07/2024 4:03 PM EST us Generic External Data Provider LAB BLOOD ORDERAB LES Final Result [facility] [address] [place] [address] [phone] * Partial Thromboplastin Time, Activated (APTT) (05/07/2024 3:59 PM EST) Partial Thromboplastin Time 30.4 26.0 - 36.8 SEC [facility] Comment:For information rega rding the monitoring of direct thrombininhibitors, please refer to Pharmacy. 05/07/2024 3:59 PM EST 05/07/2024 4:03 PM EST Generic External Data Provider LAB BLOOD ORDERAB LES Final Result Performing Organization Address [facility] Co de Phone Number [facility] [address] [place] [phone] * Prothrombin Time-INR (05/07/2024 3:59 PM EST) [facility] Prothrombin Time 11.1 10.9 - 12.4 SEC [facility] INTERNATIONAL NORM RATIO 1.0 0.9 - 1.1 [facility] Comment:INTERNATIONAL NORMAL IZED RATIO (INR) REFERENCE [...] 3:59 PM EST 05/07/2024 4:03 PM EST [employer] External Data Provider LAB BLOOD ORDERAB LES Final Result Performing Organization Address [facility] de Phone Number [facility] [address] [place] [phone] * HCG, Qualitative, Urine (05/07/2024 3:59 PM EST) Pathologist [facility] Urine NEGATIVE NEGATIVE [facility] Comment:This test was develo ped to detect early . Falsenegative results may occur after the 5th - 7th week ofpregnancy when using this test method. If clinicallyindicated, consider a serum hCG. 05/07/2024 3:59 PM EST 05/07/2024 4:27 PM EST us Generic External Data Provider LAB URINE ORDERAB LES Final Result Performing Organization Address City/[facility]/ZIP Co de Phone Number [facility] [address] [place] [phone] * (ABNORMAL) Urinalysis, Complete, with Reflex to Culture (05/07/2024 3:59 PM EST) Color Urine RED [facility] Comment:Dipstick performed o n centrifuged urine. Results may notcorrelate with microscopic values. Appearance Urine Turbid [facility] PH 6.5 5.0 - 9.0 [facility] Glucose Urine UA Negative Negative mg/dL [facility] Urine Blood Large (3+)(A) Negative [facility] Specific [place] - Urine 1.025 1.005 - 1.025 [facility] Urine Protein 300 (3+)(A) Neg-Trace mg/dL [facility] Urine Ketones Negative Negative mg/dL [facility] Nitrite Urine Negative Negative [facility] Leukocyte Esterase Urine Negative Negative [facility] RBC Urine >20(A) 0 - 2 /HPF [facility] Urine WBC 0-5 0 - 5 /HPF [facility] Urine Squamous Epithelial Cell 0-2 0 - 2 /HPF [facility] Urine Bacteria None Seen None Seen [facility] Hyaline Casts, Urine 0-2 0 - 2 /LPF [facility] 05/07/2024 3:59 PM EST 05/07/2024 4:03 PM EST Narrative [facility] - 05/07/2024 4:27 PM EST [id number], Clean [employer] us Generic External Data Provider LAB URINE ORDERAB LES Final Result Performing Organization Address [facility]/ZIP Co de Phone Number [facility] [address] [place] [phone] * (ABNORMAL) CBC auto differential (05/07/2024 3:59 PM EST) White Blood Count 7.2 4.8 - 10.8 X10*3/uL [facility] Red Blood Count 4.19(L) 4.20 - 5.50 X10*6/uL [facility] Hemoglobin 12.4 12.0 - 16.0 g/dl [facility] Hematocrit 35.8(L) 37.0 - 47.0 % [facility] Mean Corpuscular Volume 85.4 80.0 - 98.0 fL [facility] Mean Corpuscular Hemoglobin 29.6 27.0 - 33.0 pg [facility] Mean Corpuscular HGB Conc 34.6 31.0 - 35.0 g/dl [facility] Red Cell Distribution Width 13.8 11.0 - 16.0 % [facility] Platelet Count 303 160 - 400 X10*3/uL [facility] Mean Platelet Volume 9.7 9.4 - 12.3 fL [facility] Neutrophils Percent Auto 48.3 45 - 73 % [facility] Imm Gran Pct Auto 0.3 0.0 - 0.4 % [facility] Lymphocytes Percent Auto 39.1 20 - 40 % [facility] Monocytes Percent Auto 9.8 2 - 11 % [facility] Eosinophils Percent Auto 1.8 0 - 4 % [facility] Basophils Percent Auto 0.7 0 - 2 % [facility] NRBC Pct Auto 0.0 0.0 - 0.2 /100WBC [facility] Neutrophils Absolute Auto 3.5 2.0 - 8.3 x10*3/uL [facility] Imm Gran Abs Auto 0.02 0.00 - 0.03 X10*3/uL [facility] Lymphocytes Absolute Auto 2.8 1.2 - 4.9 X10*3/uL [facility] Monocytes Absolute Auto 0.7 0.1 - 1.2 X10*3/uL [facility] Eosinophils Absolute Auto 0.1 0.0 - 0.4 X10*3/uL [facility] Basophils Absolute Auto 0.1 0.0 - 0.2 X10*3/uL [facility] NRBC Abs Auto 0.000 0.0 - 0.012 X10*3/uL [facility] 05/07/2024 3:59 PM EST 05/07/2024 4:03 PM EST us Generic External Data Provider LAB BLOOD ORDERAB LES Final Result [facility] [address] [place] [phone] documented in this encounter Visit Diagnoses Not on filedocumented in this encounter Additional Health Concerns Assessment Noted Time PHQ-9 Depression Total Score: 3 01/12/20 24 12:28 PM EST documented as of this encounter Care Teams Stewardess Supervisor Relationship Specialty Start Date End Date Marzena Loo MD [address] [place] [phone] PCP - General Family Medicine 03/08/18 Vicky Ibarra MD [address] [place] [address] Neurology 03/16/24 Dr. Erick Pitts [facility] Pulmonology [address] [place] [address] Pulmonary Disease 03/16/24 Dr[facility] 180 [facility] [phone] Optometry 03/16/24 documented as of this encounter
--- OUTSIDE RECORDS SUMMARY | 2024-05-08 19:26 | XMS_ITS | Encounter Summary ---
Author Organization [employer] Address [address] [facility] 7t [place] [address] Care Team Providers Care Vp Lab Name Role Phone Marzena Loo MD Primary Care Provider [phone]- [phone] Vicky Ibarra MD Unavailable + [phone] Reason for Visit * Reason Comments Med Refill Encounter Details Date Type Department Care Team ([facility] st Contact Info) Description 05/05/2022 Refill [facility] MED[facility]INE [address] [place] [address] Marzena Loo MD [address] [place] [address] Social History Tobacco Use Types Packs/Day Years [...] on filedocumented in this encounter Care Teams Vp Lab Relationship Specialty Start Date End Date Marzena Loo MD [address] [place] [address] PCP - General Family Medicine 03/08/18 Vicky Ibarra MD [address] [place] [address] Neurology 03/16/24 Dr. Erick Pitts [facility] Pulmonology [address] [place] [address] Pulmonary Disease 03/16/24 [facility] [address] [place] [address] Optometry 03/16/24 documented as of this encounter
--- OUTSIDE RECORDS SUMMARY | 2024-05-08 19:26 | XMS_ITS | Encounter Summary ---
Author Organization [employer] Address [address] [place] [address] 7 [place] [address] Care Team Providers Care Toll Bridge Operator Name Role Phone Marzena Loo MD Primary Care Provider +- [phone] Vicky Ibarra MD Unavailable + [phone] Encounter Details Date Type Department Care Team (Late st Contact Info) Description 01/30/2022 Abstract [facility] MED & PEDS [address] [place], [place] [phone] Marzena Loo MD [address] [place], [place] [phone] Social History Tobacco Use Types Packs/Day Years [...] on filedocumented in this encounter Care Teams Toll Bridge Operator Relationship Specialty Start Date End Date Marzena Loo MD [address] [place], [place] [phone] PCP - General Family Medicine 03/08/18 Vicky Ibarra MD [address] [place] [address] Dr [place], [place] [phone] Neurology 03/16/24 Dr. Erick Pitts [facility] Pulmonology [address] [address] Pulmonary Disease 03/16/24 [facility] 180 [facility] [phone] Optometry 03/16/24 documented as of this encounter
--- OUTSIDE RECORDS SUMMARY | 2024-05-08 19:26 | XMS_ITS | Encounter Summary ---
Author Organization [employer] Address [address] [facility] [address] 7t [place] [address] Care Team Providers Care Manager E Commerce Name Role Phone Marzena Loo MD Primary Care Provider +1- [phone] Vicky Ibarra MD Unavailable + [phone] Reason for Visit * Reason Onset Date Comments chartprep 04/12/2024 Encounter Details Date Type Department Care Team (Late st Contact Info) Description 04/12/2024 Telephone [facility] MEDICINE [address] [place] [address] Pat Del Castillo MA chartprep Social History [...] documented as of this encounter Care Teams Manager E Commerce Relationship Specialty Start Date End Date Marzena Loo MD [address] [place] [address] [place] [address] PCP - General Family Medicine 03/08/18 Vicky Ibarra MD [address] [place] [address] [place] [address] Neurology 03/16/24 Dr. Erick Pitts [facility] Pulmonology [address] [place] [address] Pulmonary Disease 03/16/24 [facility] 180 [facility] [address] Optometry 03/16/24 documented as of this encounter
--- OUTSIDE RECORDS SUMMARY | 2024-05-08 19:26 | XMS_ITS | Encounter Summary ---
Author Organization [employer] Address [address] [facility] 7t [place] [address] Care Team Providers Care Joint Special Operations Name Role Phone Marzena Loo MD Primary Care Provider +1- [phone] Vicky Ibarra MD Unavailable + [phone] Encounter Details Date Type Department Care Team [...] documented as of this encounter Care Teams Joint Special Operations Relationship Specialty Start Date End Date Marzena Loo MD [address] [place] [address] PCP - General Family Medicine 03/08/18 Vicky Ibarra MD [address] [place] [address] Dr [address] [place] [address] Neurology 03/16/24 Dr. Erick Pitts [facility] Pulmonology [address] [address] Pulmonary Disease 03/16/24 [facility] 180 [facility] [phone] Optometry 03/16/24 documented as of this encounter
== END 2024-05-08 18:27 | disposition home or self-care (01) ==
LOC: HO.HHCLNP 18:26
PROVIDERS: Visit Provider Internal Medicine
DX: R31.9 Hematuria, unspecified (principal)
CPT/HCPCS: 87086

== ENCOUNTER 2024-05-11 18:40 | Outpatient (REF) | payer MEDICAID, SELFPAY ==
--- OUTSIDE RECORDS SUMMARY | 2024-05-11 19:48 | XMS_ITS | Encounter Summary ---
Author Organization [employer] Address [address] [facility] 7t [place] [address] Care Team Providers Care Vest Finisher Name Role Phone Marzena Loo MD Primary Care Provider +1- [phone] Vicky Ibarra MD Unavailable + [phone] Encounter Details Date Type Department Care Team ([facility] st Contact Info) Description 04/13/2024 9:15 AM EST Telemedicine [facility] MEDICINE [address] [place], [place] [phone] Marzena Loo MD [address] [place], [place] [phone] Family planning (Primary Dx); Interstitial lung disease [...] the past 12 months, has t he [employer], gas, oil or water [employer] threatened to shut off services in your [...] believes she missed her appointment with her correspondence review clerk, Dr Pitts, but will call back to [...] mildy reduced but overall stable -seen by [facility] pulmonology with Dr. Erick Pitts MD 07/28/23: methotrexate previously increased to 20mg weekly( 8 tablets of 2.5mg); continued on Remicade (infliximab 200mg) infused q 6 weeks -Thinks she might have missed appt with correspondence review clerk, given phone number to call 04/13/24 Sarcoidosis [...] mildy reduced but overall stable -seen by [facility] pulmonology with Dr. Erick Pitts MD 07/28/23: methotrexate previously increased to 20mg weekly( 8 tablets of 2.5mg); continued on Remicade (infliximab 200mg) infused q 6 weeks -Thinks she might have missed appt with correspondence review clerk, given phone number to call 04/13/24 Relevant [...] to neurology 02/10/23 Ml note to pulmonology [facility]. 02/10/23 pt repots pain improved. Seen [...] Hodge for glaucoma -Dr. Vick Machado of [facility] -Pulmonology (lung doctor) [facility] [phone] -Neurology (brain doctor) Dr. Vicky Ibarra, [facility] [phone] Colon cancer screening -pt due for colon [...] visit. Patient verbalized being located in the [facility] during the televisit. Provider was located at [...] Hodge for glaucoma -Dr. Vick Machado of [facility] -Pulmonology (lung doctor) [facility] [phone] -Neurology (brain doctor) Dr. Vicky Ibarra, [facility] [phone] * Assessment & Plan Note - Dereck Brewster - 04/13/2024 11:59 AM ESTAssociated Problem(s): Uveitis -[facility]ed [facility] [place] with Dr. Hodge for glaucoma, likely Kerline [...] mildy reduced but overall stable -seen by [facility] pulmonology with Dr. Erick Pitts MD 07/28/23: methotrexate previously increased to 20mg weekly( 8 tablets of 2.5mg); continued on Remicade (infliximab 200mg) infused q 6 weeks -Thinks she might have missed appt with correspondence review clerk, given phone number to call 04/13/24 * Assessment & Plan Note - Dereck Brewster - 04/13/2024 11:58 AM ESTAssociated Problem(s): Glaucoma associated with ocular inflammation -Followed by [facility] with Dr. Hodge for glaucoma, likely [...] mildy reduced but overall stable -seen by [facility] pulmonology with Dr. Erick Pitts MD 07/28/23: methotrexate previously increased to 20mg weekly( 8 tablets of 2.5mg); continued on Remicade (infliximab 200mg) infused q 6 weeks -Thinks she might have missed appt with correspondence review clerk, given phone number to call 04/13/24 * [...] to neurology 02/10/23 Ml note to pulmonology [facility]. 02/10/23 pt repots pain improved. Seen [...] documented as of this encounter Care Teams Vest Finisher Relationship Specialty Start Date End Date Marzena Loo MD [address] [place] [address] PCP - General Family Medicine 03/08/18 Vicky Ibarra MD [address] [place] [address] [place] [address] Neurology 03/16/24 Dr. Erick Pitts [facility] Pulmonology [address] [place] [address] [place] [address] Pulmonary Disease 03/16/24 [facility] 180 [facility] [phone] Optometry 03/16/24 documented as of this encounter
--- OUTSIDE RECORDS SUMMARY | 2024-05-11 19:48 | XMS_ITS | Encounter Summary ---
Author Organization [employer] Address [address] [facility] [address] 7[address] [place] [address] Care Team Providers Care Cage Loader Name Role Phone Marzena Loo MD Primary Care Provider [phone]- [phone] Vicky Ibarra MD Unavailable + [phone] Reason for Visit * Reason Onset Date Comments chartprep 04/12/2024 Encounter Details Date Type Department Care Team (Late st Contact Info) Description 04/12/2024 Telephone [facility] MEDICINE [address] [place] [address] Pat Del Castillo MA chartprep Social History [...] documented as of this encounter Care Teams Cage Loader Relationship Specialty Start Date End Date Marznea Loo MD [address] [place] [address] [facility] [place] [address] PCP - General Family Medicine 03/08/18 Vicky Ibarra MD [address] [place] [address] [place] [address] Neurology 03/16/24 Dr. Erick Pitts [facility] Pulmonology [address] [place] [address] Pulmonary Disease 03/16/24 [facility] 180 [facility] [address] Optometry 03/16/24 documented as of this encounter
--- OUTSIDE RECORDS SUMMARY | 2024-05-11 19:48 | XMS_ITS | Clinical Summary ---
Author Organization [employer] Address [address] [place] [address] 7[address] [place] [address] Care Team Providers Care Triage Registered Nurse Name Role Phone Marzena Loo MD Primary Care Provider [phone] Vicky Ibarra MD Unavailable [phone] Allergies Active Allergy Reactions Criticality Noted Date [...] Active Problems Problem Noted Date Diagnosed Date Generalized abdominal pain 05/09/2024 Overview (05/09/2024): -CT in ER 05/08/24 IMPRESSION: There are nonobstructing bilateral renal calculi. Stable mild hydronephrosis of the right kidney. Opacity of the bilateral lung base concerning for pneumonia. Clinical correlation is recommended. Acute cystitis with hematuria 05/08/2024 Assessment & [...] (05/08/2024): CT scan abdomen and pelvis at [facility] on 05/07/2024: nonobstructing bilateral renal calculi. Stable [...] Hodge for glaucoma -Dr. Vick Machado of [facility] -Pulmonology (lung doctor) [facility] [phone] -Neurology (brain doctor) Dr. Vicky Ibarra, [facility] [phone] Assessment & Plan (04/13/2024 12:01 PM EST): Team includes: -Dr. [facility] with Dr. Hodge for glaucoma -Dr. Vick Machado of [facility] -Pulmonology (lung doctor) [facility] [phone] -Neurology (brain doctor) Dr. Vicky Ibarra, [facility] [phone] Colon cancer screening 04/14/2023 Overview (04/13/2024): -pt [...] to neurology 02/10/23 Ml note to pulmonology [facility]. 02/10/23 pt repots pain improved. Seen [...] to neurology 02/10/23 Ml note to pulmonology [facility]. 02/10/23 pt repots pain improved. Seen [...] [facility] repots pain improved. Seen [...] to neurology 02/10/23 Ml note to pulmonology [facility]. 02/10/23 pt repots pain improved. Other specified health status 01/16/2023 Overview (01/12/2024): -next comprehensive annual evaluation due after 01/11/25 -followed by Dr. Vick Machado of [facility] -dental home is at the [facility] -[place] [facility] proxy given and filed 01/12/24 Assessment & Plan (01/12/2024 12:04 PM EST): -next comprehensive annual evaluation due after 01/11/25 -followed by Dr. Vick Machado of [facility] -dental home is at the [facility] proxy given and filed 01/12/24 Family planning [...] mildy reduced but overall stable -seen by [facility] pulmonology with Dr. Erick Pitts MD 07/28/23: methotrexate previously increased to 20mg weekly( 8 tablets of 2.5mg); continued on Remicade (infliximab 200mg) infused q 6 weeks -Thinks she might have missed appt with coupon redemption clerk, given phone number to call 04/13/24 Assessment [...] mildy reduced but overall stable -seen by [facility] pulmonology with Dr. Erick Pitts MD 07/28/23: methotrexate previously increased to 20mg weekly( 8 tablets of 2.5mg); continued on Remicade (infliximab 200mg) infused q 6 weeks -Thinks she might have missed appt with coupon redemption clerk, given phone number to call 04/13/24 Primary [...] mildy reduced but overall stable -seen by [facility] pulmonology with Dr. Erick Pitts MD 07/28/23: methotrexate previously increased to 20mg weekly( 8 tablets of 2.5mg); continued on Remicade (infliximab 200mg) infused q 6 weeks -Thinks she might have missed appt with coupon redemption clerk, given phone number to call 04/13/24 Assessment [...] mildy reduced but overall stable -seen by [facility] pulmonology with Dr. Erick Pitts MD 07/28/23: methotrexate previously increased to 20mg weekly( 8 tablets of 2.5mg); continued on Remicade (infliximab 200mg) infused q 6 weeks -Thinks she might have missed appt with coupon redemption clerk, given phone number to call 04/13/24 Assessment [...] mildy reduced but overall stable -seen by [facility] pulmonology with Dr. Erick Pitts MD [...] q 6weeks with Dr. Erick Pitts of [facility] pulmonology -Seen previously with Dr. Dex Whitney at the [facility] at [facility] last 04/08/2021 -[facility], likely Kerline [...] inflammation Overview (04/13/2024): -[facility]. Hodge for glaucoma, likely Kerline Schlossmann. -due for appt, pt agrees to call, given phone number 04/13/24 Assessment & Plan (04/13/2024 11:58 AM EST): -Followed by [facility] with Dr. Hodge for glaucoma, likely Kerline Schalanssaureliano. -due for appt, pt agrees to call, given phone number 04/13/24 Assessment & Plan (02/10/2022 12:20 PM EST): -[facility] Dr. Hodge for glaucoma, likely Kerline Delgadomann. Presbyopia 07/28/2017 Depressive disorder 09/24/2011 Sickle cell trait 09/24/2011 Anemia 08/26/2011 Constipation 08/26/2011 Encounters Date Type Department Care Team Description 05/11/2024 11:20 AM EST Office Visit [address] [address] Leonardo Peterson MD Hematuria, unspecified type 05/08/2024 2:40 PM EST Office Visit [address] [address] Leila Garcia MD Acute cystitis with hematuria (Primary Dx); Hematuria, unspecified type; Kidney stones 05/08/[address] [address] Marzena Loo MD Nurse Triage 05/07/2024 Orders Only GENERIC EXTERNAL DATA DEPARTMENT Provider, Generic External Data Generalized abdominal pain (Primary Dx) 04/17/[address] [address] Yue Wilson, needle maker Question 04/17/2024 Travel 04/14/[address] [phone] Marzena Loo MD 04/13/2024 9:15 AM EST Telemedicine [address] [address] Marzena Loo MD Family planning (Primary Dx); Interstitial lung disease (CMS/HCC); Sarcoidosis; Acute intractable headache, unspecified headache type; 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, unspecified glaucoma stage; Uveitis; Adult failure to thrive; Complex care coordination; Colon cancer screening 04/13/[address] [address] Marzena Loo MD Durable Medical Equipment (boost) 04/13/[address] [address] Marzena Loo MD 04/13/2024 Orders Only [facility] [address] [place] [address] Marzena Loo MD 04/13/2024 Travel 04/12/2024 Telephone [facility] [address] [place] [address] Pat Del Castillo MA chartprep 04/01/2024 Telephone [facility] [address] [place] [address] Marzena Loo MD 04/01/2024 Travel 03/16/2024 Telephone [facility] [address] [place] [address] Marzena Loo MD Paperwork/Forms 03/09/2024 Telephone [facility] [address] [place] [address] Yun Jackson MA April Recall from Last 3 Months Immunizations Name Administration [...] Access Q2 Not on file 01/12/2024 Comments Unknown Sex and Gender Information Value Date Recorded Sex Assigned at Female 01/05/2022 10:15 AM EDT Legal Sex Female 10:15 AM EDT Gender Identity Female 01/05/2022 10:15 AM EDT Sexual Orientation Straight 01/05/2022 10 :15 AM EDT Last Filed Vital Signs Vital Sign Reading Time Taken Comments Blood Pressure 118/82 05/11/2024 11:29 AM EST Pulse 109 05/11/2024 11:29 AM EST Temperature 36.2 ??C (97.1 ??F) 05/11/2024 11:[address] Respiratory Rate 24 05/11/2024 11:29 AM EST Oxygen Saturation 98% 05/11/2024 11:29 AM EST Inhaled Oxygen Concentration - - Weight 45 kg (99 lb 2 oz) 05/11/2024 11:29 AM ES T Height 154.9 cm (5' 1 ) 05/11/2024 11:29 AM EST Body Mass Index 18.73 05/11/2024 11:29 AM EST Plan of Treatment Health Maintenance [...] 01/12/2024 Mammogram 01/20/2025 01/12/2024, 05/31/2018 Tobacco Screening 05/11/2025 05/11/2024 Zoster Vaccines (1 of 2) 01/07/2028 Cervical [...] Associated Diagnosis Comments POCT URINALYSIS DIPSTICK Routine 05/11/2024 11:43 AM EST Hematuria, unspecified type CULTURE, URINE, ROUTINE Routine 05/08/2024 2:57 PM EST Hematuria, unspecified type POCT URINALYSIS DIPSTICK Routine 05/08/2024 2:37 PM [...] 12:24 PM EDT Alopecia areata HIV ANTIBODY/ANTIGEN ([facility]) Routine 10/16/2022 12:24 PM EDT from Last 3 Months or Most Recently Relevant to Health Maintenance Results * (ABNORMAL) POCT Urinalysis (05/11/2024 11:43 AM EST) Only the most recent of2 resultswithin the time period is included. Color, UA Red Clarity, UA Turbid Glucose, UA 1+ 70+ Comment:100mg/dL Bilirubin, UA Many Comment:Large Ketones, UA Positive Comment:160mg/dL Spec Grav, UA 1.005 Blood, UA Positive(A) Negative, None Detected Comment:Large pH, UA 9.0 Protein, UA 3+ 500+++ Comment:300mg/dL Urobilinogen, UA >=8.0 Leukocytes, UA Many(A) Negative, Rare, Trace Comment:Large Nitrite, UA Positive(A) Negative, None Detected QC Media Lot # [id number] Lot# Expiration Date Urine 05/11/2024 11:4 3 AM EST us Leonardo Peterson MD POINT OF CARE TEST ENTER/EDIT OR DERABLES Final Result * Culture, Urine, Routine (05/08/2024 2:57 PM EST) Urine Urine specimen obtained by clean catch procedure / Unknown 05/08/2024 2:57 PM EST 05/08/2024 6:27 PM EST Comment:UACC Narrative [facility] - 05/10/2024 11:13 AM EST Urine Culture No growth. Specimen Source: Urine clean catch us Leila Garcia MD LAB MICROBIOLOGY - GENER AL ORDERABLES Final Result [facility] [address] [place] [phone] * CT Abdomen Pelvis w/o Contrast (05/07/2024 6:45 PM EST) Anatomical Region Laterality Modality Body, Pelvis, Abdomen Computed T omography 05/07/2024 6:45 PM EST Narrative 05/07/2024 6:47 PM EST ? [facility] ?[address] ?[place], [place] [address] ? CT Scan Report ? Signed ? Patient: Vipin BocanegraLeila A ?MR#: ?? [id number] ? : 1980 ?Acct:[id number] ? Age/Sex: 44 / F ?ADM Date: 05/07/24 ? Loc: HO.ED ? Attending Dr: ? Ordering Physician: Jose Antonio Mills ?? Date of Service: 05/07/24 ?? Procedure(s): CT abdomen pelvis wo IV con ?? Accession Number(s): [id number] ? cc: Jose Antonio Mills; Marzena Loo MD ? Report Number: ?? [id number]: Total DLP = ??278.00 mGy-cm ? CLINICAL HISTORY: flank pain. Kidney stones? CT abdomen and pelvis without contrast ? Comparison: CT/SR - CHEST WITH IV CONTRAST [id number] - 08/19/17 10:11 EDT ?? CT/SR - ABD PELVIS WITH CONT [id number] - 05/08/15 16:44 EST ? Findings: The [...] in OV> ? 05/07/24 1846 ? DD/ 1845 ? TD/TT: 05/07/24 1845 ? Key Bed Installer: ? Procedure Note Donotuseinterpreter, Image - 05/07/[address] [place] [id number] [address] Scan Report Signed Patient: Leila Fernandez AMR#: [id number] : 1980Acct:[id number] Age/Sex: 44 / FADM Date: 05/07/24 Loc: HO.ED Attending Dr: Ordering Physician: Jose Antonio Mills Date of Service: 05/07/24 Procedure(s): CT abdomen pelvis wo IV con Accession Number(s): [id number] cc: Jose Antonio Mills; Marzena Loo MD Report Number: [id number]: Total DLP = 278.00 mGy-cm CLINICAL HISTORY: flank pain. Kidney stones? CT abdomen and pelvis without contrast Comparison: CT/SR - CHEST WITH IV CONTRAST [id number] - 08/19/17 10:[address]/SR - ABD PELVIS WITH CONT [id number] - 05/08/15 16:44 EST Findings: The prior [...] in OV> 05/07/241845 DD/ 44 TD/TT: 05/07/241844 Key Bed Installer: [facility] External Provider IMG CT PROCEDURES Edited Result - Final * (ABNORMAL) Urinalysis, Complete, with Reflex to Culture (05/07/2024 3:59 PM EST) Color Urine RED [facility] Comment:Dipstick performed o n centrifuged urine. Results may notcorrelate with microscopic values. Appearance Urine Turbid [facility] PH 6.5 5.0 - 9.0 [facility] Glucose Urine UA Negative Negative mg/dL [facility] Urine Blood Large (3+)(A) Negative [facility] Specific [place] - Urine 1.025 1.005 - 1.025 [facility] Urine Protein 300 (3+)(A) Neg-Trace mg/dL [facility] Urine Ketones Negative Negative mg/dL [facility] Nitrite Urine Negative Negative [facility] Leukocyte Esterase Urine Negative Negative [facility] RBC Urine >20(A) 0 - 2 /HPF [facility] Urine WBC 0-5 0 - 5 /HPF [facility] Urine Squamous Epithelial Cell 0-2 0 - 2 /HPF [facility] Urine Bacteria None Seen None Seen [facility] Hyaline Casts, Urine 0-2 0 - 2 /LPF [facility] 05/07/2024 3:59 PM EST 05/07/2024 4:03 PM EST Narrative [facility] - 05/07/2024 4:27 PM EST [id number], Clean Catch us Generic External Data Provider LAB URINE ORDERAB LES Final Result [facility] [address] [place] [phone] * (ABNORMAL) CBC auto differential (05/07/2024 3:59 PM EST) White Blood Count 7.2 4.8 - 10.8 X10*3/uL [facility] Red Blood Count 4.19(L) 4.20 - 5.50 X10*6/uL [facility] Hemoglobin 12.4 12.0 - 16.0 g/dl [facility] Hematocrit 35.8(L) 37.0 - 47.0 % [facility] Mean Corpuscular Volume 85.4 80.0 - 98.0 fL [facility] Mean Corpuscular Hemoglobin 29.6 27.0 - 33.0 pg [facility] Mean Corpuscular HGB Conc 34.6 31.0 - 35.0 g/dl [facility] Red Cell Distribution Width 13.8 11.0 - 16.0 % [facility] Platelet Count 303 160 - 400 X10*3/uL [facility] Mean Platelet Volume 9.7 9.4 - 12.3 fL [facility] Neutrophils Percent Auto 48.3 45 - 73 % [facility] Imm Gran Pct Auto 0.3 0.0 - 0.4 % [facility] Lymphocytes Percent Auto 39.1 20 - 40 % [facility] Monocytes Percent Auto 9.8 2 - 11 % [facility] Eosinophils Percent Auto 1.8 0 - 4 % [facility] Basophils Percent Auto 0.7 0 - 2 % [facility] NRBC Pct Auto 0.0 0.0 - 0.2 /100WBC [facility] Neutrophils Absolute Auto 3.5 2.0 - 8.3 x10*3/uL [facility] Imm Gran Abs Auto 0.02 0.00 - 0.03 X10*3/uL [facility] Lymphocytes Absolute Auto 2.8 1.2 - 4.9 X10*3/uL [facility] Monocytes Absolute Auto 0.7 0.1 - 1.2 X10*3/uL [facility] Eosinophils Absolute Auto 0.1 0.0 - 0.4 X10*3/uL [facility] Basophils Absolute Auto 0.1 0.0 - 0.2 X10*3/uL [facility] NRBC Abs Auto 0.000 0.0 - 0.012 X10*3/uL [facility] 05/07/2024 3:59 PM EST 05/07/2024 4:03 PM EST Generic External Data Provider LAB BLOOD ORDERAB LES Final Result Performing Organization Address [facility] de Phone Number [facility] [address] [place] [phone] * HCG, Qualitative, Urine (05/07/2024 3:59 PM EST) Pathologist [facility] Urine NEGATIVE NEGATIVE [facility] Comment:This test was develo ped to detect early . Falsenegative results may occur after the 5th - 7th week ofpregnancy when using this test method. If clinicallyindicated, consider a serum hCG. 05/07/2024 3:59 PM EST 05/07/2024 4:27 PM EST Generic External Data Provider LAB URINE ORDERAB LES Final Result Performing Organization Address [facility] de Phone Number [facility] [address] [place] [phone] * Partial Thromboplastin Time, Activated (APTT) (05/07/2024 3:59 PM EST) Pathologist [facility] Partial Thromboplastin Time 30.4 26.0 - 36.8 SEC [facility] Comment:For information rega rding the monitoring of direct thrombininhibitors, please refer to Pharmacy. 05/07/2024 3:59 PM EST 05/07/2024 4:03 PM EST Generic External Data Provider LAB BLOOD ORDERAB LES Final Result Performing Organization Address [facility] Co de Phone Number [facility] [address] [place] [phone] * Prothrombin Time-INR (05/07/2024 3:59 PM EST) Prothrombin Time 11.1 10.9 - 12.4 SEC [facility] INTERNATIONAL NORM RATIO 1.0 0.9 - 1.1 [facility] Comment:INTERNATIONAL NORMAL IZED RATIO (INR) [...] Final Result Performing Organization Address [facility] Co de Phone Number [facility] [address] [place] [phone] * hCG, Total, Quantitative (05/07/2024 3:59 PM EST) HCG Quantitative <2 mIU/mL [facility] Comment:Weeks post LMP Appr oximate hCG(Last Menstrual Period) Range (mIU/ml)3 - 4 weeks 9 - 1304 - 5 weeks 75 - 2,6005 - 6 weeks 850 - 20,8006 - 7 weeks 4000 - 100,2007 - 12 weeks 11,500 - 289,75557 - 16 weeks 18,300 - 137,12428 - 29 weeks (2nd trimester) 1,400 - 53,57158 - 41 weeks (3rd trimester) 940 - [...] Provider LAB BLOOD ORDERAB LES Final Result [facility] [address] [place] [phone] * (ABNORMAL) Comprehensive Metabolic Panel (05/07/2024 3:59 PM EST) Sodium 142 135 - 145 mmol/L [facility] Potassium 3.4 3.3 - 5.1 mmol/L [facility] Chloride 108 96 - 108 mmol/L [facility] Carbon Dioxide 25 22 - 29 mmol/L [facility] Anion Gap 12 12 - 20 [facility] Urea Nitrogen (BUN) 9 9 - 16 mg/dL [facility] Creatinine, Serum 0.65 0.5 - 1.4 mg/dL [facility] Creatinine Clr Calc Pharmacy 77.6 [facility] Comment:Provided height and weight: 152.4 cm,46.8 kg.eGFR (calculated from the MDRD study equation) and eCrCl(calculated from the Cockcroft-Gault equation) are based ondifferent parameters and may not yield comparable results.If eCrCl result is absurd, please check patient'sheight/weight. Estimated Glomerular Filt Rate >60 [facility] Comment:Chronic Kidney Disea se: Estimated GFR < 60 mL/min/1.55u6Lhqqfl Kidney Disease: Estimated GFR < 15 mL/min/1.73m2 Glucose 94 60 - 115 mg/dL [facility] Calcium 9.5 8.4 - 10.2 mg/dL [facility] Bilirubin, Total 0.3 0.0 - 1.0 mg/dL [facility] Aspartate Amino Transferase 23 5 - 31 U/L [facility] Alanine Aminotransferase 16 0 - 31 U/L [facility] Total Protein 8.6(H) 6.5 - 8.0 g/dL [facility] Albumin Level 4.5 3.5 - 5.0 g/dL [facility] Alkaline Phosphatase 86 39 - 117 U/L [facility] 05/07/2024 3:59 PM EST 05/07/2024 4:03 PM EST us Generic External Data Provider LAB BLOOD ORDERAB LES Final Result Performing Organization Address [facility]/State/[facility] Co de Phone Number [facility] [address] [place] [address] [phone] * BI Mammogram Screening Tomosynthesis Bilateral (01/12/2024 9:30 AM EST) Anatomical Region Laterality Modality Breast Bilateral Mammography 01/12/2024 9:30 AM EST Narrative 01/21/2024 1:02 PM EST ? [facility] ? [address] ?[place] [address] ? Mammography Report ? Signed ? Patient: Lew Daljit,Leila A ?MR#: ?? [id number] ? : 1980 ?Acct:[id number] ? Age/Sex: 44 / F ?ADM Date: 11//24 ? Loc: HO.MAMMO ? Attending : Marzena Loo MD ? Ordering Physician: Marzena Loo MD ?Results: 1N ?? egative ? Date of Service: 01/12/24 ?Follow Up: 1 Year From Orig ?? inal Mammogram ? Procedure(s): MM tomosynthesis screening BI ?? Accession Number(s): [id number] ? cc: Marzena Loo MD ? EXAMINATION: [...] DD/ 0930 ? TD/TT: 01/12/24 0945 ? Key Bed Installer: ? Procedure Note Rashmi, Image - 01/21/2024 [facility] [address] [place], [place] [address] Mammography Report Signed Patient: Leila Fernandez AMR#: [id number] : 1980Acct:[id number] Age/Sex: 44 / FADM Date: 01/12/24 Loc: HO.MAMMO Attending Dr: Marzena Loo MD Ordering Physician: Marzena Loo MDResults: 1N egative Date of Service: 01/12/24Follow Up: 1 Year From Orig inal Mammogram Procedure(s): MM tomosynthesis screening BI Accession Number(s): [id number] cc: Marzena Loo MD EXAMINATION: MM SCREENING [...] OV> 01/21/24 1259 DD/ 9 TD/TT: 01/12/24944 Key Bed Installer: Marzena Loo MD IMG BI PROCEDURES Final Re sult * Pap Smear (01/12/2024 12:00 AM EST) Swab Cervix uteri structure / Unknown 01/12/2024 01/13/2024 8:45 AM EST Narrative [facility] - 01/17/2024 8:26 AM EST ----- ------- Name: Leila Fernandez ? Age/Sex: 44/F ? : 1980 Unit#: [id number] ?? Attend : ?Re01/12/24 ?Status: PRE REF ? Location: HO.LNP ?Disch: ? ----- ------- SPEC : [id number] ?RECD: 01/13/24-844 ? STATUS: ??SOUT ? REQ NUM: [id number] ? SWETA: 01/12/24-0000 ? SUBM DR: Marzena Loo MD ? ENTERED: ??01/13/24-916 ?SP TYPE: Pap Smr ?OTHR : ? [...] Signed (signature on file) HILARIO Duran (ASCP) 01/17/[address] ? ----- ------- ? END OF REPORT ? us Marzena Loo MD LAB CYTOLOGY ORDERABLES Fi nal Result Performing Organization Address [facility]/ZIP Co de Phone Number [facility] [address] [place] [phone] * HIV Ab/Ag ([place] DP) (10/16/2022 12:24 PM EDT) Pathologist [facility] HIV AB/AG Nonreactive Nonreactive [facility] Comment:HIV-1 p24 Ag and/or HIV-1/HIV-2 Ab not detected.A test result that is nonreactive does not exclude thepossibility of exposure to or infection with HIV-1 and/orHIV-2. Nonreactive results in this assay for individualswith prior exposure to HIV-1 and/or HIV-2 may be due toantigen and antibody levels that are below the limit ofdetection of this assay.The [employer] Officer HIV Ag/Ab Combo assay result andsupplemental assay results should be interpreted inconjunction with the patient's clinical presentation,history and other laboratory results. If the results areinconsistent with clinical evidence, additional testing issuggested to confirm the result. 10/16/2022 12:2 4 PM EDT 10/16/2022 1:48 PM EDT Shelly Rodrigues MD LAB BLOOD ORDERABLES Final Re sult Performing Organization Address [facility]/ZIP Co de Phone Number [facility] [address] [place] [phone] * Hepatitis A,B,C Profile (10/16/2022 12:24 PM EDT) [facility] Hepatitis A IgM Nonreactive Nonreactive [facility] Comment:IgM antibodies to BRADLEY V not detected; does not exclude earlyacute or recovered HAV infection. ~Hepatitis B Surface Antibody NONREACTIVE Nonreactive [facility] Comment:Nonreactive: < 8.00 mIU/mL Hepatitis B Core Antibody Nonreactive Nonreactive [facility] Hepatitis C Antibody Nonreactive Nonreactive [facility] Comment:Antibodies to HCV no t detected; does not exclude early acuteHCV infection. Hepatitis B Surface Ag Negative Negative [facility] Blood 10/16/2022 12:2 4 PM EDT 10/16/2022 1:48 PM EDT us Shelly Rodrigues MD LAB BLOOD ORDERABLES Final Re sult [facility] [address] [place] [address] [phone] from Last 3 Months or Most Recently Relevant to Health Maintenance [facility] Advance Directives Documents on File Type Date Recorded Patient Wireless Technician Expl anation Advance Directives and Living Will 01/14/2024 11:42 AM Health Care Proxy Care Teams Triage Registered Nurse Relationship Specialty Start Date End Date La Paz, Marzena, MD [address] [place] [address] PCP - General Family Medicine 03/08/18 Vicky Ibarra MD [address] [place] [address] Neurology 03/16/24 Dr. Erick Pitts [facility] Pulmonology [address] [address] Pulmonary Disease 03/16/24 [facility] 180 [facility] [address] Optometry 03/16/24
--- OUTSIDE RECORDS SUMMARY | 2024-05-11 19:48 | XMS_ITS | Encounter Summary ---
Author Organization [employer] Address 75 [facility] 7t [place] [address] Care Team Providers Care Tumbler Plater Name Role Phone Marzena Loo MD Primary Care Provider +1- [phone] Vicky Ibarra MD Unavailable + [phone] Reason for Visit * Reason Onset Date Comments Appointment Request 05/08/2022 Encounter Details Date Type Department Care Team ([facility] st Contact Info) Description 05/08/2022 Telephone [facility] 230 [place] [address] Marzena Loo MD 230 [place], [place] [phone] Appointment Request Social History Tobacco Use Types [...] with the derm. Please contact pt at [phone] documented in this encounter Plan of Treatment Not on file documented as of this encounter Visit Diagnoses Not on filedocumented in this encounter Care Teams Tumbler Plater Relationship Specialty Start Date End Date Marzena Loo MD [address] [place] [address] PCP - General Family Medicine 03/08/18 Vicky Ibarra MD [address] [place] [address] [address] Neurology 03/16/24 Dr. Erick Pitts [facility] Pulmonology [address] [address] Pulmonary Disease 03/16/24 [facility] 180 [facility] [address] Optometry 03/16/24 documented as of this encounter
--- OUTSIDE RECORDS SUMMARY | 2024-05-11 19:48 | XMS_ITS | Encounter Summary ---
Author Organization [employer] Address 75 [facility] 7t [place] [address] Care Team Providers Care Transmission Superintendent Name Role Phone Marzena Loo MD Primary Care Provider +1- [phone] Vicky Ibarra MD Unavailable + [phone] Reason for Visit * Reason Onset Date Comments Durable Medical Equipment 04/13/2024 boost Encounter Details Date Type Department Care Team ([facility] st Contact Info) Description 04/13/2024 Telephone [facility] 230 [place] [address] Marzena Loo MD 230 [place] [address] Durable Medical Equipment (boost) Social History Tobacco [...] please advise them to contact Alecia at [phone]. * Telephone Encounter - Nohemi Delgadillo - [...] documented as of this encounter Care Teams Transmission Superintendent Relationship Specialty Start Date End Date Marzena Loo MD [address] [place] [address] PCP - General Family Medicine 03/08/18 Vicky Ibarra MD [address] [place] [address] Neurology 03/16/24 Dr. Erick Pitts [facility] Pulmonology [address] [place] [address] Pulmonary Disease 03/16/24 [facility] 180 [facility] [phone] Optometry 03/16/24 documented as of this encounter
--- OUTSIDE RECORDS SUMMARY | 2024-05-11 19:48 | XMS_ITS | Encounter Summary ---
Author Organization [employer] Address 75 [facility] 7t [place] [address] Care Team Providers Care Logistics Center Manager Name Role Phone Marzena Loo MD Primary Care Provider +1- [phone] Vicky Ibarra MD Unavailable + [phone] Encounter Details Date Type Department Care Team [...] documented as of this encounter Care Teams Logistics Center Manager Relationship Specialty Start Date End Date Marzena Loo MD [address] [place] [address] PCP - General Family Medicine 03/08/18 Vicky Ibarra MD [address] [place] [address] Dr Crews [address] [place] [address] Neurology 03/16/24 Dr. Erick Pitts [facility] Pulmonology [address] [address] Pulmonary Disease 03/16/24 [facility] 180 [facility] [phone] Optometry 03/16/24 documented as of this encounter
--- OUTSIDE RECORDS SUMMARY | 2024-05-11 19:48 | XMS_ITS | Encounter Summary ---
Author Organization [employer] Address 75 [facility] 7t [place] [address] Care Team Providers Care Rotary Lithographic Press Operator Name Role Phone Marzena Loo MD Primary Care Provider +1- [phone] Vicky Ibarra MD Unavailable + [phone] Reason for Visit * Reason Comments Med Refill Encounter Details Date Type Department Care Team ([facility] st Contact Info) Description 05/05/2022 Refill [facility] MEDICINE 230 [place] [address] Marzena Loo MD 230 [place] [address] Social History Tobacco Use Types Packs/Day Years [...] on filedocumented in this encounter Care Teams Rotary Lithographic Press Operator Relationship Specialty Start Date End Date Marzena Loo MD [address] [place] [address] PCP - General Family Medicine 03/08/18 Vicky Ibarra MD [address] [place] [address] Neurology 03/16/24 Dr. Erick Pitts [facility] Pulmonology [address] [place] [address] Pulmonary Disease 03/16/24 [facility] [address] [place] [address] Optometry 03/16/24 documented as of this encounter
--- OUTSIDE RECORDS SUMMARY | 2024-05-11 19:48 | XMS_ITS | Encounter Summary ---
Author Organization [employer] Address 75 [facility] 7t [place] [address] Care Team Providers Care Director Of Teenage Activities Name Role Phone Marzena Loo MD Primary Care Provider +1- [phone] Vicky Ibarra MD Unavailable + [phone] Reason for Visit * Reason Onset Date Comments Medication Question 04/17/2024 Encounter Details Date Type Department Care Team ([facility] st Contact Info) Description 04/17/2024 Telephone [facility] MEDICINE 230 [place] [address] Yue Wilson, RN 230 [place], [place] [phone] Medication Question Social History Tobacco Use Types [...] of this encounter Care Teams Director Of Teenage Activities Relationship Specialty Start Date End Date Marzena Loo MD 230 [facility] [place] [address] PCP - General Family Medicine 03/08/18 Vicky Ibarra MD [address] [place] [address] [place] [address] Neurology 03/16/24 Dr. Erick Pitts [facility] Pulmonology [address] [place] [address] Pulmonary Disease 03/16/24 [facility] 180 [facility] [address] Optometry 03/16/24 documented as of this encounter
--- OUTSIDE RECORDS SUMMARY | 2024-05-11 19:48 | XMS_ITS | Encounter Summary ---
Author Organization [employer] Address [address] [facility] [address] 7t [place] [address] Care Team Providers Care Signaling Project Engineer Name Role Phone Marzena Loo MD Primary Care Provider +1- [phone] Vicky Ibarra MD Unavailable + [phone] Encounter Details Date Type Department Care Team ([facility] st Contact Info) Description 05/11/2024 11:20 AM EST Office Visit [facility] [address] [place] [address] [phone] Leonardo Peterson MD 230 [place], [place] [phone] Hematuria, unspecified type Social History Tobacco Use Types Packs/Day Years [...] Mass Index 18.73 05/11/2024 11:29 AM EST documented in this encounter Progress Notes * Leonardo Peterson MD - 05/11/2024 11:20 AM EST Subjective History was provided by the patient. Leila Bocanegra is a 44 y.o. female who presents for evaluation of hematuria. Was evaluated at [facility] ER on 05/07/2024. Found to have non-obstructing bilateral renal calculi with mild hydronephrosis of the right kidney on CT. Also found to have bilateral basilar lung opacity (patient reports thisis a known issue due to underlying sarcoidosis; also followed by Pulmonology). Denies cough, fever,CP, or SOB. ER labs show WBC 7.2, INR 1.0, Urine Negative, and BUN/Cr 9/0.65. Was seen at [facility] subsequently on 05/08/2024 and started on Bactrim 7-day course. Denies dysuria, but has mild right-sided pelvic pain. Urine Culture was negative. Currently scheduled to see Urology on 05/22/2024. Denies F/C/N/V/D. Objective Vitals: 05/11/24 1129 BP: 118/82 BP Location: Right arm Patient Position: Sitting BP Cuff Size: Adult Pulse: 109 Resp: 24 Temp: 97.1 ??F (36.2 ??C) TempSrc: Oral SpO2: 98% Weight: 99 lb 2 oz (45 kg) Height: 5' 1 (1.549 m) Physical Exam Vitals reviewed. Constitutional: Appearance: Normal appearance. She is normal weight. HENT: Head: Normocephalic and atraumatic. Right Ear: External ear normal. Left Ear: External ear normal. Nose: Nose normal. Mouth/Throat: Mouth: Mucous membranes are moist. Pharynx: Oropharynx is clear. Eyes: Extraocular Movements: Extraocular movements intact. Conjunctiva/sclera: Conjunctivae normal. Cardiovascular: Rate and Rhythm: Normal rate and regular rhythm. Heart sounds: Normal heart sounds. Pulmonary: Effort: Pulmonary effort is normal. Breath sounds: Normal breath sounds. Abdominal: General: Abdomen is flat. Bowel sounds are normal. There is no distension. Palpations: Abdomen is soft. Tenderness: There is no abdominal tenderness. There is no right CVA tenderness, left CVA tenderness, guarding or rebound. Musculoskeletal: General: Normal range of motion. Cervical back: Neck supple. Skin: General: Skin is warm and dry. Neurological: General: No focal deficit present. Mental Status: She is alert and oriented to person, place, and time. Psychiatric: Mood and Affect: Mood normal. Behavior: Behavior normal. Office Visit on 05/11/2024 Component Date Value Ref Range Status Color, UA 05/11/2024 Red Final Clarity, UA 05/11/2024 Turbid Final Glucose, UA 05/11/2024 1+ 70+ Final 100mg/dL Bilirubin, UA 05/11/2024 Many Final Large Ketones, UA 05/11/2024 Positive Final 160mg/dL Spec Grav, UA 05/11/2024 1.005 Final Blood, UA 05/11/2024 Positive (A) Negative, None Detected Final Large pH, UA 05/11/2024 9.0 Final Protein, UA 05/11/2024 3+ 500+++ Final 300mg/dL Urobilinogen, UA 05/11/2024 >=8.0 Final Leukocytes, UA 05/11/2024 Many (A) Negative, Rare, Trace Final Large Nitrite, UA 05/11/2024 Positive (A) Negative, None Detected Final QC Media Lot # 05/11/2024 [id number] Final Lot# Expiration Date 05/11/2024 11,302,025 Final Diagnoses and all orders for this visit: Hematuria, unspecified type - POCT Urinalysis - Culture, Urine, Routine; Future Patient presents to [facility] due to ongoing hematuria and nephrolithiasis Was initially evaluated at [facility], then at [facility] this week Positive leukocytes and nitrite, but Urine Culture negative Advised to complete the Bactrim course; another Urine Culture sent out today Found to have non-obstructing bilateral renal calculi with mild hydronephrosis of the right kidney on CT Recent WBC 7.2 and INR 1.0 Scheduled to see Urology on 05/22/2024 Denies F/C/N/V/D Advised to call the Urology clinic to be placed on their cancellation list No clinical evidence of acute abdomen Indications for UC/ER use reviewed Advised to contact the clinic if any persistent or worsening symptoms documented in this encounter Plan of Treatment Scheduled Orders Name Type Priority Associated Diagnoses Orde r Schedule Culture, Urine, Routine Microbiology Routine Hematuria, unspecified type Expected: 05/11/2024 (Approximate), Expires: 05/11/2025 documented as of this encounter Procedures Procedure Name Priority Date/Time Associated Diagnosis Comments POCT URINALYSIS DIPSTICK Routine 05/11/2024 11:43 AM EST Hematuria, unspecified type documented in this encounter Results * (ABNORMAL) POCT Urinalysis (05/11/2024 11:43 AM EST) Color, UA Red Clarity, UA Turbid Glucose, [...] Date Urine 05/11/2024 11:4 3 AM EST Leonardo Peterson MD POINT OF CARE TEST ENTER/EDIT OR DERABLES Final Result documented in this encounter Visit Diagnoses Diagnosis Hematuria, unspecified type documented in this encounter Additional Health Concerns Assessment Noted Time PHQ-9 Depression Total Score: 3 01/12/20 24 12:28 PM EST documented as of this encounter Care Teams Signaling Project Engineer Relationship Specialty Start Date End Date Marzena Loo MD [address] [place] [address] PCP - General Family Medicine 03/08/18 Vicky Ibarra MD [address] [place] [address] [place] [address] Neurology 03/16/24 Dr. Erick Pitts [facility] Pulmonology [address] [address] Pulmonary Disease 03/16/24 [facility] 180 [facility] [phone] Optometry 03/16/24 documented as of this encounter
--- OUTSIDE RECORDS SUMMARY | 2024-05-11 19:48 | XMS_ITS | Encounter Summary ---
Author Organization [employer] Address 75 [facility] 7t [place] [address] Care Team Providers Care Gas Manager Name Role Phone Marzena Loo MD Primary Care Provider +1- [phone] Vicky Ibarra MD Unavailable + [phone] Encounter Details Date Type Department Care Team ([facility] st Contact Info) Description 04/13/2024 Orders Only [facility] MEDICINE 230 [place], [place] [phone] Marzena Loo MD 230 [place] [address] Social History Tobacco Use Types Packs/Day Years [...] documented as of this encounter Care Teams Gas Manager Relationship Specialty Start Date End Date Marzena Loo MD [address] [place] [address] PCP - General Family Medicine 03/08/18 Vicky Ibarra MD [address] [place] [address] Dr [address]s [address] [place] [address] Neurology 03/16/24 Dr. Erick Pitts [facility] Pulmonology [address] [address] Pulmonary Disease 03/16/24 [facility] 180 [facility] [phone] Optometry 03/16/24 documented as of this encounter
--- OUTSIDE RECORDS SUMMARY | 2024-05-11 19:48 | XMS_ITS | Encounter Summary ---
Author Organization [facility] [employer] Address 75 [facility] 7t [place] [address] Care Team Providers Care Manufacturing Inspector Name Role Phone Marzena Loo MD Primary Care Provider +1- [phone] Vicky Ibarra MD Unavailable + [phone] Reason for Visit * Reason Comments Med Refill Encounter Details Date Type Department Care Team ([facility] st Contact Info) Description 04/14/2024 Refill [facility] MEDICINE 230 [place] [address] Marzena Loo MD 230 [place] [address] Social History Tobacco Use Types Packs/Day Years [...] documented as of this encounter Care Teams Manufacturing Inspector Relationship Specialty Start Date End Date Marzena Loo MD [address] [place] [address] PCP - General Family Medicine 03/08/18 Vicky Ibarra MD [address] [place] [address] [address] Neurology 03/16/24 Dr. Erick Pitts [facility] Pulmonology [address] [address] Pulmonary Disease 03/16/24 [facility] 180 [facility] [phone] Optometry 03/16/24 documented as of this encounter
--- OUTSIDE RECORDS SUMMARY | 2024-05-11 19:48 | XMS_ITS | Encounter Summary ---
Author Organization [facility] [employer] Address 75 [facility] 7t [place] [address] Care Team Providers Care Dental Assistant Instructor Name Role Phone Marzena Loo MD Primary Care Provider +1- [phone] Vicky Ibarra MD Unavailable + [phone] Encounter Details Date Type Department Care Team ([facility] st Contact Info) Description 04/13/2024 Telephone [facility] MEDICINE 230 [place], [place] [phone] Marzena Loo MD 230 [place], [place] [phone] Social History Tobacco Use Types Packs/Day Years [...] documented as of this encounter Care Teams Dental Assistant Instructor Relationship Specialty Start Date End Date Marzena Loo MD [facility] [place] [address] PCP - General Family Medicine 03/08/18 Vicky Ibarra MD [address] [place] [address] [place] [address] Neurology 03/16/[address] [facility] Pulmonology [address] [place] [address] Pulmonary Disease 03/16/24 [facility] 180 [facility] [phone] Optometry 03/16/24 documented as of this encounter
--- OUTSIDE RECORDS SUMMARY | 2024-05-11 19:48 | XMS_ITS | Encounter Summary ---
Author Organization [employer] Address 75 [facility] 7t [place] [address] Care Team Providers Care Registered Nurse Post Partum Name Role Phone Marzena Loo MD Primary Care Provider +1- [phone] Vicky Ibarra MD Unavailable + [phone] Reason for Visit * Reason Onset Date Comments Nurse Triage 05/08/2024 Encounter Details Date Type Department Care Team ([facility] st Contact Info) Description 05/08/2024 Telephone [facility] MEDICINE 230 [place] [address] Marzena Loo MD 230 [place], [place] [phone] Nurse Triage Social History Tobacco Use Types [...] and is voiding blood. Patient seen at [facility] ED and noted to have large volume of blood in urine no noted bacteria. Urine result in chart and full note requested. Patient was told that the ED was sending medication orders to [facility]. No meds available this morning per patient call. Patient referred to Dr.Alexander Antoine to follow but first appt is 05/22/24. Patient concerned with volume of blood and that she has pain with voiding. Disposition reviewed with patient in agreement with plan. No PCP or Team appts. Available at time of call. [facility] Walk In Center hours and availability [...] - 05/08/2024 10:30 AM EST Please obtain [facility] note from yesterday 05/07/24 for patient chart. Pending reeval at [facility] today * Telephone Encounter - Nazanin Navas - 05/08/2024 9:52 AM EST Symptom: Urination Pain Outcome: Schedule an urgent appointment (within 1 hour) or talk to a nurse or provider soon Reason: Blood in urine The caller accepted this outcome. [phone] documented in this encounter Plan of Treatment Not on file documented as of this encounter Visit Diagnoses Not on filedocumented in this encounter Additional Health Concerns Assessment Noted Time PHQ-9 Depression Total Score: 3 01/12/20 24 12:28 PM EST documented as of this encounter Care Teams Registered Nurse Post Partum Relationship Specialty Start Date End Date Marzena Loo MD [address] [place] [address] PCP - General Family Medicine 03/08/18 Vicky Ibarra MD [address] [place] [address] [address] Neurology 03/16/24 Dr. Erick Pitts [facility] Pulmonology [address] [address] Pulmonary Disease 03/16/24 [facility] 180 [facility] [phone] Optometry 03/16/24 documented as of this encounter
--- OUTSIDE RECORDS SUMMARY | 2024-05-11 19:48 | XMS_ITS | Encounter Summary ---
Author Organization [employer] Address [address] [place] [address] 7t [place] [address] Care Team Providers Care Manager Product Design Name Role Phone Marzena Loo MD Primary Care Provider +- [phone] Vicky Ibarra MD Unavailable + [phone] Reason for Visit * Reason Comments Med Refill Encounter Details Date Type Department Care Team (Late st Contact Info) Description 05/10/2023 Refill [facility] MEDICINE 230 [place], [place] [phone] Dior Forman MD 230 [place], [place] [phone] Social History Tobacco Use Types Packs/Day Years [...] on filedocumented in this encounter Care Teams Manager Product Design Relationship Specialty Start Date End Date Marzena Loo MD 230 [place], [place] [phone] PCP - General Family Medicine 03/08/18 Vicky Ibarra MD [address] [place] [address] [place] [address] Neurology 03/16/24 Dr. Erick Pitts [facility] Pulmonology [address] [place] [address] Pulmonary Disease 03/16/24 [facility] [address] [place] [address] [phone] Optometry 03/16/24 documented as of this encounter
--- OUTSIDE RECORDS SUMMARY | 2024-05-11 19:48 | XMS_ITS | Encounter Summary ---
Author Organization [employer] Address [address] [facility] 7t [place] [address] Care Team Providers Care Racing Board Marker Name Role Phone Marzena Loo MD Primary Care Provider +1- [phone] Vicky Ibarra MD Unavailable + [phone] Encounter Details Date Type Department Care Team (Late st Contact Info) Description 05/07/2024 Orders Only GENERIC EXTERNAL DATA DEPARTMENT Provider, Generic External Data Generalized abdominal pain (Primary Dx) Social History Tobacco Use Types Packs/Day Years [...] the past 12 months, has t he [employer] oil or water company threatened to shut [...] EST Narrative 05/07/2024 6:47 PM EST ? [facility] ?[address] ?[place] [address] ? CT Scan Report ? Signed ? Patient: Lew Daljit,Leila A ?MR#: ?? [id number] ? : 1980 ?Acct:[id number] ? Age/Sex: 44 / F ?ADM Date: 05/07/24 ? Loc: HO.ED ? Attending Dr: ? Ordering Physician: Jose Antonio Mills ?? Date of Service: 05/07/24 ?? Procedure(s): CT abdomen pelvis wo IV con ?? Accession Number(s): [id number] ? cc: Jose Antonio Mills; Marzena Loo MD ? Report Number: ?? [id number]: Total DLP = ??278.00 mGy-cm ? CLINICAL HISTORY: flank pain. Kidney stones? CT abdomen and pelvis without contrast ? Comparison: CT/SR - CHEST WITH IV CONTRAST [id number] - 08/19/17 10:[address]T ?? CT/SR - ABD PELVIS WITH CONT [id number] - 05/08/15 16:44 EST ? Findings: The [...] DD/ 44 ? TD/TT: 05/07/24 1845 ? Carcass Trimmer: ? Procedure Note Donotuseinterpreter, Image - 05/07/[address] [address] [address] Scan Report Signed Patient: Leila Fernandez AMR#: [id number] : 1980Acct:[id number] Age/Sex: 44 / FADM Date: 05/07/24 Loc: HO.ED Attending Dr: Ordering Physician: Jose Antonio Mills Date of Service: 05/07/24 Procedure(s): CT abdomen pelvis wo IV con Accession Number(s): [id number] cc: Jose Antonio Mills; Marzena Loo MD Report Number: [id number]: Total DLP = 278.00 mGy-cm CLINICAL HISTORY: flank pain. Kidney stones? CT abdomen and pelvis without contrast Comparison: CT/SR - CHEST WITH IV CONTRAST [id number] - 08/19/17 10:[address]/SR - ABD PELVIS WITH CONT [id number] - 05/08/15 16:44 EST Findings: The prior [...] in OV> 05/07/241845 DD/ 44 TD/TT: 05/07/241844 Carcass Trimmer: [facility] External Provider IMG CT PROCEDURES Edited Result - Final * hCG, Total, Quantitative (05/07/2024 3:59 PM EST) HCG Quantitative <2 mIU/mL [facility] Comment:Weeks post LMP Appro ximate hCG(Last Menstrual Period) Range (mIU/ml)3 - 4 weeks 9 - 1304 - 5 weeks 75 - 2,6005 - 6 weeks 850 - 20,8006 - 7 weeks 4000 - 100,2007 - 12 weeks 11,500 - 289,35487 - 16 weeks 18,300 - 137,95860 - 29 weeks (2nd trimester) 1,400 - 53,32688 - 41 weeks (3rd trimester) 940 - [...] Provider LAB BLOOD ORDERAB LES Final Result [facility] [address] [place] [phone] * (ABNORMAL) Comprehensive Metabolic Panel (05/07/2024 3:59 PM EST) Sodium 142 135 - 145 mmol/L [facility] Potassium 3.4 3.3 - 5.1 mmol/L [facility] Chloride 108 96 - 108 mmol/L [facility] Carbon Dioxide 25 22 - 29 mmol/L [facility] Anion Gap 12 12 - 20 [facility] Urea Nitrogen (BUN) 9 9 - 16 mg/dL [facility] Creatinine, Serum 0.65 0.5 - 1.4 mg/dL [facility] Creatinine Clr Calc Pharmacy 77.6 [facility] Comment:Provided height and weight: 152.4 cm,46.8 kg.eGFR (calculated from the MDRD study equation) and eCrCl(calculated from the Cockcroft-Gault equation) are based ondifferent parameters and may not yield comparable results.If eCrCl result is absurd, please check patient'sheight/weight. Estimated Glomerular Filt Rate >60 [facility] Comment:Chronic Kidney Disea se: Estimated GFR < 60 mL/min/1.53a1Itxtrb Kidney Disease: Estimated GFR < 15 mL/min/1.73m2 Glucose 94 60 - 115 mg/dL [facility] Calcium 9.5 8.4 - 10.2 mg/dL [facility] Bilirubin, Total 0.3 0.0 - 1.0 mg/dL [facility] Aspartate Amino Transferase 23 5 - 31 U/L [facility] Alanine Aminotransferase 16 0 - 31 U/L [facility] Total Protein 8.6(H) 6.5 - 8.0 g/dL [facility] Albumin Level 4.5 3.5 - 5.0 g/dL [facility] Alkaline Phosphatase 86 39 - 117 U/L [facility] 05/07/2024 3:59 PM EST 05/07/2024 4:03 PM EST us Generic External Data Provider LAB BLOOD ORDERAB LES Final Result [facility] [address] [place] [phone] [phone] * Partial Thromboplastin Time, Activated (APTT) (05/07/2024 3:59 PM EST) Pathologist [facility] Partial Thromboplastin Time 30.4 26.0 - 36.8 SEC [facility] Comment:For information rega rding the monitoring of direct thrombininhibitors, please refer to Pharmacy. 05/07/2024 3:59 PM EST 05/07/2024 4:03 PM EST Generic External Data Provider LAB BLOOD ORDERAB LES Final Result Performing Organization Address [facility] Co de Phone Number [facility] [address] [place] [phone] * Prothrombin Time-INR (05/07/2024 3:59 PM EST) [facility] Prothrombin Time 11.1 10.9 - 12.4 SEC [facility] INTERNATIONAL NORM RATIO 1.0 0.9 - 1.1 [facility] Comment:INTERNATIONAL NORMAL IZED RATIO (INR) [...] 3:59 PM EST 05/07/2024 4:03 PM EST [employer] External Data Provider LAB BLOOD ORDERAB LES Final Result Performing Organization Address [facility] de Phone Number [facility] [address] [place] [phone] * HCG, Qualitative, Urine (05/07/2024 3:59 PM EST) Pathologist [facility] Urine NEGATIVE NEGATIVE [facility] Comment:This test was develo ped to detect early . Falsenegative results may occur after the 5th - 7th week ofpregnancy when using this test method. If clinicallyindicated, consider a serum hCG. 05/07/2024 3:59 PM EST 05/07/2024 4:27 PM EST us Generic External Data Provider LAB URINE ORDERAB LES Final Result Performing Organization Address City/[facility]/ZIP Co de Phone Number [facility] [address] [place] [address] [phone] * (ABNORMAL) Urinalysis, Complete, with Reflex to Culture (05/07/2024 3:59 PM EST) Color Urine RED [facility] Comment:Dipstick performed o n centrifuged urine. Results may notcorrelate with microscopic values. Appearance Urine Turbid [facility] PH 6.5 5.0 - 9.0 [facility] Glucose Urine UA Negative Negative mg/dL [facility] Urine Blood Large (3+)(A) Negative [facility] Specific Crowder - Urine 1.025 1.005 - 1.025 [facility] Urine Protein 300 (3+)(A) Neg-Trace mg/dL [facility] Urine Ketones Negative Negative mg/dL [facility] Nitrite Urine Negative Negative [facility] Leukocyte Esterase Urine Negative Negative [facility] RBC Urine >20(A) 0 - 2 /HPF [facility] Urine WBC 0-5 0 - 5 /HPF [facility] Urine Squamous Epithelial Cell 0-2 0 - 2 /HPF [facility] Urine Bacteria None Seen None Seen [facility] Hyaline Casts, Urine 0-2 0 - 2 /LPF [facility] 05/07/2024 3:59 PM EST 05/07/2024 4:03 PM EST Narrative [facility] - 05/07/2024 4:27 PM EST [id number], Clean Catch us Generic External Data Provider LAB URINE ORDERAB LES Final Result Performing Organization Address City/[facility]/ZIP Co de Phone Number [facility] [address] [place] [address] [phone] * (ABNORMAL) CBC auto differential (05/07/2024 3:59 PM EST) White Blood Count 7.2 4.8 - 10.8 X10*3/uL [facility] Red Blood Count 4.19(L) 4.20 - 5.50 X10*6/uL [facility] Hemoglobin 12.4 12.0 - 16.0 g/dl [facility] Hematocrit 35.8(L) 37.0 - 47.0 % [facility] Mean Corpuscular Volume 85.4 80.0 - 98.0 fL [facility] Mean Corpuscular Hemoglobin 29.6 27.0 - 33.0 pg [facility] Mean Corpuscular HGB Conc 34.6 31.0 - 35.0 g/dl [facility] Red Cell Distribution Width 13.8 11.0 - 16.0 % [facility] Platelet Count 303 160 - 400 X10*3/uL [facility] Mean Platelet Volume 9.7 9.4 - 12.3 fL [facility] Neutrophils Percent Auto 48.3 45 - 73 % [facility] Imm Gran Pct Auto 0.3 0.0 - 0.4 % [facility] Lymphocytes Percent Auto 39.1 20 - 40 % [facility] Monocytes Percent Auto 9.8 2 - 11 % [facility] Eosinophils Percent Auto 1.8 0 - 4 % [facility] Basophils Percent Auto 0.7 0 - 2 % [facility] NRBC Pct Auto 0.0 0.0 - 0.2 /100WBC [facility] Neutrophils Absolute Auto 3.5 2.0 - 8.3 x10*3/uL [facility] Imm Gran Abs Auto 0.02 0.00 - 0.03 X10*3/uL [facility] Lymphocytes Absolute Auto 2.8 1.2 - 4.9 X10*3/uL [facility] Monocytes Absolute Auto 0.7 0.1 - 1.2 X10*3/uL [facility] Eosinophils Absolute Auto 0.1 0.0 - 0.4 X10*3/uL [facility] Basophils Absolute Auto 0.1 0.0 - 0.2 X10*3/uL [facility] NRBC Abs Auto 0.000 0.0 - 0.012 X10*3/uL [facility] 05/07/2024 3:59 PM EST 05/07/2024 4:03 PM EST us Generic External Data Provider LAB BLOOD ORDERAB LES Final Result [facility] [address] [place] [address] [phone] documented in this encounter Visit Diagnoses Diagnosis Generalized abdominal pain- Primary Abdominal pain, generalized documented in this encounter Additional Health Concerns Assessment Noted Time PHQ-9 Depression Total Score: 3 01/12/20 24 12:28 PM EST documented as of this encounter Care Teams Racing Board Marker Relationship Specialty Start Date End Date Marzena Loo MD [address] [place] [phone] PCP - General Family Medicine 03/08/18 Vicky Ibarra MD [address] [place] [address] [address] Neurology 03/16/24 Dr. Erick Pitts [facility] Pulmonology [address] [place] [address] Pulmonary Disease 03/16/24 [facility] [address] [facility] [phone] Optometry 03/16/24 documented as of this encounter
--- OUTSIDE RECORDS SUMMARY | 2024-05-11 19:48 | XMS_ITS | Encounter Summary ---
Author Organization [employer] Address [address] [place] [address] 7 [place] [address] Care Team Providers Care Sde Name Role Phone Marzena Loo MD Primary Care Provider +- [phone] Vicky Ibarra MD Unavailable + [phone] Encounter Details Date Type Department Care Team (Late st Contact Info) Description 01/30/2022 Abstract [facility] [address] [place], [place] [phone] Marzena Loo MD [address] [place], [place] [phone] Social History Tobacco Use Types Packs/Day Years [...] on filedocumented in this encounter Care Teams Sde Relationship Specialty Start Date End Date Marzena Loo MD [address] [place], [place] [phone] PCP - General Family Medicine 03/08/18 Vicky Ibarra MD [address] [place] [address] Dr [place], [place] [phone] Neurology 03/16/24 Dr. Erick Pitts [facility] Pulmonology [address] [address] Pulmonary Disease 03/16/24 [facility] 180 [facility] [phone] Optometry 03/16/24 documented as of this encounter
--- OUTSIDE RECORDS SUMMARY | 2024-05-11 19:48 | XMS_ITS | Encounter Summary ---
Author Organization [employer] Address [address] [facility] 7t [place] [address] Care Team Providers Care Geospatial Information Technologist Name Role Phone Marzena Loo MD Primary Care Provider +1- [phone] Vicky Ibarra MD Unavailable + [phone] Encounter Details Date Type Department Care Team [...] documented as of this encounter Care Teams Geospatial Information Technologist Relationship Specialty Start Date End Date Marzena Loo MD [address] [place] [address] PCP - General Family Medicine 03/08/18 Vicky Ibarra MD [address] [place] [address] Dr Crews [address] [place] [address] Neurology 03/16/24 Dr. Erick Pitts [facility] Pulmonology [address] [address] Pulmonary Disease 03/16/24 [facility] 180 [facility] [phone] Optometry 03/16/24 documented as of this encounter
--- OUTSIDE RECORDS SUMMARY | 2024-05-11 19:48 | XMS_ITS | Encounter Summary ---
Author Organization [employer] Address [address] [facility] [address] 7t [place] [address] Care Team Providers Care Aircraft Maintenance Manager Name Role Phone Marzena Loo MD Primary Care Provider [phone]- [phone] Vicky Ibarra MD Unavailable + [phone] Reason for Visit * Reason Comments Blood in Urine Encounter Details Date Type Department Care Team ([facility] st Contact Info) Description 05/08/2024 2:40 PM EST Office Visit [facility] [address] [place] [address] Leila Garcia MD [address] [place] [address] Acute cystitis with hematuria (Primary Dx); Hematuria, [...] for many years and sees pulmonary at [facility]. Social History Social History Narrative Not on [...] Procedure Name Priority Date/Time Associated Diagnosis Comments CULTURE, URINE, ROUTINE Routine 05/08/2024 2:57 PM EST Hematuria, unspecified type POCT URINALYSIS DIPSTICK Routine 05/08/2024 2:37 PM EST Hematuria, unspecified type documented in this encounter Results * Culture, Urine, Routine (05/08/2024 2:57 PM EST) Urine Urine specimen obtained by clean catch procedure / Unknown 05/08/2024 2:57 PM EST 05/08/2024 6:27 PM EST Comment:UACC Narrative [facility] - 05/10/2024 11:13 AM EST Urine Culture No growth. Specimen Source: Urine clean catch us Leila Garcia MD LAB MICROBIOLOGY - GENER AL ORDERABLES Final Result [facility] [address] [place] [phone] * (ABNORMAL) POCT urinalysis dipstick manually resulted [...] UA Red Urine 05/08/2024 2:37 PM EST Leila Garcia MD POINT OF CARE TEST ENTER /EDIT ORDERABLES Final Result documented in this encounter Visit Diagnoses Diagnosis Acute cystitis with hematuria- Primary Hematuria, unspecified type Kidney stones Calculus of kidney documented in this encounter Additional Health Concerns Assessment Noted Time PHQ-9 Depression Total Score: 3 01/12/20 24 12:28 PM EST documented as of this encounter Care Teams Aircraft Maintenance Manager Relationship Specialty Start Date End Date Marzena Loo MD [address] [place] [address] PCP - General Family Medicine 03/08/18 Vicky Ibarra MD [address] [place] [address] Dr [address] [place] [address] Neurology 03/16/24 Dr. Erick Pitts [facility] Pulmonology [address] [place] [address] Pulmonary Disease 03/16/24 [facility] 180 [facility] [phone] Optometry 03/16/24 documented as of this encounter
== END 2024-05-11 18:41 | disposition home or self-care (01) ==
LOC: HO.LNP 18:40
PROVIDERS: Visit Provider Family Medicine
DX: R31.9 Hematuria, unspecified (principal)
CPT/HCPCS: 87086

== ENCOUNTER 2024-06-21 10:45 | Outpatient (AMB) | payer MEDICAID, SELFPAY ==
--- NOTE | 2024-06-21 10:50 | A.OFFVIS_ITS ---
Vital Signs 06/21/24 10:52 Height 5 ft Weight 102 lb 4.712 oz BMI 20.0 BP 102/71 Blood Pressure Location Lt brachial Position Sitting Pulse 87 Intake Visit Reasons: Colonoscopy Screening Intake Note: New patient in office today for colonoscopy screening. CC: Patient reports a lot of gas and gas pain, and blood in stool. Side Guider Required: No Information Interpreted: non-clinical only Accompanied by: Self / Same As Patient Allergies tramadol Allergy (Unknown, Verified 06/21/24 11:03) nausea and vomiting HPI HPI Colonoscopy Screening: Details: 44-year-old female here for preprocedural meeting to discuss a screening colonoscopy. She is referred by [facility]. PMX Sarcoidosis -interstitial lung disease Sickle cell trait Constipation Depression Glaucoma Astigmatism Migraines GERD Alopecia areata * SURGICAL HISTORY Colonoscopy - 2020 * ALLERGIES Tramadol - upsest stomach * [facility]: Laboratory Tests 05/07/24 15:59 WBC 7.2 Hgb 12.4 Hct 35.8 L Plt Count 303 Estimated GFR > 60 Total Bilirubin 0.3 AST 23 ALT 16 Alkaline Phosphatase 86 TODAY'S VISIT This will be her third colonoscopy, she has a hx of TA's. She suffers CIC but it is controlled as is her GERD. She is fairly naive to anesthesia and sedation but there are no prior problems with procedures. She has interstitial lung disease that is well controlled on her monthly Remicaid treatments and she denies any diagnosed cardiac problems but [facility] was born with foramen ovale. No ID problems. There is no known FHX of CRC or polyps but she has PHX polyps. PFSH Medical History Sarcoidosis Surgical History H/O endoscopy Family History Sister Stomach cancer Sister Cancer Father Stomach cancer Review of Systems Const Denies fatigue, Denies fever(s), Denies night sweats, Denies poor appetite and Denies weight loss ENT Reports Normal hearing present, Denies dental pain, Denies dysphagia, Denies hearing loss, Denies mouth pain, Denies odynophagia, Denies throat swelling, Denies tongue swelling and Reports other (Dentition adequate) Card Reports no additional complaints Resp Reports no additional complaints GI Details: Denies abdominal pain, Denies melena, Denies bloating, Denies hematochezia, Reports constipation, Denies GI cramping, Denies dysphagia, Denies excessive flatus, Denies early satiety, Reports heartburn, Denies diarrhea, Denies nausea, Denies odynophagia, Denies vomiting and Denies hematemesis Skin/Breast Denies pruritus, Denies lesions, Denies rash and Denies jaundice Neuro Reports Normal hearing present and Denies Abnormal speech present Endo Denies fatigue Aller/Immun Denies throat swelling and Denies tongue swelling Physical Exam Vital Signs: Last Vital Signs Pulse 87 06/21/24 10:52 BP 102/71 06/21/24 10:52 BMI result Body Mass Index 20.0 Const General: cooperative, no acute distress, well developed and well groomed Nutritional Appearance: average body habitus and well nourished Orientation/consciousness: oriented to person, oriented to place and oriented to time Limitations: No language barrier HEENT Head: Yes normocephalic and Yes atraumatic Eyes General: appearance normal, both eyes and all related structures Pupils: Equal, round and reactive pupils present Neck Neck: Yes normal visual inspection and Yes no lymphadenopathy Thyroid: Thyroid normal Resp Effort & Inspection: normal respiratory effort and able to speak in complete sentences Auscultation: clear to auscultation bilaterally Cardio Rate: regular rate Rhythm: regular rhythm Heart sounds: Normal, physiologic split S2 sound present Peripheral pulses: radial pulses present and posterior tibial pulses present GI Inspection: No distended and No Abdominal panniculus present Palpation (GI): Soft to palpation, nontender, no guarding, not rigid and No hepatosplenomegaly present Percussion: Yes normal to percussion Auscultation: normal bowel sounds Rectal Exam - Female: deferred Skin General skin exam: no rashes or lesions noted, turgor normal, skin not dry, no jaundice, No spider nevi and no striae Rashes: no rashes Nails: normal Neuro General: oriented to person, oriented to place and oriented to time Cranial nerves: Yes Equal, round and reactive pupils present and Yes Normal hearing present Speech: No Abnormal speech present Extrem General: Yes normal to inspection, No clubbing, No cyanosis and No edema Psych Appearance: grossly normal and well kempt Mental Status: mental status grossly normal Speech and movement: Normal speech and movement present Affect: Animated affect present Attitude: cooperative Thought process: Normal thought process present and not confabulating Thought content: Normal thought content present Insight: Fair insight present (Psych) Judgement: Fair judgement present (Psych) Assessment & Plan Assessment & Plan (1) Pre-op examination: Code(s): Z01.818 - Encounter for other preprocedural examination Category: Medical (2) Interstitial lung disease: Code(s): J84.9 - Interstitial pulmonary disease, unspecified Category: Medical (3) Sarcoidosis: Code(s): D86.9 - Sarcoidosis, unspecified Category: Medical (4) GERD (gastroesophageal reflux disease): Code(s): K21.9 - Gastro-esophageal reflux disease without esophagitis Category: Medical (5) Constipation: Code(s): K59.00 - Constipation, unspecified Category: Medical Plan This will be her third colonoscopy, she has a hx of TA's. She suffers CIC but it is controlled as is her GERD. She is fairly naive to anesthesia and sedation but there are no prior problems with procedures. She has interstitial lung disease that is well controlled on her monthly Remicaid treatments and she denies any diagnosed cardiac problems but seh was born with foramen ovale. No ID problems. There is no known FHX of CRC or polyps but she has PHX polyps. Orders: Orders 2 Colonoscopy - GI Use Only Today Z01.818 - Encounter for other preprocedural examination Medications: New peg 3350-electrolytes 236-22.74-6.74 -5.86 gram (Golytely) until fecal effluent is clear; do not exceed a total volume of 2,000 mL 240 mL PO Q10M 4,000 mL 0RF 1 day Z12.11 - Encounter for screening for malignant neoplasm of colon bisacodyl (Dulcolax (bisacodyl)) 10 mg (2 x 5 mg) PO BEDTIME 4 tabs 0RF 2 days Discontinued oxycodone-acetaminophen 5-325 mg (Percocet) Discontinued Reason: Patient Completed Course 1 tab PO Q6H PRN 20 tabs 0RF pain azithromycin Discontinued Reason: Patient Completed Course take 500 mg today (day 1), then 250 mg for 4 days (days 2-5) 6 tabs 0RF Coding Level of Care Code New Pt Level 3 (47671) Diagnoses Pre-op examination Z01.818 Interstitial lung disease J84.9 Sarcoidosis D86.9 GERD (gastroesophageal reflux disease) K21.9 Constipation K59.00
[2024-06-21 10:52] VITALS: BP 102/71; PULSE 87
--- OUTSIDE RECORDS SUMMARY | 2024-06-21 12:44 | XMS_ITS | Encounter Summary ---
Author Organization [employer] Address [address] [facility] 7t [place] [address] Care Team Providers Care Primer And Powder Canning Leader Name Role Phone Marzena Loo MD Primary Care Provider [phone]- [phone] Vicky Ibarra MD Unavailable + [phone] Encounter Details Date Type Department Care Team ([facility] st Contact Info) Description 04/13/2024 Orders Only [facility] [address] [place], [place] [phone] Marzena Loo MD [address] [place] [address] Social History Tobacco Use Types Packs/Day Years [...] as of this encounter Plan of Treatment Upcoming Encounters Date Type Department Care Team (Late st Contact Info) Description 08/09/2024 9:30 AM EDT Office Visit [facility] [address] [place] [phone] Marzena Loo MD [address] [place] [address] 08/18/2024 9:00 AM EDT Office Visit [address] [address] Shelly Rodrigues MD [address] [place] [address] documented as of this encounter Visit Diagnoses Not on filedocumented in this encounter Additional Health Concerns Assessment Noted Time PHQ-9 Depression Total Score: 3 01/12/20 24 12:28 PM EST documented as of this encounter Care Teams Primer And Powder Canning Leader Relationship Specialty Start Date End Date Marzena Loo MD [address] [place] [address] PCP - General Family Medicine 03/08/18 Vicky Ibarra MD [address] [place] [address] [place] [address] Neurology 03/16/24 Dr. Erick Pitts [facility] Pulmonology [address] [place] [address] [place] [address] Pulmonary Disease 03/16/24 [facility] 180 [facility] [phone] Optometry 03/16/24 documented as of this encounter
--- OUTSIDE RECORDS SUMMARY | 2024-06-21 12:44 | XMS_ITS | Encounter Summary ---
Author Organization [employer] Address [address] [facility] [address] [place] [address] Care Team Providers Care Gore Cutter Name Role Phone Marzena Loo MD Primary Care Provider [phone]- [phone] Vicky Ibarra MD Unavailable + [phone] Reason for Visit * Reason Onset Date Comments Nurse Triage 06/14/2024 Encounter Details Date Type Department Care Team ([facility] st Contact Info) Description 06/14/2024 Telephone [facility] [address] [place] [address] Marzena Loo MD [address] [place], [place] [phone] Nurse Triage Social History Tobacco Use Types [...] encounter Miscellaneous Notes * Telephone Encounter - Carols Inman [place] - 06/19/2024 9:22 AM EDT T/c to pt schedule appt 08/18/2024 at 9:00am appt mail. * Telephone Encounter - Mayda Stein RN - 06/14/2024 9:54 AM EDT Called pt to triage, spoke to pt. Pt declines triage at this time and is calling for derm follow up. Pt reports persistent hair loss in mostly the same spot as usual. Will task to the Dermatology pool for scheduling as appropriate. * Telephone Encounter - Nazanin Navas - 06/14/2024 9:20 AM EDT Symptom: Hair Loss (alopecia) Outcome: Schedule an appointment to be seen within 3 days Reason: This is the only possible outcome for this symptom The caller accepted this outcome. documented in this encounter Plan of Treatment Upcoming Encounters Date Type Department Care Team (Late st Contact Info) Description 08/09/2024 9:30 AM EDT Office Visit [facility] [place] [address] Marzena Loo MD [address] [place] [phone] 08/18/2024 9:00 AM EDT Office Visit [facility] [place] [address] Shelly Rodrigues MD [address] [place] [address] [phone] documented as of this encounter Visit Diagnoses Not on filedocumented in this encounter Additional Health Concerns Assessment Noted Time PHQ-9 Depression Total Score: 3 01/12/20 24 12:28 PM EST documented as of this encounter Care Teams Gore Cutter Relationship Specialty Start Date End Date Marzena Loo MD [address] [place] [address] [phone] PCP - General Family Medicine 03/08/18 Vicky Ibarra MD [address] [place] [address] [phone] Neurology 03/16/24 Dr. Erick Pitts [facility] Pulmonology [address] [address] Pulmonary Disease 03/16/24 [facility] [address] [facility] [phone] Optometry 03/16/24 documented as of this encounter
--- OUTSIDE RECORDS SUMMARY | 2024-06-21 12:44 | XMS_ITS | Encounter Summary ---
Author Organization [facility] Address [address] [facility] 7[address] [place] [address] Care Team Providers Care Intervention Analyst Name Role Phone Marzena Loo MD Primary Care Provider +1- [phone] Vicky Ibarra MD Unavailable + [phone] Reason for Visit * Reason Comments Med Refill Encounter Details Date Type Department Care Team (Late st Contact Info) Description 05/05/2022 Refill [facility] [address] [place] [phone] Marzena Loo MD [address] [place], [place] [phone] Social History Tobacco Use Types Packs/Day Years [...] 08/09/2024 9:30 AM EDT Office Visit [facility] [address] [place], [place] [phone] Marzena Loo MD [address] [place], [place] [phone] 08/18/2024 9:00 AM EDT Office Visit [facility] [address] [place], [place] [phone] Shelly Rodrigues MD [address] [place], [place] [phone] documented as of this encounter Visit Diagnoses Not on filedocumented in this encounter Care Teams Intervention Analyst Relationship Specialty Start Date End Date Marzena Loo MD [address] [place], [place] [phone] PCP - General Family Medicine 03/08/18 Vicky Ibarra MD [address] [place] [address] [phone] Neurology 03/16/24 Dr. Erick Pitts [facility] Pulmonology [address] [place] [phone] Pulmonary Disease 03/16/24 [facility] [address] [facility] [phone] Optometry 03/16/24 documented as of this encounter
--- OUTSIDE RECORDS SUMMARY | 2024-06-21 12:44 | XMS_ITS | Clinical Summary ---
Author Organization [employer] Address [address] [facility] [address] [place] [address] Care Team Providers Care Director Of Philanthropy Name Role Phone Marzena Loo MD Primary Care Provider [phone] Vicky Ibarra MD Unavailable [phone] Allergies Active Allergy Reactions Criticality Noted Date Comments Tramadol Unknown 10/11/2018 Medications baricitinib (Olumiant) 2 MG tabletIndicatio ns:Alopecia areata Take 1 tablet (2 mg) by mouth in the morning. 30 tablet 3 3 Active loratadine (Claritin) 10 MG tabletIndicatio ns:Seasonal allergies TAKE 1 TABLET BY MOUTH EVERY DAY 90 tablet 1 4 Active methotrexate 2.5 MG tabletIndicatio ns:Sarcoidosis TAKE 8 TABLETS BY MOUTH EVERY WEDNESDAY Active SUMAtriptan (Imitrex) 50 MG tabletIndicatio ns:Acute intractable headache, unspecified headache type TAKE 1 TABLET BY MOUTH AT ONSET OF MIGRAINE, MAY REPEAT ONCE IN 4 HOURS, DO NOT EXCEED 2 TABLETS / 24 HOURS 4 Active norelgestromin- ethinyl estradiol (Xulane) 150-35 MCG/24HRIndicat ions:Family planning Apply 1 patch each week for 3 weeks, then remove for 1 week. 3 patch 12 5 04/13/19 26 Active inFLIXimab (Remicade) 100 MG injectionIndica tions:Sarcoidos is Infuse into a venous catheter. Per pulmonology Active folic acid (Folvite) 1 MG tabletIndicatio ns:Sarcoidosis Take by mouth Once per day. 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 Active tamsulosin (Flomax) 0.4 MG 24 hr capsule Take 1 capsule (0.4 mg) by mouth Once per day. 30 capsule Active ibuprofen 400 MG tablet Take 1.5 tablets (600 mg) by mouth every 8 (eight) hours if needed for mild pain or moderate pain. 60 tablet 5 07/08/19 25 Active acetaminophen (Tylenol Extra Strength) 500 MG tablet Take 1 tablet (500 mg) by mouth every 8 (eight) hours if needed for mild pain. 90 tablet 5 06/08/19 25 Hospital, Clinic, or Other Facility Administered Medication [...] (05/08/2024): [place] [facility]: nonobstructing bilateral renal calculi. Stable [...] Hodge for glaucoma -Dr. Vick Machado of [facility] -Pulmonology (lung doctor) [facility] [phone] -Neurology (brain doctor) Dr. Vicky Ibarra, [facility] [phone] Assessment & Plan (04/13/2024 12:01 PM EST): Team includes: -Dr. [facility] with Dr. Hodge for glaucoma -Dr. Vick Machado of [facility] -Pulmonology (lung doctor) [facility] [phone] -Neurology (brain doctor) Dr. Vicky Ibarra, [facility] [phone] Colon cancer screening 04/14/2023 Overview (04/13/2024): -pt [...] to neurology 02/10/23 Ml note to pulmonology [facility]. 02/10/23 pt repots pain improved. Seen [...] to neurology 02/10/23 Ml note to pulmonology [facility]. 02/10/23 pt repots pain improved. Seen [...] to neurology 02/10/23 Ml note to pulmonology [facility]. 02/10/23 pt repots pain improved. Seen [...] to neurology 02/10/23 Ml note to pulmonology [facility]. 02/10/23 pt repots pain improved. Other specified health status 01/16/2023 Overview (01/12/2024): -next comprehensive annual evaluation due after 01/11/25 -followed by Dr. Vick Machado of [facility] -dental home is at the [facility] -[place] care proxy given and filed 01/12/24 Assessment & Plan (01/12/2024 12:04 PM EST): -next comprehensive annual evaluation due after 01/11/25 -followed by Dr. Vick Machado of [facility] -dental home is at the [facility] -[place] care proxy given and filed 01/12/24 Family planning [...] 2.5mg per mL administered in [facility] -Total used: 0.5cc Uveitis 02/10/2022 Overview (04/13/2024): [...] Dr. Hodge for glaucoma, likely Kerline Rayshawn. -controlled on Rx for sarcosis. No inflammation [...] mildy reduced but overall stable -seen by [facility] pulmonology with Dr. Erick Pitts MD 07/28/23: methotrexate previously increased to 20mg weekly( 8 tablets of 2.5mg); continued on Remicade (infliximab 200mg) infused q 6 weeks -Thinks she might have missed appt with crepe laminator operator, given phone number to call 04/13/24 Assessment [...] mildy reduced but overall stable -seen by [facility] pulmonology with Dr. Erick Pitts MD 07/28/23: methotrexate previously increased to 20mg weekly( 8 tablets of 2.5mg); continued on Remicade (infliximab 200mg) infused q 6 weeks -Thinks she might have missed appt with crepe laminator operator, given phone number to call 04/13/24 Primary open angle glaucoma 01/28/2022 Sarcoidosis 02/06/2018 Overview (05/16/2024): Biopsy proven sarcoidosis dx on CT, PET [...] stability, DLCO mildy reduced but overall stable -PFTs 01/2024mshow preserved spirometry and lung volumes but mild reduced diffusing capacity. , overall stable. -seen by [facility] pulmonology with Dr. Erick Pitts MD 07/28/23: methotrexate previously increased to 20mg weekly( 8 tablets of 2.5mg); continued on Remicade (infliximab 200mg) infused q 6 weeks -Pulmoary visit with Dr. Pitts 03/30/24 for follow up, contune meds, repeate PFTs in July 2024, Return 08/2024 repeat quantitative infliximab level and antibodies in july prior to or August return -addendum Apr 27 by pulmonary Assessment & Plan (04/13/2024 11:59 AM EST): [...] mildy reduced but overall stable -seen by [facility] pulmonology with Dr. Erick Pitts MD 07/28/23: methotrexate previously increased to 20mg weekly( 8 tablets of 2.5mg); continued on Remicade (infliximab 200mg) infused q 6 weeks -Thinks she might have missed appt with crepe laminator operator, given phone number to call 04/13/24 Assessment [...] mildy reduced but overall stable -seen by [facility] pulmonology with Dr. Erick Pitts MD [...] q 6weeks with Dr. Erick Pitts of [facility] pulmonology -Seen previously with Dr. Dex Whitney at the [facility] last 04/08/2021 -Followed [facility] with Dr. Hodge for glaucoma, likely Kerline Dannymann. Regular astigmatism 08/13/2017 Chorioretinal scar 07/28/2017 Overview [...] with Dr. Hodge for glaucoma, likely Kerline Dannymann. -due for appt, pt agrees to call, given phone number 2/6/25 Assessment & Plan (04/13/2024 11:58 AM EST): -Followed [facility] [place] with Dr. Hodge for glaucoma, likely Kerline Schlossmann. -due for appt, pt agrees to call, given phone number 04/13/24 Assessment & Plan (02/10/2022 12:20 PM EST): -Followed by [facility] [place] with Dr. Hodge for glaucoma, likely Kerline Schlossmann. Presbyopia 07/28/2017 Depressive disorder 09/24/2011 Sickle cell trait 09/24/2011 Anemia 08/26/2011 Constipation 08/26/2011 Encounters Date Type Department Care Team Description 06/14/2024 Telephone [facility] [address] [place] [phone] Marzena Loo MD Nurse Triage 05/22/[address] [address] Marzena Loo MD ER Follow-up 05/19/2024 Population Health Risk Score [facility] Department [address] [phone] Provider, Population Health Generic 05/16/[address] [address] Marzena Loo MD august recalls 05/16/2024 Travel 05/11/2024 11:20 AM EST Office Visit [facility] [address] [place] [phone] Leonardo Peterson MD Hematuria, unspecified type 05/08/2024 2:40 PM EST Office Visit [facility] [address] [address] Leila Garcia MD Acute cystitis with hematuria (Primary Dx); Hematuria, unspecified type; Kidney stones 05/08/2024 Telephone [facility] [address] [place] [phone] Marzena Loo MD Nurse Triage 05/07/2024 Orders Only GENERIC EXTERNAL DATA DEPARTMENT Provider, Generic External Data Generalized abdominal pain (Primary Dx) 04/17/2024 Telephone [facility] [address] [place] [phone] Yue Wilson RN Medication Question 04/17/2024 Travel 04/14/2024 Refill [facility] [address] [place] [phone] Marzena Loo MD 04/13/2024 9:15 AM EST Telemedicine [facility] [address] [place] [phone] Marzena Loo MD Family planning (Primary Dx); Interstitial lung disease (CMS/HCC); Sarcoidosis; Acute intractable headache, unspecified headache type; 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, unspecified glaucoma stage; Uveitis; Adult failure to thrive; Complex care coordination; Colon cancer screening 04/13/2024 Telephone [facility] [address] [place] [phone] Marzena Loo MD Durable Medical Equipment (boost) 04/13/[address] [address] Marzena Loo MD 04/13/2024 Orders Only [facility] [address] [place] [phone] Marzena Loo MD 04/13/2024 Travel 04/12/[address] [address] Pat Del Castillo MA chartprep 04/01/2024 Telephone [facility] [address] [place] [phone] Marzena Loo MD 04/01/2024 Travel from Last 3 Months Immunizations Name Administration [...] Date Smoking Tobacco: Former Cigarettes Q uit: 2019 Smokeless Tobacco: Never Tobacco Cessation:Counseling Given: Not [...] 05/11/2024 11:29 AM EST Plan of Treatment Upcoming Encounters Date Type Department Care Team (Late st Contact Info) Description 08/09/2024 9:30 AM EDT Office Visit [facility] [address] [place] [phone] Marzena Loo MD [address] [place] [phone] 08/18/2024 9:00 AM EDT Office Visit [facility] [address] [place] [phone] Shelly Rodrigues MD [address] [place] [phone] Health Maintenance Due Date Last Done Comments [...] Associated Diagnosis Comments CULTURE, URINE, ROUTINE Routine 05/11/2024 11:50 AM EST Hematuria, unspecified type POCT URINALYSIS DIPSTICK Routine 05/11/2024 11:43 AM [...] Recently Relevant to Health Maintenance Results * Culture, Urine, Routine (05/11/2024 11:50 AM EST) Only the most recent of2 resultswithin the time period is included. Urine Urine specimen obtained by clean catch procedure / Unknown 05/11/2024 11:50 AM EST 05/11/2024 6:47 PM EST Comment:UACC Narrative [facility] - 05/13/2024 10:45 AM EST Urine Culture No growth. Specimen Source: Urine clean catch Leonardo Peterson MD LAB MICROBIOLOGY - GENERAL ORDER CONCEPCION Final Result [facility] [address] [place] [phone] * (ABNORMAL) POCT Urinalysis (05/11/2024 11:43 AM [...] TEST ENTER/EDIT OR DERABLES Final Result * CT Abdomen Pelvis w/o Contrast (05/07/2024 6:45 PM EST) Anatomical Region Laterality Modality Body, Pelvis, Abdomen Computed T omography 05/07/2024 6:45 PM EST Narrative 05/07/2024 6:47 PM EST ? [facility] ?[address] ?[place] [address] ? CT Scan Report ? Signed ? Patient: Lew Daljit,Leila A ?MR#: ?? [id number] ? : 1980 ?Acct:[id number] ? Age/Sex: 44 / F ?ADM Date: 05/07/24 ? Loc: HO.ED ? Attending Dr: ? Ordering Physician: Jose Antonio Mills ?? Date of Service: 05/07/24 ?? Procedure(s): CT abdomen pelvis wo IV con ?? Accession Number(s): [id number] ? cc: Jose Antonio Mills; Marzena Loo MD ? Report Number: ?? [id number]: Total DLP = ??278.00 mGy-cm ? CLINICAL HISTORY: flank pain. Kidney stones? CT abdomen and pelvis without contrast ? Comparison: CT/SR - CHEST WITH IV CONTRAST [id number] - 08/19/17 10:11 [address]T ?? CT/SR - ABD PELVIS WITH CONT [id number] - 05/08/15 16:44 EST ? Findings: The [...] DD/ 44 ? TD/TT: 05/07/24 1845 ? Central Supply Clerk: ? Procedure Note Donotuseinterpreter, Image - 05/07/[address] [place] [id number] [address] Scan Report Signed Patient: Leila Fernandez AMR#: [id number] : 1980Acct:[id number] Age/Sex: 44 / FADM Date: 05/07/24 Loc: HO.ED Attending Dr: Ordering Physician: Jose Antonio Mills Date of Service: 05/07/24 Procedure(s): CT abdomen pelvis wo IV con Accession Number(s): [id number] cc: Jose Antonio Mills; Marzena Loo MD Report Number: [id number]: Total DLP = 278.00 mGy-cm CLINICAL HISTORY: flank pain. Kidney stones? CT abdomen and pelvis without contrast Comparison: CT/SR - CHEST WITH IV CONTRAST [id number] - 08/19/17 10:[address]/SR - ABD PELVIS WITH CONT [id number] - 05/08/15 16:44 EST Findings: The prior [...] in OV> 05/07/241845 DD/ 44 TD/TT: 05/07/241844 Central Supply Clerk: us [facility] External Provider IMG CT PROCEDURES Edited Result - Final * (ABNORMAL) Urinalysis, Complete, with Reflex to Culture (05/07/2024 3:59 PM EST) Color Urine RED [facility] Comment:Dipstick performed o n centrifuged urine. Results may notcorrelate with microscopic values. Appearance Urine Turbid [facility] PH 6.5 5.0 - 9.0 [facility] Glucose Urine UA Negative Negative mg/dL [facility] Urine Blood Large (3+)(A) Negative [facility] Specific [place]aney - Urine 1.025 1.005 - 1.025 [facility] Urine Protein 300 (3+)(A) Neg-Trace mg/dL [facility] Urine Ketones Negative Negative mg/dL [facility] Nitrite Urine Negative Negative [facility] Leukocyte Esterase Urine Negative Negative [facility] RBC Urine >20(A) 0 - 2 /HPF [facility] Urine WBC 0-5 0 - 5 /HPF [facility] Urine Squamous Epithelial Cell 0-2 0 - 2 /HPF [facility] Urine Bacteria None Seen None Seen [facility] Hyaline Casts, Urine 0-2 0 - 2 /LPF [facility] 05/07/2024 3:59 PM EST 05/07/2024 4:03 PM EST Narrative [facility] - 05/07/2024 4:27 PM EST [id number], Clean Catch Generic External Data Provider LAB URINE ORDERAB LES Final Result [facility] [address] [place] [phone] [phone] * (ABNORMAL) CBC auto differential (05/07/2024 3:59 PM EST) White Blood Count 7.2 4.8 - 10.8 X10*3/uL [facility] Red Blood Count 4.19(L) 4.20 - 5.50 X10*6/uL [facility] Hemoglobin 12.4 12.0 - 16.0 g/dl [facility] Hematocrit 35.8(L) 37.0 - 47.0 % [facility] Mean Corpuscular Volume 85.4 80.0 - 98.0 fL [facility] Mean Corpuscular Hemoglobin 29.6 27.0 - 33.0 pg [facility] Mean Corpuscular HGB Conc 34.6 31.0 - 35.0 g/dl [facility] Red Cell Distribution Width 13.8 11.0 - 16.0 % [facility] Platelet Count 303 160 - 400 X10*3/uL [facility] Mean Platelet Volume 9.7 9.4 - 12.3 fL [facility] Neutrophils Percent Auto 48.3 45 - 73 % [facility] Imm Gran Pct Auto 0.3 0.0 - 0.4 % [facility] Lymphocytes Percent Auto 39.1 20 - 40 % [facility] Monocytes Percent Auto 9.8 2 - 11 % [facility] Eosinophils Percent Auto 1.8 0 - 4 % [facility] Basophils Percent Auto 0.7 0 - 2 % [facility] NRBC Pct Auto 0.0 0.0 - 0.2 /100WBC [facility] Neutrophils Absolute Auto 3.5 2.0 - 8.3 x10*3/uL [facility] Imm Gran Abs Auto 0.02 0.00 - 0.03 X10*3/uL [facility] Lymphocytes Absolute Auto 2.8 1.2 - 4.9 X10*3/uL [facility] Monocytes Absolute Auto 0.7 0.1 - 1.2 X10*3/uL [facility] Eosinophils Absolute Auto 0.1 0.0 - 0.4 X10*3/uL [facility] Basophils Absolute Auto 0.1 0.0 - 0.2 X10*3/uL [facility] NRBC Abs Auto 0.000 0.0 - 0.012 X10*3/uL [facility] 05/07/2024 3:59 PM EST 05/07/2024 4:03 PM EST us Generic External Data Provider LAB BLOOD ORDERAB LES Final Result Performing Organization Address City/[facility]/ZIP Co de Phone Number [facility] [address] [place] [phone] * HCG, Qualitative, Urine (05/07/2024 3:59 PM EST) Urine NEGATIVE NEGATIVE [facility] Comment:This test was develo ped to detect early . Falsenegative results may occur after the 5th - 7th week ofpregnancy when using this test method. If clinicallyindicated, consider a serum hCG. 05/07/2024 3:59 PM EST 05/07/2024 4:27 PM EST us Generic External Data Provider LAB URINE ORDERAB LES Final Result Performing Organization Address City/[facility]/ZIP Co de Phone Number [facility] [address] [place] [phone] * Partial Thromboplastin Time, Activated (APTT) (05/07/2024 3:59 PM EST) Partial Thromboplastin Time 30.4 26.0 - 36.8 SEC [facility] Comment:For information rega rding the monitoring of direct thrombininhibitors, please refer to Pharmacy. 05/07/2024 3:59 PM EST 05/07/2024 4:03 PM EST us Generic External Data Provider LAB BLOOD ORDERAB LES Final Result Performing Organization Address [facility] Co de Phone Number [facility] [address] [place] [phone] * Prothrombin Time-INR (05/07/2024 3:59 PM EST) Prothrombin Time 11.1 10.9 - 12.4 SEC [facility] INTERNATIONAL NORM RATIO 1.0 0.9 - 1.1 [facility] Comment:INTERNATIONAL NORMAL IZED RATIO (INR) [...] ORDERAB LES Final Result Performing Organization Address [facility] Co de Phone Number [facility] [address] [place] [phone] * hCG, Total, Quantitative (05/07/2024 3:59 PM EST) HCG Quantitative <2 mIU/mL [facility] Comment:Weeks post LMP Appro ximate hCG(Last Menstrual Period) Range (mIU/ml)3 - 4 weeks 9 - 1304 - 5 weeks 75 - 2,6005 - 6 weeks 850 - 20,8006 - 7 weeks 4000 - 100,2007 - 12 weeks 11,500 - 289,22584 - 16 weeks 18,300 - 137,74863 - 29 weeks (2nd trimester) 1,400 - 53,83883 - 41 weeks (3rd trimester) 940 - [...] Provider LAB BLOOD ORDERAB LES Final Result [facility] [address] [place] [address] [phone] * (ABNORMAL) Comprehensive Metabolic Panel (05/07/2024 3:59 PM EST) Sodium 142 135 - 145 mmol/L [facility] Potassium 3.4 3.3 - 5.1 mmol/L [facility] Chloride 108 96 - 108 mmol/L [facility] Carbon Dioxide 25 22 - 29 mmol/L [facility] Anion Gap 12 12 - 20 [facility] Urea Nitrogen (BUN) 9 9 - 16 mg/dL [facility] Creatinine, Serum 0.65 0.5 - 1.4 mg/dL [facility] Creatinine Clr Calc Pharmacy 77.6 [facility] Comment:Provided height and weight: 152.4 cm,46.8 kg.eGFR (calculated from the MDRD study equation) and eCrCl(calculated from the Cockcroft-Gault equation) are based ondifferent parameters and may not yield comparable results.If eCrCl result is absurd, please check patient'sheight/weight. Estimated Glomerular Filt Rate >60 [facility] Comment:Chronic Kidney Disea se: Estimated GFR < 60 mL/min/1.94h5Oppjhk Kidney Disease: Estimated GFR < 15 mL/min/1.73m2 Glucose 94 60 - 115 mg/dL [facility] Calcium 9.5 8.4 - 10.2 mg/dL [facility] Bilirubin, Total 0.3 0.0 - 1.0 mg/dL [facility] Aspartate Amino Transferase 23 5 - 31 U/L [facility] Alanine Aminotransferase 16 0 - 31 U/L [facility] Total Protein 8.6(H) 6.5 - 8.0 g/dL [facility] Albumin Level 4.5 3.5 - 5.0 g/dL [facility] Alkaline Phosphatase 86 39 - 117 U/L [facility] 05/07/2024 3:59 PM EST 05/07/2024 4:03 PM EST us Generic External Data Provider LAB BLOOD ORDERAB LES Final Result Performing Organization Address City/State/[facility] Co de Phone Number [facility] [address] [place] [phone] [phone] * BI Mammogram Screening Tomosynthesis Bilateral (01/12/2024 9:30 AM EST) Anatomical Region Laterality Modality Breast Bilateral Mammography 01/12/2024 9:30 AM EST Narrative 01/21/2024 1:02 PM EST ? [facility] ? [address] ?[place] [address] ? Mammography Report ? Signed ? Patient: Lew Daljit,Leila A ?MR#: ?? [id number] ? : 1980 ?Acct:[id number] ? Age/Sex: 44 / F ?ADM Date: 01/11/ ? Loc: HO.MAMMO ? Attending Dr: Marzena Loo MD ? Ordering Physician: Marzena Loo MD ?Results: 1N ?? egative ? Date of Service: 01/12/24 ?Follow Up: 1 Year From Orig ?? inal Mammogram ? Procedure(s): MM tomosynthesis screening BI ?? Accession Number(s): [id number] ? cc: Marzena Loo MD ? EXAMINATION: [...] DD/ 0930 ? TD/TT: 01/12/24 0945 ? Central Supply Clerk: ? Procedure Note Rashmi, Jay - 01/21/2024 [facility] [address] [place] [address] [place] [address] Mammography Report Signed Patient: Leila Fernandez AMR#: [id number] : 1980Acct:[id number] Age/Sex: 44 / FADM Date: 01/12/24 Loc: HO.MAMMO Attending Dr: Marzena Loo MD Ordering Physician: Marzena Loo MDResults: 1N egative Date of Service: 01/12/24Follow Up: 1 Year From Orig ina Mammogram Procedure(s): MM tomosynthesis screening BI Accession Number(s): [id number] cc: Marzena Loo MD EXAMINATION: MM SCREENING [...] Hou DO in OV> 01/21/24 1259 DD/ TD/TT: 01/12/24 0945 Central Supply Clerk: us Marzena Loo MD IMG BI PROCEDURES Final Re sult * Pap Smear (01/12/2024 12:00 AM EST) Swab Cervix uteri structure / Unknown 01/12/2024 01/13/2024 8:45 AM EST [facility] - 01/17/2024 8:26 AM EST ----- ------- Name: Leila Fernandez ? Age/Sex: 44/F ? : 1980 Unit#: [id number] ?? Attend Dr: ?Re01/12/24 ?Status: PRE REF ? Location: HO.LNP ?Disch: ? ----- ------- SPEC : [id number] ?RECD: 01/13/24 ? STATUS: ??SOUT ? REQ NUM: [id number] ? SWETA: 01/12/24 ? SUBM DR: Marzena [...] MD LAB CYTOLOGY ORDERABLES Fi nal Result [facility] [address] [place] [phone] [phone] * HIV Ab/Ag (SHANTEL DP) (10/16/2022 12:24 PM EDT) HIV AB/AG Nonreactive Nonreactive [facility] Comment:HIV-1 p24 Ag and/or HIV-1/HIV-2 Ab not detected.A test result that is nonreactive does not exclude thepossibility of exposure to or infection with HIV-1 and/orHIV-2. Nonreactive results in this assay for individualswith prior exposure to HIV-1 and/or HIV-2 may be due toantigen and antibody levels that are below the limit ofdetection of this assay.The Arthur Cage/Vault Supervisor HIV Ag/Ab Combo assay result andsupplemental assay results should be interpreted inconjunction with the patient's clinical presentation,history and other laboratory results. If the results areinconsistent with clinical evidence, additional testing issuggested to confirm the result. 10/16/2022 12:2 4 PM EDT 10/16/2022 1:48 PM EDT us Shelly Rodrigues MD LAB BLOOD ORDERABLES Final Re sult [facility] [address] [place] [phone] * Hepatitis A,B,C Profile (10/16/2022 12:24 PM EDT) Pathologist [facility] Hepatitis A IgM Nonreactive Nonreactive [facility] Comment:IgM antibodies to BRADLEY V not detected; does not exclude earlyacute or recovered HAV infection. ~Hepatitis B Surface Antibody NONREACTIVE Nonreactive [facility] Comment:Nonreactive: < 8.00 mIU/mL Hepatitis B Core Antibody Nonreactive Nonreactive [facility] Hepatitis C Antibody Nonreactive Nonreactive [facility] Comment:Antibodies to HCV no t detected; does not exclude early acuteHCV infection. Hepatitis B Surface Ag Negative Negative [facility] Blood 10/16/2022 12:2 4 PM EDT 10/16/2022 1:48 PM EDT us Shelly Rodrigues MD LAB BLOOD ORDERABLES Final Re sult [facility] [address] [place] [address] [phone] from Last 3 Months or Most Recently Relevant to Health Maintenance Insurance [employer] Advance Directives Documents on File Type Date Recorded Patient Sports [employer] Membership Advisors Expl anation Advance Directives and Living Will 01/14/2024 11:42 AM Health Care Proxy Care Teams Director Of Philanthropy Relationship Specialty Start Date End Date Eze, MD Marzena [address] [place] [address] PCP - General Family Medicine 03/08/18 Vicky Ibarra MD [address] [place] [address] [place] [address] Neurology 03/16/24 Dr. Erick Pitts [facility] Pulmonology [address] [place] [address] [place] [address] Pulmonary Disease 03/16/24 [facility] [address] [place] [address] Optometry 03/16/24
--- OUTSIDE RECORDS SUMMARY | 2024-06-21 12:44 | XMS_ITS | Encounter Summary ---
Author Organization [employer] Address 75 [facility] 7t [place] [address] Care Team Providers Care Laborer Powerhouse Name Role Phone Marzena Loo MD Primary Care Provider +1- [phone] Vicky Ibarra MD Unavailable + [phone] Reason for Visit * Reason Onset Date Comments Appointment Request 05/08/2022 Encounter Details Date Type Department Care Team ([facility] st Contact Info) Description 05/08/2022 Telephone [facility] MEDICINE [address] [place] [address] Marzena Loo MD [address] [place], [place] [phone] Appointment Request Social History Tobacco Use Types [...] with the derm. Please contact pt at [phone] documented in this encounter Plan of Treatment Upcoming Encounters Date Type Department Care Team (Late st Contact Info) Description 08/09/2024 9:30 AM EDT Office Visit [facility] MEDICINE [address] [place] [address] Marzena Loo MD [address] [place] [address] 08/18/2024 9:00 AM EDT Office Visit [facility] MEDICINE [address] [place] [address] Shelly Rodrigues MD [address] [place] [address] documented as of this encounter Visit Diagnoses Not on filedocumented in this encounter Care Teams Laborer Powerhouse Relationship Specialty Start Date End Date Marzena Loo MD [address] [place] [address] PCP - General Family Medicine 03/08/18 Vicky Ibarra MD [address] [place] [address] [place] [address] Neurology 03/16/24 Dr. Erick Pitts [facility] Pulmonology [address] [address] Pulmonary Disease 03/16/24 [facility] 180 [facility] [phone] Optometry 03/16/24 documented as of this encounter
--- OUTSIDE RECORDS SUMMARY | 2024-06-21 12:44 | XMS_ITS | Encounter Summary ---
Author Organization [employer] Address [address] [place] [address] 7t [place] [address] Care Team Providers Care Health And Safety Instructor Name Role Phone Marzena Loo MD Primary Care Provider +- [phone] Vicky Ibarra MD Unavailable + [phone] Reason for Visit * Reason Comments Med Refill Encounter Details Date Type Department Care Team (Late st Contact Info) Description 05/10/2023 Refill [facility] MEDICINE [address] [place] [address] [phone] Dior Forman MD [address] [place] [address] [phone] Social History Tobacco Use Types Packs/Day Years [...] Description 08/09/2024 9:30 AM EDT Office Visit [facility] MEDICINE 230 [place], [place] [phone] Marzena Loo MD 230 [place], [place] [phone] 08/18/2024 9:00 AM EDT Office Visit [facility] MEDICINE [address] [place] [address] Shelly Rodrigues MD 230 [place] [address] documented as of this encounter Visit Diagnoses Not on filedocumented in this encounter Care Teams Health And Safety Instructor Relationship Specialty Start Date End Date Marzena Loo MD 230 [place] [address] PCP - General Family Medicine 03/08/18 Vicky Ibarra MD [address] [place] [address] [address] Neurology 03/16/24 Dr. Erick Pitts [facility] Pulmonology [address] [address] Pulmonary Disease 03/16/24 [facility] 180 [facility] [phone] Optometry 03/16/24 documented as of this encounter
--- OUTSIDE RECORDS SUMMARY | 2024-06-21 12:44 | XMS_ITS | Encounter Summary ---
Author Organization [employer] Address [address] [place] [address] 7t [place] [address] Care Team Providers Care Blackjack Dealer Name Role Phone Marzena Loo MD Primary Care Provider +- [phone] Vicky Ibarra MD Unavailable + [phone] Encounter Details Date Type Department Care Team (Late st Contact Info) Description 01/30/2022 Abstract [facility] MED & PEDS [address] [place], [place] [phone] Marzena Loo MD [address] [place] [address] [phone] Social History Tobacco Use Types Packs/Day Years [...] Description 08/09/2024 9:30 AM EDT Office Visit [facility] MEDICINE [address] [place] [address] [phone] Marzena Loo MD [address] [place] [address] [phone] 08/18/2024 9:00 AM EDT Office Visit [address] [phone] Shelly Rodrigues MD 230 [place], [place] [phone] documented as of this encounter Visit Diagnoses Not on filedocumented in this encounter Care Teams Blackjack Dealer Relationship Specialty Start Date End Date Marzena Loo MD 230 [place], [place] [phone] PCP - General Family Medicine 03/08/18 Vicky Ibarra MD [address] [place] [address] Neurology 03/16/24 Dr. Erick Pitts [facility] Pulmonology [address] [address] Pulmonary Disease 03/16/24 [facility] 180 [facility] [address] Optometry 03/16/24 documented as of this encounter
--- OUTSIDE RECORDS SUMMARY | 2024-06-21 12:44 | XMS_ITS | Encounter Summary ---
Author Organization [employer] Address 75 [facility] 7t [place] [address] Care Team Providers Care Wedding Coordinator Name Role Phone Marzena Loo MD Primary Care Provider +1- [phone] Vicky Ibarra MD Unavailable + [phone] Reason for Visit * Reason Comments Med Refill Encounter Details Date Type Department Care Team ([facility] st Contact Info) Description 04/14/2024 Refill [facility]INE 230 [place] [address] Marzena Loo MD 230 [place] [address] Social History Tobacco Use Types Packs/Day Years [...] Description 08/09/2024 9:30 AM EDT Office Visit [facility] MEDICINE [address] [place] [address] Marzena Loo MD [address] [place] [address] 08/18/2024 9:00 AM EDT Office Visit [facility] MEDICINE [address] [place] [address] Shelly Rodrigues MD [address] [place] [address] documented as of this encounter Visit Diagnoses Not on filedocumented in this encounter Additional Health Concerns Assessment Noted Time PHQ-9 Depression Total Score: 3 01/12/20 24 12:28 PM EST documented as of this encounter Care Teams Wedding Coordinator Relationship Specialty Start Date End Date Marzena Loo MD [address] [place] [address] PCP - General Family Medicine 03/08/18 Vicky Ibarra MD [address] [place] [address] Dr Crews 140 [place] [address] Neurology 03/16/24 Dr. Erick Pitts [facility] Pulmonology [address] [place] [address] [place] [address] Pulmonary Disease 03/16/24 [facility] [address] [place] [address] Optometry 03/16/24 documented as of this encounter
== END 2024-06-21 11:37 | disposition home or self-care (01) ==
PROVIDERS: PCP Family Medicine; Visit Provider Nurse Practitioner
DX: Z01.818 Encounter for other preprocedural examination (principal); Z12.11 Encounter for screening for malignant neoplasm of colon; Z86.0101 Personal history of adenomatous and serrated colon polyps; K59.00 Constipation, unspecified
CPT/HCPCS: 99202

== ENCOUNTER → 2024-06-21 10:45 | Outpatient (BNVA) | payer MEDICAID, SELFPAY | PROVIDERS: PCP Family Medicine; Visit Provider Nurse Practitioner | DX: Z01.818 Encounter for other preprocedural examination (principal); J84.9 Interstitial pulmonary disease, unspecified; D86.9 Sarcoidosis, unspecified; K21.9 Gastro-esophageal reflux disease without esophagitis; K59.00 Constipation, unspecified | CPT/HCPCS: 99212 ==

== ENCOUNTER 2024-06-22 08:02 | Outpatient (REF) | payer MEDICAID, SELFPAY ==
--- OUTSIDE RECORDS SUMMARY | 2024-06-22 09:33 | XMS_ITS | Encounter Summary ---
Author Organization [employer] Address [address] [facility] 7t [place] [address] Care Team Providers Care Executive Chef Name Role Phone Marzena Loo MD Primary Care Provider [phone]- [phone] Vicky Ibarra MD Unavailable + [phone] Reason for Visit * Reason Onset Date Comments Appointment Request 05/08/2022 Encounter Details Date Type Department Care Team ([facility] st Contact Info) Description 05/08/2022 Telephone [facility] MEDICINE [address] [place] [address] Marzena Loo MD [address] [place], [place] [phone] Appointment Request Social History Tobacco Use Types [...] with the derm. Please contact pt at [phone] documented in this encounter Plan of Treatment Upcoming Encounters Date Type Department Care Team (Late st Contact Info) Description 08/09/2024 9:30 AM EDT Office Visit [facility] MED[facility]INE [address] [place] [address] Marzena Loo MD [address] [place] [address] 08/18/2024 9:00 AM EDT Office Visit [facility] MED[facility]INE [address] [place] [address] Shelly Rodrigues MD [address] [place] [address] documented as of this encounter Visit Diagnoses Not on filedocumented in this encounter Care Teams Executive Chef Relationship Specialty Start Date End Date Marzena Loo MD [address] [place] [address] PCP - General Family Medicine 03/08/18 Vicky Ibarra MD [address] [place] [address] [place] [address] Neurology 03/16/24 Dr. Erick Pitts [facility] Pulmonology [address] [address] Pulmonary Disease 03/16/24 [facility] 180 [facility] [phone] Optometry 03/16/24 documented as of this encounter
--- OUTSIDE RECORDS SUMMARY | 2024-06-22 09:33 | XMS_ITS | Encounter Summary ---
Author Organization [employer] Address [address] [place] [address] 7t [place] [address] Care Team Providers Care Camp Guard Name Role Phone Marzena Loo MD Primary Care Provider +- [phone] Vicky Ibarra MD Unavailable + [phone] Encounter Details Date Type Department Care Team (Late st Contact Info) Description 01/30/2022 Abstract [facility] [address] [place], [place] [phone] Marzena Loo MD [address] [place] [address] [phone] Social History Tobacco Use Types Packs/Day Years [...] Description 08/09/2024 9:30 AM EDT Office Visit [facility] [address] [place] [address] [phone] Marzena Loo MD [address] [place] [address] [phone] 08/18/2024 9:00 AM EDT Office Visit [address] [phone] Shelly Rodrigues MD [address] [place], [place] [phone] documented as of this encounter Visit Diagnoses Not on filedocumented in this encounter Care Teams Camp Guard Relationship Specialty Start Date End Date Marzena Loo MD [address] [place], [place] [phone] PCP - General Family Medicine 03/08/18 Vicky Ibarra MD [address] [place] [address] Neurology 03/16/24 Dr. Erick Pitts [facility] Pulmonology [address] [address] Pulmonary Disease 03/16/24 [facility] 180 [facility] [address] Optometry 03/16/24 documented as of this encounter
--- OUTSIDE RECORDS SUMMARY | 2024-06-22 09:33 | XMS_ITS | Encounter Summary ---
Author Organization [employer] Address [address] [facility] 7t [place] [address] Care Team Providers Care Economic Historian Name Role Phone Marzena Loo MD Primary Care Provider [phone]- [phone] Vicky Ibarra MD Unavailable + [phone] Reason for Visit * Reason Comments Med Refill Encounter Details Date Type Department Care Team ([facility] st Contact Info) Description 04/14/2024 Refill [facility] MEDICINE [address] [place] [address] Marzena Loo MD [address] [place] [address] Social History Tobacco Use Types Packs/Day Years [...] 08/09/2024 9:30 AM EDT Office Visit [facility] [address] [place] [address] Marznea Loo MD [address] [place] [address] 08/18/2024 9:00 AM EDT Office Visit [facility] [address] [place] [address] Shelly Rodrigues MD [address] [place] [address] documented as of this encounter Visit Diagnoses Not on filedocumented in this encounter Additional Health Concerns Assessment Noted Time PHQ-9 Depression Total Score: 3 01/12/20 24 12:28 PM EST documented as of this encounter Care Teams Economic Historian Relationship Specialty Start Date End Date Marzena Loo MD [address] [place] [address] PCP - General Family Medicine 03/08/18 Vicky Ibarra MD [address] [place] [address] Dr Crews [address] [place] [address] Neurology 03/16/24 Dr. Erick Pitts [facility] Pulmonology [address] [place] [address] [place] [address] Pulmonary Disease 03/16/24 [facility] [address] [place] [address] Optometry 03/16/24 documented as of this encounter
--- OUTSIDE RECORDS SUMMARY | 2024-06-22 09:33 | XMS_ITS | Encounter Summary ---
Author Organization [employer] [facility] Address [address] [facility] 7t [place] [address] Care Team Providers Care Annealing Furnace Tender Name Role Phone Marzena Loo MD Primary Care Provider [phone]- [phone] Vicky Ibarra MD Unavailable + [phone] Reason for Visit * Reason Comments Med Refill Encounter Details Date Type Department Care Team (Late st Contact Info) Description 05/05/2022 Refill [facility] MEDICINE [address] [place] [address] Marzena Loo MD [address] [place], [place] [phone] Social History Tobacco Use Types Packs/Day Years [...] Description 08/09/2024 9:30 AM EDT Office Visit [facility] MED[facility]INE [address] [place], [place] [phone] Marzena Loo MD [address] [place], [place] [phone] 08/18/2024 9:00 AM EDT Office Visit [facility] [address] [place], [place] [phone] Shelly Rodrigues MD [address] [place], [place] [phone] documented as of this encounter Visit Diagnoses Not on filedocumented in this encounter Care Teams Annealing Furnace Tender Relationship Specialty Start Date End Date Marzena Loo MD [address] [place], [place] [phone] PCP - General Family Medicine 03/08/18 Vicky Ibarra MD [address] [place] [address] [phone] Neurology 03/16/24 Dr. Erick Pitts [facility] Pulmonology [address] [place] [address] Pulmonary Disease 03/16/24 [facility] 180 [facility] [phone] Optometry 03/16/24 documented as of this encounter
--- OUTSIDE RECORDS SUMMARY | 2024-06-22 09:33 | XMS_ITS | Encounter Summary ---
Author Organization [employer] Address [address] [place] [address] 7[address] [place] [address] Care Team Providers Care Customer Success Associate Name Role Phone Marzena Loo MD Primary Care Provider +- [phone] Vicky Ibarra MD Unavailable + [phone] Reason for Visit * Reason Comments Med Refill Encounter Details Date Type Department Care Team (Late st Contact Info) Description 05/10/2023 Refill [facility] MEDICINE [address] [place] [address] [phone] Dior Forman MD [address] [place] [address] [phone] Social History Tobacco Use Types Packs/Day Years [...] 08/09/2024 9:30 AM EDT Office Visit [facility] MEDICINE [address] [place], [place] [phone] Marzena Loo MD [address] [place], [place] [phone] 08/18/2024 9:00 AM EDT Office Visit [facility] MEDICINE [address] [place] [address] Shelly Rodrigues MD [address] [place] [address] documented as of this encounter Visit Diagnoses Not on filedocumented in this encounter Care Teams Customer Success Associate Relationship Specialty Start Date End Date Marzena Loo MD [address] [place] [address] PCP - General Family Medicine 03/08/18 Vicky Ibarra MD [address] [place] [address] [address] Neurology 03/16/24 Dr. Erick Pitts [facility] Pulmonology [address] [address] Pulmonary Disease 03/16/24 [facility] 180 [facility] [phone] Optometry 03/16/24 documented as of this encounter
--- OUTSIDE RECORDS SUMMARY | 2024-06-22 09:34 | XMS_ITS | Clinical Summary ---
Author Organization [employer] Address [address] [facility] [address] [place] [address] Care Team Providers Care Boardinghouse Keeper Name Role Phone Marzena Loo MD Primary Care Provider [phone] Vicky Ibarra MD Unavailable [phone] Allergies Active Allergy Reactions Criticality Noted Date [...] (05/08/2024): CT scan abdomen and pelvis at [facility] on 05/07/2024: nonobstructing bilateral [...] glaucoma -Dr. Vick Machado of [facility] -Pulmonology (lung doctor) [facility] [phone] -Neurology (brain doctor) Dr. Vicky Ibarra, [facility] [phone] Assessment & Plan (04/13/2024 12:01 PM EST): Team includes: -[facility] with Dr. Hodge for glaucoma -Dr. Vick Machado of [facility] -Pulmonology (lung doctor) [facility] [phone] -Neurology (brain doctor) Dr. Vicky Ibarra, [facility] [phone] Colon cancer screening 04/14/2023 Overview (06/21/2024): -pt [...] to neurology 02/10/23 Ml note to pulmonology [facility]. 02/10/23 pt repots pain improved. Seen [...] refer [facility]y [facility] pt repots pain improved. Seen [...] refer to neurology [facility] pt repots pain improved. Seen [...] to neurology 02/10/23 Ml note to pulmonology [facility]. 02/10/23 pt repots pain improved. Other specified health status 01/16/2023 Overview (01/12/2024): -next comprehensive annual evaluation due after 01/11/25 -followed by Dr. Vick Machado of [facility] -dental home is at the [facility] proxy given and filed 01/12/24 Assessment & Plan (01/12/2024 12:04 PM EST): -next comprehensive annual evaluation due after 01/11/25 -followed by Dr. Vick Machado of [facility] -dental home is at the [facility] proxy given and filed 01/12/24 Family [...] 2.5mg per mL [place] [facility] -Total used: 0.5cc Uveitis 02/10/2022 Overview [...] mildy reduced but overall stable -seen by [facility] pulmonology with Dr. Erick Pitts MD 07/28/23: methotrexate previously increased to 20mg weekly( 8 tablets of 2.5mg); continued on Remicade (infliximab 200mg) infused q 6 weeks -Thinks she might have missed appt with icebox worker, given phone number to call 04/13/24 Assessment [...] mildy reduced but overall stable -seen by [facility] pulmonology with Dr. Erick Pitts MD 07/28/23: methotrexate previously increased to 20mg weekly( 8 tablets of 2.5mg); continued on Remicade (infliximab 200mg) infused q 6 weeks -Thinks she might have missed appt with icebox worker, given phone number to call 04/13/24 Primary [...] diffusing capacity. , overall stable. -seen by [facility] pulmonology with Dr. Erick Pitts [...] mildy reduced but overall stable -seen by [facility] pulmonology with Dr. Erick Pitts MD 07/28/23: methotrexate previously increased to 20mg weekly( 8 tablets of 2.5mg); continued on Remicade (infliximab 200mg) infused q 6 weeks -Thinks she might have missed appt with icebox worker, given phone number to call 04/13/24 Assessment [...] mildy reduced but overall stable -seen by [facility] pulmonology with Dr. Erick Pitts [...] q 6weeks with Dr. Erick Pitts of [facility] pulmonology -Seen previously with Dr. Dex Whitney at the S[facility] last 04/08/2021 -Followed by [facility] [...] PM EST): -Followed by [facility] [place] with Dr. Hodge for glaucoma, likely Kerline Schlossmann. Presbyopia 07/28/2017 Depressive disorder 09/24/2011 Sickle cell trait 09/24/2011 Anemia 08/26/2011 Constipation 08/26/2011 Encounters Date Type Department Care Team Description 06/14/2024 Telephone [facility] [address] [place] [address] Marzena Loo MD Nurse Triage 05/22/[address] [address] Marzena Loo MD ER Follow-up 05/19/2024 Population Health Risk Score [facility] () Department [address] [phone] Provider, Population Health Generic 05/16/[address] [address] Marzena Loo MD august recalls 05/16/2024 Travel 05/11/2024 11:20 AM EST Office Visit [facility] [address] [address] Leonardo Peterson MD Hematuria, unspecified type 05/08/2024 2:40 PM EST [facility] [address] [address] Leila Garcia MD Acute cystitis with hematuria (Primary Dx); Hematuria, unspecified type; Kidney stones 05/08/[address] [address] Marzena Loo MD Nurse Triage 05/07/2024 Orders Only GENERIC EXTERNAL DATA DEPARTMENT Provider, Generic External Data Generalized abdominal pain (Primary Dx) 04/17/2024 Telephone [facility] [address] [place] [address] Yue Wilson pantograph watcher Question 04/17/2024 Travel 04/14/2024 Refill [facility] [address] [place] [address] Marzena Loo MD 04/13/2024 9:15 AM EST Telemedicine [facility] [address] [place] [address] Marzena Loo MD Family planning (Primary Dx); Interstitial lung disease (CMS/HCC); Sarcoidosis; Acute intractable headache, unspecified headache type; 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, unspecified glaucoma stage; Uveitis; Adult failure to thrive; Complex care coordination; Colon cancer screening 04/13/2024 Telephone [facility] [address] [place] [address] Marzena Loo MD Durable Medical Equipment (boost) 04/13/[address] [address] Marzena Loo MD 04/13/2024 Orders Only [facility] [address] [place] [address] Marzena Loo MD 04/13/2024 Travel 04/12/2024 Telephone [facility] [address] [place] [address] Pat Del Castillo MA chartprep 04/01/2024 Telephone [facility] [address] [place] [address] Marzena Loo MD 04/01/2024 Travel from Last [...] 9:30 AM EDT Office Visit [facility] [address] [place] [address] Marzena Loo MD [address] [place] [address] 08/18/2024 9:00 AM EDT Office Visit [facility] [address] [place] [address] Shelly Rodrigues MD [address] [place] [address] Health Maintenance Due Date Last Done Comments [...] EST 05/11/2024 6:47 PM EST Comment:UACC Narrative [facility] - 05/13/2024 10:45 AM EST Urine Culture No growth. Specimen Source: Urine clean catch Leonardo Peterson MD LAB MICROBIOLOGY - GENERAL ORDER CONCEPCION Final Result [facility] [address] [place] [phone] * (ABNORMAL) POCT Urinalysis (05/11/2024 11:43 [...] EST Narrative 05/07/2024 6:47 PM EST ? [facility] ?[address] ?[place] [address] ? CT Scan Report ? Signed ? Patient: Lew Daljit,Leila A ?MR#: ?? [id number] ? : 1980 ?Acct:[id number] ? Age/Sex: 44 / F ?ADM Date: 05/07/24 ? Loc: HO.ED ? Attending Dr: ? Ordering Physician: Jose Antonio Mills ?? Date of Service: 05/07/24 ?? Procedure(s): CT abdomen pelvis wo IV con ?? Accession Number(s): [id number] ? cc: Jose Antonio Mills; Marzena Loo MD ? Report Number: ?? [id number]: Total DLP = ??278.00 mGy-cm ? CLINICAL HISTORY: flank pain. Kidney stones? CT abdomen and pelvis without contrast ? Comparison: CT/SR - CHEST WITH IV CONTRAST [id number] - 08/19/17 10:11 EDT ?? CT/SR - ABD PELVIS WITH CONT [id number] - 05/08/15 16:44 EST ? Findings: The [...] ? DD/ 44 ? TD/TT: 05/07/245 ? Technical Marketing Engineer: ? Procedure Note Donotuseinterpreter, Image - 05/07/[address] [place] [address] [address] Scan Report Signed Patient: Leila Fernandez AMR#: [id number] : 1980Acct:[id number] Age/Sex: 44 / FADM Date: 05/07/24 Loc: HO.ED Attending Dr: Ordering Physician: Jose Antonio Mills Date of Service: 05/07/24 Procedure(s): CT abdomen pelvis wo IV con Accession Number(s): [id number] cc: Jose Antonio Mills; Marzena Loo MD Report Number: [id number]: Total DLP = 278.00 mGy-cm CLINICAL HISTORY: flank pain. Kidney stones? CT abdomen and pelvis without contrast Comparison: CT/SR - CHEST WITH IV CONTRAST [id number] - 08/19/17 10:[address]/SR - ABD PELVIS WITH CONT [id number] - 05/08/15 16:44 EST Findings: The prior [...] in OV> 05/07/241845 DD/ 44 TD/TT: 05/07/241844 Technical Marketing Engineer: us [facility] External Provider IMG CT PROCEDURES Edited Result - Final * (ABNORMAL) Urinalysis, Complete, with Reflex to Culture (05/07/2024 3:59 PM EST) Color Urine RED [facility] Comment:Dipstick performed o n centrifuged urine. Results may notcorrelate with microscopic values. Appearance Urine Turbid [facility] PH 6.5 5.0 - 9.0 [facility] Glucose Urine UA Negative Negative mg/dL [facility] Urine Blood Large (3+)(A) Negative [facility] Specific [place] - Urine 1.025 1.005 - 1.025 [facility] Urine Protein 300 (3+)(A) Neg-Trace mg/dL [facility] Urine Ketones Negative Negative mg/dL [facility] Nitrite Urine Negative Negative [facility] Leukocyte Esterase Urine Negative Negative [facility] RBC Urine >20(A) 0 - 2 /HPF [facility] Urine WBC 0-5 0 - 5 /HPF [facility] Urine Squamous Epithelial Cell 0-2 0 - 2 /HPF [facility] Urine Bacteria None Seen None Seen [facility] Hyaline Casts, Urine 0-2 0 - 2 /LPF [facility] 05/07/2024 3:59 PM EST 05/07/2024 4:03 PM EST Narrative [facility] - 05/07/2024 4:27 PM EST [id number], Clean Catch Generic External Data Provider LAB URINE ORDERAB LES Final Result [facility] [address] [place] [address] [phone] * (ABNORMAL) CBC auto differential (05/07/2024 3:59 PM EST) White Blood Count 7.2 4.8 - 10.8 X10*3/uL [facility] Red Blood Count 4.19(L) 4.20 - 5.50 X10*6/uL [facility] Hemoglobin 12.4 12.0 - 16.0 g/dl [facility] Hematocrit 35.8(L) 37.0 - 47.0 % [facility] Mean Corpuscular Volume 85.4 80.0 - 98.0 fL [facility] Mean Corpuscular Hemoglobin 29.6 27.0 - 33.0 pg [facility] Mean Corpuscular HGB Conc 34.6 31.0 - 35.0 g/dl [facility] Red Cell Distribution Width 13.8 11.0 - 16.0 % [facility] Platelet Count 303 160 - 400 X10*3/uL [facility] Mean Platelet Volume 9.7 9.4 - 12.3 fL [facility] Neutrophils Percent Auto 48.3 45 - 73 % [facility] Imm Gran Pct Auto 0.3 0.0 - 0.4 % [facility] Lymphocytes Percent Auto 39.1 20 - 40 % [facility] Monocytes Percent Auto 9.8 2 - 11 % [facility] Eosinophils Percent Auto 1.8 0 - 4 % [facility] Basophils Percent Auto 0.7 0 - 2 % [facility] NRBC Pct Auto 0.0 0.0 - 0.2 /100WBC [facility] Neutrophils Absolute Auto 3.5 2.0 - 8.3 x10*3/uL [facility] Imm Gran Abs Auto 0.02 0.00 - 0.03 X10*3/uL [facility] Lymphocytes Absolute Auto 2.8 1.2 - 4.9 X10*3/uL [facility] Monocytes Absolute Auto 0.7 0.1 - 1.2 X10*3/uL [facility] Eosinophils Absolute Auto 0.1 0.0 - 0.4 X10*3/uL [facility] Basophils Absolute Auto 0.1 0.0 - 0.2 X10*3/uL [facility] NRBC Abs Auto 0.000 0.0 - 0.012 X10*3/uL [facility] 05/07/2024 3:59 PM EST 05/07/2024 4:03 PM EST us Generic External Data Provider LAB BLOOD ORDERAB LES Final Result Performing Organization Address City/[facility]/ZIP Co de Phone Number [facility] [address] [place] [phone] * HCG, Qualitative, Urine (05/07/2024 3:59 PM EST) Urine NEGATIVE NEGATIVE [facility] Comment:This test was develo ped to detect early . Falsenegative results may occur after the 5th - 7th week ofpregnancy when using this test method. If clinicallyindicated, consider a serum hCG. 05/07/2024 3:59 PM EST 05/07/2024 4:27 PM EST us Generic External Data Provider LAB URINE ORDERAB LES Final Result Performing Organization Address City/[facility]/ZIP Co de Phone Number [facility] [address] [place] [phone] * Partial Thromboplastin Time, Activated (APTT) (05/07/2024 3:59 PM EST) Partial Thromboplastin Time 30.4 26.0 - 36.8 SEC [facility] Comment:For information rega rding the monitoring of direct thrombininhibitors, please refer to Pharmacy. 05/07/2024 3:59 PM EST 05/07/2024 4:03 PM EST us Generic External Data Provider LAB BLOOD ORDERAB LES Final Result Performing Organization Address [facility] Co de Phone Number [facility] [address] [place] [phone] * Prothrombin Time-INR (05/07/2024 3:59 PM EST) Prothrombin Time 11.1 10.9 - 12.4 SEC [facility] INTERNATIONAL NORM RATIO 1.0 0.9 - 1.1 [facility] Comment:INTERNATIONAL NORMAL IZED RATIO (INR) REFERENCE [...] ORDERAB LES Final Result Performing Organization Address [facility] de Phone Number [facility] [address] [place] [phone] * hCG, Total, Quantitative (05/07/2024 3:59 PM EST) HCG Quantitative <2 mIU/mL [facility] Comment:Weeks post LMP Appro ximate hCG(Last Menstrual Period) Range (mIU/ml)3 - 4 weeks 9 - 1304 - 5 weeks 75 - 2,6005 - 6 weeks 850 - 20,8006 - 7 weeks 4000 - 100,2007 - 12 weeks 11,500 - 289,24570 - 16 weeks 18,300 - 137,98344 - 29 weeks (2nd trimester) 1,400 - 53,60195 - 41 weeks (3rd trimester) 940 - [...] Provider LAB BLOOD ORDERAB LES Final Result [facility] [address] [place] [address] [phone] * (ABNORMAL) Comprehensive Metabolic Panel (05/07/2024 3:59 PM EST) Sodium 142 135 - 145 mmol/L [facility] Potassium 3.4 3.3 - 5.1 mmol/L [facility] Chloride 108 96 - 108 mmol/L [facility] Carbon Dioxide 25 22 - 29 mmol/L [facility] Anion Gap 12 12 - 20 [facility] Urea Nitrogen (BUN) 9 9 - 16 mg/dL [facility] Creatinine, Serum 0.65 0.5 - 1.4 mg/dL [facility] Creatinine Clr Calc Pharmacy 77.6 [facility] Comment:Provided height and weight: 152.4 cm,46.8 kg.eGFR (calculated from the MDRD study equation) and eCrCl(calculated from the Cockcroft-Gault equation) are based ondifferent parameters and may not yield comparable results.If eCrCl result is absurd, please check patient'sheight/weight. Estimated Glomerular Filt Rate >60 [facility] Comment:Chronic Kidney Disea se: Estimated GFR < 60 mL/min/1.79m7Pirreo Kidney Disease: Estimated GFR < 15 mL/min/1.73m2 Glucose 94 60 - 115 mg/dL [facility] Calcium 9.5 8.4 - 10.2 mg/dL [facility] Bilirubin, Total 0.3 0.0 - 1.0 mg/dL [facility] Aspartate Amino Transferase 23 5 - 31 U/L [facility] Alanine Aminotransferase 16 0 - 31 U/L [facility] Total Protein 8.6(H) 6.5 - 8.0 g/dL [facility] Albumin Level 4.5 3.5 - 5.0 g/dL [facility] Alkaline Phosphatase 86 39 - 117 U/L [facility] 05/07/2024 3:59 PM EST 05/07/2024 4:03 PM EST us Generic External Data Provider LAB BLOOD ORDERAB LES Final Result [facility] [address] [place] [address] [phone] * BI Mammogram Screening Tomosynthesis Bilateral (01/12/2024 9:30 AM EST) Anatomical Region Laterality Modality Breast Bilateral Mammography 01/12/2024 9:30 AM EST Narrative 01/21/2024 1:02 PM EST ? [facility] ? [address] ?[place] [address] ? Mammography Report ? Signed ? Patient: Lew Daljit,Leila A ?MR#: ?? [id number] ? : 1980 ?Acct:[id number] ? Age/Sex: 44 / F ?ADM Date: 01/11/ ? Loc: HO.MAMMO ? Attending Dr: Marzena Loo MD ? Ordering Physician: Marzena Loo MD ?Results: 1N ?? egative ? Date of Service: 01/12/24 ?Follow Up: 1 Year From Orig ?? inal Mammogram ? Procedure(s): MM tomosynthesis screening BI ?? Accession Number(s): [id number] ? cc: Marzena Loo MD ? EXAMINATION: [...] DD/ 0930 ? TD/TT: 01/12/24 0945 ? Technical Marketing Engineer: ? Procedure Note Rashmi, Jay - 01/21/2024 [facility] [address] [place] [address] Dr. Wang, SHANTEL [address] Mammography Report Signed Patient: Lew Leila Bocanegra AMR#: [id number] : 1980Acct:[id number] Age/Sex: 44 / FADM Date: 01/12/24 Loc: HO.MAMMO Attending Dr: Marzena Loo MD Ordering Physician: Marzena Loo MDResults: 1N egative Date of Service: 01/12/24Follow Up: 1 Year From Orig inal Mammogram Procedure(s): MM tomosynthesis screening BI Accession Number(s): [id number] cc: Marzena Loo MD EXAMINATION: MM SCREENING [...] 01/21/24 1259 DD/ 0930 TD/TT: 01/12/24 0945 Technical Marketing Engineer: us Marzena Loo MD IMG BI PROCEDURES Final Re sult * Pap Smear (01/12/2024 12:00 AM EST) Swab Cervix uteri structure / Unknown 01/12/2024 01/13/2024 8:45 AM EST [facility] - 01/17/2024 8:26 AM EST ----- ------- Name: Leila Fernandez ? Age/Sex: 44/F ? : 1980 Unit#: [id number] ?? Attend Dr: ?Re01/12/24 ?Status: PRE REF ? Location: HO.LNP ?Disch: ? ----- ------- SPEC : [id number] ?RECD: 01/13/24 ? STATUS: ??SOUT ? REQ NUM: [id number] ? SWETA: 01/12/24- ? SUBM DR: Marzena [...] MD LAB CYTOLOGY ORDERABLES Fi nal Result [facility] [address] [place] [address] [phone] HIV Ab/Ag (SHANTEL DP) (10/16/2022 12:24 PM EDT) HIV AB/AG Nonreactive Nonreactive [facility] Comment:HIV-1 p24 Ag and/or HIV-1/HIV-2 Ab not detected.A test result that is nonreactive does not exclude thepossibility of exposure to or infection with HIV-1 and/orHIV-2. Nonreactive results in this assay for individualswith prior exposure to HIV-1 and/or HIV-2 may be due toantigen and antibody levels that are below the limit ofdetection of this assay.The [employer] HIV Ag/Ab Combo assay result andsupplemental assay results should be interpreted inconjunction with the patient's clinical presentation,history and other laboratory results. If the results areinconsistent with clinical evidence, additional testing issuggested to confirm the result. 10/16/2022 12:2 4 PM EDT 10/16/2022 1:48 PM EDT us Shelly Rodrigues MD LAB BLOOD ORDERABLES Final Re sult [facility] [address] [place] [phone] * Hepatitis A,B,C Profile (10/16/2022 12:24 PM EDT) Hepatitis A IgM Nonreactive Nonreactive [facility] Comment:IgM antibodies to BRADLEY V not detected; does not exclude earlyacute or recovered HAV infection. ~Hepatitis B Surface Antibody NONREACTIVE Nonreactive [facility] Comment:Nonreactive: < 8.00 mIU/mL Hepatitis B Core Antibody Nonreactive Nonreactive [facility] Hepatitis C Antibody Nonreactive Nonreactive [facility] Comment:Antibodies to HCV no t detected; does not exclude early acuteHCV infection. Hepatitis B Surface Ag Negative Negative [facility] Blood 10/16/2022 12:2 4 PM EDT 10/16/2022 1:48 PM EDT us Shelly Rodrigues MD LAB BLOOD ORDERABLES Final Re sult [facility] [address] [place] [address] [phone] from Last 3 Months or Most Recently Relevant to Health Maintenance Insurance Linkage C3 Advance Directives Documents on File Type Date Recorded Patient Dental Office Coordinator Expl anation Advance Directives and Living Will 01/14/2024 11:42 AM Health Care Proxy Care Teams Boardinghouse Keeper Relationship Specialty Start Date End Date Eze, MD Marzena [address] [place] [phone] PCP - General Family Medicine 03/08/18 Vicky Ibarra MD [address] [place] [address] [place] [address] Neurology 03/16/24 Dr. Erick Pitts [facility] [address] [place] [address] [place] [address] Pulmonary Disease 03/16/24 [facility] [address] [facility] [phone] Optometry 03/16/24
--- OUTSIDE RECORDS SUMMARY | 2024-06-22 09:34 | XMS_ITS | Encounter Summary ---
Author Organization [employer] Address [address] [facility] 7t [place] [address] Care Team Providers Care Milling/Polishing Operator Name Role Phone Marzena Loo MD Primary Care Provider +1- [phone] Vicky Ibarra MD Unavailable + [phone] Reason for Visit * Reason Onset Date Comments Nurse Triage 06/14/2024 Encounter Details Date Type Department Care Team ([facility] st Contact Info) Description 06/14/2024 Telephone [facility] [address] [place] [address] Marzena Loo MD [address] [place], [place] [phone] Nurse Triage Social History Tobacco Use Types [...] Description 08/09/2024 9:30 AM EDT Office Visit [facility] [place] [address] Marzena Loo MD [address] [place] [address] 08/18/2024 9:00 AM EDT Office Visit [facility] [place] [address] Shelly Rodrigues MD [address] [place] [address] [phone] documented as of this encounter Visit Diagnoses Not on filedocumented in this encounter Additional Health Concerns Assessment Noted Time PHQ-9 Depression Total Score: 3 01/12/20 24 12:28 PM EST documented as of this encounter Care Teams Milling/Polishing Operator Relationship Specialty Start Date End Date Marzena Loo MD [address] [place] [address] [phone] PCP - General Family Medicine 03/08/18 Vicky Ibarra MD [address] [place] [address] [address] Neurology 03/16/24 Dr. Erick Pitts [facility] Pulmonology [address] [address] Pulmonary Disease 03/16/24 [facility] 180 [facility] [phone] Optometry 03/16/24 documented as of this encounter
--- OUTSIDE RECORDS SUMMARY | 2024-06-22 09:34 | XMS_ITS | Encounter Summary ---
Author Organization [employer] Address [address] [facility] [address] 7t [place] [address] Care Team Providers Care Development Lead Name Role Phone Marzena Loo MD Primary Care Provider +1- [phone] Vicky Ibarra MD Unavailable + [phone] Encounter Details Date Type Department Care Team ([facility] st Contact Info) Description 04/13/2024 Orders Only [facility] [address] [place], [place] [phone] Marzena Loo MD 230 [place] [address] Social History Tobacco Use Types Packs/Day Years [...] Description 08/09/2024 9:30 AM EDT Office Visit [facility] [address] [place] [address] Marzena Loo MD [address] [place] [address] 08/18/2024 9:00 AM EDT Office Visit [address] [address] Shelly Rodrigues MD [address] [place] [phone] documented as of this encounter Visit Diagnoses Not on filedocumented in this encounter Additional Health Concerns Assessment Noted Time PHQ-9 Depression Total Score: 3 01/12/20 24 12:28 PM EST documented as of this encounter Care Teams Development Lead Relationship Specialty Start Date End Date Marzena Loo MD [address] [place] [phone] PCP - General Family Medicine 03/08/18 Vicky Ibarra MD [address] [place] [address] [place] [address] Neurology 03/16/24 Dr. Erick Pitts [facility] Pulmonology [address] [place] [address] [place] [address] Pulmonary Disease 03/16/24 [facility] 180 [facility] [phone] Optometry 03/16/24 documented as of this encounter
[2024-06-22 17:31] LABS: Urine Cytology See Pathology rpt
== END 2024-06-22 08:03 | disposition home or self-care (01) ==
LOC: HO.LAB 08:02
PROVIDERS: PCP Family Medicine; Visit Provider Nurse Practitioner Family
DX: N20.0 Calculus of kidney (principal); F12.20 Cannabis dependence, uncomplicated; R31.0 Gross hematuria
CPT/HCPCS: 81003; 88112; 99212

== ENCOUNTER 2024-06-22 08:02 | Outpatient (AMB) | payer MEDICAID, SELFPAY ==
--- OUTSIDE RECORDS SUMMARY | 2024-06-22 08:11 | XMS_ITS | Encounter Summary ---
Author Organization [employer] Address 75 [facility] 7t [place] [address] Care Team Providers Care Lead Slot Technician Name Role Phone Marzena Loo MD Primary Care Provider +1- [phone] Vicky Ibarra MD Unavailable + [phone] Reason for Visit * Reason Onset Date Comments Appointment Request 05/08/2022 Encounter Details Date Type Department Care Team ([facility] st Contact Info) Description 05/08/[address] [facility] MEDICINE 230 [place] [address] Marzena Loo MD 230 [place], [place] [phone] Appointment Request Social History Tobacco Use Types [...] with the derm. Please contact pt at [phone] documented in this encounter Plan of Treatment Upcoming Encounters Date Type Department Care Team (Late st Contact Info) Description 08/09/2024 9:30 AM EDT Office Visit [facility] MEDICINE [address] [place] [address] Marzena Loo MD 230 [place] [address] 08/18/2024 9:00 AM EDT Office Visit [facility] MEDICINE [address] [place] [address] Shelly Rodrigues MD [address] [place] [address] documented as of this encounter Visit Diagnoses Not on filedocumented in this encounter Care Teams Lead Slot Technician Relationship Specialty Start Date End Date Marzena Loo MD [address] [place] [address] PCP - General Family Medicine 03/08/18 Vicky Ibarra MD [address] [place] [address] [place] [address] Neurology 03/16/24 Dr. Erick Pitts [facility] Pulmonology [address] [address] Pulmonary Disease 03/16/24 [facility] 180 [facility] [phone] Optometry 03/16/24 documented as of this encounter
--- OUTSIDE RECORDS SUMMARY | 2024-06-22 08:11 | XMS_ITS | Encounter Summary ---
Author Organization [employer] Address [address] [facility] [address] 7t [place] [address] Care Team Providers Care Pickling Machine Operator Name Role Phone Marzena Loo MD Primary Care Provider +1- [phone] Vicky Ibarra MD Unavailable + [phone] Encounter Details Date Type Department Care Team ([facility] st Contact Info) Description 04/13/2024 Orders Only [facility] MEDICINE 230 [place], [place] [phone] Marzena Loo MD 230 [place] [address] Social History Tobacco Use Types Packs/Day Years [...] Description 08/09/2024 9:30 AM EDT Office Visit [facility] MEDICINE [address] [place] [address] Mazrena Loo MD [address] [place] [address] 08/18/2024 9:00 AM EDT Office Visit [address] [address] Shelly Rodrigues MD [address] [place] [address] documented as of this encounter Visit Diagnoses Not on filedocumented in this encounter Additional Health Concerns Assessment Noted Time PHQ-9 Depression Total Score: 3 01/12/20 24 12:28 PM EST documented as of this encounter Care Teams Pickling Machine Operator Relationship Specialty Start Date End Date Marzena Loo MD [address] [place] [address] PCP - General Family Medicine 03/08/18 Vicky Ibarra MD [address] [place] [address] [place] [address] Neurology 03/16/[address] [facility] Pulmonology [address] [place] [address] [place] [address] Pulmonary Disease 03/16/24 [facility] 180 [facility] [phone] Optometry 03/16/24 documented as of this encounter
--- OUTSIDE RECORDS SUMMARY | 2024-06-22 08:11 | XMS_ITS | Encounter Summary ---
Author Organization [employer] [facility] Address 75 [facility] 7t [place] [address] Care Team Providers Care Recyclable Materials Collector Name Role Phone Marzena Loo MD Primary Care Provider +1- [phone] Vicky Ibarra MD Unavailable + [phone] Reason for Visit * Reason Comments Med Refill Encounter Details Date Type Department Care Team (Late st Contact Info) Description 05/05/2022 Refill [facility] MEDICINE [address] [place] [address] Marzena Loo MD 230 [place], [place] [phone] Social History Tobacco Use Types Packs/Day Years [...] Description 08/09/2024 9:30 AM EDT Office Visit [facility] MEDICINE 230 [place], [place] [phone] Marzena Loo MD 230 [place], [place] [phone] 08/18/2024 9:00 AM EDT Office Visit [facility] MEDICINE 230 [place], [place] [phone] Shelly Rodrigues MD 230 [place], [place] [phone] documented as of this encounter Visit Diagnoses Not on filedocumented in this encounter Care Teams Recyclable Materials Collector Relationship Specialty Start Date End Date Marzena Loo MD 230 [place], [place] [phone] PCP - General Family Medicine 03/08/18 Vicky Ibarra MD [address] [place] [address] [phone] Neurology 03/16/24 Dr. Erick Pitts [facility] Pulmonology [address] [place] [address] Pulmonary Disease 03/16/24 [facility] 180 [facility] [phone] Optometry 03/16/24 documented as of this encounter
--- OUTSIDE RECORDS SUMMARY | 2024-06-22 08:11 | XMS_ITS | Encounter Summary ---
Author Organization [employer] Address [address] [place] [address] 7t [place] [address] Care Team Providers Care Collections Technician Name Role Phone Marzena Loo MD Primary Care Provider +- [phone] Vicky Ibarra MD Unavailable + [phone] Encounter Details Date Type Department Care Team (Late st Contact Info) Description 01/30/2022 Abstract [facility] MED & PEDS 505 [place], [place] [phone] Marzena Loo MD [address] [place] [address] [phone] Social History Tobacco Use Types Packs/Day Years [...] Description 08/09/2024 9:30 AM EDT Office Visit [facility] MEDICINE [address] [place] [address] [phone] Marzena Loo MD [address] [place] [address] [phone] 08/18/2024 9:00 AM EDT Office Visit [address] [phone] Shelly Rodrigues MD 230 [place], [place] [phone] documented as of this encounter Visit Diagnoses Not on filedocumented in this encounter Care Teams Collections Technician Relationship Specialty Start Date End Date Marzena Loo MD 230 [place], [place] [phone] PCP - General Family Medicine 03/08/18 Vicky bIarra MD [address] [place] [address] Neurology 03/16/24 Dr. Erick Pitts [facility] Pulmonology [address] [address] Pulmonary Disease 03/16/24 [facility] 180 [facility] [address] Optometry 03/16/24 documented as of this encounter
--- OUTSIDE RECORDS SUMMARY | 2024-06-22 08:11 | XMS_ITS | Encounter Summary ---
Author Organization [employer] Address 75 [facility] 7t [place] [address] Care Team Providers Care Asphalt Heater Tender Name Role Phone Marzena Loo MD Primary Care Provider +1- [phone] Vicky Ibarra MD Unavailable + [phone] Reason for Visit * Reason Onset Date Comments Nurse Triage 06/14/2024 Encounter Details Date Type Department Care Team ([facility] st Contact Info) Description 06/14/2024 Telephone [facility] MEDICINE 230 [place] [address] Marzena Loo MD 230 [place], [place] [phone] Nurse Triage Social History Tobacco Use Types [...] encounter Miscellaneous Notes * Telephone Encounter - Carlos Inman [place] - 06/19/2024 9:22 AM EDT [...] [facility] [place] [address] Marzena Loo MD [address] [place] [address] 08/18/2024 9:00 AM EDT Office Visit [facility] [place] [address] Shelly Rodrigues MD [address] [place] [address] [phone] documented as of this encounter Visit Diagnoses Not on filedocumented in this encounter Additional Health Concerns Assessment Noted Time PHQ-9 Depression Total Score: 3 01/12/20 24 12:28 PM EST documented as of this encounter Care Teams Asphalt Heater Tender Relationship Specialty Start Date End Date Marzena Loo MD [address] [place] [address] [phone] PCP - General Family Medicine 03/08/18 Vicky Ibarra MD [address] [place] [address] [address] Neurology 03/16/[address] [facility] Pulmonology [address] [address] Pulmonary Disease 03/16/24 [facility] 180 [facility] [phone] Optometry 03/16/24 documented as of this encounter
--- OUTSIDE RECORDS SUMMARY | 2024-06-22 08:11 | XMS_ITS | Encounter Summary ---
Author Organization [employer] Address 75 [facility] 7t [place] [address] Care Team Providers Care Fishing Rod Trimmer Name Role Phone Marzena Loo MD Primary Care Provider +1- [phone] Vicky Ibarra MD Unavailable + [phone] Reason for Visit * Reason Comments Med Refill Encounter Details Date Type Department Care Team ([facility] st Contact Info) Description 04/14/2024 Refill [facility] MEDICINE 230 [place] [address] Marzena Loo MD 230 [place] [address] Social History Tobacco Use Types Packs/Day Years [...] Description 08/09/2024 9:30 AM EDT Office Visit [facility] MEDICINE [address] [place] [address] Marzena Loo MD [address] [place] [address] 08/18/2024 9:00 AM EDT Office Visit [facility] MEDICINE [address] [place] [address] Shelly Rodrigues MD [address] [place] [address] documented as of this encounter Visit Diagnoses Not on filedocumented in this encounter Additional Health Concerns Assessment Noted Time PHQ-9 Depression Total Score: 3 01/12/20 24 12:28 PM EST documented as of this encounter Care Teams Fishing Rod Trimmer Relationship Specialty Start Date End Date Marzena Loo MD [address] [place] [address] PCP - General Family Medicine 03/08/18 Vicky Ibarra MD [address] [place] [address] Dr Crews 140 [place] [address] Neurology 03/16/24 Dr. Erick Pitts [facility] Pulmonology [address] [place] [address] [place] [address] Pulmonary Disease 03/16/24 [facility] [address] [place] [address] Optometry 03/16/24 documented as of this encounter
--- OUTSIDE RECORDS SUMMARY | 2024-06-22 08:11 | XMS_ITS | Encounter Summary ---
Author Organization [employer] Address [address] [place] [address] 7t [place] [address] Care Team Providers Care Physician Pediatrician Name Role Phone Marzena Loo MD Primary Care Provider +- [phone] Vicky Ibarra MD Unavailable + [phone] Reason for Visit * Reason Comments Med Refill Encounter Details Date Type Department Care Team (Late st Contact Info) Description 05/10/2023 Refill [facility] MEDICINE [address] [place] [address] [phone] Dior Forman MD [address] [place] [address] [phone] Social History Tobacco Use Types Packs/Day Years [...] Description 08/09/2024 9:30 AM EDT Office Visit [facility] MEDICINE 230 [place], [place] [phone] Marzena Loo MD 230 [place], [place] [phone] 08/18/2024 9:00 AM EDT Office Visit [facility]INE 230 [place] [address] Shelly Rodrigues MD 230 [place] [address] documented as of this encounter Visit Diagnoses Not on filedocumented in this encounter Care Teams Physician Pediatrician Relationship Specialty Start Date End Date Marzena Loo MD 230 [place] [address] PCP - General Family Medicine 03/08/18 Vicky Ibarra MD [address] [place] [address] [address] Neurology 03/16/24 Dr. Erick Pitts [facility] Pulmonology [address] [address] Pulmonary Disease 03/16/24 [facility] 180 [facility] [phone] Optometry 03/16/24 documented as of this encounter
--- OUTSIDE RECORDS SUMMARY | 2024-06-22 08:11 | XMS_ITS | Clinical Summary ---
Author Organization [employer] Address [address] [facility] [address] [place] [address] Care Team Providers Care Lockstitch Waistband Setter Name Role Phone Marzena Loo MD Primary Care Provider [phone] Vicky Ibarra MD Unavailable [phone] Allergies Active Allergy Reactions Criticality Noted Date [...] (05/08/2024): CT scan abdomen and pelvis at [facility] [place] [place] on 05/07/2024: nonobstructing bilateral renal calculi. Stable [...] Hodge for glaucoma -Dr. Vick Machado of [facility] -Pulmonology (lung doctor) [facility] [phone] -Neurology (brain doctor) Dr. Vicky Ibarra, [facility] [phone] Assessment & Plan (04/13/2024 12:01 PM EST): Team includes: -Dr. [facility] with Dr. Hodge for glaucoma -Dr. Vick Machado of [facility] -Pulmonology (lung doctor) [facility] [phone] -Neurology (brain doctor) Dr. Vicky Ibarra, [facility] [phone] Colon cancer screening 04/14/2023 Overview (06/21/2024): -pt due for colon cancer screening, discuss next visit -referred to GI 01/12/24 or colonoscopy -intake with Rocio Niño NP 06/21/24 Assessment & Plan (04/13/2024 12:06 PM EST): [...] to neurology 02/10/23 Ml note to pulmonology [facility]. 02/10/23 pt repots pain improved. Seen [...] [facility] pt repots pain improved. Seen by [...] refer [facility] pt repots pain improved. Seen by [...] to neurology 02/10/23 Ml note to pulmonology [facility]. 02/10/23 pt repots pain improved. Other specified health status 01/16/2023 Overview (01/12/2024): -next comprehensive annual evaluation due after 01/11/25 -followed by Dr. Vick Machado of [facility] -[facility] -[facility] proxy given and filed 01/12/24 Assessment & Plan (01/12/2024 12:04 PM EST): -next comprehensive annual evaluation due after 01/11/25 -followed by Dr. Vick Machado of [facility] -[facility] -[facility] proxy given and filed [...] 2.5mg per mL [facility] -Total used: 0.5cc Uveitis 02/10/2022 Overview (04/13/2024): [...] with Dr. Hodge for glaucoma, likely Kerline Schkellymann. -controlled on Rx for sarcosis. No inflammation [...] mildy reduced but overall stable -seen by [facility] pulmonology with Dr. Erick Pitts MD 07/28/23: methotrexate previously increased to 20mg weekly( 8 tablets of 2.5mg); continued on Remicade (infliximab 200mg) infused q 6 weeks -Thinks she might have missed appt with hair spring cutter, given phone number to call 04/13/24 Assessment [...] mildy reduced but overall stable -seen by [facility] pulmonology with Dr. Erick Pitts MD 07/28/23: methotrexate previously increased to 20mg weekly( 8 tablets of 2.5mg); continued on Remicade (infliximab 200mg) infused q 6 weeks -Thinks she might have missed appt with hair spring cutter, given phone number to call 04/13/24 Primary [...] diffusing capacity. , overall stable. -seen by [facility] pulmonology with Dr. Erick Pitts MD [...] mildy reduced but overall stable -seen by [facility] pulmonology with Dr. Erick Pitts MD 07/28/23: methotrexate previously increased to 20mg weekly( 8 tablets of 2.5mg); continued on Remicade (infliximab 200mg) infused q 6 weeks -Thinks she might have missed appt with hair spring cutter, given phone number to call 04/13/24 Assessment [...] mildy reduced but overall stable -seen by [facility] pulmonology with Dr. Erick Pitts MD [...] q 6weeks with Dr. Erick Pitts of [facility] pulmonology -Seen previously with Dr. Dex Whitney at the Sarcoidosis [facility]ter at [facility] last 04/08/2021 -Followed by [facility] with Dr. Hodge for glaucoma, likely Kerline Rayshawn. Regular astigmatism 08/13/2017 Chorioretinal scar 07/28/2017 Overview [...] with Dr. Hodge for glaucoma, likely Kerline Schkellymann. -due for appt, pt agrees to call, given phone number 04/13/24 Assessment & Plan (04/13/2024 11:58 AM EST): -Followed [facility] with Dr. Hodge for glaucoma, likely Kerline Schlossmann. -due for appt, pt agrees to call, given phone number 04/13/24 Assessment & Plan (02/10/2022 12:20 PM EST): -Followed [facility] [place] with Dr. Hodge for glaucoma, likely Kerline Schlossmann. Presbyopia 07/28/2017 Depressive disorder 09/24/2011 Sickle cell trait 09/24/2011 Anemia 08/26/2011 Constipation 08/26/2011 Encounters Date Type Department Care Team Description 06/14/2024 Telephone [facility] [address] [place] [phone] Marzena Loo MD Nurse Triage 05/22/[address] [address] Marzena Loo MD ER Follow-up 05/19/2024 Population Health Risk Score Community [facility] () Department [address] [phone] Provider, Population Health Generic 05/16/[address] [address] Marzena Loo MD august recalls 05/16/2024 Travel 05/11/2024 11:20 AM EST Office Visit [facility] [address] [address] Leonardo Peterson MD Hematuria, unspecified type 05/08/2024 2:40 PM EST [facility] [address] [address] Leila Garcia MD Acute cystitis with hematuria (Primary Dx); Hematuria, unspecified type; Kidney stones 05/08/[address] [address] Marzena Loo MD Nurse Triage 05/07/2024 Orders Only GENERIC EXTERNAL DATA DEPARTMENT Provider, Generic External Data Generalized abdominal pain (Primary Dx) 04/17/2024 Telephone [facility] [address] [place] [phone] Yue Wilson 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 off saw operator Question 04/17/2024 Travel 04/14/2024 Refill [facility] [address] [place] [phone] Marzena Loo MD 04/13/2024 9:15 AM EST Telemedicine [facility] [address] [place] [phone] Marzena Loo MD Family planning (Primary Dx); Interstitial lung disease (CMS/HCC); Sarcoidosis; Acute intractable headache, unspecified headache type; 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, unspecified glaucoma stage; Uveitis; Adult failure to thrive; Complex care coordination; Colon cancer screening 04/13/2024 Telephone [facility] [address] [place] [phone] Marzena Loo MD Durable Medical Equipment (boost) 04/13/[address] [address] Marzena Loo MD 04/13/2024 Orders Only [facility] [address] [place] [phone] Marzena Loo MD 04/13/2024 Travel 04/12/2024 Telephone [facility] [address] [place] [address] Pat Del Castillo MA chartprep 04/01/2024 Telephone [facility] [address] [place] [address] Marzena Loo MD 04/01/2024 Travel from Last [...] Description 08/09/2024 9:30 AM EDT Office Visit [facility] [address] [place] [address] Marzena Loo MD [address] [place] [phone] 08/18/2024 9:00 AM EDT Office Visit [facility] [address] [place] [phone] Shelly Rodrigues MD [address] [place] [address] Health Maintenance Due Date Last Done Comments [...] EST 05/11/2024 6:47 PM EST Comment:UACC Narrative [facility] - 05/13/2024 10:45 AM EST Urine Culture No growth. Specimen Source: Urine clean catch Leonardo Peterson MD LAB MICROBIOLOGY - GENERAL ORDER CONCEPCION Final Result [facility] [address] [place] [phone] * (ABNORMAL) POCT Urinalysis (05/11/2024 11:43 [...] EST Narrative 05/07/2024 6:47 PM EST ? [facility] ?[address] ?[place] [address] ? CT Scan Report ? Signed ? Patient: Lew Daljit,Leila A ?MR#: ?? [id number] ? : 1980 ?Acct:[id number] ? Age/Sex: 44 / F ?ADM Date: 05/07/24 ? Loc: HO.ED ? Attending Dr: ? Ordering Physician: Jose Antonio Mills ?? Date of Service: 05/07/24 ?? Procedure(s): CT abdomen pelvis wo IV con ?? Accession Number(s): [id number] ? cc: Jose Antonio Mills; Marzena Loo MD ? Report Number: ?? [id number]: Total DLP = ??278.00 mGy-cm ? CLINICAL HISTORY: flank pain. Kidney stones? CT abdomen and pelvis without contrast ? Comparison: CT/SR - CHEST WITH IV CONTRAST [id number] - 08/19/17 10:11 EDT ?? CT/SR - ABD PELVIS WITH CONT [id number] - 05/08/15 16:44 EST ? Findings: The [...] ? 05/07/241845 ? DD/ 44 ? TD/TT: 05/07/245 ? Brand Strategist: ? Procedure Note Donotuseinterpreter, Image - 05/07/[address] [place] [address] [address] Scan Report Signed Patient: Leila Fernandez AMR#: [id number] : 1980Acct:[id number] Age/Sex: 44 / FADM Date: 05/07/24 Loc: HO.ED Attending Dr: Ordering Physician: Jose Antonio Mills Date of Service: 05/07/24 Procedure(s): CT abdomen pelvis wo IV con Accession Number(s): [id number] cc: Jose Antonio Mills; Marzena Loo MD Report Number: [id number]: Total DLP = 278.00 mGy-cm CLINICAL HISTORY: flank pain. Kidney stones? CT abdomen and pelvis without contrast Comparison: CT/SR - CHEST WITH IV CONTRAST [id number] - 08/19/17 10:[address]/SR - ABD PELVIS WITH CONT [id number] - 05/08/15 16:44 EST Findings: The prior [...] in OV> 05/07/241845 DD/ 44 TD/TT: 05/07/241844 Brand Strategist: us [facility] External Provider IMG CT PROCEDURES Edited Result - Final * (ABNORMAL) Urinalysis, Complete, with Reflex to Culture (05/07/2024 3:59 PM EST) Color Urine RED [facility] Comment:Dipstick performed o n centrifuged urine. Results may notcorrelate with microscopic values. Appearance Urine Turbid [facility] PH 6.5 5.0 - 9.0 [facility] Glucose Urine UA Negative Negative mg/dL [facility] Urine Blood Large (3+)(A) Negative [facility] Specific Mcpherson - Urine 1.025 1.005 - 1.025 [facility] Urine Protein 300 (3+)(A) Neg-Trace mg/dL [facility] Urine Ketones Negative Negative mg/dL [facility] Nitrite Urine Negative Negative [facility] Leukocyte Esterase Urine Negative Negative [facility] RBC Urine >20(A) 0 - 2 /HPF [facility] Urine WBC 0-5 0 - 5 /HPF [facility] Urine Squamous Epithelial Cell 0-2 0 - 2 /HPF [facility] Urine Bacteria None Seen None Seen [facility] Hyaline Casts, Urine 0-2 0 - 2 /LPF [facility] 05/07/2024 3:59 PM EST 05/07/2024 4:03 PM EST Narrative [facility] - 05/07/2024 4:27 PM EST [id number], Clean Catch Generic External Data Provider LAB URINE ORDERAB LES Final Result [facility] [address] [place] [address] [phone] * (ABNORMAL) CBC auto differential (05/07/2024 3:59 PM EST) White Blood Count 7.2 4.8 - 10.8 X10*3/uL [facility] Red Blood Count 4.19(L) 4.20 - 5.50 X10*6/uL [facility] Hemoglobin 12.4 12.0 - 16.0 g/dl [facility] Hematocrit 35.8(L) 37.0 - 47.0 % [facility] Mean Corpuscular Volume 85.4 80.0 - 98.0 fL [facility] Mean Corpuscular Hemoglobin 29.6 27.0 - 33.0 pg [facility] Mean Corpuscular HGB Conc 34.6 31.0 - 35.0 g/dl [facility] Red Cell Distribution Width 13.8 11.0 - 16.0 % [facility] Platelet Count 303 160 - 400 X10*3/uL [facility] Mean Platelet Volume 9.7 9.4 - 12.3 fL [facility] Neutrophils Percent Auto 48.3 45 - 73 % [facility] Imm Gran Pct Auto 0.3 0.0 - 0.4 % [facility] Lymphocytes Percent Auto 39.1 20 - 40 % [facility] Monocytes Percent Auto 9.8 2 - 11 % [facility] Eosinophils Percent Auto 1.8 0 - 4 % [facility] Basophils Percent Auto 0.7 0 - 2 % [facility] NRBC Pct Auto 0.0 0.0 - 0.2 /100WBC [facility] Neutrophils Absolute Auto 3.5 2.0 - 8.3 x10*3/uL [facility] Imm Gran Abs Auto 0.02 0.00 - 0.03 X10*3/uL [facility] Lymphocytes Absolute Auto 2.8 1.2 - 4.9 X10*3/uL [facility] Monocytes Absolute Auto 0.7 0.1 - 1.2 X10*3/uL [facility] Eosinophils Absolute Auto 0.1 0.0 - 0.4 X10*3/uL [facility] Basophils Absolute Auto 0.1 0.0 - 0.2 X10*3/uL [facility] NRBC Abs Auto 0.000 0.0 - 0.012 X10*3/uL [facility] 05/07/2024 3:59 PM EST 05/07/2024 4:03 PM EST us Generic External Data Provider LAB BLOOD ORDERAB LES Final Result Performing Organization Address City/[facility]/ZIP Co de Phone Number [facility] [address] [place] [phone] * HCG, Qualitative, Urine (05/07/2024 3:59 PM EST) Urine NEGATIVE NEGATIVE [facility] Comment:This test was develo ped to detect early . Falsenegative results may occur after the 5th - 7th week ofpregnancy when using this test method. If clinicallyindicated, consider a serum hCG. 05/07/2024 3:59 PM EST 05/07/2024 4:27 PM EST us Generic External Data Provider LAB URINE ORDERAB LES Final Result Performing Organization Address City/[facility]/ZIP Co de Phone Number [facility] [address] [place] [phone] * Partial Thromboplastin Time, Activated (APTT) (05/07/2024 3:59 PM EST) Partial Thromboplastin Time 30.4 26.0 - 36.8 SEC [facility] Comment:For information rega rding the monitoring of direct thrombininhibitors, please refer to Pharmacy. 05/07/2024 3:59 PM EST 05/07/2024 4:03 PM EST us Generic External Data Provider LAB BLOOD ORDERAB LES Final Result Performing Organization Address [facility] Co de Phone Number [facility] [address] [place] [phone] * Prothrombin Time-INR (05/07/2024 3:59 PM EST) Prothrombin Time 11.1 10.9 - 12.4 SEC [facility] INTERNATIONAL NORM RATIO 1.0 0.9 - 1.1 [facility] Comment:INTERNATIONAL NORMAL IZED RATIO (INR) [...] ORDERAB LES Final Result Performing Organization Address [facility] de Phone Number [facility] [address] [place] [phone] * hCG, Total, Quantitative (05/07/2024 3:59 PM EST) HCG Quantitative <2 mIU/mL [facility] Comment:Weeks post LMP Appro ximate hCG(Last Menstrual Period) Range (mIU/ml)3 - 4 weeks 9 - 1304 - 5 weeks 75 - 2,6005 - 6 weeks 850 - 20,8006 - 7 weeks 4000 - 100,2007 - 12 weeks 11,500 - 289,02510 - 16 weeks 18,300 - 137,64404 - 29 weeks (2nd trimester) 1,400 - 53,95949 - 41 weeks (3rd trimester) 940 - [...] BLOOD ORDERAB LES Final Result [facility] [address] [place] [phone] [phone] * (ABNORMAL) Comprehensive Metabolic Panel (05/07/2024 3:59 PM EST) Sodium 142 135 - 145 mmol/L [facility] Potassium 3.4 3.3 - 5.1 mmol/L [facility] Chloride 108 96 - 108 mmol/L [facility] Carbon Dioxide 25 22 - 29 mmol/L [facility] Anion Gap 12 12 - 20 [facility] Urea Nitrogen (BUN) 9 9 - 16 mg/dL [facility] Creatinine, Serum 0.65 0.5 - 1.4 mg/dL [facility] Creatinine Clr Calc Pharmacy 77.6 [facility] Comment:Provided height and weight: 152.4 cm,46.8 kg.eGFR (calculated from the MDRD study equation) and eCrCl(calculated from the Cockcroft-Gault equation) are based ondifferent parameters and may not yield comparable results.If eCrCl result is absurd, please check patient'sheight/weight. Estimated Glomerular Filt Rate >60 [facility] Comment:Chronic Kidney Disea se: Estimated GFR < 60 mL/min/1.29h8Wjgxdv Kidney Disease: Estimated GFR < 15 mL/min/1.73m2 Glucose 94 60 - 115 mg/dL [facility] Calcium 9.5 8.4 - 10.2 mg/dL [facility] Bilirubin, Total 0.3 0.0 - 1.0 mg/dL [facility] Aspartate Amino Transferase 23 5 - 31 U/L [facility] Alanine Aminotransferase 16 0 - 31 U/L [facility] Total Protein 8.6(H) 6.5 - 8.0 g/dL [facility] Albumin Level 4.5 3.5 - 5.0 g/dL [facility] Alkaline Phosphatase 86 39 - 117 U/L [facility] 05/07/2024 3:59 PM EST 05/07/2024 4:03 PM EST us Generic External Data Provider LAB BLOOD ORDERAB LES Final Result [facility] [address] [place] [phone] [phone] * BI Mammogram Screening Tomosynthesis Bilateral (01/12/2024 9:30 AM EST) Anatomical Region Laterality Modality Breast Bilateral Mammography 01/12/2024 9:30 AM EST Narrative 01/21/2024 1:02 PM EST ? [facility] ? [address] ?[place] [address] ? Mammography Report ? Signed ? Patient: Lew Daljit,Leila A ?MR#: ?? [id number] ? : 1980 ?Acct:[id number] ? Age/Sex: 44 / F ?ADM Date: 01/11/ ? Loc: HO.MAMMO ? Attending Dr: Marzena Loo MD ? Ordering Physician: Marzena Loo MD ?Results: 1N ?? egative ? Date of Service: 01/12/24 ?Follow Up: 1 Year From Orig ?? inal Mammogram ? Procedure(s): MM tomosynthesis screening BI ?? Accession Number(s): [id number] ? cc: Marzena Loo MD ? EXAMINATION: [...] DD/ 0930 ? TD/TT: 01/12/24 0945 ? Brand Strategist: ? Procedure Note Rashmi, Jay - 01/21/2024 [facility] [address] [place] [address] Dr. Wang, SHANTEL [address] Mammography Report Signed Patient: Lew Leila Bocanegra AMR#: [id number] : 1980Acct:[id number] Age/Sex: 44 / FADM Date: 01/12/24 Loc: HO.MAMMO Attending Dr: Marzena Loo MD Ordering Physician: Marzena Loo MDResults: 1N egative Date of Service: 01/12/24Follow Up: 1 Year From Orig inal Mammogram Procedure(s): MM tomosynthesis screening BI Accession Number(s): [id number] cc: Marzena Loo MD EXAMINATION: MM SCREENING [...] 01/21/24 1259 DD/ 0930 TD/TT: 01/12/24 0945 Brand Strategist: us Marzena Loo MD IMG BI PROCEDURES Final Re sult * Pap Smear (01/12/2024 12:00 AM EST) Swab Cervix uteri structure / Unknown 01/12/2024 01/13/2024 8:45 AM EST [facility] - 01/17/2024 8:26 AM EST ----- ------- Name: Leila Fernandez ? Age/Sex: 44/F ? : 1980 Unit#: [id number] ?? Attend Dr: ?Re01/12/24 ?Status: PRE REF ? Location: HO.LNP ?Disch: ? ----- ------- SPEC : [id number] ?RECD: 01/13/24 ? STATUS: ??SOUT ? REQ NUM: [id number] ? SWETA: 01/12/24- ? SUBM DR: Marzena [...] MD LAB CYTOLOGY ORDERABLES Fi nal Result [facility] [address] [place] [phone] [phone] * HIV Ab/Ag (SHANTEL DP) (10/16/2022 12:24 PM EDT) HIV AB/AG Nonreactive Nonreactive [facility] Comment:HIV-1 p24 Ag and/or HIV-1/HIV-2 Ab not detected.A test result that is nonreactive does not exclude thepossibility of exposure to or infection with HIV-1 and/orHIV-2. Nonreactive results in this assay for individualswith prior exposure to HIV-1 and/or HIV-2 may be due toantigen and antibody levels that are below the limit ofdetection of this assay.The [employer] HIV Ag/Ab Combo assay result andsupplemental assay results should be interpreted inconjunction with the patient's clinical presentation,history and other laboratory results. If the results areinconsistent with clinical evidence, additional testing issuggested to confirm the result. 10/16/2022 12:2 4 PM EDT 10/16/2022 1:48 PM EDT us Shelly Rodrigues MD LAB BLOOD ORDERABLES Final Re sult [facility] [address] [place] [phone] * Hepatitis A,B,C Profile (10/16/2022 12:24 PM EDT) Hepatitis A IgM Nonreactive Nonreactive [facility] Comment:IgM antibodies to BRADLEY V not detected; does not exclude earlyacute or recovered HAV infection. ~Hepatitis B Surface Antibody NONREACTIVE Nonreactive [facility] Comment:Nonreactive: < 8.00 mIU/mL Hepatitis B Core Antibody Nonreactive Nonreactive [facility] Hepatitis C Antibody Nonreactive Nonreactive [facility] Comment:Antibodies to HCV no t detected; does not exclude early acuteHCV infection. 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 Erick Pitts [facility] Pulmonology [address] [place] [address] [place] [address] Pulmonary Disease 03/16/24 Dr. [facility] [address] [facility] [phone] Optometry 03/16/24
--- NOTE | 2024-06-22 08:13 | A.OFFVIS_ITS ---
Intake Visit Reasons: hematuria Intake Note: New Patient presents for initial visit for hematuria Urology Medications: none Blood Thinner: none smoker: yes;smoked socially x5yrs, smokes marijuana Floor Attendant Required: No Accompanied by: Self / Same As Patient Allergies tramadol Allergy (Unknown, Verified 06/22/24 08:59) nausea and vomiting Medication List - Last Reconciled 06/23/24 by KASSI Villalobos- albuterol sulfate 90 mcg/actuation 2 puffs inhalation Q4-6H PRN bisacodyl (Dulcolax (bisacodyl)) 10 mg (2 x 5 mg) PO BEDTIME 2 days loratadine 10 mg PO DAILY methotrexate sodium 20 mg PO QWEEK norelgestromin-ethin.estradiol 150-35 mcg/24 hr (Xulane) patches topical ondansetron HCl 4 mg PO BID peg 3350-electrolytes 236-22.74-6.74 -5.86 gram (Golytely) 240 mL PO Q10M 1 day sumatriptan succinate 50 mg PO HPI Comments Details: Leila is a very pleasant 44-year-old female patient of Dr. Loo. She has a past medical history of sarcoidoisis and nephrolithiasis. In discussion with the patient today she reports having seeked emergency room care approximately 6 weeks ago for gross hematuria she had been experiencing at which time a CT was ordered and performed. These results were reviewed and communicated with the patient today 05/30 both kidneys reveal normal in size, shape, and attenuation. There are stones in the bilateral renal pelvis. Mild dilatation of the right renal pelvis unchanged prior exam. Urinary bladder reveals normal lumen and neumann. When asked she does report a longstanding history of nephrolithiasis however never requiring surgical intervention. When asked she does report a longstanding history of recreational marijuana use however she denies any workplace chemical exposure and or nicotine dependence. We discussed potential causes of gross hematuria. I discussed reasons for blood in the urine may include but are not limited to kidney stones, cancer in the uri nary tract, kidney stone disease or inflammatory conditions of the urinary tract. I have discussed workup to include cystoscopy evaluation. She reports gross hematuria has since subsided over the last 2 weeks. In office urinalysis results reviewed with the patient today no microscopic hematuria noted. Will send for urine cytology. She otherwise denies urinary urgency, urinary frequency, incontinence, nocturia, dysuria, foul smelling urine, changes to urinary stream, flank pain, fever, and or chills.She is happy with her current voiding parameters. She otherwise offers no other issues or concerns at this time. Discussion Notes The patient presented with a prior history of nephrolithiasis and persistent hematuria for one month, improved by today's examination. I discussed the potent ial need for a cystoscopy, primarily due to the patient?s history of smoking, despite the cessation of visible hematuria, to rule out any bladder abnormalities. The patient expressed understanding and willingness to proceed with the procedure during a subsequent visit. Additionally, we briefly discussed episodic abdominal pain which appears intermittent and potentially related to gastrointestinal gas. I recommended managing symptoms with supportive care, and no immediate diagnostic imaging is planned except for the upcoming cystoscopy. Plan A cystoscopy is planned to evaluate potential bladder pathology given the history of hematuria and smoking. The patient was informed about the procedure, and consent was informally obtained. The recent improvement in urine clarity suggests no immediate intervention for nephrolithiasis other than monitoring. The episodic abdominal pain is likely due to gastrointestinal causes; thus, symptomatic management is advised. No immediate changes to medications or follow-up imaging for abdominal pain are planned unless symptoms worsen. [facility] History Sarcoidosis Surgical History H/O endoscopy Family History Sister Stomach cancer Sister Cancer Father Stomach cancer Review of Systems Const All systems reviewed & are unremarkable except as noted in HPI and below Physical Exam Const General: cooperative, healthy appearing, comfortable, no acute distress, well developed, alert and awake Nutritional Appearance: average body habitus Orientation/consciousness: patient oriented x3 Limitations: no limitations HEENT Head: Yes normal to inspection, Yes normocephalic and Yes atraumatic Ears: hearing grossly normal bilaterally Eyes General: appearance normal, both eyes and all related structures Neck Neck: Yes normal visual inspection and Yes trachea midline Chest Chest palpation & inspection: normal inspection of the chest Resp Effort & Inspection: normal respiratory effort and able to speak in complete sentences Cardio Rate: regular rate GI Inspection: Yes normal to inspection General: Yes no CVA tenderness Back/Spine/Pelvis Back: no CVA tenderness Skin General skin exam: no rashes or lesions noted Neuro General: patient oriented x3 Extrem General: Yes normal to inspection Psych Appearance: grossly normal and well kempt Mental Status: mental status grossly normal Speech and movement: Normal speech and movement present and Clear speech present Affect: normal affect Attitude: cooperative Thought process: Normal thought process present Thought content: Normal thought content present Insight: Fair insight present (Psych) Judgement: Fair judgement present (Psych) Results AMB Urinalysis, Automated UA Leukoctes 70 Melina/uL Last Edit by [employer] on 06/22/24 10:14 UA Nitrite Last Edit by [employer] on 06/22/24 10:14 UA Urobilinogen 0.2 mg/dL Last Edit by [employer] on 06/22/24 10:14 UA Protein 0 mg/dL Last Edit by [employer] on 06/22/24 10:14 UA pH 6.5 Last Edit by [employer] on 06/22/24 10:14 UA Blood 0 Hpan/uL Last Edit by [employer] on 06/22/24 10:14 UA Specific [place] 1.015 Last Edit by [employer] on 06/22/24 10:14 UA Ketone Last Edit by [employer] on 06/22/24 10:14 UA Bilirubin 0 mg/dL Last Edit by [employer] on 06/22/24 10:14 UA Glucose 0 mg/dL Last Edit by [employer] on 06/22/24 10:14 Results Reviewed Results Reviewed: Laboratory Last Values Urine pH (Auto) 6.5 06/22/24 10:12 Specific [place] (Auto) 1.015 06/22/24 10:12 Urine Protein (Auto) 0 mg/dL 06/22/24 10:12 Glucose (UA)(Auto) 0 mg/dL 06/22/24 10:12 Urine Blood (Auto) 0 Phan/uL 06/22/24 10:12 Urine Bilirubin (Auto) 0 mg/dL 06/22/24 10:12 Urine Urobilinogen (Auto) 0.2 mg/dL 06/22/24 10:12 Leukocyte Esterase (Auto) 70 Melina/uL 06/22/24 10:12 Date of Service: 05/07/24 Procedure(s): CT abdomen pelvis wo IV con Findings: The prior CT reports are not available for review. Examination is limited by without contrast. Opacity of the bilateral lung base. Liver, Pancreas, Spleen and both adrenals show normal size, shape and attenuation on present unenhanced scan. No CBD dilatation. No calcified gallstone in the gallbladder. Both kidneys reveal normal in size, shape, position and attenuation. There are stones in the bilateral renal pelvis. Mild dilation of the right renal pelvis is unchanged from prior examination. The IVC, aorta and portal vein are within normal position and caliber. No evidence of retroperitoneal lymphadenopathy or ascites. Small calcification of the pelvis are likely to be phleboliths. The visible parts of the bowel loops show no obvious mass lesions or wall thickening. Appendix appears normal. Urinary bladder reveals normal lumen and neumann. The pelvic organs are unremarkable. Prosthesis in the right femur. IMPRESSION: There are nonobstructing bilateral renal calculi. Stable mild hydronephrosis of the right kidney. Opacity of the bilateral lung base concerning for pneumonia. Clinical correlation is recommended. Assessment & Plan Assessment & Plan (1) Nephrolithiasis: Code(s): N20.0 - Calculus of kidney Category: Medical (2) Marijuana dependence: Code(s): F12.20 - Cannabis dependence, uncomplicated Category: Medical (3) Gross hematuria: Code(s): R31.0 - Gross hematuria Category: Medical Plan In office urinalysis results reviewed with the patient today; as noted above; will send for urine cytology We discussed at length potential causes of gross hematuria We discussed further workup to include in office cystoscopy; risks and benefits of these interventions were discussed We discussed potential causes of nephrolithiasis We discussed importance of adequate hydration relation to nephrolithiasis as well as overall health and well-being. She currently denies any bothersome urinary issues. She reports be happy with current voiding parameters. Recent CT results reviewed with the patient today; as noted above. We discussed potential near future metabolic workup. We discussed importance of limiting/quitting of marijuana dependence. Will schedule for next available in office cystoscopy Follow-up per doctor's orders; or sooner with any issues, concerns, and or questions. Orders: Orders Urine Cytology 06/22/24 F12.20 - Cannabis dependence, uncomplicated, N20.0 - Calculus of kidney, R31.0 - Gross hematuria AMB Urinalysis Automated 06/22/24 Z13.9 - Encounter for screening, unspecified Patient Instructions: The patient had an opportunity to ask questions regarding the treatment plan. All questions were answered. Physical exam, labs, and imaging were discussed and reviewed in detail. As well as risks, benefits, and discussion of treatment c hoices. No major barriers to understanding were identified. The patient expressed understanding and agreement with the above treatment plan. The patient was made aware they should contact our office by phone for worsening of their current condition, the appearance of new symptoms, or with any questions or concerns. Compliance is encouraged with any medications and follow up testing that is ordered. It is a privilege to be allowed the opportunity to participate in? your urological care.? Again, if you have any questions or concerns If you have any questions or concerns please do not hesitate to contact me. The office is [phone]. This note is constructed using voice recognition software. While every effort has been made to ensure accuracy skein yard drier errors may have been included. Yours sincerely, NITHIN Villalobos Coding Level of Care Code New Pt Level 3 (94180) Diagnoses Nephrolithiasis N20.0 Marijuana dependence F12.20 Gross hematuria R31.0
== END 2024-06-22 08:47 | disposition home or self-care (01) ==
LOC: HO.HUSH 08:03
PROVIDERS: PCP Family Medicine; Visit Provider Nurse Practitioner Family
DX: Z13.9 Encounter for screening, unspecified (principal)

== ENCOUNTER 2024-08-25 11:29 | Outpatient (REF) | payer MEDICAID, SELFPAY | END 2024-08-25 11:30 | disposition home or self-care (01) | LOC: HO.HHCLNP 11:29 | PROVIDERS: Visit Provider Family Medicine | DX: R31.9 Hematuria, unspecified (principal) | CPT/HCPCS: 87086 ==

== ENCOUNTER 2024-09-25 08:19 | Outpatient (REF) | payer MEDICAID, SELFPAY | END 2024-09-25 08:20 | disposition home or self-care (01) | LOC: HO.LAB 08:19 | PROVIDERS: PCP Family Medicine; Visit Provider Urology | DX: N20.0 Calculus of kidney (principal); R31.0 Gross hematuria | CPT/HCPCS: 52000; 81003; 87086 ==

== ENCOUNTER 2024-09-25 08:19 | Outpatient (AMB) | payer MEDICAID, SELFPAY ==
--- OUTSIDE RECORDS SUMMARY | 2024-09-25 08:26 | XMS_ITS | Encounter Summary ---
Author Organization [employer] Address [address] [place] [address] 7t [place] [address] Care Team Providers Care Legal Cashier Name Role Phone Marzena Loo MD Primary Care Provider +- [phone] Vicky Ibarra MD Unavailable [phone]- [phone] Meka Cuba NP Unavailable Reason for Visit * Reason Comments Med Refill Encounter Details Date Type Department Care Team (Late Contact Info) Description 05/10/2023 Refill [facility] [address] [place] [address] Dior Forman MD [address] [place] [address] [phone] Social History Tobacco Use Types Packs/Day Years [...] Encounters Date Type Department Care Team (Late Contact Info) Description 10/20/2024 9:00 AM EDT Office Visit [facility] [address] [place] [address] [phone] Shelly Rodrigues MD [address] [place], [place] [phone] documented as of this encounter Visit Diagnoses Not on filedocumented in this encounter Care Teams Legal Cashier Relationship Specialty Start Date End Date Marzena Loo MD 230 [place] [address] PCP - General Family Medicine 03/08/18 Vicky Ibarra MD [address] [place] [address] Neurology 03/16/24 Meka Cuba NP [address] [place] [address] Drive [address] [place] [address] Urology 06/27/24 Dr. Erick Pitts [facility] Pulmonology [address] [place] [address] Pulmonary Disease 03/16/24 [facility] 180 [facility] [address] Optometry 03/16/24 Harish Villafuerte MD Neurology 08/15/24 documented as of this encounter
--- NOTE | 2024-09-25 08:30 | A.OFFVIS_ITS ---
Intake Visit Reasons: cysto Intake Note: Patient presents today for cystoscopy Urology Medications: none Blood Thinner: none Lot #: [id number] Exp: 06/01/27 Director Of Strategic Communications Required: No Accompanied by: Self / Same As Patient Allergies tramadol Allergy (Unknown, Verified 09/25/24 08:30) nausea and vomiting HPI Comments Details: 09/25/24--for office cystoscopy. She is being evaluated due to episode of gross hematuria. Cystoscopy findings: thrombosed prominent vasculature, no suspicious bladder lesions visualized. History of tobacco use. Quit 5 years ago. Repeat urine cytology Follow-up with nurse practitioner in 9 months, monitor kidney stones and microscopic hematuria monitoring. 06/22/24--Leila is a very pleasant 44-year-old female patient of Dr. Loo. She has a past medical history of sarcoidoisis and nephrolithiasis. In discussion with the patient today she reports having seeked emergency room care approximately 6 weeks ago for gross hematuria she had been experiencing at which time a CT was ordered and performed. These results were reviewed and communicated with the patient today 05/30 both kidneys reveal normal in size, shape, and attenuation. There are stones in the bilateral renal pelvis. Mild dilatation of the right renal pelvis unchanged prior exam. Urinary bladder reveals normal lumen and neumann. When asked she does report a longstanding history of nephrolithiasis however never requiring surgical intervention. When asked she does report a longstanding history of recreational marijuana use however she denies any workplace chemical exposure and or nicotine dependence. We discussed potential causes of gross hematuria. I discussed reasons for blood in the urine may include but are not limited to kidney stones, cancer in the urinary tract, kidney stone disease or inflammatory conditions of the urinary tract. I have discussed workup to include cystoscopy evaluation. She reports gr oss hematuria has since subsided over the last 2 weeks. In office urinalysis results reviewed with the patient today no microscopic hematuria noted. Will send for urine cytology. She otherwise denies urinary urgency, urinary frequency, incontinence, nocturia, dysuria, foul smelling urine, changes to urinary stream, flank pain, fever, and or chills.She is happy with her current voiding parameters. She otherwise offers no other issues or concerns at this time. [facility] Medical History Sarcoidosis Surgical History H/O endoscopy Family History Sister Stomach cancer Sister Cancer Father Stomach cancer Office Procedures Cystoscopy Consent Discussed risk and benefit or proposed procedure with the patient. Information consent for procedure given to the patient. Discussed technical aspects, risks, benefits and alternatives in full. Addressed all of the patient's questions and concerns regarding the procedure. The patient demonstrated knowledge and understanding. They wish to proceed with this procedure. Preparation The patient was prepped in the usual manner. A supervisor hanging and trimming was present and in the room. Genitalia was prepped with betadine solution in a sterile manner. Lidocaine Jelly 2% was placed into the urethra and 16Fr flexible Olympus cystoscope was inserted into the meatus after adequate lubrication. Procedure Time out per protocol performed. Speculum used as indicated for adequate visualization of urethra, the flexible cystoscope is passed transurethrally: The bladder was inspected in its entirety with utilization retroflexion displaying: Tumor(s): no suspicious bladder lesions visualized Trabeculation: NA Mucosal Erthema: NA Orifices: normal shape and position Urethra: normal Cystoscopy findings: thrombosed prominent vasculature, no suspicious bladder lesions visualized [id number] DISPOSABLE SCOPE URO-G FLEXIBLE SCOPE Procedure code (CPT) selection complete Office Meds lidocaine HCl 2 % mucosal jelly in applicator Performing Provider: Pierre Rhodes MD Performing Location: [facility] Administered by: Maria Fernanda Van RN on 09/25/24 08:45 Dose Route Admin Location Dispensed Lot Number Expiration Date [facility] Distillery Manager 10 mL intra-urethral 20 mL ciprofloxacin HCl 500 mg tablet Performing Provider: Pierre Rhodes MD Performing Location: [facility] Administered by: Maria Fernanda Van RN on 09/25/24 08:45 Dose Route Admin Location Dispensed Lot Number Expiration Date [facility] Distillery Manager 500 mg PO 1 tab phenazopyridine 200 mg tablet Performing Provider: Pierre Rhodes MD Performing Location: [facility] Administered by: Maria Fernanda Van RN on 09/25/24 08:45 Dose Route Admin Location Dispensed Lot Number Expiration Date [facility] Distillery Manager 200 mg PO 1 tab Results Reviewed Results Reviewed: Collected: 06/22/24 Location: .LAB Received: 06/23/24 Diagnosis Urine: Negative for high-grade urothelial carcinoma. See comment. COMMENT: Cellular specimen consisting of a few groups of urothelial cells, which are small/medium in size and have variable chromatin. The background has single urothelial cells without atypia and squamous cells. The differential diagnosis for these types of groups of urothelial cells includes infection, trauma (e.g. stones) and other types of urothelial neoplasms. Clinical History Gross hematuria Cannabis dependence, uncomplicated Calculus of kidney Material Received Urine Gross Description Received is 15 cc of clear yellow fluid from which a ThinPrep slide is prepared. Copies To Marzena Loo MD [address] [address] Meka Cuba [facility] [address] [place] [address] [address] [place] [address] [email or web address] Filmed NOTE: Unless otherwise stated, all tissue is formalin-fixed and paraffin- embedded. Some or all of the immunohistochemical tests reported herein may have been developed and their performance characteristics determined by [facility]. They have not been cleared or approved by the U.S. Food and Drug Administration (FDA). However, the FDA has determined that such clearance or approval is not necessary. This laboratory is certified under the Clinical Laboratory Improvement Amendments of 1988 (CLIA) as qualified to perform high complexity clinical laboratory testing. Patient: Leila Fernandez Age/Sex: 44/F MR#: [id number] Page 1 of 2 Okay so she did tell you that the CAT scan showed some kidney stones she said you had stones before year so Date of Service: 05/07/24 Procedure(s): CT abdomen pelvis wo IV con Findings: The prior CT reports are not available for review. Examination is limited by without contrast. Opacity of the bilateral lung base. Liver, Pancreas, Spleen and both adrenals show normal size, shape and attenuation on present unenhanced scan. No CBD dilatation. No calcified gallstone in the gallbladder. Both kidneys reveal normal in size, shape, position and attenuation. There are stones in the bilateral renal pelvis. Mild dilation of the right renal pelvis is unchanged from prior examination. The IVC, aorta and portal vein are within normal position and caliber. No evidence of retroperitoneal lymphadenopathy or ascites. Small calcification of the pelvis are likely to be phleboliths. The visible parts of the bowel loops show no obvious mass lesions or wall thickening. Appendix appears normal. Urinary bladder reveals normal lumen and neumann. The pelvic organs are unremarkable. Prosthesis in the right femur. IMPRESSION: There are nonobstructing bilateral renal calculi. Stable mild hydronephrosis of the right kidney. Opacity of the bilateral lung base concerning for pneumonia. Clinical correlation is recommended. Assessment & Plan Assessment & Plan (1) Hematuria: Code(s): R31.9 - Hematuria, unspecified Category: Medical (2) Bilateral kidney stones: Code(s): N20.0 - Calculus of kidney Category: Medical Plan Cystoscopy findings: thrombosed prominent vasculature, no suspicious bladder lesions visualized. History of tobacco use. Quit 5 years ago. Repeat urine cytology Follow-up with nurse practitioner in 9 months, monitor kidney stones and microscopic hematuria monitoring. renal US in 8 months Orders: Orders AMB Cystoscopy Today N20.0 - Calculus of kidney, R31.0 - Gross hematuria US renal BI 8 Months N20.0 - Calculus of kidney, R31.9 - Hematuria, unspecified Patient Instructions: The patient had an opportunity to ask questions regarding treatment plan. The patient expressed understanding and agreement with the above treatment plan. The patient is aware they should contact our office by phone for worsening of their current condition or the appearance of new symptoms. Compliance is encouraged with any medications and followup testing that is ordered. It is a privilege to be allowed the opportunity to participate in the urologic care of your patient. If you have any questions or concerns regarding treatment for the above conditions please do not hesitate to contact me. The office telephone contact is [phone]. This note is constructed in part using voice recognition software. While every effort has been made to ensure accuracy electrician helper automotive errors may have been included. Yours sincerely, Pierre Rhodes MD Coding Level of Care Code Procedure Only Diagnoses Hematuria R31.9 Bilateral kidney stones N20.0 CPT Codes Cystoscopy - CPT: 42398-[id number] ([id number])
== END 2024-09-25 09:43 | disposition home or self-care (01) ==
LOC: HO.HUSH 08:20
PROVIDERS: PCP Family Medicine; Visit Provider Urology
DX: R31.0 Gross hematuria (principal); N20.0 Calculus of kidney; Z13.9 Encounter for screening, unspecified
CPT/HCPCS: 52000

== ENCOUNTER 2024-10-04 12:30 | Outpatient (REF) | payer MEDICAID, SELFPAY ==
--- OUTSIDE RECORDS SUMMARY | 2024-09-28 23:59 | XMS_ITS | Continuity of Care Document ---
Author Organization [facility] Address [address] [place] [phone]- Care Team Providers Care Dinkey Mechanic Name Role Phone Marzena Loo MD Primary Care Physician En[place] [facility] [place] [id number] Date(s): 08/29/24 - 09/28/24 [facility] [address] [place] [address] Attending Physician: Meme Nova Admitting Physician: Meme Nova Referring Physician: Admtr, [id number] Encounter Type: Triage Allergies, Adverse Reactions, Alerts Substance Criticality Severity Reaction Reaction Severity Status traMADol Active Medications dorzolamide-timolol 2.23%-0.68% ophthalmic solution INSTILL 1 DROP IN EACH EYE TWICE DAILY Start Date: 04/07/19 Status: Ordered Repeat number: 1 FLUoxetine 10 mg oral capsule 10 mg, 1, capsule, By Mouth, Daily, TAKE 1 CAPSULE BY MOUTH EVERY DAY Start Date: 05/04/19 Status: Ordered Repeat number: 1 folic acid 1 mg oral tablet 1 mg, 1, tablet, By Mouth, Daily, TAKE 1 TABLET EVERY DAY, # 30 tablet, Refills 11, Tot. Refills 11, Maintenance, 05/12/21 9:40:00 AM EST, Route to Pharmacy Electronically, [facility], Partial fill upon patient request if the prescription is for a schedule II opioid drug., 152.4, cm, 06/12/20 15:15:00 EDT, Height, 47.6, kg, 05/03/21 9:20:00 EST, Dry Weight Start Date: 05/12/21 Status: Ordered Quantity: 30.0 Unit: tablet Repeat number: 12 Loratadine 10 mg, By Mouth, Daily, Refills 0, Maintenance, 09/13/17 3:07:48 PM EDT Start Date: 09/13/17 Status: Ordered Repeat number: 1 methotrexate 2.5 mg oral tablet 8 tablet = 20 mg, By Mouth, Every Wednesday, 8 pills = 20mg po to be taken every Wednesday., # 104 tablet, 3 Refills, Maintenance, 07/20/24 11:42:00 AM EDT, [facility], Partial fill upon patient request if the prescription is for a schedule II opioid drug., 152.4, cm, 07/20/24 11:17:00 EDT, Height, 45.7, kg, 04/28/24 9:04:00 EST, Dry Weight Start Date: 07/20/24 Stop Date: 07/15/25 Status: Ordered Quantity: 104.0 Unit: tablet Repeat number: 4 methotrexate 2.5 mg oral tablet 8 tablet = 20 mg, By Mouth, Every Wednesday, # 40 tablet, 5 Refills, Maintenance, 05/09/19 1:01:00 PM EST, [facility] - [place], 154.9, cm, 05/04/19 15:20:00 EST, Height Start Date: 05/09/19 Stop Date: 11/05/19 Status: Ordered Quantity: 40.0 Unit: tablet Repeat number: 6 methotrexate 2.5 mg oral tablet 6 tablet = 15 mg, By Mouth, weekly pt takes on Wednesdays, 0 Refills, Maintenance, 04/07/19 8:12:00 AM EST Start Date: 04/07/19 Status: Ordered Repeat number: 1 Naphcon-A 0.025%-0.3% ophthalmic solution 1 drops, Eyes, Both, 4 times a day, # 15 mL, 0 Refills, Maintenance, 09/13/17 3:07:42 PM EDT, Solution Start Date: 09/13/17 Status: Ordered Quantity: 15.0 Unit: mL Repeat number: 1 Omeprazole By Mouth, Daily, 0 Refills, Maintenance, 09/13/17 3:07:22 PM EDT Start Date: 09/13/17 Status: Ordered Repeat number: 1 omeprazole 20 mg oral enteric coated capsule TAKE 1 CAPSULE BY MOUTH EVERY DAY BEFORE A MEAL Start Date: 05/04/19 Status: Ordered Repeat number: 1 1 0 Refills, Maintenance, 09/13/17 3:07:15 PM EDT Start Date: 09/13/17 Status: Ordered Repeat number: 1 ProAir HFA 90 mcg/inh inhalation aerosol 2 puffs, Inhalation, Every 4 hours, PRN as needed for wheezing, # 1 each, 6 Refills, Maintenance, 07/28/23 11:11:00 AM EDT, Aerosol, [facility], Partial fill upon patient request if the prescription is for a schedule II opioid drug., 2 puffs Inhalation Every 4 hours,x30 days,PRN:as needed for wheezing, 152.4, cm, 07/28/23 10:55:00 EDT, Height, 47.3, kg, 07/16/23 9:23:00 EDT, Dry Weight Start Date: 07/28/23 Stop Date: 02/23/24 Status: Ordered Quantity: 1.0 Unit: each Repeat number: 7 PROzac 20 mg oral capsule 20 mg, 1, capsule, By Mouth, Daily, # 60 capsule, Refills 0, Maintenance, 09/13/17 3:07:03 PM EDT Start Date: 09/13/17 Status: Ordered Quantity: 60.0 Unit: capsule Repeat number: 1 Renflexis 100 mg intravenous injection See Instructions, 200 mg IV Infusion weeks q 6 weeks ongoing D86.9, # 1 each, 11 Refills, Maintenance, 11/16/23 4:14:00 PM EDT, Partial fill upon patient request if the prescription is for a schedule II opioid drug. Start Date: 11/16/23 Status: Ordered Quantity: 1.0 Unit: each Repeat number: 12 Indications: Sarcoidosis, unspecified; Renflexis 100 mg intravenous injection See Instructions, 200 mg IV Infusion weeks 0, 2, 6, and 12, and then q 6 weeks ongoing, # 2 each, 0Refills, Maintenance, 08/07/21 11:50:00 AM EDT, Partial fill upon patient request if the prescriptionis for a schedule II opioid drug. Start Date: 08/07/21 Status: Ordered Quantity: 2.0 Unit: each Repeat number: 1 Indications: Sarcoidosis, unspecified; Problem List Condition Confirmation Course Effective Dates Status Health St atus Informant Sarcoidosis of lung Confirmed Active Social History Social History Type Response Tobacco Use: Current smoker. . Other: Quite smoking 5 years ago. Sex Female Sex Representation Female (finding) Laboratory * Event Display: Non BH Lab Results Authored Date: * Event Display: Non BH Lab Results Authored Date: Radiology * Event Display: X-Ray Chest, Non- BH Authored Date: * Event Display: X-Ray Chest, Non- BH Authored Date: Patient Care team information Care Team Personnel Name: Penelope Nichole RN Position: [facility] AMB Nurse Member Role: Primary Care Nurse Name: Marzena Loo MD Position: [facility] Outreach Member Role: PCP Address: [address] [place] [address] Telecom: Name: Carla Galvez RN Position: [facility] RN Member Role: Primary Care Nurse Name: Cait Grant RN Position: [facility] AMB Nurse Member Role: Primary Care Nurse Care Team Related Persons Name: RAMON LEAL Name: CHRISTIANO WALLER Insurance Providers Guarantor name: RICARDO PEREZ Health Plan Information #: 1 Payer: [employer] Payer Identifier: [employer]FI Member Number: [id number] Group Number: [id number] Subscriber Identifier: [id number] Relationship to Subscriber: self Coverage Type: MEDICAID Coverage Verification Date: [employer]FI Telecom: Address:
--- NOTE | ~2024-10-04 | US_ITS ---
CLINICAL HISTORY: recurrent gross hematuria US of retroperitoneum Comparison: None provided Findings: Right kidney is normal in size, echogenicity and morphology, 9.9 cm in length. Several calyceal calculi are present, 3 mm in the midpole, 4 mm and 3 mm in the lower pole, no hydronephrosis or mass. Left kidney is normal in size, echogenicity and morphology, 10.3 cm in length. 3 mm calculus in the upper pole, no hydronephrosis or mass. Limited color Doppler demonstrates unremarkable bilateral blood flow. Urinary bladder is underdistended, suboptimal evaluation, small amount of low-level floating echoes within the bladder, probably debris. Prevoid bladder volume 191 mL, postvoid residual volume of 5 mL, bilateral ureteral jets are seen. No bladder calculus, wall thickening or mass. Impression: 1. Nonobstructing bilateral nephrolithiasis. 2. Small intraluminal debris in the bladder, non-specific, but can be seen in the setting of cystitis, please correlate clinically. This document has been electronically signed by: Joslyn Hidalgo MD on 10/04/2024 16:24:56
--- OUTSIDE RECORDS SUMMARY | 2024-10-04 13:06 | XMS_ITS | Encounter Summary ---
Author Organization [employer] Address [address] [place] [address] 7t [place] [address] Care Team Providers Care International Marketing Manager Name Role Phone Marzena Loo MD Primary Care Provider +- [phone] Vicky Ibarra MD Unavailable [phone] Meka Cuba NP Unavailable Reason for Visit * Reason Comments Med Refill Encounter Details Date Type Department Care Team (Late Contact Info) Description 05/10/[address] [facility] [address] [place] [phone] Dior Forman MD [address] [place] [address] [phone] Social History Tobacco Use Types Packs/Day Years [...] Description 10/20/2024 9:00 AM EDT Office Visit [facility] [address] [place] [address] [phone] Shelly Rodrigues MD [address] [place], [place] [phone] documented as of this encounter Visit Diagnoses Not on filedocumented in this encounter Care Teams International Marketing Manager Relationship Specialty Start Date End Date Marzena Loo MD [address] [place] [address] PCP - General Family Medicine 03/08/18 Vicky Ibarra MD [address] [place] [address] Neurology 03/16/24 Meka Cuba NP [address] [place] [address] Drive [address] [place] [address] Urology 06/27/24 Dr. Erick Pitts [facility] Pulmonology [address] [place] [phone] Pulmonary Disease 03/16/24 [facility] 180 [facility] [address] Optometry 03/16/24 Harish Villafuerte MD Neurology 08/15/24 documented as of this encounter
== END 2024-10-04 12:31 | disposition home or self-care (01) ==
LOC: HO.US 12:30
PROVIDERS: PCP Family Medicine; Visit Provider Family Medicine
DX: R31.9 Hematuria, unspecified (principal)
CPT/HCPCS: 76770

== ENCOUNTER → 2024-10-04 12:32 | Outpatient (BNV) | payer MEDICAID, SELFPAY | PROVIDERS: PCP Family Medicine; Visit Provider Radiology Diagnostic Radiology | DX: N20.0 Calculus of kidney (principal) | CPT/HCPCS: 76770 ==

== ENCOUNTER 2025-01-17 08:58 | Outpatient (REF) | payer MEDICAID, SELFPAY | END 2025-01-17 08:59 | disposition home or self-care (01) | LOC: HO.MAMMO 08:58 | PROVIDERS: PCP Family Medicine; Visit Provider Family Medicine | DX: Z12.31 Encounter for screening mammogram for malignant neoplasm of breast (principal) | CPT/HCPCS: 77063; 77067 ==

== ENCOUNTER → 2025-01-17 09:00 | Outpatient (BNV) | payer MEDICAID, SELFPAY | PROVIDERS: PCP Family Medicine; Visit Provider Radiology Body Imaging | DX: Z12.31 Encounter for screening mammogram for malignant neoplasm of breast (principal) | CPT/HCPCS: 77063; 77067 ==

== ENCOUNTER 2025-01-24 07:34 | Day surgery (SDC) | payer MEDICAID, SELFPAY ==
[2025-01-24 07:56] VITALS: BMI 18.6
[2025-01-24 07:58] VITALS: BP 106/77; PULSE 99; RESP 16; TEMP 36.4; O2SAT 100
[2025-01-24] MEDS: Lactated Ringers 1,000 ML 100 ML IVCONT (08:05)
[2025-01-24 08:16] LABS: UPreg QC Valid YES
--- NOTE | 2025-01-24 08:16 | P.CONAN_ITS ---
Documented by User: Angelic Lopez NP 01/22/25 09:53 HPI - Anesthesia Eval Consult details Narrative: 45yo F for Colonoscopy Follows [facility] for Biopsy-proven sarcoidosis, maintenance as above with infliximab 200 mg every 6 weeks, which equates to about 5 mg/kg and methotrexate 20 mg a week, which is 8 tablets of the 2.5 mg formulation. ?She takes methotrexate on Wednesday. ?She has been on infliximab since 10/2019. Last PFTs were in 2023. ?This noted normal spirometry, normal plethysmography, but a reduced diffusion capacity of 63%. ?Trending out her DLCO, it has been essentially stable since 2019 at 11.40 mL/min/mmHg. Stable at 12/2024 office visit [facility] Active Problems Active Problems: All Active Problems Bilateral kidney stones (Acute) Nephrolithiasis (Acute) Marijuana dependence (Acute) Gross hematuria (Acute) Sarcoidosis (Acute) Pre-op examination (Acute) Alopecia areata (Acute) GERD (gastroesophageal reflux disease) (Acute) Astigmatism (Acute) Depression (Acute) Constipation (Acute) Migraines (Acute) Sickle cell trait (Acute) Interstitial lung disease (Acute) Past Medical History Medical History Sarcoidosis Family History Family History Sister Stomach cancer Sister Cancer Father Stomach cancer Surgical History Surgical History H/O endoscopy Social History Social History Are you a primary physician assistant primary care to a significant other at home: No Do you presently have visiting nurse or other home services: No Patient Tobacco Use Status: Former Tobacco user Second Hand Smoke Exposure: No Use of substances other than those prescribed or required for medical reasons: No Have you been hit, kicked, punched, or otherwise hurt by someone within the past year? If so, by whom?: No Are you DNR?: No Advance Directives: No Advance Directives Information Provided: Yes Advance Directives on File: No Patient : No : No Meds Allergies Allergy/AdvReac Type Severity Reaction Status Date / Time tramadol Allergy Unknown nausea and Verified 09/25/24 08:30 vomiting Home Medications ?Medication ?Instructions ?Recorded ?Confirmed ?Last Taken ?Type loratadine 10 mg tablet 10 mg PO DAILY 06/21/24 Unk nown History methotrexate sodium 2.5 mg tablet 20 mg PO QWEEK 06/21 Unknown History norelgestromin 150 mcg-e.estradiol patch topical 06/21 Unknown History 35 mcg/24 hr weekly transderm patch (Xulane) sumatriptan succinate 50 mg tablet 50 mg PO migraine 0 06/21/24 Unknown History Assessment and Plan Assessment Anesthesia Assessment: Chart Reviewed Documented by User: Mei Jeong DO 01/24/25 08:17 PMFSH Past Medical History Medical History Sarcoidosis Family History Family History Sister Stomach cancer Sister Cancer Father Stomach cancer Family history of problems with anesthesia: No Surgical History Surgical History H/O endoscopy History of Problems with Anesthesia: No Social History Social History Are you a primary physician assistant primary care to a significant other at home: No Do you presently have visiting nurse or other home services: No Patient Tobacco Use Status: Former Tobacco user Second Hand Smoke Exposure: No Use of substances other than those prescribed or required for medical reasons: No Have you been hit, kicked, punched, or otherwise hurt by someone within the past year? If so, by whom?: No Are you DNR?: No Advance Directives: No Advance Directives Information Provided: Yes Advance Directives on File: No Patient : No : No Meds Allergies Allergy/AdvReac Type Severity Reaction Status Date / Time tramadol Allergy Unknown nausea and Verified 09/25/24 08:30 vomiting Home Medications ?Medication ?Instructions ?Recorded ?Confirmed ?Last Taken ?Type loratadine 10 mg tablet 10 mg PO DAILY 06/21/24 Unk nown History methotrexate sodium 2.5 mg tablet 20 mg PO QWEEK 06/21 Unknown History norelgestromin 150 mcg-e.estradiol patch topical 06/21 Unknown History 35 mcg/24 hr weekly transderm patch (Xulane) sumatriptan succinate 50 mg tablet 50 mg PO migraine 0 06/21/24 Unknown History Exam Exam Date and Time: 01/24/25 0815 Height,Weight and Vital Signs: Height 5 ft Weight 43.091 kg Vital Signs Temperature 97.6 F 01/24/25 07:58 Pulse Rate 99 01/24/25 07:58 Respiratory Rate 16 01/24/25 07:58 Blood Pressure 106/77 01/24/25 07:58 Pulse Oximetry 100 01/24/25 07:58 Oxygen Delivery Method Room Air 01/24/25 07:58 Temperature 97.6 F 01/24/25 07:58 Pulse Rate 99 01/24/25 07:58 Respiratory Rate 16 01/24/25 07:58 Blood Pressure 106/77 01/24/25 07:58 Pulse Oximetry 100 01/24/25 07:58 Oxygen Delivery Method Room Air 01/24/25 07:58 Airway Mallampati Class: I TM Dist: >3cm Neck ROM: Full Loose/Missing/Broken Teeth: No (patient denies any loose or broken teeth) Heart: S1S2 Lungs: CTAB Assessment and Plan Assessment Anesthesia Assessment: Anesthesia Plan Discussed and Chart Reviewed Final Anesthetic Review Family History of Problems with Anesthesia: No History of Problems with Anesthesia: No NPO: Yes ASA Class: III Final Preanesthetic Review: No Changes in Pt Med Stat, Meds/Allgs Chart Reviewed, Consent Obtained/Reviewed and Anes Risks/Benef Reviewed Patient Risk: Intermediate Procedure Risk: Low Anesthetic Plan Anesthetic Plan: MAC: and Agree w/ Assess. and Plan Disposition: Standard PACU
--- NOTE | 2025-01-24 09:14 | MHC.SHP ---
Pre-Procedural Eval Section A - 24 Hr Update-Section A only Date of Service: 01/24/25 Section B - Complete if H&P > 30 days Chief Complaint: hx of polyps Relevant Family History (Specify if Yes): No Relevant Social History: Other (specify) Present Medications: see Short Stay Collaborative assessment Medical History: Significant History (Sarcoidosis -interstitial lung disease Sickle cell trait Constipation Depression Glaucoma Astigmatism Migraines GERD Alopecia areata) History of Previous Operations: Relevant previous surgery/procedure and date(s) ( - 2020) Allergies: Allergies Allergy/AdvReac Type Severity Reaction Status Date / Time tramadol Allergy Unknown nausea and Verified 09/25/24 08:30 vomiting Review of Systems Sugical H&P ROS: Negative: Constitution, Cardiovascular, Respiratory, Neurological, Psychiatric, Hem-Onc, Allergic/Immunologic, Gastrointestinal, Genitourinary, Musculoskeletal, Integumentary, Endocrine and Eyes/Ears/Nose/Throat Exam Surgical H&P Exam: Normal: HEENT, Normal: Heart, Normal: Lungs, Normal: Extremities, Normal: Abdomen, Normal: Skin and Normal: Neurological Plan Diagnosis/Plan: Unchanged I have reviewed the history and physical and performed a pertinent physical examination on my patient. No changes have occurred unless specified. Time Spent With Patient Time: Total time managing care of this patient today ____ minutes.
--- NOTE | 2025-01-24 09:41 | HO.OPN-COLON ---
Colonoscopy Operative Note Operative Note Date of Service: 01/24/25 Narrative: Operative Information Procedure Description: Colonoscopy Indication: Hx of polyps Anesthesia: MAC COLONOSCOPY Instrument: Olympus variable stiffness pediatric scope 190L Colonoscopy Monitoring: Vital signs and clinical assessment, continuous EKG monitoring, Pulse oximetry, Carbon Dioxide monitoring and blood pressure monitoring were done throughout the procedure. Colon withdrawal time was 9 minutes. Procedure: The patient was placed in the left lateral decubitis position and pre-procedure medications were administered. After a digital rectal examination of the ano-rectum, the video colonoscope was inserted into the rectum and advanced through the colon to the cecum/TI. The colonoscope was slowly withdrawn in a retrograde panoramic fashion and the colon mucosa was carefully examined including a retroflexed view of the rectum. Findings and interventions are described below. Procedure Difficulty: easy Findings: Terminal Ileum-normal Cecum: 2-3 mm sessile polyp removed with cold forceps Ascending Colon: normal Transverse Colon -normal Descending Colon:normal Sigmoid Colon: normal Rectum: Retroflexion with small internal hemorrhoids seen, grade I Anorectum - normal Intervention: cold forceps Colon preparation: [place] Bowel Preparation Scale Right colon; 2 Transverse colon: 2 Left colon; 2 (0 = Unprepared colon segment with mucosa not seen due to solid stool that cannot be cleared. 1 = Portion of mucosa of the colon segment seen, but other areas of the colon segment not well seen due to staining, residual stool and/or opaque liquid. 2 = Minor amount of residual staining, small fragments of stool and/or opaque liquid, but mucosa of colon segment seen well. 3 = Entire mucosa of colon segment seen well with no residual staining, small fragments of stool or opaque liquid) Impression and Post Procedure Diagnosis: colon polyp x 1 internal hemorrhoids Plan: High fiber diet leaflet Avoid straining at stool, epsom salts and sitz bath, anusol supps or cream Repeat Colonoscopy in 5 years due to polyp or earlier if clinically indicated Above findings were reviewed with the patient and relevant handouts were provided if indicated.
[2025-01-24 09:47] VITALS: BP 91/52; PULSE 93; RESP 16; TEMP 36.9; O2SAT 98
[2025-01-24 09:52] VITALS: BP 98/68; PULSE 94; RESP 21; TEMP 36.6; O2SAT 98
== END 2025-01-24 10:23 | disposition home or self-care (01) ==
PROVIDERS: Anesthesiology; Nurse Practitioner; PCP Family Medicine; Visit Provider Internal Medicine Gastroenterology
PROC: 0DJD8ZZ Inspection of Lower Intestinal Tract, Via Natural or Artificial Opening Endoscopic (ICD-10-PCS; CPT 45378; principal; 2025-01-24 08:30)
DX: Z12.11 Encounter for screening for malignant neoplasm of colon (principal); Z86.0101 Personal history of adenomatous and serrated colon polyps; K59.00 Constipation, unspecified; K64.0 First degree hemorrhoids; D12.0 Benign neoplasm of cecum
CPT/HCPCS: 45380; 36415; 81025; 84702; 88305; J2704

== ENCOUNTER → 2025-01-24 07:34 | Outpatient (BNV) | payer MEDICAID, SELFPAY | PROVIDERS: PCP Family Medicine; Visit Provider Internal Medicine Gastroenterology | DX: Z12.11 Encounter for screening for malignant neoplasm of colon (principal); K63.5 Polyp of colon; K64.0 First degree hemorrhoids | CPT/HCPCS: 45380 ==

== ENCOUNTER 2025-02-08 08:34 | Outpatient (AMB) | payer MEDICAID, SELFPAY ==
--- NOTE | 2025-02-08 08:35 | MHC.OFFVIS ---
Vital Signs 02/08/25 08:41 Height 5 ft Weight 92 lb BMI 18.0 BP 112/70 Blood Pressure Location Rt brachial Position Sitting Respiration 16 Pulse 76 Pulse Source Pulse Oximeter Pulse Oximetry (%) 99 Oxygen Delivery Method Room Air Intake Visit Reasons: ENP-Migraine Medical Lab Technician Required: No Allergies tramadol Allergy (Unknown, Verified 02/08/25 08:43) nausea and vomiting HPI Comments Details: Leila is a 45-year-old female patient with a past medical history of anemia, asthma, kidney stones, interstitial lung disease, pulmonary sarcoidosis, migraine headaches, sleep difficulty, depression, and possible history of neurosarcoidosis who is presenting today for headache evaluation. According to referral notes, she is on immunosuppressive therapy for her sarcoidosis (methotrexate 20 mg weekly) and has had increasing headaches associated with nausea and vomiting worse over the course of the last month. She did have an MRI of the brain 02/03/2023 with findings concerning for possible neurosarcoidosis (MRI completed at [facility] and no report available). The patient tells me today that she has had headaches for a long time beginning at onset of menses. Her headaches have waxed and waned throughout her life but approximately 1 month ago her headaches started to increase. She has been experiencing headaches on average 21 more days per month some of which can last 2-3 days at a time. Headaches are often unilateral but can be bilateral and vary in location. Most often, her headaches are left occipital or right retro-orbital. She does have accompanying light sensitivity and loss of appetite but she denies nausea specifically. She also denies any sensitivity to sound that she is aware of. She denies any dizziness but does note some worsening of her vision during intense headaches. She does have chronically blurred vision due to history of cataracts. She is following with Ophthalmology. She notes that her mother does have a history of brain tumor and she is very nervous about her family history. She has not had any brain imaging since 2022. She has been using Excedrin daily for several months up to 6 tabs per day. This is no longer helping her headache. She is not using Tylenol or ibuprofen at this time but has tried them and without benefit. Headache characteristics: Time of onset: Waxing and waning over course of life onset at menses but worse over the course of the last month Location: Variable but predominantly right retro-orbital and left occipital Radiation: No Positional component: No Character: Throbbing Severity: Variable but can reach 10/10 a few times per week Duration: Can last up to 2 days Frequency: 20 or more days per month Acute aggravating factors: Light Acute relieving factors: Darkness Associated symptoms: Light sensitivity and loss of appetite. 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 Patient states that this was at [facility] and there was question of possible neurosarcoidosis. [facility] Medical History (Updated 02/08/25 @ 09:25 by Chrissy Watts CNP) Depression Alopecia areata Neurosarcoidosis Migraines Sarcoidosis Surgical History H/O endoscopy Family History Sister Stomach cancer Sister Cancer Father Stomach cancer Social History Are you a primary managed care specialist to a significant other at home: No Do you presently have visiting nurse or other home services: No Patient Tobacco Use Status: Former Tobacco user Second Hand Smoke Exposure: No Review of Systems Const All systems reviewed & are unremarkable except as noted in HPI and below Physical Exam Vital Signs: Last Vital Signs Pulse 76 02/08/25 08:41 Resp 16 02/08/25 08:41 BP 112/70 02/08/25 08:41 Pulse Ox 99 02/08/25 08:41 Oxygen Delivery Method Room Air 02/08/25 08:41 BMI result Body Mass Index 18.0 Const General: cooperative, healthy appearing, comfortable and no acute distress Nutritional Appearance: well nourished Orientation/consciousness: patient oriented x3 Limitations: no limitations HEENT Head: Yes normal to inspection and Yes normocephalic Eyes General: appearance normal, both eyes and all related structures Visual Blue: normal visual blue by confrontation Alignment and Position: alignment normal Periorbital: periorbital findings normal Eyelids: Yes eyelids normal Conjunctivae: conjunctivae normal Sclerae: sclerae normal Direct Ophthalmoscopy: normal light reflex Back/Spine/Pelvis Other: Bilateral lower trapezius trigger points Neuro General: patient oriented x3, tone normal and deep tendon reflexes 2+ bilaterally Cranial nerves: Yes CN's II-XII intact bilaterally and Yes Facial sensation intact/muscles of mastication intact Cognition (Neuro): normal cognition Gait exam (Neuro): Normal gait present Motor exam (neuro): 5/5 motor strength present throughout and no tremor noted Sensory Exam: double simultaneous stimulation for sensation normal Romberg Test: Negative Pupils: Normal pupillary reactivity/response: bilateral Psych Appearance: grossly normal Mental Status: mental status grossly normal Speech and movement: Normal speech and movement present and Clear speech present Affect: normal affect Attitude: cooperative Thought process: Normal thought process present Thought content: Normal thought content present Insight: Good insight present (Psych) Judgement: Good judgement present (Psych) Assessment & Plan Assessment & Plan (1) Sarcoidosis: Code(s): D86.9 - Sarcoidosis, unspecified Category: Medical (2) Migraine without aura and without status migrainosus, not intractable: Code(s): G43.009 - Migraine without aura, not intractable, without status migrainosus Category: Medical (3) Trigger point of shoulder region: Code(s): M25.519 - Pain in unspecified shoulder Category: Medical (4) Medication overuse headache: Code(s): G44.40 - Drug-induced headache, not elsewhere classified, not intractable Category: Medical (5) Worsening headaches: Code(s): R51.9 - Headache, unspecified Category: Medical (6) Neurosarcoidosis: Code(s): D86.89 - Sarcoidosis of other sites Category: Medical Plan Leila is a 45-year-old female patient with a past medical history of anemia, asthma, kidney stones, interstitial lung disease, pulmonary sarcoidosis, migraine headaches, sleep difficulty, depression, and possible history of neurosarcoidosis who is presenting today for headache evaluation. Headaches are likely migraine with a tension component as she does have obvious trigger points to her lower trapezius muscles bilaterally on exam. She does not however have any occipital notch tenderness. She does have a possible history of neurosarcoidosis found on an MRI in 2022. Given that she has worsening of headaches I will repeat her MRI scan with and without contrast given her history. Medication overuse is also a concern given that she has been using Excedrin daily for months taking up to 6 tablets per day. She was educated on medication overuse and was advised to slowly taper the Excedrin use. Starting on the amitriptyline and magnesium will likely help in this effort. -start amitriptyline 10 mg at bedtime -start magnesium 400 mg at bedtime -reduce the use of Excedrin and patient was educated on medication overuse headache which is likely playing a role -MRI brain with and without contrast for history of neurosarcoidosis and worsening headaches -retrieve MRI report from [facility] Orders: Orders MR head/brain wo/w con Today D86.89 - Sarcoidosis of other sites, R51.9 - Headache, unspecified Medications: New magnesium oxide 400 mg PO DAILY 90 tabs 3RF 90 days amitriptyline 10 mg PO BEDTIME 30 tabs 5RF Coding Level of Care Code New Pt Level 4 (82520) Diagnoses Sarcoidosis D86.9 Migraine without aura and without status migrainosus, not intractable G43.009 Trigger point of shoulder region M25.519 Medication overuse headache G44.40 Worsening headaches R51.9 Neurosarcoidosis D86.89
[2025-02-08 08:41] VITALS: BP 112/70; PULSE 76; RESP 16; O2SAT 99; BMI 18.0
--- OUTSIDE RECORDS SUMMARY | 2025-02-08 09:21 | XMS_ITS | Encounter Summary ---
Author Organization [employer] Address [address] [facility] [address] [place] [address] Care Team Providers Care Gis Developer Name Role Phone Marzena Loo MD Primary Care Provider Vicky Ibarra MD Unavailable Meka Cuba NP Unavailable June Unavailable Reason for Visit * Reason Comments Med Refill Encounter Details Date Type Department Care Team (Late st Contact Info) Description 05/10/2023 Refill [facility] [address] [place], [place] [phone] Dior Forman MD [address] [place], [place] [phone] Social History Tobacco Use Types Packs/Day Years [...] Care Team (Late st Contact Info) Description 02/16/2025 1:00 PM EST Office Visit [facility] [address] [place], [place] [phone] Shelly Rodrigues MD [address] [place] [address] 03/12/2025 9:00 AM EST Office Visit [facility] [address] [place] [address] Marzena Loo MD [address] [place], [place] [phone] documented as of this encounter Visit Diagnoses Not on filedocumented in this encounter Care Teams Gis Developer Relationship Specialty Start Date End Date Marzena Loo MD [address] [place], [place] [phone] PCP - General Family Medicine 03/08/18 Vicky Ibarra MD [address] [place] [address] [address] [place] [address] Neurology 03/16/24 Meka Cuba NP [address] [place] [address] Urology 06/27/24June [address]rd [place] [address] Gastroenterology 01/22/25 Dr. Erick Pitts [facility] Pulmonology [address] [address] Pulmonary Disease 03/16/24 [facility] [address] [facility] [address] Optometry 03/16/24 Harish Villafuerte MD Neurology 08/15/24 documented as of this encounter
--- OUTSIDE RECORDS SUMMARY | 2025-02-08 09:21 | XMS_ITS | Encounter Summary ---
Author Organization [employer] Address [address] [facility] [address] [place] [address] Care Team Providers Care Career Resource Specialist Name Role Phone Marzena Loo MD Primary Care Provider [phone] Vicky Ibarra MD Unavailable [phone] Meka Cuba NP Unavailable June Unavailable Encounter Details Date Type Department Care Team (Late st Contact Info) Description 01/30/2022 Abstract [facility] [address] [place], [place] [phone] Marzena Loo MD [address] [place] [phone] Social History Tobacco Use Types Packs/Day Years [...] Description 02/16/2025 1:00 PM EST Office Visit [facility] [address] [place], [place] [phone] Shelly Rodrigues MD [address] [place] [phone] 03/12/2025 9:00 AM EST Office Visit [facility] [address] [place] [address] Marzena Loo MD [address] [place] [address] documented as of this encounter Visit Diagnoses Not on filedocumented in this encounter Care Teams Career Resource Specialist Relationship Specialty Start Date End Date Marzena Loo MD [address] [place] [address] PCP - General Family Medicine 03/08/18 Vicky Ibarra MD [address] [place] [address] Neurology 03/16/24 Meka Cuba NP [address] [place] [address] Urology 06/27/24June [address] [facility] 3rd [place] [address] Gastroenterology 01/22/25 Dr. Erick Pitts [facility] Pulmonology [address] [address] Pulmonary Disease 03/16/24 [facility] [address] [facility] [address] Optometry 03/16/24 Harish Villafuerte MD Neurology 08/15/24 documented as of this encounter
--- OUTSIDE RECORDS SUMMARY | 2025-02-08 09:21 | XMS_ITS | Encounter Summary ---
Author Organization [employer] Address 75 [facility] 7t [place] [address] Care Team Providers Care Drapery Hanger Name Role Phone Marzena Loo MD Primary Care Provider Vicky Ibarra MD Unavailable Meka Cuba NP Unavailable June Unavailable Encounter Details Date Type Department Care Team (Late st Contact Info) Description 01/24/2025 Orders Only [facility] [address] [place], [place] [phone] Marzena Loo MD 230 [place], [place] [phone] Social History Tobacco Use Types Packs/Day Years Used Date Smoking Tobacco: Former Cigarettes Q uit: 2020 Smokeless Tobacco: Never Alcohol Use Standard Drinks/Week Comments Never 0 (1 standard drink = 0.6 oz pur e alcohol) Depression Answer Date Recorded Patient Health Questionnaire-9 Score 5 01/22/2025 Patient Health Questionnaire-9 Score 5 01/22/2025 Last PHQ-9: Questionnaire Data Not on file 1 03/24/2024 Housing Stability Answer Date Recorded What is your housing situation today? I have dean figueroa 01/22/[address] you li ve. Do you have problems with any of the following? None of the above 01/22/2025 Food Insecurity Answer Date Recorded Within the past 12 months, y ou worried that your food would run out before you got money to buy more: Never True 01/22/2025 Within the past 12 months,th e food you bought just didn't last and you didn't have enough money to get more: Never True Transportation Answer Date Recorded In the past 12 months, has l ack of transportation kept you from medical appts, meetings, work or from getting things needed for daily living? No 01/22/2025 Utilities Answer Date Recorded In the past 12 months, has t he electric, gas, oil or water company threatened to shut off services in your home? No 01/22/2025 Depression Answer Date Recorded Patient Health Questionnaire-2 Score 1 01/22/2025 Internet Access Answer Date Recorded Internet Access Q1 No 01/22/2025 Internet Access Q2 I do not want or need it 01/06 Comments Unknown Sex and Gender Information Value [...] Description 02/16/2025 1:00 PM EST Office Visit [facility] [address] [place] [address] Shelly Rodrigues MD [address] [place] [address] 03/12/2025 9:00 AM EST Office Visit [facility] [address] [place] [address] Marzena Loo MD [address] [place] [address] documented as of this encounter Procedures Procedure Name Priority Date/Time Associated Diagnosis Comments HEMATOXYLIN AND EOSIN STAIN Routine 01/24/2025 9:40 AM EST documented in this encounter Results * Hematoxylin and Eosin Stain (01/24/2025 9:40 AM EST) 01/24/2025 9:40 AM EST 01/24/2025 12:43 PM EST [facility] - 01/25/2025 2:57 PM EST ----- ------- Name: Vipin Leila Bocanegra Age/Sex: 45/F : 1980 Unit#: [id number] Attend Dr: Denise Zamora MD Re01/24/25 Status: [facility] Location: [facility] Disch: ----- ------- SPEC : [id number] RECD: 01/24/25 STATUS: DALTONRamona DELANEY NUM: [id number] SWETA: 01/24/2540 [facility] DR: Denise Zamora MD ENTERED: 01/24/25-0876 SP TYPE: Surgical OTHR DR: Marzena Loo MD ORDERED: HE Stain/3, Gross Micro L4 Diagnosis Cecum, polypectomy: Tubular adenoma; negative for high-grade dysplasia or carcinoma. Clinical History Pre-Op Dx: Hx of polyp Post-Op Dx: Internal hemorrhoids, cecal polyp Microscopic Description Microscopic sections reviewed. Material Received Cecal polyp Gross Description Received in formalin labeled cecal polyp is a fragment of dimas-white soft tissue measuring 0.4 cm in greatest dimension which is wrapped in lens paper and entirely submitted for microscopic examination, 1 piece in cassette A. ([facility]) IHC S/NG Disclaimer NOTE: Unless otherwise stated, all tissue is formalin-fixed and paraffin-embedded. Some or all of the immunohistochemical tests reported herein may have been developed and their performance characteristics determined by [facility]. They have not been cleared or approved by the U.S. Food and Drug Administration (FDA). However, the FDA has determined that such clearance or approval is not necessary. This laboratory is certified under the Clinical Laboratory Improvement Amendments of 1988 (CLIA) as qualified to perform high complexity clinical laboratory testing. Copies To: Marzena Loo MD [address] [phone] Denise Zamora MD [facility] [address] [place] [phone] CONTINUED ON NEXT PAGE ----- ------- Name: Leila Fernandez Age/Sex: 45/F : 1980 Unit#: [id number] Attend Dr: Denise Zamora MD Re01/24/25 Status: [facility] Location: [facility] Disch: ----- ------- SPEC : [id number] RECD: 01/24/25 STATUS: EMY BALTAZAR NUM: [id number] SWETA: 01/24/[address]: Denise Zamora MD ENTERED: 01/24/255181 SP TYPE: Surgical OTHR DR: Marzena Loo MD ORDERED: HE Stain/3, Gross Micro L4 Copies To: (Continued) [phone] ----- ------- Signed (signature on file) Prakash Kaufman MD 01/25/25 1457 ----- ------- END OF REPORT us Generic External Data Provider LAB BLOOD ORDERAB LES Final Result [facility] [address] [place] [address] [phone] documented in this encounter Visit Diagnoses Not on filedocumented in this encounter Additional Health Concerns Assessment Noted Time PHQ-9 Depression Total Score: 5 01/23/20 25 10:25 AM EST documented as of this encounter Care Teams Drapery Hanger Relationship Specialty Start Date End Date Marzena Loo MD [address] [place] [address] PCP - General Family Medicine 03/08/18 Vicky Ibarra MD [address] [place] [address] [facility] [place] [address] Neurology 03/16/24 Meka Cuba NP [address] [place] [phone] Urology 06/27/24 [address] 3rd [place] [address] Gastroenterology 01/22/25 Dr. Erick Pitts [facility] Pulmonology [address] [address] Pulmonary Disease 03/16/24 [facility] 180 [facility] [address] Optometry 03/16/24 Harish Villafuerte MD Neurology 08/15/24 documented as of this encounter
--- OUTSIDE RECORDS SUMMARY | 2025-02-08 09:21 | XMS_ITS | Encounter Summary ---
Author Organization [employer] Address 75 [facility] 7t [place] [address] Care Team Providers Care Rfid Engineer Name Role Phone Marzena Loo MD Primary Care Provider Vicky Ibarra MD Unavailable [phone] Meka Cuba NP Unavailable June Unavailable Reason for Visit * Reason Comments Med Refill Encounter Details Date Type Department Care Team (Late st Contact Info) Description 04/14/2024 Refill [facility] 230 [place], [place] [phone] Marzena Loo MD 230 [place], [place] [phone] Social History Tobacco Use Types Packs/Day Years [...] Description 02/16/2025 1:00 PM EST Office Visit [facility] [address] [place] [address] Shelly Rodrigues MD [address] [place] [address] 03/12/2025 9:00 AM EST Office Visit [facility] [address] [place] [address] Marzena Loo MD [address] [place] [address] documented as of this encounter Visit Diagnoses Not on filedocumented in this encounter Additional Health Concerns Assessment Noted Time PHQ-9 Depression Total Score: 3 01/12/20 24 12:28 PM EST documented as of this encounter Care Teams Rfid Engineer Relationship Specialty Start Date End Date Marzena Loo MD [address] [place] [address] PCP - General Family Medicine 03/08/18 Vicky Ibarra MD [address] [place] [address] [address] [place] [address] Neurology 03/16/24 Meka Cuba NP [address] [place] [address] Urology 06/27/24June [address] 3rd [place] [address] Gastroenterology 01/22/25 Dr. Erick Pitts [facility] Pulmonology [address] [address] Pulmonary Disease 03/16/24 [facility] 180 [facility] [address] Optometry 03/16/24 Harish Villafuerte MD Neurology 08/15/24 documented as of this encounter
--- OUTSIDE RECORDS SUMMARY | 2025-02-08 09:21 | XMS_ITS | Encounter Summary ---
Author Organization [employer] Address [address] [facility] 7t [place] [address] Care Team Providers Care Cmo Name Role Phone Marzena Loo MD Primary Care Provider + [phone] Vicky Ibarra MD Unavailable Meka Cuba NP Unavailable June Unavailable Encounter Details Date Type Department Care Team (Latest Contact Info) Description 01/24/2025 Results Follow-Up [facility] MED[facility]INE 230 [place], [place] [phone] Marzena Loo MD 230 [place] [address] HCG, Qualitative, Urine, hCG, Total, Quantitative Social History Tobacco Use Types Packs/Day Years [...] Description 02/16/2025 1:00 PM EST Office Visit [facility] [address] [place] [address] Shelly Rodrigues MD [address] [place] [address] 03/12/2025 9:00 AM EST Office Visit [facility] [address] [place] [address] Marzena Loo MD [address] [place] [address] documented as of this encounter Visit Diagnoses Not on filedocumented in this encounter Additional Health Concerns Assessment Noted Time PHQ-9 Depression Total Score: 5 01/23/20 25 10:25 AM EST documented as of this encounter Care Teams Cmo Relationship Specialty Start Date End Date Marzena Loo MD [address] [place] [address] PCP - General Family Medicine 03/08/18 Vicky Ibarra MD [address] [place] [address] [address] [place] [address] Neurology 03/16/24 Meka Cuba NP [address] [place] [address] Urology 06/27/24June 11 [facility] 3rd [place] [address] Gastroenterology 01/22/25 Dr. Erick Pitts [facility] Pulmonology [address] [address] Pulmonary Disease 03/16/24 [facility] 180 [facility] [address] Optometry 03/16/24 Harish Villafuerte MD Neurology 08/15/24 documented as of this encounter
--- OUTSIDE RECORDS SUMMARY | 2025-02-08 09:21 | XMS_ITS | Encounter Summary ---
Author Organization [employer] Address 75 [facility] 7t [place] [address] Care Team Providers Care Logistics Team Lead Name Role Phone Marzena Loo MD Primary Care Provider Vicky Ibarra MD Unavailable Meka Cuba NP Unavailable June Unavailable Reason for Visit * Reason Comments Med Refill Encounter Details Date Type Department Care Team ([facility] st Contact Info) Description 05/05/2022 Refill [facility] MEDICINE 230 [place], [place] [phone] Marzena Loo MD 230 [place], [place] [phone] Social History Tobacco Use Types Packs/Day Years [...] Description 02/16/2025 1:00 PM EST Office Visit [address] [address] Shelly Rodrigues MD 230 [place] [address] 03/12/2025 9:00 AM EST Office Visit [facility] 230 [place] [address] [place] [address] documented as of this encounter Visit Diagnoses Not on filedocumented in this encounter Care Teams Logistics Team Lead Relationship Specialty Start Date End Date Marzena Loo MD [address] [place] [address] PCP - General Family Medicine 03/08/18 Vicky Ibarra MD [address] [place] [address] 140 [place] [address] Neurology 03/16/24 Meka Cuba NP [address] [place] [address] Urology 06/27/24June [address] 3rd [place] [address] Gastroenterology 01/22/25 Dr. Erick Pitts [facility] Pulmonology [address] [place] [address] Pulmonary Disease 03/16/24 [facility] 180 [facility] [address] Optometry 03/16/24 Harish Villafuerte MD Neurology 08/15/24 documented as of this encounter
--- OUTSIDE RECORDS SUMMARY | 2025-02-08 09:21 | XMS_ITS | Encounter Summary ---
Author Organization [employer] Address 75 [facility] 7t [place] [address] Care Team Providers Care Operating Room Registered Nurse Name Role Phone Marzena Loo MD Primary Care Provider Vicky Ibarra MD Unavailable [phone] Meka Cuba NP Unavailable June Unavailable Reason for Visit * Reason Comments Med Refill Encounter Details Date Type Department Care Team (Late st Contact Info) Description 01/18/2025 Refill [facility] 230 [place] [address] Penelope Leong FNP [address] [place], [place] [phone] Social History Tobacco Use Types Packs/Day Years [...] Description 02/16/2025 1:00 PM EST Office Visit [facility] [address] [place] [address] Shelly Rodrigues MD [address] [place] [address] 03/12/2025 9:00 AM EST Office Visit [facility] [address] [place] [address] Marzena Loo MD [address] [place] [address] documented as of this encounter Visit Diagnoses Not on filedocumented in this encounter Additional Health Concerns Assessment Noted Time PHQ-9 Depression Total Score: 3 01/12/20 24 12:28 PM EST documented as of this encounter Care Teams Operating Room Registered Nurse Relationship Specialty Start Date End Date Marzena Loo MD [address] [place] [address] PCP - General Family Medicine 03/08/18 Vicky Ibarra MD [address] [place] [address] 140 [place] [address] Neurology 03/16/24 Meka Cuba NP [address] [place] [address] Urology 06/27/24June [address] 3rd [place] [address] Gastroenterology 01/22/25 Dr. Erick Pitts [facility] Pulmonology [address] [address] Pulmonary Disease 03/16/24 [facility] 180 [facility] [address] Optometry 03/16/24 Harish Villafuerte MD Neurology 08/15/24 documented as of this encounter
--- OUTSIDE RECORDS SUMMARY | 2025-02-08 09:21 | XMS_ITS | Encounter Summary ---
Author Organization [employer] Address 75 [facility] 7t [place] [address] Care Team Providers Care Auto Bumper Mechanic Name Role Phone Marzena Loo MD Primary Care Provider [phone] Vicky Ibarra MD Unavailable Meka Cuba NP Unavailable June Unavailable Reason for Visit * Reason Onset Date Comments Appointment Request 05/08/2022 Encounter Details Date Type Department Care Team (Late st Contact Info) Description 05/08/2022 Telephone [facility]INE 230 [place], [place] [phone] Marzena Loo MD 230 [place], [place] [phone] Appointment Request Social History Tobacco Use Types [...] Miscellaneous Notes * Telephone Encounter - Prema Lynch - 05/08/2022 11:21 AM EST Tc from pt wanting to schedule an appt with the derm. Please contact pt at [phone] documented in this encounter Plan of Treatment Upcoming Encounters Date Type Department Care Team (Late st Contact Info) Description 02/16/2025 1:00 PM EST Office Visit [address] [address] Shelly Rodrigues MD [address] [place] [address] 03/12/2025 9:00 AM EST Office Visit [address] [address] Marzena Loo MD [address] [place] [address] documented as of this encounter Visit Diagnoses Not on filedocumented in this encounter Care Teams Auto Bumper Mechanic Relationship Specialty Start Date End Date Marzena Loo MD [address] [place] [address] PCP - General Family Medicine 03/08/18 Vicky Ibarra MD [address] [place] [address] Dr Crews 140 [place] [address] Neurology 03/16/24 Meka Cuba NP [address] [place] [address] Urology 06/27/24June [address] 3rd [place] [address] Gastroenterology 01/22/25 Dr. Erick Pitts [facility] Pulmonology [address] [address] Pulmonary Disease 03/16/24 [facility] [address] [place] [address] Optometry 03/16/24 Harish Villafuerte MD Neurology 08/15/24 documented as of this encounter
--- OUTSIDE RECORDS SUMMARY | 2025-02-08 09:21 | XMS_ITS | Encounter Summary ---
Author Organization [employer] Address 75 [facility] 7t [place] [address] Care Team Providers Care Oil Recovery Unit Operator Name Role Phone Marzena Loo MD Primary Care Provider + [phone] Vicky Ibarra MD Unavailable Meka Cuba NP Unavailable June Unavailable Encounter Details Date Type Department Care Team (Late st Contact Info) Description 04/13/2024 Orders Only [facility] MEDICINE 230 [place], [place] [phone] Marzena Loo MD 230 [place], [place] [phone] Social History Tobacco Use Types Packs/Day Years [...] Description 02/16/2025 1:00 PM EST Office Visit [facility] [address] [place] [address] Shelly Rodrigues MD [address] [place] [address] 03/12/2025 9:00 AM EST Office Visit [facility] [address] [place] [address] Marzena Loo MD [address] [place] [address] documented as of this encounter Visit Diagnoses Not on filedocumented in this encounter Additional Health Concerns Assessment Noted Time PHQ-9 Depression Total Score: 3 01/12/20 24 12:28 PM EST documented as of this encounter Care Teams Oil Recovery Unit Operator Relationship Specialty Start Date End Date Marzena Loo MD [address] [place] [address] PCP - General Family Medicine 03/08/18 Vicky Ibarra MD [address] [place] [address] 140 [place] [address] Neurology 03/16/24 Meka Cuba NP [address] [place] [address] Urology 06/27/24June [address] 3rd [place] [address] Gastroenterology 01/22/25 Dr. Erick Pitts [facility] Pulmonology [address] [address] Pulmonary Disease 03/16/24 [facility] 180 [facility] [phone] Optometry 03/16/24 Harish Villafuerte MD Neurology 08/15/24 documented as of this encounter
--- OUTSIDE RECORDS SUMMARY | 2025-02-08 09:22 | XMS_ITS | Clinical Summary ---
Author Organization [employer] Address [address] [place] [address] Care Team Providers Care Vice President Business Development Name Role Phone Marzena Loo MD Primary Care Provider [phone] Vicky Ibarra MD Unavailable [phone] Meka Cuba NP Unavailable June Unavailable Allergies Active Allergy Reactions Criticality Noted Date Comments Tramadol Unknown 10/11/2018 Medications baricitinib (Olumiant) 2 MG tabletIndicati ons:Alopecia areata Take 1 tablet (2 mg) by mouth in the morning. 30 tablet 3 10/17/19 23 Active loratadine (Claritin) 10 MG tabletIndicati ons:Seasonal allergies TAKE 1 TABLET BY MOUTH EVERY DAY 90 tablet 1 01/11/20 24 Active methotrexate 2.5 MG tabletIndicati ons:Sarcoidosi s TAKE 8 TABLETS BY MOUTH EVERY WEDNESDAY Active SUMAtriptan (Imitrex) 50 MG tabletIndicati ons:Acute intractable headache, unspecified headache type TAKE 1 TABLET BY MOUTH AT ONSET OF MIGRAINE, MAY REPEAT ONCE IN 4 HOURS, DO NOT EXCEED 2 TABLETS / 24 HOURS 12/08/19 24 Active inFLIXimab (Remicade) 100 MG injectionIndic ations:Sarcoid osis Infuse into a venous catheter. Per pulmonology Active folic acid (Folvite) 1 MG tabletIndicati ons:Sarcoidosi s Take by mouth Once per day. 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 Active norelgestromin -ethinyl estradiol (Xulane) 150-35 MCG/24HRIndica tions:Family planning Apply 1 patch each week for 3 weeks, then remove for 1 week. 3 patch 12 04/13/19 25 025 Discontinued(M ed list cleanup (will not trigger notification to Pharmacy)) tamsulosin (Flomax) 0.4 MG 24 hr capsule Take 1 capsule (0.4 mg) by mouth Once per day. 30 capsule 05/09/19 25 025 Discontinued(M ed list cleanup (will not trigger notification to Pharmacy)) naproxen (Naprosyn) 250 MG tablet Take 1-2 tablets (250-500 mg) by mouth if needed in the morning and at bedtime (pain). 30 tablet 1 12/14/19 025 Discontinued(M ed list cleanup (will not trigger notification to Pharmacy)) Hospital, Clinic, or Other Facility Administered Medication Ordered Dose Route Frequency Start Date End Date Status medroxyPROGESTERone (Depo-Provera) injection 150 mgIndications:Depo- Provera contraceptive status 150 mg IM Every 3 months 01/28/2024 Discontinued Active Problems Problem Noted Date Diagnosed Date Tubular adenoma 01/26/2025 Overview (01/26/2025): Tubular adenoma on colonoscopy with Dr. 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 Further work up indicated. Pt with sarcoidosis, on immunosuppressive therapy with chronic headaches associated nausea and vomiting in setting of [...] improved symptoms. In fact they are worsening. She also reports spasms in hand sand feet. -mri brain ordered 02/03/23 MRI with findings concerning or possible neurosarcodiosis. -she was referred to neurology 02/10/23 -Seen by neurologist Dr. Ibarra 03/2023 he wanted to review MRI prior to diagnosis with possible neruosarcoidosis, gave trial of sumatriptan, recommended f/u 6 weeks -she has not been able to restablish with neruology despite multiple calls. She would like to try [facility] due to her specialists are there. I sent referral and they recommend pt go to the ER, she is stable without current pain, will call and see if they can schedule her. -Continued headaches. referred to neuro again 01/22/25 Assessment & Plan (01/22/2025 10:38 AM EST): Not formally diagnosed but high suspicion. Further work up indicated. Pt with sarcoidosis, on immunosuppressive therapy with chronic headaches associated nausea and vomiting in setting of [...] improved symptoms. In fact they are worsening. She also reports spasms in hand sand feet. -mri brain ordered 02/03/23 MRI with findings concerning or possible neurosarcodiosis. -she was referred to neurology 02/10/23 -Seen by neurologist Dr. Ibarra 03/2023 he wanted to review MRI prior to diagnosis with possible neruosarcoidosis, gave trial of sumatriptan, recommended f/u 6 weeks -she has not been able to restablish with neruology despite multiple calls. She would like to try [facility] due to her specialists are there. I sent referral and they recommend pt go to the ER, she is stable without current pain, will call and see if they can schedule her. -Continued headaches. referred to neuro again 01/22/25 Orders: Referral to Neurology; Future Assessment & Plan (08/09/2024 9:46 AM EDT): Not formally diagnosed but high suspicion. Further work up indicated. Pt with sarcoidosis, on immunosuppressive therapy with chronic headaches associated nausea and vomiting in setting of [...] improved symptoms. In fact they are worsening. She also reports spasms in hand sand feet. -mri brain ordered 02/03/23 MRI with findings concerning or possible neurosarcodiosis. -she was referred to neurology 02/10/23 -Seen by neurologist Dr. Ibarra 03/2023 he wanted to review MRI prior to diagnosis with possible neruosarcoidosis, gave trial of sumatriptan, recommended f/u 6 weeks -she has not been able to restablish with neruology despite multiple calls. She would like to try [facility] due to her specialists are there. Generalized abdominal pain 05/09/2024 Overview (05/09/2024): -CT in ER 05/08/24 IMPRESSION: There are nonobstructing bilateral renal calculi. Stable mild hydronephrosis of the right kidney. Opacity of the bilateral lung base concerning for pneumonia. Clinical correlation is recommended. Acute cystitis with hematuria 05/08/2024 Overview (10/04/2024): -Note from Dr. Alamo urology 09/27/24 Cystoscopy findings: thrombosed prominent vasculature, no suspicious bladder lesions visualized. History of tobacco use. Quit 5 years ago. Repeat urine cytology Follow-up with nurse practitioner in 9 months, monitor kidney stones and microscopic hematuria monitoring. -US 10/04/24 1. Nonobstructing bilateral nephrolithiasis. 2. Small intraluminal debris in the bladder, non-specific, but can be seen in the setting of cystitis, please correlate clinically. Assessment & Plan (05/08/2024 5:51 PM EST): [...] symptoms do not resolve Hematuria 05/08/2024 Overview (08/09/2024): CT scan abdomen and pelvis at [facility] on 05/07/2024: nonobstructing bilateral renal calculi. Stable mild hydronephrosis of the right kidney. -seen by [facility] urology 06/23/2024 -urine cytology negative for malignancy Assessment & Plan (08/09/2024 9:52 AM EDT): CT scan abdomen and pelvis at [facility] on 05/07/2024: nonobstructing bilateral renal calculi. Stable mild hydronephrosis of the right kidney. -seen by [facility] urology 06/23/2024 -urine cytology negative for malignancy Assessment & Plan (05/08/2024 5:52 PM EST): Most likely related to kidney stones, see above Kidney stones 05/08/2024 Failure to thrive in adult 04/13/2024 Overview (04/13/2024): Due to increased metabolic [...] Hodge for glaucoma -Dr. Vick Machado of [facility] -Pulmonology (lung doctor) [facility] [phone] -Neurology (brain doctor) Dr. Vicky Ibarra, [facility] [phone] Assessment & Plan (04/13/2024 12:01 PM EST): Team includes: -Dr. Hodge [facility] [place] with Dr. Hodge for glaucoma -Dr. Vick Machado of [facility] -Pulmonology (lung doctor) [facility] [phone] -Neurology (brain doctor) Dr. Vicky Ibarra, [facility] [phone] Colon cancer screening 04/14/2023 Overview (06/21/2024): -pt [...] for colonoscopy Acute intractable headache 02/01/2023 Overview (08/09/2024): See neurosarcoidosis dx Assessment & Plan (08/09/2024 9:46 AM EDT): See neurosarcoidosis dx Assessment & Plan (04/13/2024 11:57 AM EST): [...] to neurology 02/10/23 Ml note to pulmonology [facility]. 02/10/23 pt repots pain improved. Seen [...] to neurology 02/10/23 Ml note to pulmonology [facility]. 02/10/23 pt repots pain improved. Seen [...] to neurology 02/10/23 Ml note to pulmonology [facility]. 02/10/23 pt repots pain improved. Other specified health status 01/16/2023 Overview (01/12/2024): -next comprehensive annual evaluation due after 01/11/25 -followed by Dr. Vick Machado of [facility] -[facility] proxy given and filed 01/12/24 Assessment & Plan (01/12/2024 12:04 PM EST): -next comprehensive annual evaluation due after 01/11/25 -followed by Dr. Vick Machado of [facility] -[facility] proxy given and filed 01/12/24 Family planning [...] given phone number 04/13/24 Assessment & Plan (01/22/2025 10:38 AM EST): -[facility] with Dr. Hodge for glaucoma, likely Kerline Schlossmann. -controlled on Rx for sarcosis. No inflammation of exam with [facility] 04/09/2021 Assessment & Plan (04/13/2024 11:59 AM EST): [...] [facility] 04/09/2021 Interstitial lung disease (CMS/HCC) 01/28/2022 Overview (04/13/2024): Biopsy proven sarcoidosis dx [...] mildy reduced but overall stable -seen by [facility] pulmonology with Dr. Erick Pitts MD 07/28/23: methotrexate previously increased to 20mg weekly( 8 tablets of 2.5mg); continued on Remicade (infliximab 200mg) infused q 6 weeks -Thinks she might have missed appt with third helper, given phone number to call 04/13/24 Assessment & Plan (01/22/2025 10:38 AM EST): Biopsy proven sarcoidosis dx on [...] mildy reduced but overall stable -seen by [facility] pulmonology with Dr. Erick Pitts MD 07/28/23: methotrexate previously increased to 20mg weekly( 8 tablets of 2.5mg); continued on Remicade (infliximab 200mg) infused q 6 weeks -Thinks she might have missed appt with third helper, given phone number to call 04/13/24 Assessment [...] mildy reduced but overall stable -seen by [facility] pulmonology with Dr. Erick Pitts MD 07/28/23: methotrexate previously increased to 20mg weekly( 8 tablets of 2.5mg); continued on Remicade (infliximab 200mg) infused q 6 weeks -Thinks she might have missed appt with third helper, given phone number to call 04/13/24 Primary open angle glaucoma 01/28/2022 Sarcoidosis of lung 02/06/2018 Overview (01/22/2025): Biopsy proven sarcoidosis dx on CT, PET scan and lung biopsy with caseating granulomas, interstitial lung disease, eye manifestations. -Stage IV with decreased diffusion capacity -CT scan 08/19/2017 : reticulonodular diease and diffuse hilar and mediastinal lymphadenopathy -Eye exam 08/18/2017 showed recurrent iritis bilaterally and glaucoma assoicated with ocular inflammation -08/27/2017 Mateus-1 elevated at 185 UL -T spot negative 07/29/2017 -HIV negative 07/29/2017 -CT 05/2020 nodular component of pulmonary parenchyma c/w sarcoidosis, PFTs mild reduced diffusion capacity of 59% predicted at 11.83 mL/min/mmHg -PFTs 01/19/23 preserved spirometry and lung volumes, mildly reduced diffusing capacity -PFTs 07/2023 show stability, DLCO mildy reduced but overall stable -PFTs 01/2024 show preserved spirometry and lung volumes but mild reduced diffusing capacity, overall stable. -seen by [facility] pulmonology with Dr. Erick Pitts MD 07/28/23: methotrexate previously increased to 20mg weekly( 8 tablets of 2.5mg); continued on Remicade (infliximab 200mg) infused q 6 weeks -Pulmoary visit with Dr. Pitts 03/30/24 for follow up, contune meds, repeate PFTs in July 2024, Return 08/2024 repeat quantitative infliximab level and antibodies in july prior to or August return -Pulmonary Visit 12/19/24, has follow up 01/2025 Assessment & Plan (01/22/2025 10:38 AM EST): Biopsy proven sarcoidosis dx on CT, PET scan and lung biopsy with caseating granulomas, interstitial lung disease, eye manifestations. -Stage IV with decreased diffusion capacity -CT scan 08/19/2017 : reticulonodular diease and diffuse hilar and mediastinal lymphadenopathy -Eye exam 08/18/2017 showed recurrent iritis bilaterally and glaucoma assoicated with ocular inflammation -08/27/2017 Mateus-1 elevated at 185 UL -T spot negative 07/29/2017 -HIV negative 07/29/2017 -CT 05/2020 nodular component of pulmonary parenchyma c/w sarcoidosis, PFTs mild reduced diffusion capacity of 59% predicted at 11.83 mL/min/mmHg -PFTs 01/19/23 preserved spirometry and lung volumes, mildly reduced diffusing capacity -PFTs 07/2023 show stability, DLCO mildy reduced but overall stable -PFTs 01/2024 show preserved spirometry and lung volumes but mild reduced diffusing capacity, overall stable. -seen by [facility] pulmonology with Dr. Erick Pitts MD 07/28/23: methotrexate previously increased to 20mg weekly( 8 tablets of 2.5mg); continued on Remicade (infliximab 200mg) infused q 6 weeks -Pulmoary visit with Dr. Pitts 03/30/24 for follow up, contune meds, repeate PFTs in July 2024, Return 08/2024 repeat quantitative infliximab level and antibodies in july prior to or August return -Pulmonary Visit 12/19/24, has follow up 01/2025 Assessment & Plan (08/09/2024 9:48 AM EDT): Biopsy proven sarcoidosis dx on CT, PET [...] diffusing capacity. , overall stable. -seen by [facility] pulmonology with Dr. Erick Pitts MD [...] mildy reduced but overall stable -seen by [facility] pulmonology with Dr. Erick Pitts MD 07/28/23: methotrexate previously increased to 20mg weekly( 8 tablets of 2.5mg); continued on Remicade (infliximab 200mg) infused q 6 weeks -Thinks she might have missed appt with third helper, given phone number to call 04/13/24 Assessment [...] mildy reduced but overall stable -seen by [facility] pulmonology with Dr. Erick Pitts MD [...] q 6weeks with Dr. Erick Pitts of [facility] pulmonology -Seen previously with Dr. Dex Whitney at [facility] last 04/08/2021 -Followed by Eye and [...] (04/13/2024 11:58 AM EST): -Followed by [facility] with Dr. Hodge for glaucoma, likely Kerline Schlossmann. -due for appt, pt agrees to call, given phone number 04/13/24 Assessment & Plan (02/10/2022 12:20 PM EST): -Followed by [facility] with Dr. Hodge for glaucoma, likely Kerline Schlossmann. Presbyopia 07/28/2017 Recurrent major depressive disorder, in partial remission 09/24/2011 Overview (01/18/2025): Denies suicidial or homacidial ideation. Therapist and psychiatrist offered. Assessment & Plan (01/22/2025 10:38 AM EST): -Denies suicidial or homacidial ideation. Therapist and psychiatrist offered. Sickle cell trait 09/24/2011 Anemia 08/26/2011 Resolved Problems Problem Noted Date Diagnosed Date Resolved Date Gross hematuria 06/27/2024 08/09/2024 Overview (06/27/2024): 06/23/24 Urine: Negative for high-grade urothelial carcinoma. Constipation 08/26/2011 08/09/2024 Encounters Date Type Department Care Team Description 01/24/2025 Results Follow-Up [address] [address] Marzena Loo MD HCG, Qualitative, Urine, hCG, Total, Quantitative 01/24/2025 Orders Only [address] [address] Marzena Loo MD 01/24/2025 Orders Only GENERIC EXTERNAL DATA DEPARTMENT Provider, Generic External Data 01/22/2025 2:00 PM EST Clinical Support [address] [address] Skala, Elvi, RN Encounter for education 01/22/2025 9:45 AM EST Office Visit [address] [address] Marzena Loo MD Sarcoidosis of lung (CMS/HCC) (Primary Dx); Interstitial lung disease (CMS/HCC) (HCC); Neurosarcoidosis; Recurrent major depressive disorder, in partial remission (CMS/HCC); Uveitis; Chronic nonintractable headache, unspecified headache type; Ventral hernia without obstruction or gangrene 01/22/2025 Travel 01/19/2025 Telephone [facility] [address] [place] [phone] Marzena Loo MD [employer] 01/18/[address] [phone] Marzena Loo MD 01/18/[address] [address] Penelope Leong FNP 01/17/2025 Orders Only [address] [address] Marzena Loo MD 12/29/2024 1:30 PM EDT Immunization [address] [address] Yue Wilson, LISA Encounter for vaccination; Encounter for immunization 12/29/2024 Travel 12/13/2024 10:00 AM EDT Office Visit [address] [address] Penelope Leong FNP Strain of left trapezius muscle, subsequent encounter (Primary Dx) 12/13/2024 Travel 12/13/2024 Telephone [facility] [address] [place] [phone] Marzena Loo MD Nurse Triage 12/11/[address] [phone] Marzena Loo MD Venkata Recalls 12/11/2024 Travel 12/08/2024 10:00 AM EDT Office Visit [facility] [address] [place] [address] Leonardo Peterson MD Strain of left trapezius muscle, initial encounter (Primary Dx) 12/08/2024 Travel 11/10/2024 3:45 PM EDT Office Visit [facility] [address] [place] [address] Shelly Rodrigues MD Alopecia areata (Primary Dx) 11/10/2024 Travel from Last 3 Months Immunizations Immunization Administration Dates Next Due Hep B, adult 01/02/2019,07/05/2018,06/07/2018 Influenza injectable quadriv alent IIV4 with preservative 12/02/2017,02/03/2016,11/28/2014 Influenza injectable quadriv alent preservative free 02/04/2023,12/31/2021,12/24/2020,2019,01/02/2019,12/24/2016,05/17/2014 Influenza, seasonal, injecta ble, preservative free 12/29/2024,01/12/2024 Moderna Covid-19 Vaccine 12+ 03/11/2021,08/15/19 21,07/12/2020 Pfizer Covid-19 Vaccine 12+ 12/29/2024,,02/04/2023 Pfizer Covid-19 Vaccine 12+ Bivalent 12/31/2021 Tdap 08/09/2024,05/17/2014 Family History Medical History Relation Name Comments Colon cancer Father Diabetes Father Stroke Mother Colon cancer Sister Relation Name Status Comments Father Mother Sister Social History Tobacco Use Types Packs/Day [...] want or need it 01/06 Comments Unknown Intention Date Recorded No desire to become (finding) 1 03/24/2024 Sex and Gender Information Value Date Recorded Sex Assigned at Female 01/05/2022 10:15 AM EDT Legal Sex Female 10:15 AM EDT Gender Identity Female 01/05/2022 10:15 AM EDT Sexual Orientation Straight 01/05/2022 10 :15 AM EDT Last Filed Vital Signs Vital Sign Reading Time Taken Comments Blood Pressure 100/64 01/22/2025 10:01 AM EST Pulse 86 01/22/2025 10:01 AM EST Temperature 37.2 C (98.9 F) 01/22/2025 10:01 AM EST Respiratory Rate 20 01/22/2025 10:01 AM EST Oxygen Saturation 98% 01/22/2025 10:01 AM EST Inhaled Oxygen Concentration - - Weight 43.1 kg (95 lb) 01/22/2025 10:01 AM EST Height 154.9 cm (5' 1 ) 12/13/2024 10:33 AM EDT Body Mass Index 17.95 12/13/2024 10:33 AM EDT Plan of Treatment Upcoming Encounters Date Type Department Care Team (Late st Contact Info) Description 02/16/2025 1:00 PM EST Office Visit [facility] [address] [place] [address] Shelly Rodrigues MD [address], [place] [phone] 03/12/2025 9:00 AM EST Office Visit [facility] [address] [place] [address] Marzena Loo MD [address] [place] [address] Health Maintenance Due Date Last Done Comments CT Colonography 1980 FIT 1980 Sigmoidoscopy 1980 Mammogram 01/17/2026 01/17/2025, 08/2023, 05/31/2018 Alcohol/Substance Use Screening 01/22/2026 01/22/2025 Depression Screening 01/22/2026 01/22/2025, 01/23/20 25 Disability Screening 01/22/2026 01/22/2025 Family Planning (PISQ) 01/22/2026 01/22/2025 SDOH Screening 01/22/2026 01/22/2025 Tobacco Screening 01/22/2026 01/22/2025 FOBT 01/26/2026 01/26/2025 Zoster Vaccines (1 of 2) 01/07/2028 FIT DNA/Cologuard 01/27/2028 01/26/2025 Cervical Cancer Screening 01/11/2029 HPV/Cotest 01/11/2029 01/12/2024 Pap Smear 01/11/2029 01/12/2024, 03/2020, 12/06/2020, Additional history exists Colonoscopy 01/26/2030 01/26/2025 Colorectal Cancer Screening 01/26/2030 DTaP/Tdap/Td Vaccines (3 - Td or Tdap) 08/09/2034 08/09/2024, 05/17/2014 RSV Patients and Patients Aged 60 years or older (1 - 1-dose 75+ series) 2053 Hepatitis B Vaccines Completed 01/02/2019, 07/05/2018, 06/07/2018 HIV Screening Completed 10/16/2022, 10/23/2019 Hepatitis C Screening Completed 10/16/2022, 08/17/2 020 COVID-19 Vaccine Completed 12/29/2024, 08/2023, 02/04/2023, Additional history exists Influenza Vaccine Completed 12/29/2024, , 02/04/2023, Additional history exists HIB Vaccines Aged Out [...] patient's age to complete this topic Meningococcal B Vaccine Aged Out No l onger eligible based on patient's age to complete this topic Meningococcal Vaccine Aged Out No sandeep olga eligible based on patient's age to complete this topic Pneumococcal Vaccine: Pediatrics (0 to 5 Years) and At-Risk Patients (6 to 49) Years Aged Out No longer eligible based on patient's age to complete this topic RSV under 20 months Aged Out No longe r eligible based on patient's age to complete this topic Rotavirus Vaccines Aged Out No longer eligible based on patient's age to complete this topic Procedures Procedure Name Priority Date/Time Associated Diagnosis Comments HM COLONOSCOPY Routine 01/26/2025 HEMATOXYLIN AND EOSIN STAIN Routine 01/24/2025 9:40 AM EST HCG, TOTAL, QN Routine 01/24/2025 8:25 AM EST HCG, QL, URINE Routine 01/24/2025 7:45 AM EST BI MAMMOGRAM SCREENING TOMOSYNTHESIS BILATERAL Routine 01/17/2025 9:00 AM EST HPV MRNA E6/E7 REFLEX TO HPV 16, 18/45 Routine 01/12/2024 12:00 AM EST PAP SMEAR Routine 01/12/2024 12:00 AM EST Cervical cancer screening HEPATITIS PANEL, GENERAL Routine 10/16/2022 12:24 PM EDT Alopecia areata HIV ANTIBODY/ANTIGEN ([place] [facility]) Routine 10/16/2022 12:24 PM EDT from Last 3 Months or Most Recently Relevant to Health Maintenance Results * (ABNORMAL) Hm Colonoscopy (01/26/2025) Colonoscopy Abnormal( A) Normal Comment:tubular adenoma with Dr. Zamora Historical Provider MD HEALTH MAINTENANCE Final Result * Hematoxylin and Eosin Stain (01/24/2025 9:40 AM EST) 01/24/2025 9:40 AM EST 01/24/2025 12:43 PM EST Narrative [facility] - 01/25/2025 2:57 PM EST ----- ------- Name: Leila Fernandez Age/Sex: 45/F : 1980 Unit#: [id number] Attend Dr: Denise Zamora MD Re01/24/25 Status: [facility] Location: [facility] Disch: ----- ------- SPEC : [id number] RECD: 01/24/25 STATUS: EMY BALTAZAR NUM: [id number] SWETA: 01/24/[address] [facility] [address]: Denise Zamora MD ENTERED: 01/24/253544 SP TYPE: Surgical OTHR DR: Marzena Loo [...] microscopic examination, 1 piece in cassette A. ([facility]) IHC S/NG Disclaimer NOTE: Unless otherwise stated, all tissue is formalin-fixed and paraffin-embedded. Some or all of the immunohistochemical tests reported herein may have been developed and their performance characteristics determined by [facility]. They have not been cleared or approved by the U.S. Food and Drug Administration (FDA). However, the FDA has determined that such clearance or approval is not necessary. This laboratory is certified under the Clinical Laboratory Improvement Amendments of 1988 (CLIA) as qualified to perform high complexity clinical laboratory testing. Copies To: [place] [address] Denise Zamora MD [facility] [address] [place] [id number] CONTINUED ON NEXT PAGE ----- ------- Name: Leila Fernandez Age/Sex: 45/F : 1980 Unit#: [id number] Attend Dr: Denise Zamora MD Re01/24/25 Status: [facility] Location: [facility] Disch: ----- ------- SPEC : [id number] RECD: 01/24/25 STATUS: EMY BALTAZAR NUM: [id number] SWETA: 01/24/[address] [facility] [address]: Denise Zamora MD ENTERED: 01/24/25 SP TYPE: Surgical OTHR DR: Marzena Loo MD ORDERED: HE Stain/3, Gross Micro L4 Copies To: (Continued) [phone] ----- ------- Signed (signature on file) Prakash Kaufman MD 01/25/25 1457 ----- ------- END OF REPORT us Generic External Data Provider LAB BLOOD ORDERAB LES Final Result [facility] LABS [address] [place] [address] [phone] * hCG, Total, Quantitative (01/24/2025 8:25 AM EST) HCG Quantitative 4 mIU/mL [facility] Comment:Weeks post LMP Appro ximate hCG(Last Menstrual Period) Range (mIU/ml)3 - 4 weeks 9 - 1304 - 5 weeks 75 - 2,6005 - 6 weeks 850 - 20,8006 - 7 weeks 4000 - 100,2007 - 12 weeks 11,500 - 289,49922 - 16 weeks 18,300 - 137,08899 - 29 weeks (2nd trimester) 1,400 - 53,17020 - 41 weeks (3rd trimester) 940 - 60,000The Arthur B- hCG assay is used for the early detection ofpregnancy; it cannot be used to diagnose any conditionunrelated to . If a B-hCG level is not supportedby the clinical evidence, results should be confirmed by analternative method (qualitative urine hCG, for example). 01/24/2025 8:25 AM EST 01/24/2025 8:27 AM EST Generic External Data Provider LAB BLOOD ORDERAB LES Final Result Performing Organization Address [facility] Co de Phone Number [facility] [address] [place] [phone] * (ABNORMAL) HCG, Qualitative, Urine (01/24/2025 7:45 AM EST) Urine WEAKLY POSITIVE(A ) NEGATIVE [facility] Comment:Recollect specimen a nd retest after 48 hours or confirm withan alternative method.Test was verified by repeat analysis. 01/24/2025 7:45 AM EST 01/24/2025 8:04 AM EST Generic External Data Provider LAB URINE ORDERAB LES Final Result Performing Organization Address [facility] Co de Phone Number [facility] [address] [place] [phone] * BI Mammogram Screening Tomosynthesis Bilateral (01/17/2025 9:00 AM EST) Anatomical Region Laterality Modality Breast Bilateral Mammography 01/17/2025 9:00 AM EST Narrative 01/21/2025 7:32 PM EST [facility] [address] [place] [address] Mammography Report Signed Patient: Leila Fernandez MR#: [id number] : 1980 Acct:[id number] Age/Sex: 45 / F ADM Date: 01/17/25 Loc: HO.MAMMO Attending Dr: Marzena Loo MD Ordering Physician: Marzena Loo MD Results: 1N egative Date of Service: 01/17/25 Follow Up: 1 Year From Orig inal Mammogram Procedure(s): MM tomosynthesis screening BI Accession Number(s): [id number] cc: Marzena Loo MD Reason For Exam: SCREENING EXAMINATION: MM SCREENING DIGITAL BREAST TOMOSYNTHESIS, BILATERAL CLINICAL INFORMATION: Screening. Asymptomatic. COMPARISON: January 12, 2024 and May 30, 2018 TECHNIQUE: Digital breast tomosynthesis is performed in mediolateral oblique and craniocaudal views along with computer-aided detection (CAD). Synthesized 2D images are generated from the tomosynthesis. FINDINGS: BREAST COMPOSITION: The breasts are extremely dense, which lowers the sensitivity of mammography. BILATERAL BREASTS: No significant masses, suspicious calcifications or other abnormalities are seen in either breast. MM/MM tomosynthesis screening BI IMPRESSION: BILATERAL BREASTS: Negative, no mammographic evidence of malignancy. Normal interval follow-up is recommended in 12 months. ASSESSMENT: BI-RADS: Category 1: Negative RECOMMENDATION: Routine annual mammography screening. FOLLOW-UP: 1 year F/U This examination should not preclude the clinical evaluation of a suspicious palpable abnormality. This patient's information was entered into a reminder system with a target due date for their next mammogram. Electronically signed by: Ramiro Tinoco MD 01/21/2025 07:30 PM [facility] Dictated By: Ramiro Tinoco MD Signed By: <Electronically signed by Ramiro Tinoco MD in OV> 01/21/25 193 DD/ 9 TD/TT: 01/17/25917 Billing Control Clerk: Procedure Note Donotuseinterpreter, Image - 01/21/2025 [facility] [address] [place], [place] [address] Mammography Report Signed Patient: Leila Fernandez AMR#: [id number] : 1980Acct:[id number] Age/Sex: 45 / FADM Date: 01/17/25 Loc: HO.MAMMO Attending Dr: Marzena Loo MD Ordering Physician: Marzena Loo MDResults: 1N egative Date of Service: 01/17/25Follow Up: 1 Year From Orig inal Mammogram Procedure(s): MM tomosynthesis screening BI Accession Number(s): [id number] cc: Marzena Loo MD Reason For Exam: SCREENING EXAMINATION: MM SCREENING DIGITAL BREAST TOMOSYNTHESIS, BILATERAL CLINICAL INFORMATION: Screening. Asymptomatic. COMPARISON: January 12, 2024 and May 30, 2018 TECHNIQUE: Digital breast tomosynthesis is performed in mediolateral oblique and craniocaudal views along with computer-aided detection (CAD). Synthesized 2D images are generated from the tomosynthesis. FINDINGS: BREAST COMPOSITION: The breasts are extremely dense, which lowers the sensitivity of mammography. BILATERAL BREASTS: No significant masses, suspicious calcifications or other abnormalities are seen in either breast. MM/MM tomosynthesis screening BI IMPRESSION: BILATERAL BREASTS: Negative, no mammographic evidence of malignancy. Normal interval follow-up is recommended in 12 months. ASSESSMENT: BI-RADS: Category 1: Negative RECOMMENDATION: Routine annual mammography screening. FOLLOW-UP: 1 year F/U This examination should not preclude the clinical evaluation of a suspicious palpable abnormality. This patient's information was entered into a reminder system with a target due date for their next mammogram. Electronically signed by: Ramiro Tinoco MD 01/21/2025 07:30 PM EST Dictated By: Ramiro Tinoco MD Signed By: <Electronically signed by Ramiro Tinoco MD in OV> 01/21/25 1930 DD/ 9 TD/TT: 01/17/25917 Billing Control Clerk: Marzena Loo MD IMG BI PROCEDURES Edited R esult - Final * HPV mRNA E6/E7 w/Reflex to HPV Genotypes 16, 18/45 (01/12/2024 12:00 AM EST) Historical Provider LAB CYTOLOGY ORDERABLES F inal Result * Pap Smear (01/12/2024 12:00 AM EST) Swab Cervix uteri structure / Unknown 01/12/2024 01/13/2024 8:45 AM EST Narrative [facility] - 01/17/2024 8:26 AM EST ----- ------- Name: Vipin BocanegraLeila Duke Age/Sex: 44/F : 1980 Unit#: [id number] Attend Dr: Re01/12/24 Status: PRE REF Location: .LNP Disch: ----- ------- SPEC : [id number] RECD: 01/13/24 STATUS: EMY BALTAZAR NUM: [id number] SWETA: 01/12/24-[address]: Marzena Loo MD ENTERED: 01/13/24 SP TYPE: Pap [facility] DR: ORDERED: Pap Smear Interpretation Satisfactory for evaluation. Negative for intraepithelial lesion or malignancy. Coccobacilli consistent with shift in vaginal lit. HPV High Risk: Negative HPV Genotyping 16: Negative HPV Genotyping 18: Negative Clinical Information LMP: Unknown date Previous PAP test: Five years ago, WNL Material Received ThinPrep-Cervical ----- ------- Signed (signature on file) HILARIO Duran ([facility]) 01/17/24 0826 ----- ------- END OF REPORT us Marzena Loo MD LAB CYTOLOGY ORDERABLES nal Result [facility] [address] [place] [phone] * HIV Ab/Ag ([facility]) (10/16/2022 12:24 PM EDT) [facility] HIV AB/AG Nonreactive Nonreactive [facility] Comment:HIV-1 p24 Ag and/or HIV-1/HIV-2 Ab not detected.A test result that is nonreactive does not exclude thepossibility of exposure to or infection with HIV-1 and/orHIV-2. Nonreactive results in this assay for individualswith prior exposure to HIV-1 and/or HIV-2 may be due toantigen and antibody levels that are below the limit ofdetection of this assay.The [facility] Card[facility] Physical Therapist HIV Ag/Ab Combo assay result andsupplemental assay results should be interpreted inconjunction with the patient's clinical presentation,history and other laboratory results. If the results areinconsistent with clinical evidence, additional testing issuggested to confirm the result. 10/16/2022 12:2 4 PM EDT 10/16/2022 1:48 PM EDT Shelly Rodrigues MD LAB BLOOD ORDERABLES Final Re sult Performing Organization Address [facility] Co de Phone Number [facility] [address] [place] [phone] * Hepatitis A,B,C Profile (10/16/2022 12:24 PM EDT) Hepatitis A IgM Nonreactive Nonreactive [facility] Comment:IgM antibodies to BRADLEY V not detected; does not exclude earlyacute or recovered HAV infection. ~Hepatitis B Surface Antibody NONREACTIVE Nonreactive [facility] Comment:Nonreactive: < 8.00 mIU/mL Hepatitis B Core Antibody Nonreactive Nonreactive [facility] Hepatitis C Antibody Nonreactive Nonreactive [facility] Comment:Antibodies to HCV no t detected; does not exclude early acuteHCV infection. Hepatitis B Surface Ag Negative Negative [facility] Blood 10/16/2022 12:2 4 PM EDT 10/16/2022 1:48 PM EDT Shelly Rodrigues MD LAB BLOOD ORDERABLES Final Re sult Performing Organization Address [facility] de Phone Number [facility] [address] [place] [phone] from Last 3 Months or Most Recently Relevant to Health Maintenance [facility] Advance Directives Documents on File Type Date Recorded Patient Information Services Manager Expl anation Advance Directives and Living Will 01/14/2024 11:42 AM Health Care Proxy Care Teams Vice President Business Development Relationship Specialty Start Date End Date Eze, MD Marzena [address] [place] [address] PCP - General Family Medicine 03/08/18 Vicky Ibarra MD [address] [place] [address] [address] [place] [address] Neurology 03/16/24 Meka Cuba NP [address] [facility] [address] [place] [address] Urology 06/27/24June 11 [facility] 3rd [place] [address] Gastroenterology 01/22/25 Dr. Erick Pitts [facility] Pulmonology [address] [place] [address] Pulmonary Disease 03/16/24 [facility] [address] [facility] [address] [facility] [address] Optometry 03/16/24 Harish Villafuerte MD Neurology 08/15/24
--- OUTSIDE RECORDS SUMMARY | 2025-02-08 09:22 | XMS_ITS | Encounter Summary ---
Author Organization [employer] Address [address] [facility] 7t [place] [address] Care Team Providers Care Corporate Tax Manager Name Role Phone Marzena Loo MD Primary Care Provider +- [phone] Vicky Ibarra MD Unavailable [phone] Meka Cuba NP Unavailable June Unavailable Encounter Details Date Type Department Care Team (Late st Contact Info) Description 07/03/2024 Orders Only [facility] [address] [place], [place] [phone] Kamla Castro Social History Tobacco Use Types Packs/Day Years [...] Description 02/16/2025 1:00 PM EST Office Visit [facility] MEDICINE [address] [place] [phone] Shelly Rodrigues MD [address] [place] [phone] 03/12/2025 9:00 AM EST Office Visit [facility] [address] [place] [phone] Marzena Loo MD [address] [place] [phone] documented as of this encounter Procedures Procedure Name Priority Date/Time Associated Diagnosis Comments HPV MRNA E6/E7 REFLEX TO HPV 16, 18/45 Routine 01/12/2024 12:00 AM EST documented in this encounter Results * HPV mRNA E6/E7 w/Reflex to HPV Genotypes 16, 18/45 (01/12/2024 12:00 AM EST) us Historical Provider LAB CYTOLOGY ORDERABLES F inal Result documented in this encounter Visit Diagnoses Not on filedocumented in this encounter Additional Health Concerns Assessment Noted Time PHQ-9 Depression Total Score: 3 01/12/20 24 12:28 PM EST documented as of this encounter Care Teams Corporate Tax Manager Relationship Specialty Start Date End Date Marzena Loo MD [address] [place] [address] PCP - General Family Medicine 03/08/18 Vicky Ibarra MD [address] [place] [address] [address] [place] [address] Neurology 03/16/24 Meka Cuba NP [address] [place] [address] Urology 06/27/24 Renay Rocio [address] 3rd [place] [address] Gastroenterology 01/22/25 Dr. Erick Pitts [facility] Pulmonology [address] [address] Pulmonary Disease 03/16/24 [facility] 180 [facility] [phone] Optometry 03/16/24 Harish Villafuerte MD Neurology 08/15/24 documented as of this encounter
== END 2025-02-08 09:11 | disposition home or self-care (01) ==
LOC: HO.HSM 08:35
PROVIDERS: PCP Family Medicine; Visit Provider Nurse Practitioner
DX: D86.9 Sarcoidosis, unspecified (principal); G43.009 Migraine without aura, not intractable, without status migrainosus; M25.519 Pain in unspecified shoulder; G44.40 Drug-induced headache, not elsewhere classified, not intractable; R51.9 Headache, unspecified; D86.89 Sarcoidosis of other sites
CPT/HCPCS: 99204

== ENCOUNTER → 2025-02-08 08:34 | Outpatient (BNVA) | payer MEDICAID, SELFPAY | PROVIDERS: PCP Family Medicine; Visit Provider Nurse Practitioner | DX: D86.9 Sarcoidosis, unspecified (principal); G43.009 Migraine without aura, not intractable, without status migrainosus; M25.519 Pain in unspecified shoulder; D86.89 Sarcoidosis of other sites | CPT/HCPCS: 99202 ==

== ENCOUNTER 2025-02-12 17:04 | Outpatient (REF) | payer MEDICAID, SELFPAY ==
--- OUTSIDE RECORDS SUMMARY | 2025-02-12 14:00 | XMS_ITS | Encounter Summary ---
Author Organization [email or web address] Address [address] [facility] 7t [place] [address] Care Team Providers Care User Experience Developer Name Role Phone Marzena Loo MD Primary Care Provider Vicky Ibarra MD Unavailable Meka Cuba NP Unavailable June Unavailable Reason for Visit * Reason Comments UTI Blood in urine. Encounter Details Date Type Department Care Team (Late st Contact Info) Description 02/12/2025 2:00 PM EST Office Visit [facility] [address] [place], [place] [phone] Leila Garcia MD [address] [place], [place] [phone] Gross hematuria (Primary Dx); UTI symptoms Social History Tobacco Use Types Packs/Day Years [...] Sign Reading Time Taken Comments Blood Pressure 134/84 02/12/2025 2:11 PM EST Pulse 72 02/12/2025 2:11 PM EST Temperature 36.7 C (98.1 F) 02/12/2025 2:11 PM EST Respiratory Rate 19 02/12/2025 2:11 PM EST Oxygen Saturation 98% 02/12/2025 2:11 PM EST Inhaled Oxygen Concentration - - Weight 43.1 kg (95 lb) 02/12/2025 2:11 PM EST Height - - Body Mass Index 17.95 12/13/2024 10:33 AM EDT documented in this encounter Progress Notes * Leila Garcia MD - 02/12/2025 2:00 PM EST SUBJECTIVE: Leila Srikanth Vipin Bocanegra is a 45 y.o. year old female who presents for Walk In Center/blood in urine.Denies recent illness, injury, or hospitalization. Acute Concerns: Leila Bocanegra reports gross hematuria this morning when she first got up from bed. She denies vaginal bleeding or discharge, fever, back pain, n/v, dysuria, increased urinary frequency. She has a history of kidney stones (CT scan on 05/2024), with the first occurrence being asymptomatic andthe second causing significant pain. She experienced a sensation of pressure to urinate a couple ofweeks ago, which she thought might indicate the presence of kidney stones, but the pressure subsided. Her LMP was more than 3y ago. Social History Social History Narrative Not on file Problem List[1] Family History[2] Review of Systems Constitutional: Negative for chills, [...] for polydipsia and polyuria. Genitourinary: Positive for hematuria. Negative for dysuria, frequency, genital sores, pelvic pain and vaginal discharge. Musculoskeletal: Negative for back pain and neck pain. Skin: Negative for rash. Allergic/Immunologic: Negative for environmental allergies. Neurological: Negative for dizziness, seizures, weakness, light-headedness and headaches. Hematological: Negative for adenopathy. Psychiatric/Behavioral: Negative for agitation, behavioral problems, self-injury and suicidal ideas. OBJECTIVE: Vitals: 02/12/25 1411 BP: 134/84 Pulse: 72 Resp: 19 Temp: 98.1 ??F (36.7 ??C) SpO2: 98% Physical Exam HENT: Right Ear: Tympanic membrane and ear canal normal. Left Ear: Tympanic membrane and ear canal normal. Mouth/Throat: Mouth: Mucous membranes are moist. Pharynx: No oropharyngeal exudate or posterior oropharyngeal erythema. Eyes: Pupils: Pupils are equal, round, and reactive to light. Cardiovascular: Rate and Rhythm: Regular rhythm. Pulses: Normal pulses. Heart sounds: Normal heart sounds. No murmur heard. Pulmonary: Breath sounds: Normal breath sounds. Abdominal: General: Bowel sounds are normal. Palpations: Abdomen is soft. Tenderness: There is no abdominal tenderness. Musculoskeletal: General: Normal range of motion. Cervical back: Neck supple. Skin: General: Skin is warm. Neurological: General: No focal deficit present. Mental Status: She is alert and oriented to person, place, and time. Psychiatric: Mood and Affect: Mood normal. Behavior: Behavior normal. Office Visit on 02/12/2025 Component Date Value Ref Range Status Color, UA 02/12/2025 Yellow Final Clarity, UA 02/12/2025 Clear Final Glucose, UA 02/12/2025 Negative Final Bilirubin, UA 02/12/2025 Negative Final Ketones, UA 02/12/2025 Negative Final Spec Grav, UA 02/12/2025 1.020 Final Blood, UA 02/12/2025 Positive (A) Negative, None Detected Final pH, UA 02/12/2025 7.5 Final Protein, UA 02/12/2025 Negative Final Urobilinogen, UA 02/12/2025 0.2 Final Leukocytes, UA 02/12/2025 Negative Negative, Rare, Trace, 1+ (17), 2+ (35), 3+ (70), Trace (15) Final Nitrite, UA 02/12/2025 Negative Negative, None Detected Final Appearance, UA 02/12/2025 OK Final Problem List Items Addressed This Visit Hematuria - Primary ? Postural? It could be related to to kidney stones in the setting of dehydration, she's mostly asymptomatic at this time. RO UTI, ordered urine culture. Recommended increased fluid intake. Advised to return if symptoms worsen or pain develops. FU w PCP next month Relevant Orders Culture, Urine, Routine Other Visit Diagnoses UTI symptoms Relevant Orders POCT urinalysis dipstick manually resulted (CPT 99362) (Completed) This note was drafted using Ambient (AI) technology. The patient/patient's guardian has been informed and has consented to the use of this technology: Yes No follow-ups on file. Medications Ordered Prior to Encounter[3] [1] Patient Active Problem List Diagnosis Anemia Chorioretinal scar Recurrent major depressive disorder, in partial remission (CMS/HCC) Glaucoma associated with ocular inflammation Interstitial lung disease (CMS/HCC) (HCC) Presbyopia Primary open angle glaucoma Regular astigmatism Sarcoidosis of lung (CMS/HCC) Sickle cell trait (CMS/HCC) Uveitis Alopecia areata Other specified health status Family planning Acute intractable headache Colon cancer screening Breast screening Complex care coordination Failure to thrive in adult Acute cystitis with hematuria Hematuria Kidney stones Generalized abdominal pain Neurosarcoidosis Tubular adenoma [2] Family History Problem Relation Name Age of Onset Stroke Mother Colon cancer Father Diabetes Father Colon cancer Sister [3] Current Outpatient Medications on File Prior to [...] TAKE 8 TABLETS BY MOUTH EVERY WEDNESDAY SUMAtriptan (Imitrex) 50 MG tablet TAKE 1 TABLET BY MOUTH AT ONSET OF MIGRAINE, MAY REPEAT ONCE IN 4 HOURS, DO NOT EXCEED 2 TABLETS / 24 HOURS No current facility-administered medications on file prior to visit. documented in this encounter Miscellaneous Notes * Assessment & Plan Note - Leila Garcia MD - 02/12/2025 2:30 PM EST Associated Problem(s): Hematuria ? Postural? It could be related to to kidney stones in the setting of dehydration, she's mostly asymptomatic at this time. RO UTI, ordered urine culture. Recommended increased fluid intake. Advised to return if symptoms worsen or pain develops. FU w PCP next month documented in this encounter Plan of Treatment Upcoming Encounters Date Type Department Care Team (Late st Contact Info) Description 02/16/2025 1:00 PM EST Office Visit [facility] MEDICINE [address] [place] [address] Shelly Rodrigues MD [address] [place] [address] 03/12/2025 9:00 AM EST Office Visit [facility] MEDICINE [address] [place] [address] Marzena Loo MD [address] [place] [phone] Scheduled Orders Name Type Priority Associated Diagnoses Orde r Schedule Culture, Urine, Routine Microbiology Routine Gross hematuria Ordered: 02/12/2025 documented as of this encounter Procedures Procedure Name Priority Date/Time Associated Diagnosis Comments POCT URINALYSIS DIPSTICK Routine 02/12/2025 2:21 PM EST UTI symptoms documented in this encounter Results * (ABNORMAL) POCT urinalysis dipstick manually resulted (CPT 77243) (02/12/2025 2:21 PM EST) Color, UA Yellow Clarity, UA Clear Glucose, UA Negative Bilirubin, UA Negative Ketones, UA Negative Spec Grav, UA 1.020 Blood, UA Positive(A) Negative, None Detected pH, UA 7.5 Protein, UA Negative Urobilinogen, UA 0.2 Leukocytes, UA Negative Negative, Rare, Trace, 1+ (17), 2+ (35), 3+ (70), Trace (15) Nitrite, UA Negative Negative, None Detected Appearance, UA OK Urine (Urine, Random) 02/12/2025 2:21 PM EST Leila Garcia MD POINT OF CARE TEST ENTER /EDIT ORDERABLES Final Result documented in this encounter Visit Diagnoses Diagnosis Gross hematuria- Primary UTI symptoms documented in this encounter Additional Health Concerns Assessment Noted Time PHQ-9 Depression Total Score: 5 01/23/20 25 10:25 AM EST documented as of this encounter Care Teams User Experience Developer Relationship Specialty Start Date End Date Marzena Loo MD [address] [place] [phone] PCP - General Family Medicine 03/08/18 Vicky Ibarra MD [address] [place] [address] [address] [place] [address] Neurology 03/16/24 Meka Cuba NP [address] [place] [address] Urology 06/27/24NiñoJune [address] 3rd [place] [address] Gastroenterology 01/22/25 Dr. Erick Pitts [facility] Pulmonology [address] [place] [address] Pulmonary Disease 03/16/24 [facility] 180 [facility] [address] Optometry 03/16/24 Harish Villafuerte MD Neurology 08/15/24 documented as of this encounter
--- OUTSIDE RECORDS SUMMARY | 2025-02-13 02:22 | XMS_ITS | Encounter Summary ---
Author Organization [employer] Address [address] [facility] 7t [place] [address] Care Team Providers Care Can Dryer Name Role Phone Marzena Loo MD Primary Care Provider + [phone] Vicky Ibarra MD Unavailable Meka Cuba NP Unavailable June Unavailable Encounter Details Date Type Department Care Team (Latest Contact Info) Description 01/24/2025 Results Follow-Up [facility] [address] [place], [place] [phone] Marzena Loo MD [address] [place] [address] HCG, Qualitative, Urine, hCG, Total, Quantitative Social [...] Description 02/16/2025 1:00 PM EST Office Visit [facility] [address] [place] [address] Shelly Rodrigues MD [address] [place] [address] 03/12/2025 9:00 AM EST Office Visit [facility] [address] [place] [address] Marzena Loo MD [address] [place] [address] documented as of this encounter Visit Diagnoses Not on filedocumented in this encounter Additional Health Concerns Assessment Noted Time PHQ-9 Depression Total Score: 5 01/23/20 25 10:25 AM EST documented as of this encounter Care Teams Can Dryer Relationship Specialty Start Date End Date Marzena Loo MD [address] [place] [phone] PCP - General Family Medicine 03/08/18 Vicky Ibarra MD [address] [place] [address] 140 [place] [address] Neurology 03/16/24 Meka Cuba NP [address] [facility] [address] [place] [address] Urology 06/27/24June 11 [facility] 3rd [place] [address] Gastroenterology 01/22/25 Dr. Erick Pitts [facility] Pulmonology [address] [address] Pulmonary Disease 03/16/24 [facility] 180 [facility] [address] Optometry 03/16/24 Harish Villafuerte MD Neurology 08/15/24 documented as of this encounter
--- OUTSIDE RECORDS SUMMARY | 2025-02-13 02:22 | XMS_ITS | Encounter Summary ---
Author Organization [employer] Address [address] [facility] 7t [place] [address] Care Team Providers Care Shuttle Veneering Supervisor Name Role Phone Marzena Loo MD Primary Care Provider +- [phone] Vicky Ibarra MD Unavailable [phone] Meka Cuba NP Unavailable June Unavailable Encounter Details Date Type Department Care Team (Late st Contact Info) Description 07/03/2024 Orders Only [facility] [address] [place], [place] [phone] Kamla Castro Social History Tobacco Use Types [...] Description 02/16/2025 1:00 PM EST Office Visit [facility] [address] [place] [address] Shelly Rodrigues MD [address] [place] [address] 03/12/2025 9:00 AM EST Office Visit [facility] [address] [place] [address] Marzena Loo MD [address] [place] [address] documented as of this encounter Procedures Procedure [...] documented as of this encounter Care Teams Shuttle Veneering Supervisor Relationship Specialty Start Date End Date Marzena Loo MD [address] [place] [address] PCP - General Family Medicine 03/08/18 Vicky Ibarra MD [address] [place] [address] 140 [place] [address] Neurology 03/16/24 Meka Cuba NP [address] [place] [address] Urology 06/27/24 Renay Rocio [address] 3rd [place] [address] Gastroenterology 01/22/25 Dr. Erick Pitts [facility] Pulmonology [address] [address] Pulmonary Disease 03/16/24 [facility] 180 [facility] [id number] Optometry 03/16/24 Harish Villafuerte MD Neurology 08/15/24 documented as of this encounter
--- OUTSIDE RECORDS SUMMARY | 2025-02-13 02:22 | XMS_ITS | Encounter Summary ---
Author Organization [employer] Address [address] [facility] 7t [place] [address] Care Team Providers Care Dumping Machine Operator Name Role Phone Marzean Loo MD Primary Care Provider Vicky Ibarra MD Unavailable Meka Cuba NP Unavailable June Unavailable Reason for Visit * Reason Comments Med Refill Encounter Details Date Type Department Care Team (Late st Contact Info) Description 05/10/2023 Refill [facility] MED[facility]INE 230 [place], [place] [phone] Dior Forman MD 230 [place], [place] [phone] Social History Tobacco Use Types Packs/Day Years [...] Description 02/16/2025 1:00 PM EST Office Visit [facility] [address] [place], [place] [phone] Shelly Rodrigues MD [address] [place] [address] 03/12/2025 9:00 AM EST Office Visit [facility] 230 [place] [address] Marzena Loo MD [address] [place], [place] [phone] documented as of this encounter Visit Diagnoses Not on filedocumented in this encounter Care Teams Dumping Machine Operator Relationship Specialty Start Date End Date Marzena Loo MD [address] [place], [place] [phone] PCP - General Family Medicine 03/08/18 Vicky Ibarra MD [address] [place] [address] 140 [place] [address] Neurology 03/16/24 Meka Cuba NP [address] [place] [address] Urology 06/27/24June [address] 3rd [place] [address] Gastroenterology 01/22/25 Dr. Erick Pitts [facility] Pulmonology [address] [address] Pulmonary Disease 03/16/24 [facility] 180 [facility] [address] Optometry 03/16/24 aHrish Villafuerte MD Neurology 08/15/24 documented as of this encounter
--- OUTSIDE RECORDS SUMMARY | 2025-02-13 02:22 | XMS_ITS | Encounter Summary ---
Author Organization [employer] Address [address] [facility] 7t [place] [address] Care Team Providers Care Route Driver Name Role Phone Marzena Loo MD Primary Care Provider Vicky Ibarra MD Unavailable Meka Cuba NP Unavailable June Unavailable Reason for Visit * Reason Comments Med Refill Encounter Details Date Type Department Care Team ([facility] st Contact Info) Description 05/05/2022 Refill [facility] MEDICINE 230 [place], [place] [phone] Marzena Loo MD 230 [place], [place] [phone] Social History Tobacco Use Types Packs/Day Years [...] Description 02/16/2025 1:00 PM EST Office Visit [address] [address] Shelly Rodrigues MD [address] [place] [address] 03/12/2025 9:00 AM EST Office Visit [facility] 230 [place] [address] [place] [address] documented as of this encounter Visit Diagnoses Not on filedocumented in this encounter Care Teams Route Driver Relationship Specialty Start Date End Date Marzena Loo MD [address] [place] [address] PCP - General Family Medicine 03/08/18 Vicky Ibarra MD [address] [place] [address] 140 [place] [address] Neurology 03/16/24 Meka Cuba NP [address] [facility] [address] [place] [address] Urology 06/27/24June [address] 3rd [place] [address] Gastroenterology 01/22/25 Dr. Erick Pitts [facility] Pulmonology [address] [place] [address] Pulmonary Disease 03/16/24 [facility] 180 [facility] [address] Optometry 03/16/24 Harish Villafuerte MD Neurology 08/15/24 documented as of this encounter
--- OUTSIDE RECORDS SUMMARY | 2025-02-13 02:22 | XMS_ITS | Encounter Summary ---
Author Organization [employer] Address [address] [facility] 7t [place] [address] Care Team Providers Care Meter Reader Name Role Phone Marzena Loo MD Primary Care Provider +- [phone] Vicky Ibarra MD Unavailable [phone]- [phone] Meka Cuba NP Unavailable June Unavailable Encounter Details Date Type Department Care Team (Latest Contact Info) Description 02/12/2025 Travel Social History Tobacco Use Types Packs/Day [...] Description 02/16/2025 1:00 PM EST Office Visit [facility] [address] [place] [address] Shelly Rodrigues MD [address] [place] [address] 03/12/2025 9:00 AM EST Office Visit [address] [address] Marzena Loo MD [address] [place] [address] documented as of this encounter Visit Diagnoses Not on filedocumented in this encounter Additional Health Concerns Assessment Noted Time PHQ-9 Depression Total Score: 5 01/23/20 25 10:25 AM EST documented as of this encounter Care Teams Meter Reader Relationship Specialty Start Date End Date Marzena Loo MD [address] [place] [address] PCP - General Family Medicine 03/08/18 Vicky Ibarra MD [address] [place] [address] [place] [address] Neurology 03/16/24 Meka Cuba NP [address] [place] [address] Urology 06/27/24 Renay Rocio [address]rd [place] [address] Gastroenterology 01/22/25 Dr. Erick Pitts [facility] Pulmonology [address] [address] Pulmonary Disease 03/16/24 [facility] 180 [facility] [address] Optometry 03/16/24 Harish Villafuerte MD Neurology 08/15/24 documented as of this encounter
--- OUTSIDE RECORDS SUMMARY | 2025-02-13 02:22 | XMS_ITS | Clinical Summary ---
Author Organization [employer] Address [address] [facility] 7[address] [place] [address] Care Team Providers Care Fitness/Wellness Director Name Role Phone Marzena Loo MD Primary Care Provider [phone] Vicky Ibarra MD Unavailable Meka Cuba NP Unavailable June Unavailable Allergies [...] -repeat due 3-5 years Neurosarcoidosis 08/09/2024 Overview (02/08/2025): Not formally diagnosed but high suspicion. Further [...] multiple calls. She would like to try [facility] due to her specialists are there. I sent referral and they recommend pt go to the ER, she is stable without current pain, will call and see if they can schedule her. -Continued headaches. referred to neuro again 01/22/25 -Seen by Chrissy Belcher NP 02/08/25 Headaches are likely migraine with a tension component as she does have obvious trigger points to her lower trapezius muscles bilaterally on exam. She does not however have any occipital notch tenderness. She does have a possible history of neurosarcoidosis found on an MRI in 2022. Given that she has worsening of headaches I will repeat her MRI scan with and without contrast given her history. Medication overuse is also a concern given that she has been using Excedrin daily for months taking up to 6 tablets per day. She was educated on medication overuse and was advised to slowly taper the Excedrin use. Starting on the amitriptyline and magnesium will likely help in this effort. -start amitriptyline 10 mg at bedtime -start magnesium 400 mg at bedtime -reduce the use of Excedrin and patient was educated on medication overuse headache which is likely playing a role -MRI brain with and without contrast for history of neurosarcoidosis and worsening headaches -retrieve MRI report from [facility] Assessment & Plan (01/22/2025 10:38 AM EST): [...] (08/09/2024): CT scan abdomen and pelvis at [facility] on 05/07/2024: nonobstructing bilateral renal calculi. Stable mild hydronephrosis of the right kidney. -seen by [facility] urology 06/23/2024 -urine cytology negative for malignancy Assessment & Plan (02/12/2025 3:45 PM EST): ? Postural? It could be related to to kidney stones in the setting of dehydration, she's mostly asymptomatic at this time. RO UTI, ordered urine culture. Recommended increased fluid intake. Advised to return if symptoms worsen or pain develops. FU w PCP next month Assessment & Plan (08/09/2024 9:52 AM EDT): CT scan abdomen and pelvis at [facility] on 05/07/2024: nonobstructing bilateral renal calculi. Stable mild hydronephrosis of the right kidney. -seen by [facility] urology 06/23/2024 -urine cytology negative for malignancy [...] Hodge for glaucoma -Dr. Vick Machado of [facility] -Pulmonology (lung doctor) [facility] [phone] -Neurology (brain doctor) Dr. Vicky Ibarra, [facility] [phone] Assessment & Plan (04/13/2024 12:01 PM EST): Team includes: -[facility] with Dr. Hodge for glaucoma -Dr. Vick Machado of [facility] -Pulmonology (lung doctor) [facility] [phone] -Neurology (brain doctor) Dr. Vicky Ibarra, [facility] [phone] Colon cancer screening 04/14/2023 Overview (06/21/2024): -pt [...] to neurology 02/10/23 Ml note to pulmonology [facility]. 02/10/23 pt repots pain improved. [...] to neurology 02/10/23 Ml note to pulmonology [facility]. 02/10/23 pt repots pain improved. [...] to neurology 02/10/23 Ml note to pulmonology [facility]. 02/10/23 pt repots pain improved. Other specified health status 01/16/2023 Overview (01/12/2024): -next comprehensive annual evaluation due after 01/11/25 -followed by Dr. Vick Machado of [facility] -d[facility] home [facility] -[facility] proxy given and filed 01/12/24 Assessment & Plan (01/12/2024 12:04 PM EST): -next comprehensive annual evaluation due after 01/11/25 -followed by Dr. Vick Machado of [facility] -dental home [facility] -[facility] proxy given and filed 01/12/24 Family [...] mildy reduced but overall stable -seen by [facility] pulmonology with Dr. Erick Pitts MD 07/28/23: methotrexate previously increased to 20mg weekly( 8 tablets of 2.5mg); continued on Remicade (infliximab 200mg) infused q 6 weeks -Thinks she might have missed appt with colorist, given phone number to call 04/13/24 Assessment [...] mildy reduced but overall stable -seen by [facility] pulmonology with Dr. Erick Pitts MD 07/28/23: methotrexate previously increased to 20mg weekly( 8 tablets of 2.5mg); continued on Remicade (infliximab 200mg) infused q 6 weeks -Thinks she might have missed appt with colorist, given phone number to call 04/13/24 Assessment [...] mildy reduced but overall stable -seen by [facility] pulmonology with Dr. Erick Pitts MD 07/28/23: methotrexate previously increased to 20mg weekly( 8 tablets of 2.5mg); continued on Remicade (infliximab 200mg) infused q 6 weeks -Thinks she might have missed appt with colorist, given phone number to call 04/13/24 Primary [...] reduced diffusing capacity, overall stable. -seen by [facility] pulmonology with Dr. Erick Pitts MD 07/28/23: methotrexate previously increased to 20mg weekly( 8 tablets of 2.5mg); continued on Remicade (infliximab 200mg) infused q 6 weeks -Pulmoary visit with Dr. Pitts 03/30/24 for follow up, contune meds, repeate PFTs in July 2024, Return 08/2024 repeat quantitative infliximab level and antibodies in july to or August return -Pulmonary Visit 12/19/24, [...] reduced diffusing capacity, overall stable. -seen by [facility] pulmonology with Dr. Erick Pitts MD 07/28/23: methotrexate previously increased to 20mg weekly( 8 tablets of 2.5mg); continued on Remicade (infliximab 200mg) infused q 6 weeks -Pulmoary visit with Dr. Pitts 03/30/24 for follow up, contune meds, repeate PFTs in July 2024, Return 08/2024 repeat quantitative infliximab level and antibodies in july to or August return -Pulmonary Visit 12/19/24, [...] diffusing capacity. , overall stable. -seen by [facility] pulmonology with Dr. rEick Pitts MD 07/28/23: methotrexate previously increased to [...] mildy reduced but overall stable -seen by [facility] pulmonology with Dr. Erick Pitts MD 07/28/23: methotrexate previously increased to 20mg weekly( 8 tablets of 2.5mg); continued on Remicade (infliximab 200mg) infused q 6 weeks -Thinks she might have missed appt with colorist, given phone number to call 04/13/24 Assessment [...] mildy reduced but overall stable -seen by [facility] pulmonology with Dr. Erick Pitts MD [...] q 6weeks with Dr. Erick Pitts of [facility] pulmonology -Seen previously with Dr. Dex Whitney [...] Encounters Date Type Department Care Team Description 02/12/2025 2:00 PM EST Office Visit [facility] [address] [place] [phone] Leila Garcia MD Gross hematuria (Primary Dx); UTI symptoms 02/12/2025 Travel 01/24/2025 Results Follow-Up [address] [address] Marzena Loo MD HCG, Qualitative, Urine, hCG, Total, Quantitative 01/24/2025 Orders Only [address] [address] Marzena Loo MD 01/24/2025 Orders Only GENERIC EXTERNAL DATA DEPARTMENT Provider, Generic External Data 01/22/2025 2:00 PM EST Clinical Support [address] [address] Elvi Mratinez RN Encounter for education 01/22/2025 9:45 AM EST Office Visit [address] [address] Marzena Loo MD Sarcoidosis of lung (CMS/HCC) (Primary Dx); Interstitial lung disease (CMS/HCC) (HCC); Neurosarcoidosis; Recurrent major depressive disorder, in partial remission (CMS/HCC); Uveitis; Chronic nonintractable headache, unspecified headache type; Ventral hernia without obstruction or gangrene 01/22/2025 Travel 01/19/[address] [address] Marzena Loo MD Chartprep 01/18/2025 Telephone [facility] [place] [address] Marzena Loo MD 01/18/2025 Refill [facility] [address] [place], [place] [address] [address] Penelope Leong FNP 01/17/2025 Orders Only [address] [place] [address] Marzena Loo MD 12/29/2024 1:30 PM EDT Immunization [address] [place] [address] Yue Wilson, LISA Encounter for vaccination; Encounter for immunization 12/29/2024 Travel 12/13/2024 10:00 AM EDT Office [address] [place] [address] Penelope Leong FNP Strain of left trapezius muscle, subsequent encounter (Primary Dx) 12/13/2024 Travel 12/13/2024 Telephone [facility] [address] [place], [place] [address] [address] Marzena Loo MD Nurse Triage 12/11/2024 Telephone [address] [place] [address] Marzena Loo MD Venkata Recalls 12/11/2024 Travel 12/08/2024 10:00 AM EDT Office Visit [facility] [address] [place] [address] Leonardo Peterson MD Strain of left trapezius muscle, initial encounter (Primary Dx) 12/08/2024 Travel from Last 3 Months Immunizations Immunization Administration Dates Next Due Hep B, adult 01/02/2019,07/05/2018,06/07/2018 Influenza injectable quadriv alent IIV4 with preservative 12/02/2017,02/03/2016,11/28/2014 Influenza injectable quadriv alent preservative free 02/04/2023,12/31/2021,12/24/2020,2019,01/02/2019,12/24/2016,05/17/2014 Influenza, seasonal, injecta ble, preservative free 12/29/2024,01/12/2024 Moderna Covid-19 Vaccine 12+ 03/11/2021,08/15/19 21,07/12/2020 Pfizer Covid-19 Vaccine 12+ 12/29/2024, 4,02/04/2023 Pfizer Covid-19 Vaccine 12+ Bivalent 12/31/2021 Tdap [...] your housing situation today? I have dean henry 01/22/[address] you li [...] I do not want or need it 11/1 09/2024 Comments Unknown Intention Date Recorded No desire [...] (95 lb) 02/12/2025 2:11 PM EST Height 154.9 cm (5' 1 ) 12/13/2024 10:33 AM EDT Body Mass Index 17.95 12/13/2024 10:33 AM EDT Plan of Treatment Upcoming Encounters Date Type Department Care Team (Late st Contact Info) Description 02/16/2025 1:00 PM EST Office Visit [facility] [address] [place] [phone] Shelly Rodrigues MD [address] [place] [phone] 03/12/2025 9:00 AM EST Office Visit [facility] [address] [place] [address] Marzena Loo MD [address] [place] [phone] Health Maintenance Due Date Last Done Comments CT Colonography 1980 FIT 1980 Sigmoidoscopy 1980 Pneumococcal Vaccine: Pediatrics (0 to 5 Years) and At-Risk Patients (6 to 49) Years (1 of 2 - PCV) 1997 Zoster Vaccines (1 of 2) 1997 COVID-19 Vaccine (8 - Moderna risk ) 06/29/2025 12/29/2024, 01/12/2024, 02/04/2023, Additional history exists Mammogram 01/17/2026 01/17/2025, 08/2023, 05/31/2018 Alcohol/Substance Use Screening 01/22/2026 01/22/2025 Depression Screening 01/22/2026 01/22/2025, 01/23/20 25 Disability Screening 01/22/2026 01/22/2025 Family Planning (PISQ) 01/22/2026 01/22/2025 SDOH Screening 01/22/2026 01/22/2025 FOBT 01/26/2026 01/26/2025 Tobacco Screening 02/12/2026 02/12/2025 FIT DNA/Cologuard 01/27/2028 01/26/2025 Cervical Cancer Screening [...] 10/23/2019 Hepatitis C Screening Completed 10/16/2022, 020 Influenza Vaccine Completed 12/29/2024, , 02/04/2023, Additional [...] Routine 02/12/2025 2:21 PM EST UTI symptoms HM COLONOSCOPY Routine 01/26/2025 HEMATOXYLIN AND EOSIN [...] (ABNORMAL) POCT urinalysis dipstick manually resulted (CPT 80314) (02/12/2025 2:21 PM EST) Color, UA Yellow [...] TEST ENTER /EDIT ORDERABLES Final Result * (ABNORMAL) Colonoscopy (01/26/2025) Colonoscopy Abnormal( A) Normal Comment:tubular adenoma with Dr. Zamora Historical Provider HEALTH MAINTENANCE Final Result * Hematoxylin and Eosin Stain (01/24/2025 9:40 AM EST) 01/24/2025 9:40 AM EST 01/24/2025 12:43 PM EST Narrative [facility] - 01/25/2025 2:57 PM EST ----- ------- Name: Leila Fernandez Age/Sex: 45/F : 1980 Unit#: [id number] Attend Dr: Denise Zamora MD Re01/24/25 Status: [facility] Location: [place] Disch: ----- ------- SPEC : [id number] RECD: 01/24/25-124 STATUS: EMY BALTAZAR NUM: [id number] SWETA: 01/24/25-[address] [facility] [address]: Denise Zamora MD ENTERED: 01/24/25-1305 SP TYPE: Surgical OTHR DR: Marzena Loo [...] microscopic examination, 1 piece in cassette A. ([facility]) IHC S/NG Disclaimer NOTE: Unless otherwise stated, all tissue is formalin-fixed and paraffin-embedded. Some or all of the immunohistochemical tests reported herein may have been developed and their performance characteristics determined by [facility]. They have not been cleared or approved by the U.S. Food and Drug Administration (FDA). However, the FDA has determined that such clearance or approval is not necessary. This laboratory is certified under the Clinical Laboratory Improvement Amendments of 1988 (CLIA) as qualified to perform high complexity clinical laboratory testing. Copies To: [place] [address] Denise Zamora MD [facility] [address] [place] [address] CONTINUED ON NEXT PAGE ----- ------- Name: Leila Fernandez Age/Sex: 45/F : 1980 [id number] Unit#: [id number] Attend Dr: Denise Zamora MD Re01/24/25 Status: [facility] Location: [facility] Disch: ----- ------- SPEC : [id number] RECD: 01/24/25 STATUS: EMY BALTAZAR NUM: [id number] SWETA: 01/24/[address] [facility] [address]: Denise Zamora MD ENTERED: 01/24/25 SP TYPE: Surgical OTHR DR: Marzena Loo MD ORDERED: HE Stain/3, Gross Micro L4 Copies To: (Continued) [phone] ----- ------- Signed (signature on file) Prakash Kaufman MD 01/25/25 2883 ----- ------- END OF REPORT us Generic External Data Provider LAB BLOOD ORDERAB LES Final Result [facility] [address] [place] [address] [phone] * hCG, Total, Quantitative (01/24/2025 8:25 AM EST) HCG Quantitative 4 mIU/mL [facility] Comment:Weeks post LMP Appro ximate hCG(Last Menstrual Period) Range (mIU/ml)3 - 4 weeks 9 - 1304 - 5 weeks 75 - 2,6005 - 6 weeks 850 - 20,8006 - 7 weeks 4000 - 100,2007 - 12 weeks 11,500 - 289,19405 - 16 weeks 18,300 - 137,81466 - 29 weeks (2nd trimester) 1,400 - 53,08257 - 41 weeks (3rd trimester) 940 - [...] Address City/[facility]/ZIP Co de Phone Number [facility] [address] [place] [phone] * (ABNORMAL) HCG, Qualitative, Urine (01/24/2025 7:45 AM EST) Urine WEAKLY POSITIVE(A ) NEGATIVE [facility] Comment:Recollect specimen a nd retest after 48 hours or confirm withan alternative method.Test was verified by repeat analysis. 01/24/2025 7:45 AM EST 01/24/2025 8:04 AM EST [employer] External Data Provider LAB URINE ORDERAB LES Final Result Performing Organization Address City/[facility]/ZIP Co de Phone Number [facility] [address] [place] [phone] * BI Mammogram Screening Tomosynthesis Bilateral (01/17/2025 9:00 AM EST) Anatomical Region Laterality Modality Breast Bilateral Mammography 01/17/2025 9:00 AM EST Narrative 01/21/2025 7:32 PM EST [facility] [address] [place], [place] [address] Mammography Report Signed Patient: Leila Fernandez MR#: [id number] : 1980 Acct:[id number] Age/Sex: 45 / F ADM Date: 01/17/25 Loc: HO.MAMMO Attending Dr: Marzena Loo MD Ordering Physician: Marzena Loo MD Results: 1N egative Date of Service: 01/17/25 Follow Up: 1 Year From Orig inal Mammogram Procedure(s): MM tomosynthesis screening BI Accession Number(s): [id number] cc: Marzena Loo MD Reason For Exam: [...] OV> 01/21/25 193 DD/ 9 TD/TT: 01/17/25917 Dice Dealer: Procedure Note Donotuseinterpreter, Image - 01/21/2025 [facility] [address] [place] [address] Mammography Report Signed Patient: Leila Fernandez AMR#: [id number] : 1980Acct:[id number] Age/Sex: 45 / FADM Date: 01/17/25 Loc: HO.MAMMO Attending Dr: Marzena Loo MD Ordering Physician: Marzena Loo MDResults: 1N egative Date of Service: 01/17/25Follow Up: 1 Year From Orig inal Mammogram Procedure(s): MM tomosynthesis screening BI Accession Number(s): [id number] cc: Marzena Loo MD Reason For Exam: [...] by: Ramiro Tinoco MD 01/21/2025 07:30 PM [facility] Dictated By: Ramiro Tinoco MD Signed By: <Electronically signed by Ramiro Tinoco MD in OV> 01/21/25 193 DD/ 09 TD/TT: 01/17/25 0918 Dice Dealer: us Marzena Loo MD IMG BI PROCEDURES Edited R esult - Final * HPV mRNA E6/E7 w/Reflex to HPV Genotypes 16, 18/45 (01/12/2024 12:00 AM EST) Historical Provider LAB CYTOLOGY ORDERABLES F inal Result * Pap Smear (01/12/2024 12:00 AM EST) Swab Cervix uteri structure / Unknown 01/12/2024 01/13/2024 8:45 AM EST Narrative [facility] - 01/17/2024 8:26 AM EST ----- ------- Name: Leila Fernandez Age/Sex: 44/F : 1980 Unit#: [id number] Attend Dr: Re01/12/24 Status: PRE REF Location: [facility] Disch: ----- ------- SPEC : [id number] RECD: 01/13/24 STATUS: EMY BALTAZAR NUM: [id number] SWETA: 01/12/24-[address]: Marzena Loo MD ENTERED: 01/13/24 SP TYPE: Pap Smr OT DR: ORDERED: Pap Smear Interpretation Satisfactory for evaluation. Negative for intraepithelial lesion or malignancy. Coccobacilli consistent with shift in vaginal lit. HPV High Risk: Negative HPV Genotyping 16: Negative HPV Genotyping 18: Negative Clinical Information LMP: Unknown date Previous PAP test: Five years ago, WNL Material Received ThinPrep-Cervical ----- ------- Signed (signature on file) Reymundo Loera CT (ASCP) 01/17/24 0826 ----- ------- END OF REPORT us Marzena Loo MD LAB CYTOLOGY ORDERABLES Fi nal Result [facility] [address] [place] [phone] * HIV Ab/Ag ([facility]) (10/16/2022 12:24 PM EDT) HIV AB/AG Nonreactive Nonreactive [facility] Comment:HIV-1 p24 Ag and/or HIV-1/HIV-2 Ab not detected.A test result that is nonreactive does not exclude thepossibility of exposure to or infection with HIV-1 and/orHIV-2. Nonreactive results in this assay for individualswith prior exposure to HIV-1 and/or HIV-2 may be due toantigen and antibody levels that are below the limit ofdetection of this assay.The [employer] Print Support Specialist HIV Ag/Ab Combo assay result andsupplemental assay results should be interpreted inconjunction with the patient's clinical presentation,history and other laboratory results. If the results areinconsistent with clinical evidence, additional testing issuggested to confirm the result. 10/16/2022 12:2 4 PM EDT 10/16/2022 1:48 PM EDT Shelly Rodrigues MD LAB BLOOD ORDERABLES Final Re sult Performing Organization Address [facility] Co de Phone Number [facility] [address] [place] [phone] * Hepatitis A,B,C Profile (10/16/2022 12:24 PM EDT) Hepatitis A IgM Nonreactive Nonreactive [facility] Comment:IgM antibodies to BRADLEY V not detected; does not exclude earlyacute or recovered HAV infection. ~Hepatitis B Surface Antibody NONREACTIVE Nonreactive [facility] Comment:Nonreactive: < 8.00 mIU/mL Hepatitis B Core Antibody Nonreactive Nonreactive [facility] Hepatitis C Antibody Nonreactive Nonreactive [facility] Comment:Antibodies to HCV no t detected; does not exclude early acuteHCV infection. 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 Erick Pitts [facility] Pulmonology [address] [address] Pulmonary Disease 03/16/24 [facility] [address] [facility] [phone] Optometry 03/16/24 Harish Villafuerte MD Neurology 08/15/24
--- OUTSIDE RECORDS SUMMARY | 2025-02-13 02:22 | XMS_ITS | Encounter Summary ---
Author Organization [email or web address] Address [address] [facility] 7t [place] [address] Care Team Providers Care Investigative Analyst Name Role Phone Marzena Loo MD Primary Care Provider Vicky Ibarra MD Unavailable Meka Cuba NP Unavailable June Unavailable Encounter Details Date Type Department Care Team (Late st Contact Info) Description 01/24/2025 Orders Only [facility] [address] [place], [place] [phone] Marzena Loo MD 230 [place], [place] [phone] Social History Tobacco Use Types Packs/Day Years [...] Description 02/16/2025 1:00 PM EST Office Visit [facility] [address] [place] [address] Shelly Rodrigues MD [address] [place] [address] 03/12/2025 9:00 AM EST Office Visit [facility] [address] [place] [address] Marzena Loo MD [address] [place] [address] documented as of this encounter Procedures Procedure Name Priority Date/Time Associated Diagnosis Comments HEMATOXYLIN AND EOSIN STAIN Routine 01/24/2025 9:40 AM EST documented in this encounter Results * Hematoxylin and Eosin Stain (01/24/2025 9:40 AM EST) 01/24/2025 9:40 AM EST 01/24/2025 12:43 PM EST [facility] - 01/25/2025 2:57 PM EST ----- ------- Name: Vipin Leila Bocanegra Age/Sex: 45/F : 1980 Unit#: [id number] Attend Dr: Denise Zamora MD Re01/24/25 Status: [facility] Location: [facility] Disch: ----- ------- SPEC : [id number] RECD: 01/24/25 STATUS: DALTONRamona DELANEY NUM: [id number] SWETA: 01/24/2540 [facility] DR: Denise Zamora MD ENTERED: 01/24/25-5811 SP TYPE: Surgical OTHR DR: Marzena Loo [...] microscopic examination, 1 piece in cassette A. ([facility]) IHC S/NG Disclaimer NOTE: Unless otherwise stated, all tissue is formalin-fixed and paraffin-embedded. Some or all of the immunohistochemical tests reported herein may have been developed and their performance characteristics determined by [facility]. They have not been cleared or approved by the U.S. Food and Drug Administration (FDA). However, the FDA has determined that such clearance or approval is not necessary. This laboratory is certified under the Clinical Laboratory Improvement Amendments of 1988 (CLIA) as qualified to perform high complexity clinical laboratory testing. Copies To: Marzena Loo MD [address] [phone] Denise Zamora MD [facility] [address] [place] [address] CONTINUED ON NEXT PAGE ----- ------- Name: Leila Fernandez Age/Sex: 45/F : 1980 Unit#: [id number] Attend Dr: Denise Zamora MD Re01/24/25 Status: [facility] Location: [facility] Disch: ----- ------- SPEC : [id number] RECD: 01/24/25 STATUS: EMY BALTAZAR NUM: [id number] SWETA: 01/24/[address]: Denise Zamora MD ENTERED: 01/24/259369 SP TYPE: Surgical OTHR DR: Marzena Loo MD ORDERED: HE Stain/3, Gross Micro L4 Copies To: (Continued) [phone] ----- ------- Signed (signature on file) Prakash Kaufman MD 01/25/25 1457 ----- ------- END OF REPORT us Generic External Data Provider LAB BLOOD ORDERAB LES Final Result [facility] [address] [place] [address] [phone] documented in this encounter Visit Diagnoses Not on filedocumented in this encounter Additional Health Concerns Assessment Noted Time PHQ-9 Depression Total Score: 5 01/23/20 25 10:25 AM EST documented as of this encounter Care Teams Investigative Analyst Relationship Specialty Start Date End Date Marzena Loo MD [address] [place] [address] PCP - General Family Medicine 03/08/18 Vicky Ibarra MD [address] [place] [address] [place] [address] Neurology 03/16/24 Meka Cuba NP [address] [place] [phone] Urology 06/27/24 [address] 3rd [place] [address] Gastroenterology 01/22/25 Dr. Erick Pitts [facility] Pulmonology [address] [address] Pulmonary Disease 03/16/24 [facility] 180 [facility] [address] Optometry 03/16/24 Harish Villafuerte MD Neurology 08/15/24 documented as of this encounter
--- OUTSIDE RECORDS SUMMARY | 2025-02-13 02:22 | XMS_ITS | Encounter Summary ---
Author Organization [employer] Address [address] [facility] 7t [place] [address] Care Team Providers Care Business Office Coordinator Name Role Phone Marzena Loo MD Primary Care Provider +1- [phone] Vicky Ibarra MD Unavailable Meka Cuba NP Unavailable June Unavailable Reason for Visit * Reason Onset Date Comments Appointment Request 05/08/2022 Encounter Details Date Type Department Care Team (Late st Contact Info) Description 05/08/2022 Telephone [facility] 230 [place], [place] [phone] Marzena Loo MD 230 [place], [place] [phone] Appointment Request Social History Tobacco Use Types [...] with the derm. Please contact pt at [phone] documented in this encounter Plan of Treatment Upcoming Encounters Date Type Department Care Team (Late st Contact Info) Description 02/16/2025 1:00 PM EST Office Visit [address] [address] Shelly Rodrigues MD [address] [place] [address] 03/12/2025 9:00 AM EST Office Visit [address] [address] Marzena Loo MD [address] [place] [address] documented as of this encounter Visit Diagnoses Not on filedocumented in this encounter Care Teams Business Office Coordinator Relationship Specialty Start Date End Date Marzena Loo MD [address] [place] [address] PCP - General Family Medicine 03/08/18 Vicky Ibarra MD [address] [place] [address] Dr Crews [address] [place] [address] Neurology 03/16/24 Meka Cuba NP [address] [place] [address] Urology 06/27/24June [address] 3rd [place] [address] Gastroenterology 01/22/25 Dr. Erick Pitts [facility] Pulmonology [address] [address] Pulmonary Disease 03/16/24 [facility] [address] [place] [address] Optometry 03/16/24 Harish Villafuerte MD Neurology 08/15/24 documented as of this encounter
--- OUTSIDE RECORDS SUMMARY | 2025-02-13 02:22 | XMS_ITS | Encounter Summary ---
Author Organization [employer] Address [address] [facility] 7t [place] [address] Care Team Providers Care Cloth Finishing Range Tender Name Role Phone Marzena Loo MD Primary Care Provider Vicky Ibarra MD Unavailable Meka Cuba NP Unavailable June Unavailable Reason for Visit * Reason Comments Med Refill Encounter Details Date Type Department Care Team (Late st Contact Info) Description 04/14/2024 Refill [facility] 230 [place], [place] [phone] Marzena Loo MD 230 [place], [place] [phone] Social History Tobacco Use Types Packs/Day Years [...] Description 02/16/2025 1:00 PM EST Office Visit [facility] [address] [place] [address] Shelly Rodrigues MD [address] [place] [address] 03/12/2025 9:00 AM EST Office Visit [facility] [address] [place] [address] Marzena Loo MD [address] [place] [address] documented as of this encounter Visit Diagnoses Not on filedocumented in this encounter Additional Health Concerns Assessment Noted Time PHQ-9 Depression Total Score: 3 01/12/20 24 12:28 PM EST documented as of this encounter Care Teams Cloth Finishing Range Tender Relationship Specialty Start Date End Date Marzena Loo MD [address] [place] [address] PCP - General Family Medicine 03/08/18 Vicky Ibarra MD [address] [place] [address] [address] [place] [address] Neurology 03/16/24 Meka Cuba NP [address] [place] [address] Urology 06/27/24June [address] 3rd [place] [address] Gastroenterology 01/22/25 Dr. Erick Pitts [facility] Pulmonology [address] [address] Pulmonary Disease 03/16/24 [facility] 180 [facility] [address] Optometry 03/16/24 Harish Villafuerte MD Neurology 08/15/24 documented as of this encounter
--- OUTSIDE RECORDS SUMMARY | 2025-02-13 02:22 | XMS_ITS | Encounter Summary ---
Author Organization [employer] Address [address] [facility] 7t [place] [address] Care Team Providers Care Workday Manager Name Role Phone Marzena Loo MD Primary Care Provider Vicky Ibarra MD Unavailable Meka Cuba NP Unavailable June Unavailable Reason for Visit * Reason Comments Med Refill Encounter Details Date Type Department Care Team (Late st Contact Info) Description 01/18/2025 Refill [facility] 230 [place] [address] Penelope Leong FNP 505 [place], [place] [phone] Social History Tobacco Use Types Packs/Day Years [...] Description 02/16/2025 1:00 PM EST Office Visit [facility] [address] [place] [address] Shelly Rodrigues MD [address] [place] [address] 03/12/2025 9:00 AM EST Office Visit [facility] [address] [place] [address] Marzena Loo MD [address] [place] [address] documented as of this encounter Visit Diagnoses Not on filedocumented in this encounter Additional Health Concerns Assessment Noted Time PHQ-9 Depression Total Score: 3 01/12/20 24 12:28 PM EST documented as of this encounter Care Teams Workday Manager Relationship Specialty Start Date End Date Marzena Loo MD [address] [place] [address] PCP - General Family Medicine 03/08/18 Vicky Ibarra MD [address] [place] [address] 140 [place] [address] Neurology 03/16/24 Meka Cuba NP [address] [place] [address] Urology 06/27/24June [address] 3rd [place] [address] Gastroenterology 01/22/25 Dr. Erick Pitts [facility] Pulmonology [address] [address] Pulmonary Disease 03/16/24 [facility] 180 [facility] [address] Optometry 03/16/24 Harish Villafuerte MD Neurology 08/15/24 documented as of this encounter
--- OUTSIDE RECORDS SUMMARY | 2025-02-13 02:22 | XMS_ITS | Encounter Summary ---
Author Organization [employer] Address 75 [facility] 7t [place] [address] Care Team Providers Care Director Environmental Name Role Phone Marzena Loo MD Primary Care Provider + [phone] Vicky Ibarra MD Unavailable Meka Cuba NP Unavailable June Unavailable Encounter Details Date Type Department Care Team (Late st Contact Info) Description 04/13/2024 Orders Only [facility] 230 [place], [place] [phone] Marzena Loo MD 230 [place], [place] [phone] Social History Tobacco Use Types Packs/Day Years [...] 1:00 PM EST Office Visit [facility] [address] [place] [address] Shelly Rodrigues MD [address] [place] [address] 03/12/2025 9:00 AM EST Office Visit [facility] [address] [place] [address] Marzena Loo MD [address] [place] [address] documented as of this encounter Visit Diagnoses Not on filedocumented in this encounter Additional Health Concerns Assessment Noted Time PHQ-9 Depression Total Score: 3 01/12/20 24 12:28 PM EST documented as of this encounter Care Teams Director Environmental Relationship Specialty Start Date End Date Marzena Loo MD [address] [place] [address] PCP - General Family Medicine 03/08/18 Vicky Ibarra MD [address] [place] [address] 140 [place] [address] Neurology 03/16/24 Meka Cuba NP [address] [place] [address] Urology 06/27/24June [address] 3rd [place] [address] Gastroenterology 01/22/25 Dr. Erick Pitts [facility] Pulmonology [address] [address] Pulmonary Disease 03/16/24 [facility] 180 [facility] [phone] Optometry 03/16/24 Harish Villafuerte MD Neurology 08/15/24 documented as of this encounter
--- OUTSIDE RECORDS SUMMARY | 2025-02-13 02:22 | XMS_ITS | Encounter Summary ---
Author Organization [employer] Address 75 [facility] 7t [place] [address] Care Team Providers Care Order Tracer Name Role Phone Marzena Loo MD Primary Care Provider +1- [phone] Vicky Ibarra MD Unavailable Meka Cuba NP Unavailable June Unavailable Encounter Details Date Type Department Care Team (Late st Contact Info) Description 01/30/2022 Abstract [facility] PEDS 505 [place], [place] [phone] Marzena Loo MD [address] [place] [address] [phone] Social History Tobacco Use Types Packs/Day Years [...] 1:00 PM EST Office Visit [facility] MEDICINE 230 [place], [place] [phone] Shelly Rodrigues MD [address] [place] [address] [phone] 03/12/2025 9:00 AM EST Office Visit [facility] MEDICINE [address] [place] [address] Marzena Loo MD 230 [place] [address] documented as of this encounter Visit Diagnoses Not on filedocumented in this encounter Care Teams Order Tracer Relationship Specialty Start Date End Date Marzena Loo MD 230 [place] [address] PCP - General Family Medicine 03/08/18 Vicky Ibarra MD [address] [place] [address] Neurology 03/16/24 Meka Cuba NP [address] [place] [address] Urology 06/27/24June 11 [facility] 3rd [place] [address] Gastroenterology 01/22/[address] [facility] Pulmonology [address] [address] Pulmonary Disease 03/16/24 [facility] 180 [facility] [address] Optometry 03/16/24 Harish Villafuerte MD Neurology 08/15/24 documented as of this encounter
== END 2025-02-12 17:05 | disposition home or self-care (01) ==
LOC: HO.HHCLNP 17:04
PROVIDERS: Visit Provider Internal Medicine
DX: R31.0 Gross hematuria (principal)
CPT/HCPCS: 87086

== ENCOUNTER 2025-02-27 11:17 | Outpatient (AMB) | payer MEDICAID, SELFPAY ==
--- OUTSIDE RECORDS SUMMARY | 2025-02-21 23:59 | XMS_ITS | Continuity of Care Document ---
Author Organization [facility] Address [address] [place] [address]- Care Team Providers Care Electrotype Finisher Name Role Phone Eze LANDIS, Marzena Ramirez Primary Care Physician [id number] Date(s): 01/22/25 - 02/21/25 [facility] [address] [place] [address] Encounter Type: Triage Allergies, Adverse Reactions, Alerts Substance Criticality Severity Reaction Reaction Severity Status traMADol Active Medications dorzolamide-timolol 2.23%-0.68% ophthalmic solution INSTILL 1 DROP IN EACH EYE TWICE DAILY Start Date: 04/07/19 Status: Ordered Medication Dispense Status: Completed Total Allowed Fills: 1 Fills Dispensed: 0 FLUoxetine 10 mg oral capsule 10 mg, 1, capsule, By Mouth, Daily, TAKE 1 CAPSULE BY MOUTH EVERY DAY Start Date: 05/04/19 Status: Ordered Medication Dispense Status: Completed Total Allowed Fills: 1 Fills Dispensed: 0 folic acid 1 mg oral tablet 1 mg, 1, tablet, By Mouth, Daily, TAKE 1 TABLET EVERY DAY, # 30 tablet, Refills 11, Tot. Refills 11, Maintenance, 05/12/21 9:40:00 AM EST, Route to Pharmacy Electronically, [facility], Partial fill upon patient request if the prescription is for a schedule II opioid drug., 152.4, cm, 06/12/20 15:15:00 EDT, Height, 47.6, kg, 05/03/21 9:20:00 EST, Dry Weight Start Date: 3/7/22 Status: Ordered Medication Dispense Status: Completed Quantity: 30.0 Unit: tablet Total Allowed Fills: 12 Fills Dispensed: 0 Loratadine 10 mg, By Mouth, Daily, Refills 0, Maintenance, 09/13/17 3:07:48 PM EDT Start Date: 09/13/17 Status: Ordered Medication Dispense Status: Completed Total Allowed Fills: 1 Fills Dispensed: 0 methotrexate 2.5 mg oral tablet 8 tablet = 20 mg, By Mouth, Every Wednesday, for 90 days, 8 tablets equals 20mg po every wednesday,# 104 tablet, 3 Refills, Acute 12/14/25 11:17:00 AM EDT, 12/19/24 11:17:00 AM EDT, [facility], Partial fill upon patient request if the prescription is for a schedule II opioid drug., 152.4, cm, 12/19/24 11:08:00 EDT, Height, 41.9, kg, 09/06/24 8:39:00 EDT, Dry Weight Start Date: 12/19/24 Stop Date: 12/14/25 Status: Ordered Medication Dispense Status: Completed Quantity: 104.0 Unit: tablet Total Allowed Fills: 4 Fills Dispensed: 0 methotrexate 2.5 mg oral tablet 8 tablet = 20 mg, By Mouth, Every Wednesday, 8 pills = 20mg po to be taken every Wednesday., # 104 tablet, 3 Refills, Maintenance, 07/20/24 11:42:00 AM EDT, [facility], Partial fill upon patient request if the prescription is for a schedule II opioid drug., 152.4, cm, 07/20/24 11:17:00 EDT, Height, 45.7, kg, 04/28/24 9:04:00 EST, Dry Weight Start Date: 07/20/24 Stop Date: 07/15/25 Status: Ordered Medication Dispense Status: Completed Quantity: 104.0 Unit: tablet Total Allowed Fills: 4 Fills Dispensed: 0 methotrexate 2.5 mg oral tablet 8 tablet = 20 mg, By Mouth, Every Wednesday, # 40 tablet, 5 Refills, Maintenance, 05/09/19 1:01:00 PM EST, [facility], 154.9, cm, 05/04/19 15:20:00 EST, Height Start Date: 05/09/19 Stop Date: 11/05/19 Status: Ordered Medication Dispense Status: Completed Quantity: 40.0 Unit: tablet Total Allowed Fills: 6 Fills Dispensed: 0 methotrexate 2.5 mg oral tablet 6 tablet = 15 mg, By Mouth, weekly pt takes on Wednesdays, 0 Refills, Maintenance, 04/07/19 8:12:00 AM EST Start Date: 04/07/19 Status: Ordered Medication Dispense Status: Completed Total Allowed Fills: 1 Fills Dispensed: 0 Naphcon-A 0.025%-0.3% ophthalmic solution 1 drops, Eyes, Both, 4 times a day, # 15 mL, 0 Refills, Maintenance, 09/13/17 3:07:42 PM EDT, Solution Start Date: 09/13/17 Status: Ordered Medication Dispense Status: Completed Quantity: 15.0 Unit: mL Total Allowed Fills: 1 Fills Dispensed: 0 Omeprazole By Mouth, Daily, 0 Refills, Maintenance, 09/13/17 3:07:22 PM EDT Start Date: 09/13/17 Status: Ordered Medication Dispense Status: Completed Total Allowed Fills: 1 Fills Dispensed: 0 omeprazole 20 mg oral enteric coated capsule TAKE 1 CAPSULE BY MOUTH EVERY DAY BEFORE A MEAL Start Date: 05/04/19 Status: Ordered Medication Dispense Status: Completed Total Allowed Fills: 1 Fills Dispensed: 0 1 0 Refills, Maintenance, 09/13/17 3:07:15 PM EDT Start Date: 09/13/17 Status: Ordered Medication Dispense Status: Completed Total Allowed Fills: 1 Fills Dispensed: 0 ProAir HFA 90 mcg/inh inhalation aerosol 2 puffs, Inhalation, Every 4 hours, PRN as needed for wheezing, # 1 each, 6 Refills, Maintenance, 07/28/23 11:11:00 AM EDT, Aerosol, [facility], Partial fill upon patient request if the prescription is for a schedule II opioid drug., 2 puffs Inhalation Every 4 hours,x30 days,PRN:as needed for wheezing, 152.4, cm, 07/28/23 10:55:00 EDT, Height, 47.3, kg, 07/16/23 9:23:00 EDT, Dry Weight Start Date: 07/28/23 Stop Date: 02/23/24 Status: Ordered Medication Dispense Status: Completed Quantity: 1.0 Unit: each Total Allowed Fills: 7 Fills Dispensed: 0 PROzac 20 mg oral capsule 20 mg, 1, capsule, By Mouth, Daily, # 60 capsule, Refills 0, Maintenance, 09/13/17 3:07:03 PM EDT Start Date: 09/13/17 Status: Ordered Medication Dispense Status: Completed Quantity: 60.0 Unit: capsule Total Allowed Fills: 1 Fills Dispensed: 0 Renflexis 100 mg intravenous injection See Instructions, 200 mg IV Infusion weeks q 6 weeks ongoing D86.9, # 1 each, 11 Refills, Maintenance, 11/16/23 4:14:00 PM EDT, Partial fill upon patient request if the prescription is for a schedule II opioid drug. Start Date: 11/16/23 Status: Ordered Medication Dispense Status: Completed Quantity: 1.0 Unit: each Total Allowed Fills: 12 Fills Dispensed: 0 Indications: Sarcoidosis, unspecified; Renflexis 100 mg intravenous injection See Instructions, 200 mg IV Infusion weeks 0, 2, 6, and 12, and then q 6 weeks ongoing, # 2 each, 0Refills, Maintenance, 08/07/21 11:50:00 AM EDT, Partial fill upon patient request if the prescriptionis for a schedule II opioid drug. Start Date: 08/07/21 Status: Ordered Medication Dispense Status: Completed Quantity: 2.0 Unit: each Total Allowed Fills: 1 Fills Dispensed: 0 Indications: Sarcoidosis, unspecified; Problem List Condition Confirmation Course Effective Dates Status Health St atus Informant Sarcoidosis of lung Confirmed Active Social History Social History Type Response Tobacco Use: Current smoker. . Other: Quite smoking 5 years ago. Sex Female Sex Representation Female (finding) Patient Care team information Care Team Personnel Name: Penelope Nichole RN Position: [facility] AMB Nurse Member Role: Primary Care Nurse Name: Marzena Loo MD Position: [facility] Outreach Member Role: PCP Address: [address] [place] [address] [address] [place] [phone] Telecom: Name: Carla Galvez RN Position: [facility] RN Member Role: Primary Care Nurse Name: Cait Grant RN Position: [facility] AMB Nurse Member Role: Primary Care Nurse Care Team Related Persons Name: RAMON LEAL Name: CHRISTIANO WALLER Insurance Providers Guarantor name: RICARDO PEREZ [facility] Plan Information #: 1 Payer: [employer] Payer Identifier: NA Member Number: [id number] Group Number: NA Subscriber Identifier: NA Relationship to Subscriber: self Coverage Type: MEDICAID Coverage Verification Date: NA Telecom: NA Address:
--- OUTSIDE RECORDS SUMMARY | 2025-02-25 23:59 | XMS_ITS | Continuity of Care Document ---
Author Organization [facility] Address [address] [place] [address]- Care Team Providers Care Press Bucker Name Role Phone Marzena Loo MD Primary Care Physician Encounter [facility] Date(s): 01/26/25 - 02/25/25 [facility] [address] [place] [id number] Attending Physician: Meme Nova Admitting Physician: Meme Nova Referring Physician: trMeme Encounter Type: Triage Allergies, Adverse Reactions, Alerts [...] 9:40:00 AM EST, Route to Pharmacy Electronically, [facility], Partial fill upon patient request if the prescription is for a schedule II opioid drug., 152.4, cm, 06/12/20 15:15:00 EDT, Height, 47.6, kg, 05/03/21 9:20:00 EST, Dry Weight Start Date: 05/12/21 Status: Ordered Medication Dispense Status: Completed Quantity: [...] 11:17:00 AM EDT, 12/19/24 11:17:00 AM EDT, [facility], Partial fill upon patient request [...] 3 Refills, Maintenance, 07/20/24 11:42:00 AM EDT, [facility], Partial fill upon patient request [...] 5 Refills, Maintenance, 05/09/19 1:01:00 PM EST, [facility], 154.9, cm, 05/04/19 [...] Refills, Maintenance, 07/28/23 11:11:00 AM EDT, Aerosol, [facility], Partial fill upon patient request [...] Team Personnel Name: Penelope Nichole RN Position: [facility] AMB Nurse Member Role: Primary Care Nurse Name: Marzena Loo MD Position: [facility] Outreach Member Role: PCP Address: [address] [place] [address] [place] [address] Telecom: Name: Carla Galvez RN Position: [facility] RN Member Role: Primary Care Nurse Name: Cait Grant RN Position: [facility] AMB Nurse Member Role: Primary Care Nurse Care Team Related Persons Name: RAMON LEAL Name: CHRISTIANO WALLER Insurance Providers Guarantor name: RICARDO PEREZ [facility] Information #: 1 Payer: [employer]ER [employer] Payer Identifier: NA Member Number: [id number] Group Number: NA Subscriber Identifier: [id number] Relationship to Subscriber: self Coverage Type: MEDICAID Coverage Verification Date: NA Telecom: NA Address: NA
--- OUTSIDE RECORDS SUMMARY | 2025-02-25 23:59 | XMS_ITS | Continuity of Care Document ---
Author Organization [facility] Address [address] [place] [address]- Care Team Providers Care Sales Center Manager Name Role Phone Marzena Loo MD Primary Care Physician [facility] [id number] Date(s): 12/19/24 - 02/25/25 [facility] [address] [place] [address]- Attending Physician: Erick Pitts MD Admitting Physician: Erick Pitts MD Referring Physician: Marzena Loo MD Encounter Type: Pre-OutPatient One Time Allergies, Adverse Reactions, Alerts Substance Criticality Severity [...] 9:40:00 AM EST, Route to Pharmacy Electronically, [facility], Partial fill upon patient request [...] 11:17:00 AM EDT, 12/19/24 11:17:00 AM EDT, [facility], Partial fill upon patient request [...] 3 Refills, Maintenance, 07/20/24 11:42:00 AM EDT, [facility], Partial fill upon patient request [...] 5 Refills, Maintenance, 05/09/19 1:01:00 PM EST, [facility] - Ho, 154.9, cm, 05/04/19 [...] Refills, Maintenance, 07/28/23 11:11:00 AM EDT, Aerosol, [facility], Partial fill upon patient request [...] Team Personnel Name: Penelope Nichole RN Position: [facility] AMB Nurse Member Role: Primary Care Nurse Name: Marzena Loo MD Position: [facility] Outreach Member Role: PCP Address: [address] [place] [address] [place] [address] Telecom: Name: Carla Galvez RN Position: [facility] RN Member Role: Primary Care Nurse Name: Cait Grant RN Position: [facility] AMB Nurse Member Role: Primary Care Nurse Care Team Related Persons Name: ELVISRAMON Name: CHRISTIANO WALLER Insurance Providers Guarantor name: RICARDO BARAHONA [facility] Information #: 1 Payer: [employer]ER [employer] Payer Identifier: Member Number: [id number] Group Number: [id number] Subscriber Identifier: [id number] Relationship to Subscriber: self Coverage Type: MEDICAID Coverage Verification Date: NA Telecom: NA Address: NA
--- NOTE | 2025-02-27 11:19 | A.OFFVIS_ITS ---
Vital Signs 02/27/25 11:27 Height 5 ft 1 in Weight 94 lb BMI 17.8 BP 122/69 Blood Pressure Location Lt brachial Position Sitting Pulse 92 Intake Visit Reasons: Ventral hernia Intake Note: Patient is seen in office for evaluation and treatment of a ventral hernia. Pt c/o: for the past 3 yrs, has notice a bulge on the left side of the abdomen, painful, pain when bending down and with certain movements, at times has constipation, has bm every other day Systems Testing Laboratory Technician Required: No Accompanied by: Self / Same As Patient Allergies tramadol Allergy (Unknown, Verified 02/27/25 11:26) nausea and vomiting Medication List - Last Reconciled 02/27/25 by Bud Abdalla MD albuterol sulfate 90 mcg/actuation 2 puffs inhalation Q4-6H PRN amitriptyline 10 mg PO BEDTIME bisacodyl (Dulcolax (bisacodyl)) 20 mg (4 x 5 mg) PO ONCE 2 days loratadine 10 mg PO DAILY magnesium oxide 400 mg PO DAILY 90 days methotrexate sodium 20 mg PO QWEEK polyethylene glycol 3350 (Miralax) 238 grams PO ONCE 1 day sumatriptan succinate 50 mg PO HPI Comments Details: 45-year-old female patient with a past medical history of sarcoidosis involving lung and eyes presenting with complaints of pain in the left lower quadrant with a palpable lump. The lump is brought out by bending down and reaching to the ground. The lump has been present for least 3 years and seems to be increasing in size. She does massage the lump and is able to reduce it with light pressure. She denies any nausea, vomiting, fever or chills. She does have occasional constipation for which he takes MiraLax. She denies any surgery in the abdomen. A previous CT abdomen and pelvis in May 2024 was negative for an y abdominal wall hernias. She feels that this has changed since May as become more symptomatic. [facility] Medical History Depression Alopecia areata Neurosarcoidosis Migraines Sarcoidosis Surgical History H/O endoscopy Family History Sister Stomach cancer Sister Cancer Father Stomach cancer Social History Are you a primary acute care physical therapist to a significant other at home: No Do you presently have visiting nurse or other home services: No Patient Tobacco Use Status: Former Tobacco user Second Hand Smoke Exposure: No Review of Systems Const All systems reviewed & are unremarkable except as noted in HPI and below Physical Exam Vital Signs: Last Vital Signs Pulse 92 02/27/25 11:27 BP 122/69 02/27/25 11:27 BMI result Body Mass Index 17.8 Const General: cooperative and no acute distress Nutritional Appearance: thin Orientation/consciousness: patient oriented x3 Limitations: no limitations HEENT Head: Yes normocephalic and Yes atraumatic Ears: hearing grossly normal bilaterally Resp Effort & Inspection: normal respiratory effort, no audible wheezes, no cough and no respiratory distress Cardio Jugular venous distension: no JVD GI Other: The patient examined in the standing position with Valsalva maneuvers. She points to an area in the left lower quadrant lateral to the rectus muscle as the site of the palpable lump. Examination reveals no palpable lump in this location with a without Valsalva maneuvers. The patient was then made to bend over recreate her previous symptoms. Once again no definite hernias identified. Inspection: Yes normal to inspection Palpation (GI): Soft to palpation, nontender, no guarding and not rigid Skin Other: Warm, dry, no rash Neuro General: patient oriented x3 Extrem General: Yes no clubbing, cyanosis or edema Assessment & Plan Assessment & Plan (1) Ventral hernia: Code(s): K43.9 - Ventral hernia without obstruction or gangrene Category: Medical Qualifiers: Obstruction and gangrene presence: without obstruction or gangrene Qualified Code(s): K43.9 - Ventral hernia without obstruction or gangrene Plan 45-year-old female patient presenting for evaluation of a report of a lump in the left lower quadrant occurs with bending over. She reports increased pain associated with this lump and feels that the lump is reducible. Examination today does not clearly show palpable hernia. I recommended repeating the CT abdomen and pelvis re-evaluate this region. The lump appears to be in the area lateral to the rectus muscle it may be a spigelian or Boyd's hernia. I have asked her to return following the CAT scan to review the results and discuss treatment options. She expressed understanding and agrees with the plan. Orders: Orders CT abdomen pelvis wo IV con Today K43.9 - Ventral hernia without obstruction or gangrene Coding Level of Care Code New Pt Level 4 (05276) Diagnoses Ventral hernia without obstruction or gangrene K43.9 Obstruction and gangrene presence: without obstruction or gangrene
[2025-02-27 11:27] VITALS: BP 122/69; PULSE 92; BMI 17.8
--- OUTSIDE RECORDS SUMMARY | 2025-02-27 12:40 | XMS_ITS | Encounter Summary ---
Author Organization [employer] Address 75 [facility] 7t [place] [address] Care Team Providers Care Glass Inspector Name Role Phone Marzena Loo MD Primary Care Provider Vicky Ibarra MD Unavailable Meka Cuba NP Unavailable June Unavailable Reason for Visit * Reason Comments Med Refill Encounter Details Date Type Department Care Team (Late st Contact Info) Description 01/18/2025 Refill [facility] MED[facility] [address] [place] [address] Penelope Leong FNP [address] [place], [place] [phone] Social History Tobacco Use Types Packs/Day Years [...] Care Team (Late st Contact Info) Description 03/12/2025 9:00 AM EST Office Visit [facility] [address] [place] [address] Marzena Loo MD [address] [place] [address] documented as of this encounter Visit Diagnoses Not on filedocumented in this encounter Additional Health Concerns Assessment Noted Time PHQ-9 Depression Total Score: 3 01/12/20 24 12:28 PM EST documented as of this encounter Care Teams Glass Inspector Relationship Specialty Start Date End Date Marzena Loo MD [address] [place] [address] PCP - General Family Medicine 03/08/18 Vicky Ibarra MD [address] [place] [address] [place] [address] Neurology 03/16/24 Meka Cuba NP [address] [place] [address] Urology 06/27/24 NiñoJune [address] 3rd [place] [address] Gastroenterology 01/22/[address] [facility] Pulmonology [address] [address] Pulmonary Disease 03/16/24 [facility] 180 [facility] [address] Optometry 03/16/24 Harish Villafuerte MD Neurology 08/15/24 documented as of this encounter
--- OUTSIDE RECORDS SUMMARY | 2025-02-27 12:40 | XMS_ITS | Encounter Summary ---
Author Organization [employer] Address 75 [facility] 7t [place] [address] Care Team Providers Care Director Of Occupational Health Name Role Phone Marzena Loo MD Primary Care Provider Vicky Ibarra MD Unavailable Meka Cuba NP Unavailable June Unavailable Reason for Visit * Reason Comments Med Refill Encounter Details Date Type Department Care Team ([facility] st Contact Info) Description 05/05/2022 Refill [facility] MEDICINE [address] [place], [place] [phone] Marzena Loo MD [address] [place], [place] [phone] Social History Tobacco Use Types Packs/Day Years [...] Description 03/12/2025 9:00 AM EST Office Visit [facility] MEDICINE [address] [place] [address] Marzena Loo MD [address] [place] [address] documented as of this encounter Visit Diagnoses Not on filedocumented in this encounter Care Teams Director Of Occupational Health Relationship Specialty Start Date End Date Marzena Loo MD [address] [place] [address] PCP - General Family Medicine 03/08/18 Vicky Ibarra MD [address] [place] [address] Neurology 03/16/24 Meka Cuba NP [address] [facility] [address] [place] [address] Urology 06/27/24June 11 [facility] 3rd [place] [address] Gastroenterology 01/22/25 Dr. Erick Pitts [facility] Pulmonology [address] [address] Pulmonary Disease 03/16/24 [facility] 180 [facility] [address] Optometry 03/16/24 Harish Villafuerte MD Neurology 08/15/24 documented as of this encounter
--- OUTSIDE RECORDS SUMMARY | 2025-02-27 12:40 | XMS_ITS | Encounter Summary ---
Author Organization [employer] Address 75 [facility] 7t [place] [address] Care Team Providers Care Floor Covering Printer Name Role Phone Marzena Loo MD Primary Care Provider +- [phone] Vicky Ibarra MD Unavailable [phone] Meka Cuba NP Unavailable June Unavailable Encounter Details Date Type Department Care Team (Late st Contact Info) Description 07/03/2024 Orders Only [facility] PEDS [address] [place], [place] [phone] Kamla Castro Social History Tobacco Use Types [...] Description 03/12/2025 9:00 AM EST Office Visit [facility] MEDICINE [address] [place] [address] Marzena Loo MD [address] [place], [place] [phone] documented as of this encounter Procedures Procedure [...] documented as of this encounter Care Teams Floor Covering Printer Relationship Specialty Start Date End Date Marzena Loo MD [address] [place] [phone] PCP - General Family Medicine 1/1/19 Vicky Ibarra MD [address] [facility] 140 [place] [address] Neurology 03/16/24 Meka Cuba NP [address] [place] [address] Urology 06/27/24 Niñ[address] 3rd [place] [address] Gastroenterology 01/22/25 Dr. Erick Pitts [facility] Pulmonology [address] [address] Pulmonary Disease 03/16/24 [facility] 180 [facility] [address] Optometry 03/16/24 Harish Villafuerte MD Neurology 08/15/24 documented as of this encounter
--- OUTSIDE RECORDS SUMMARY | 2025-02-27 12:40 | XMS_ITS | Encounter Summary ---
Author Organization [employer] Address 75 [facility] 7t [place] [address] Care Team Providers Care Board Handler Name Role Phone Marzena Loo MD Primary Care Provider + [phone] Vicky Ibarra MD Unavailable Meka Cuba NP Unavailable June Unavailable Encounter Details Date Type Department Care Team (Late st Contact Info) Description 04/13/2024 Orders Only [facility] MEDICINE 230 [place], [place] [phone] Marzena Loo MD 230 [place], [place] [phone] Social History Tobacco Use Types Packs/Day Years [...] Description 03/12/2025 9:00 AM EST Office Visit [facility] MEDICINE 230 [place] [address] Marzena Loo MD [address] [place] [address] documented as of this encounter Visit Diagnoses Not on filedocumented in this encounter Additional Health Concerns Assessment Noted Time PHQ-9 Depression Total Score: 3 01/12/20 24 12:28 PM EST documented as of this encounter Care Teams Board Handler Relationship Specialty Start Date End Date Marzena Loo MD [address] [place] [address] PCP - General Family Medicine 03/08/18 Vicky Ibarra MD [address] [place] [address] [place] [address] Neurology 03/16/24 Meka Cuba NP [address] [place] [address] Urology 06/27/24 Renay June [address] 3rd [place] [address] Gastroenterology 01/22/25 Dr. Erick Pitts [facility] Pulmonology [address] [address] Pulmonary Disease 03/16/24 [facility] 180 [facility] [address] Optometry 03/16/24 Harish Villafuerte MD Neurology 08/15/24 documented as of this encounter
--- OUTSIDE RECORDS SUMMARY | 2025-02-27 12:40 | XMS_ITS | Encounter Summary ---
Author Organization [employer] Address 75 [facility] 7t [place] [address] Care Team Providers Care Barrel Bander Name Role Phone Marzena Loo MD Primary Care Provider [phone]- [phone] Vicky Ibarra MD Unavailable Meka Cuba NP Unavailable June Unavailable Reason for Visit * Reason Onset Date Comments Appointment Request 05/08/2022 Encounter Details Date Type Department Care Team (Late st Contact Info) Description 05/08/2022 Telephone [facility] MEDICINE [address] [place], [place] [phone] Marzena Loo MD [address] [place], [place] [phone] Appointment Request Social History Tobacco Use Types [...] with the derm. Please contact pt at [phone] documented in this encounter Plan of Treatment Upcoming Encounters Date Type Department Care Team (Late st Contact Info) Description 03/12/2025 9:00 AM EST Office Visit [facility] [address] [place] [address] Marzena Loo MD [address] [place] [address] documented as of this encounter Visit Diagnoses Not on filedocumented in this encounter Care Teams Barrel Bander Relationship Specialty Start Date End Date Marzena Loo MD [address] [place] [address] PCP - General Family Medicine 03/08/18 Vicky Ibarra MD [address] [place] [address] [address] [place] [address] Neurology 03/16/24 Meka Cuba NP [address] [place] [address] Urology 06/27/24June [address] 3rd [place] [address] Gastroenterology 01/22/25 Dr. Erick Pitts [facility] Pulmonology [address] [address] Pulmonary Disease 03/16/24 [facility] 180 [facility] [id number] Optometry 03/16/24 Harish Villafuerte MD Neurology 08/15/24 documented as of this encounter
--- OUTSIDE RECORDS SUMMARY | 2025-02-27 12:40 | XMS_ITS | Encounter Summary ---
Author Organization [employer] Address 75 [facility] 7t [place] [address] Care Team Providers Care Research Epidemiologist Name Role Phone Marzena Loo MD Primary Care Provider Vicky Ibarra MD Unavailable Meka Cuba NP Unavailable June Unavailable Reason for Visit * Reason Comments Med Refill Encounter Details Date Type Department Care Team ([facility] st Contact Info) Description 04/14/2024 Refill [facility] 230 [place], [place] [phone] Marzena Loo MD [address] [place], [place] [phone] Social History Tobacco Use Types Packs/Day Years [...] Description 03/12/2025 9:00 AM EST Office Visit [facility] [address] [place] [address] Marzena Loo MD [address] [place] [address] documented as of this encounter Visit Diagnoses Not on filedocumented in this encounter Additional Health Concerns Assessment Noted Time PHQ-9 Depression Total Score: 3 01/12/20 24 12:28 PM EST documented as of this encounter Care Teams Research Epidemiologist Relationship Specialty Start Date End Date Marzena Loo MD [address] [place] [phone] PCP - General Family Medicine 03/08/18 Vicky Ibarra MD [address] [place] [address] [place] [address] Neurology 03/16/24 Meka Cuba NP [address] [place] [address] Urology 06/27/[address] 3rd [place] [address] Gastroenterology 01/22/25 Dr. Erick Pitts [facility] Pulmonology [address] [address] Pulmonary Disease 03/16/24 [facility] 180 [facility] [address] Optometry 03/16/24 Harish Villafuerte MD Neurology 08/15/24 documented as of this encounter
--- OUTSIDE RECORDS SUMMARY | 2025-02-27 12:40 | XMS_ITS | Encounter Summary ---
Author Organization [employer] Address 75 [facility] 7t [place] [address] Care Team Providers Care Grid Inspector Name Role Phone Marzena Loo MD Primary Care Provider Vicky Ibarra MD Unavailable Meka Cuba NP Unavailable June Unavailable Reason for Visit * Reason Comments Med Refill Encounter Details Date Type Department Care Team (Late st Contact Info) Description 05/10/2023 Refill [facility] MEDICINE [address] [place], [place] [phone] Dior Forman MD [address] [place], [place] [phone] Social History Tobacco Use Types Packs/Day Years [...] Description 03/12/2025 9:00 AM EST Office Visit [facility] MEDICINE [address] [place], [place] [phone] Marzena Loo MD [address] [place] [address] documented as of this encounter Visit Diagnoses Not on filedocumented in this encounter Care Teams Grid Inspector Relationship Specialty Start Date End Date Marzena Loo MD [address] [place] [address] PCP - General Family Medicine 03/08/18 Vicky Ibarra MD [address] [place] [address] Neurology 03/16/24 Meka Cuba NP [address] [facility] [address] [place] [address] Urology 06/27/[address] 3rd [place] [address] Gastroenterology 01/22/[address] [facility] Pulmonology [address] [address] Pulmonary Disease 03/16/24 [facility] 180 [facility] [address] Optometry 03/16/24 Harish Villafuerte MD Neurology 08/15/24 documented as of this encounter
--- OUTSIDE RECORDS SUMMARY | 2025-02-27 12:40 | XMS_ITS | Clinical Summary ---
Author Organization [employer] Address [address] [facility] 7t [place] [address] Care Team Providers Care Telephone Switchboard Operator Name Role Phone Marzena Loo MD Primary Care Provider [phone] Vicky Ibarra MD Unavailable Meka Cuba NP Unavailable June Unavailable Allergies Active Allergy Reactions Criticality Noted Date Comments Tramadol Unknown 10/11/2018 Medications baricitinib (Olumiant) 2 MG tabletIndication s:Alopecia areata Take 1 tablet (2 mg) by mouth in the morning. 30 tablet 3 3 Active loratadine (Claritin) 10 MG tabletIndication s:Seasonal allergies TAKE 1 TABLET BY MOUTH EVERY DAY 90 tablet 1 4 Active methotrexate 2.5 MG tabletIndication s:Sarcoidosis TAKE 8 TABLETS BY MOUTH EVERY WEDNESDAY Active SUMAtriptan (Imitrex) 50 MG tabletIndication s:Acute intractable headache, unspecified headache type TAKE 1 TABLET BY MOUTH AT ONSET OF MIGRAINE, MAY REPEAT ONCE IN 4 HOURS, DO NOT EXCEED 2 TABLETS / 24 HOURS 4 Active inFLIXimab (Remicade) 100 MG injectionIndicat ions:Sarcoidosis Infuse into a venous catheter. Per pulmonology Active folic acid (Folvite) 1 MG tabletIndication s:Sarcoidosis Take by mouth Once per day. 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 Active Active Problems Problem Noted Date Diagnosed [...] and worsening headaches -retrieve MRI report from [facility] Assessment & Plan (01/22/2025 10:38 AM EST): [...] multiple calls. She would like to try [facility] due to her specialists are there. I [...] (08/09/2024): CT scan abdomen and pelvis at [facility] on 05/07/2024: nonobstructing bilateral renal calculi. Stable mild hydronephrosis of the right kidney. -seen by [facility] urology 06/23/2024 -urine cytology negative for [...] EDT): CT scan abdomen and pelvis at [facility] on 05/07/2024: nonobstructing bilateral renal calculi. Stable mild hydronephrosis of the right kidney. -seen by [facility] urology 06/23/2024 -urine cytology negative for [...] Team includes: -[facility] [place] with Dr. Hodge for glaucoma -Dr. Vick Machado of [facility] -Pulmonology (lung doctor) [facility] [phone] -Neurology (brain doctor) Dr. Vicky Ibarra, [facility] [phone] Assessment & Plan (04/13/2024 12:01 PM EST): Team includes: -Dr. [facility] [place] with Dr. Hodge for glaucoma -Dr. Vick Machado of [facility] -Pulmonology (lung doctor) [facility] [phone] -Neurology (brain doctor) Dr. Vicky Ibarra, [facility] [phone] Colon cancer screening 04/14/2023 Overview (06/21/2024): -pt [...] to neurology 02/10/23 Ml note to pulmonology [facility]. 02/10/23 pt repots pain improved. Seen [...] to neurology 02/10/23 Ml note to pulmonology [facility]. 02/10/23 pt repots pain improved. Seen [...] to neurology 02/10/23 Ml note to pulmonology [facility]. 02/10/23 pt repots pain improved. Other specified health status 01/16/2023 Overview (01/12/2024): -next comprehensive annual evaluation due after 01/11/25 -followed by Dr. Vick Machado of [facility] -dental home is at the [facility] proxy given and filed 01/12/24 Assessment & Plan (01/12/2024 12:04 PM EST): -next comprehensive annual evaluation due after 01/11/25 -followed by Dr. Vick Machado of [facility] -dental home is at the [facility] proxy given and filed 01/12/24 Family [...] reduced but overall stable -seen by [facility] pulmonology with Dr. Erick Pitts MD 07/28/23: methotrexate previously increased to 20mg weekly( 8 tablets of 2.5mg); continued on Remicade (infliximab 200mg) infused q 6 weeks -Thinks she might have missed appt with turbine subassembler, given phone number to call 04/13/24 Assessment [...] reduced but overall stable -seen by [facility] pulmonology with Dr. Erick Pitts MD 07/28/23: methotrexate previously increased to 20mg weekly( 8 tablets of 2.5mg); continued on Remicade (infliximab 200mg) infused q 6 weeks -Thinks she might have missed appt with turbine subassembler, given phone number to call 04/13/24 Assessment [...] reduced but overall stable -seen by [facility] pulmonology with Dr. Ercik Pitts MD 07/28/23: methotrexate previously increased to 20mg weekly( 8 tablets of 2.5mg); continued on Remicade (infliximab 200mg) infused q 6 weeks -Thinks she might have missed appt with turbine subassembler, given phone number to call 04/13/24 Primary [...] reduced diffusing capacity, overall stable. -seen by [facility] pulmonology with Dr. Erick Pitts MD 07/28/23: [...] reduced diffusing capacity, overall stable. -seen by [facility] pulmonology with Dr. Erick Pitts MD 07/28/23: [...] diffusing capacity. , overall stable. -seen by [facility] pulmonology with Dr. Erick Pitts MD 07/28/23: [...] reduced but overall stable -seen by [facility] pulmonology with Dr. Erick Pitts MD 07/28/23: methotrexate previously increased to 20mg weekly( 8 tablets of 2.5mg); continued on Remicade (infliximab 200mg) infused q 6 weeks -Thinks she might have missed appt with turbine subassembler, given phone number to call 04/13/24 Assessment [...] reduced but overall stable -seen by [facility] pulmonology with Dr. Erick Pitts MD 07/28/23: [...] q 6weeks with Dr. Erick Pitts of [facility] pulmonology -Seen previously with Dr. Dex Whitney at the [facility] at [facility] last 04/08/2021 -Followed by Eye and [...] Encounters Date Type Department Care Team Description 02/16/2025 1:00 PM EST Office Visit [facility] [address] [place] [phone] Shelly Rodrigues MD Alopecia areata (Primary Dx) 02/16/2025 Travel 02/12/2025 2:00 PM EST Office Visit [facility] [address] [place] [address] Leila Garcia MD Gross hematuria (Primary Dx); UTI symptoms 02/12/2025 Travel 01/24/2025 Results Follow-Up [address] [address] Marzena Loo MD HCG, Qualitative, Urine, hCG, Total, Quantitative 01/24/2025 Orders Only [address] [phone] Marzena Loo MD 01/24/2025 Orders Only GENERIC EXTERNAL DATA DEPARTMENT Provider, Generic External Data 01/22/2025 2:00 PM EST Clinical Support [address] [phone] Elvi Martinez, LISA Encounter for education 01/22/2025 9:45 AM EST Office Visit [address] [phone] Marzena Loo MD Sarcoidosis of lung (CMS/HCC) (Primary Dx); Interstitial lung disease (CMS/HCC) (HCC); Neurosarcoidosis; Recurrent major depressive disorder, in partial remission (CMS/HCC); Uveitis; Chronic nonintractable headache, unspecified headache type; Ventral hernia without obstruction or gangrene 01/22/2025 Travel 01/19/[address] [address] Marzena Loo MD Chartprep 01/18/[address] [phone] Marzena Loo MD 01/18/[address] [address] Penelope Leong FNP 01/17/2025 Orders Only [address] [phone] Marzena Loo MD 12/29/2024 1:30 PM EDT Immunization [address] [address] Yue Wilson, RN Encounter for vaccination; Encounter for immunization 12/29/2024 Travel 12/13/2024 10:00 AM EDT Office Visit [address] [address] Penelope Leong FNP Strain of left trapezius muscle, subsequent encounter (Primary Dx) 12/13/2024 Travel 12/13/2024 Telephone [facility] [address] [place] [address] Marzena Loo MD Nurse Triage 12/11/2024 Telephone [facility] [address] [place], [place] [phone] Marzena Loo MD February Recalls 12/11/2024 Travel 12/08/2024 10:00 AM EDT Office Visit [facility] [address] [place], [place] [phone] Leonardo Peterson MD Strain of left trapezius [...] Sign Reading Time Taken Comments Blood Pressure 110/60 02/16/2025 1:02 PM EST Pulse 75 02/16/2025 1:02 PM EST Temperature 36 C (96.8 F) 02/16/2025 1:02 PM EST Respiratory Rate 17 02/16/2025 1:02 PM EST Oxygen Saturation 98% 02/12/2025 2:11 PM EST Inhaled Oxygen Concentration - - Weight 42.4 kg (93 lb 6.4 oz) 02/16/2025 1:02 PM EST Height 154.9 cm (5' 1 ) 02/16/2025 1:02 PM EST Body Mass Index 17.65 02/16/2025 1:02 PM EST Plan of Treatment Upcoming Encounters Date Type Department Care Team (Late st Contact Info) Description 03/12/2025 9:00 AM EST Office Visit [facility] [address] [place] [address] Marzena Loo MD [address] [place], [place] [phone] Health Maintenance Due Date Last Done Comments CT Colonography 1980 FIT 1980 Sigmoidoscopy 1980 Pneumococcal Vaccine: Pediatrics (0 to 5 Years) and At-Risk Patients (6 to 49) Years (1 of 2 - PCV) 1997 Zoster Vaccines (1 of 2) 1997 COVID-19 Vaccine (8 - Moderna risk season) 2025 12/29/2024, 01/12/2024, 02/04/2023, Additional history exists Mammogram 01/17/2026 01/17/2025, 08/2023, 05/31/2018 Alcohol/Substance Use Screening 01/22/2026 01/22/2025 Depression Screening 01/22/2026 01/22/2025, 01/23/20 25 Disability Screening 01/22/2026 01/22/2025 Family Planning (PISQ) 01/22/2026 01/22/2025 SDOH Screening 01/22/2026 01/22/2025 FOBT 01/26/2026 01/26/2025 Tobacco Screening 02/16/2026 02/16/2025 FIT DNA/Cologuard 01/27/2028 01/26/2025 Cervical Cancer Screening [...] Associated Diagnosis Comments CULTURE, URINE, ROUTINE Routine 02/12/2025 2:31 PM EST Gross hematuria POCT URINALYSIS DIPSTICK Routine 02/12/2025 2:21 PM [...] Health Maintenance Results * Culture, Urine, Routine (02/12/2025 2:31 PM EST) Urine Urine specimen obtained by clean catch procedure / Unknown 02/12/2025 2:31 PM EST 02/12/2025 5:05 PM EST Comment:UACC Narrative [facility] - 02/14/2025 10:26 AM EST Urine Culture No growth. Specimen Source: Urine clean catch Leila Garcia MD LAB MICROBIOLOGY - [facility] AL ORDERABLES Final Result [facility] [address] [place] [phone] * (ABNORMAL) POCT urinalysis dipstick manually resulted (CPT 67404) (02/12/2025 2:21 PM EST) Color, UA Yellow [...] ENTER /EDIT ORDERABLES Final Result * (ABNORMAL) Hm Colonoscopy (01/26/2025) Colonoscopy Abnormal( A) Normal Comment:tubular adenoma with Dr. Zamora us Historical Provider HEALTH MAINTENANCE Final Result * Hematoxylin and Eosin Stain (01/24/2025 9:40 AM EST) 01/24/2025 9:40 AM EST 01/24/2025 12:43 PM EST Narrative [facility] - 01/25/2025 2:57 PM EST ----- ------- Name: Leila Fernandez Age/Sex: 45/F : 1980 Unit#: [id number] Attend Dr: Denise Zamora MD Re01/24/25 Status: [facility] Location: [facility] Disch: ----- ------- SPEC : [id number] RECD: 01/24/25 STATUS: EMY DELANEY NUM: [id number] SWETA: 01/24/[address] [facility] [address]: Denise Zamora MD ENTERED: 01/24/253412 SP TYPE: Surgical OTHR DR: Marzena Loo [...] microscopic examination, 1 piece in cassette A. ([facility]) IHC S/NG Disclaimer NOTE: Unless otherwise stated, all tissue is formalin-fixed and paraffin-embedded. Some or all of the immunohistochemical tests reported herein may have been developed and their performance characteristics determined by [facility]. They have not been cleared or approved by the U.S. Food and Drug Administration (FDA). However, the FDA has determined that such clearance or approval is not necessary. This laboratory is certified under the Clinical Laboratory Improvement Amendments of 1988 (CLIA) as qualified to perform high complexity clinical laboratory testing. Copies To: Marzena Loo MD [place] [id number] Denise Zamora MD [facility] [address] [place] [address] CONTINUED ON NEXT PAGE ----- ------- Name: Vipin Leila Bocanegra Age/Sex: 45/F : 1980 Unit#: [id number] Attend Dr: Denise Zamora MD Re01/24/25 Status[place] [facility] Location: [facility] Disch: ----- ------- SPEC : [id number] RECD: 01/24/25-9888 STATUS: EMY MCMAHON: [id number] SWETA: 01/24/[address] [facility] [address]: Denise Zamora MD ENTERED: 01/24/25 SP TYPE: Surgical OTHR DR: Marzena Loo MD ORDERED: HE Stain/3, Gross Micro L4 Copies To: (Continued) [phone] ----- ------- Signed (signature on file) Prakash Kaufman MD 01/25/25 1452 ----- ------- END OF REPORT us Generic External Data Provider LAB BLOOD ORDERAB LES Final Result [facility] [address] [place] [address] [phone] * hCG, Total, Quantitative (01/24/2025 8:25 AM EST) HCG Quantitative 4 mIU/mL [facility] Comment:Weeks post LMP Appro ximate hCG(Last Menstrual Period) Range (mIU/ml)3 - 4 weeks 9 - 1304 - 5 weeks 75 - 2,6005 - 6 weeks 850 - 20,8006 - 7 weeks 4000 - 100,2007 - 12 weeks 11,500 - 289,84386 - 16 weeks 18,300 - 137,19749 - 29 weeks (2nd trimester) 1,400 - 53,24802 - 41 weeks (3rd trimester) 940 - [...] ORDERAB LES Final Result Performing Organization Address [facility] de Phone Number [facility] [address] [place] [phone] * (ABNORMAL) HCG, Qualitative, Urine (01/24/2025 7:45 AM EST) Urine WEAKLY POSITIVE(A ) NEGATIVE [facility] Comment:Recollect specimen a nd retest after 48 hours or confirm withan alternative method.Test was verified by repeat analysis. 01/24/2025 7:45 AM EST 01/24/2025 8:04 AM EST Generic External Data Provider LAB URINE ORDERAB LES Final Result Performing Organization Address [facility] Co de Phone Number [facility] [address] [place] [phone] * BI Mammogram Screening Tomosynthesis Bilateral (01/17/2025 9:00 AM EST) Anatomical Region Laterality Modality Breast Bilateral Mammography 01/17/2025 9:00 AM EST Narrative 01/21/2025 7:32 PM EST [facility] [address] [place] [address] Mammography Report Signed Patient: Leila Fernandez MR#: [id number] : 1980 Acct:[id number] Age/Sex: 45 / F ADM Date: 01/17/25 Loc: [facility] Attending Dr: Marzena Loo MD Ordering Physician: Marzena Loo MD Results: 1N egative Date of Service: 01/17/25 Follow Up: 1 Year From Orig inal Mammogram Procedure(s): MM tomosynthesis screening BI Accession Number(s): [id number] cc: Marzena Loo MD Reason For Exam: [...] by: Ramiro Tinoco MD 01/21/2025 07:30 PM [facility] Dictated By: Ramiro Tinoco MD Signed By: <Electronically signed by Ramiro Tinoco MD in OV> 01/21/25 1930 DD/ 0900 TD/TT: 01/17/25 0918 Marriage And Family Counselor: Procedure Note Donotuseinterpreter, Image - 01/21/2025 [facility] [address] [place] [address] Mammography Report Signed Patient: Leila Fernandez AMR#: [id number] : 1980Acct:[id number] Age/Sex: 45 / FADM Date: 01/17/25 Loc: [facility] Attending Dr: Marzena Loo MD Ordering Physician: Marzena Loo MDResults: 1N egative Date of Service: 01/17/25Follow Up: 1 Year From Orig inal Mammogram Procedure(s): MM tomosynthesis screening BI Accession Number(s): [id number] cc: Marzena Loo MD Reason For Exam: [...] in OV> 01/21/25 193 DD/ 9 TD/TT: 01/17/25 0918 Marriage And Family Counselor: Marzena Loo MD IMG BI PROCEDURES Edited R esult - Final * HPV mRNA E6/E7 w/Reflex to HPV Genotypes 16, 18/45 (01/12/2024 12:00 AM EST) Historical Provider LAB CYTOLOGY ORDERABLES F inal Result * Pap Smear (01/12/2024 12:00 AM EST) Swab Cervix uteri structure / Unknown 01/12/2024 01/13/2024 8:45 AM EST Narrative [facility] - 01/17/2024 8:26 AM EST ----- ------- Name: Leila Fernandez Age/Sex: 44/F : 1980 Unit#: [id number] Attend Dr: Re01/12/24 Status: [facility] Dis[facility] ----- ------- SPEC : [id number] RECD: 01/13/24 STATUS: EMY BALTAZAR NUM: [id number] SWETA: 01/12/24-[address]: Marzena Loo MD ENTERED: 01/13/24 SP TYPE: Pap Smr [facility] DR: ORDERED: Pap Smear Interpretation Satisfactory for evaluation. Negative for intraepithelial lesion or malignancy. Coccobacilli consistent with shift in vaginal lit. HPV High Risk: Negative HPV Genotyping 16: Negative HPV Genotyping 18: Negative Clinical Information LMP: Unknown date Previous PAP test: Five years ago, WN Material Received ThinPrep-Cervical ----- ------- Signed (signature on file) Reymundo HILARIO Loera ([facility]) 01/17/24 0826 ----- ------- END OF REPORT us Marzena Loo MD LAB CYTOLOGY ORDERABLES Fi nal Result Performing Organization Address [facility] Co de Phone Number [facility] [address] [place] [phone] * HIV Ab/Ag ([facility]) (10/16/2022 12:24 PM EDT) [facility] HIV AB/AG Nonreactive Nonreactive [facility] Comment:HIV-1 p24 Ag and/or HIV-1/HIV-2 Ab not detected.A test result that is nonreactive does not exclude thepossibility of exposure to or infection with HIV-1 and/orHIV-2. Nonreactive results in this assay for individualswith prior exposure to HIV-1 and/or HIV-2 may be due toantigen and antibody levels that are below the limit ofdetection of this assay.The [employer] HIV Ag/Ab Combo assay result andsupplemental assay results should be interpreted inconjunction with the patient's clinical presentation,history and other laboratory results. If the results areinconsistent with clinical evidence, additional testing issuggested to confirm the result. 10/16/2022 12:2 4 PM EDT 10/16/2022 1:48 PM EDT Shelly Rodrigues MD LAB BLOOD ORDERABLES Final Re sult Performing Organization Address [facility]/ZIP Co de Phone Number [facility] [address] [place] [phone] * Hepatitis A,B,C Profile (10/16/2022 12:24 PM EDT) Hepatitis A IgM Nonreactive Nonreactive [facility] Comment:IgM antibodies to BRADLEY V not detected; does not exclude earlyacute or recovered HAV infection. ~Hepatitis B Surface Antibody NONREACTIVE Nonreactive [facility] Comment:Nonreactive: < 8.00 mIU/mL Hepatitis B Core Antibody Nonreactive Nonreactive [facility] Hepatitis C Antibody Nonreactive Nonreactive [facility] Comment:Antibodies to HCV no t detected; does not exclude early acuteHCV infection. Hepatitis B Surface Ag Negative Negative [facility] Blood 10/16/2022 12:2 4 PM EDT 10/16/2022 1:48 PM EDT Shelly Rodrigues MD LAB BLOOD ORDERABLES Final Re sult [facility] [address] [place] [phone] from Last 3 Months or Most Recently Relevant to Health Maintenance Insurance [facility] C3 Advance Directives Documents on File Type Date Recorded Patient Ar Manager Expl anation Advance Directives and Living Will 01/14/2024 11:42 AM Health Care Proxy Care Teams Telephone Switchboard Operator Relationship Specialty Start Date End Date Rowan, MD Marzena [address] [place] [address] PCP - General Family Medicine 03/08/18 Vicky Ibarra MD [address] [place] [address] [address] [place] [address] Neurology 03/16/24 Meka Cuba NP [address] [place] [address] Urology 06/27/24June [address] 3rd [place] [address] Gastroenterology 01/22/25 Dr. Erick Pitts [facility] Pulmonology [address] [address] Pulmonary Disease 03/16/24 [facility] [address] [facility] [address] Optometry 03/16/24 Harish Villafuerte MD Neurology 08/15/24
--- OUTSIDE RECORDS SUMMARY | 2025-02-27 12:40 | XMS_ITS | Encounter Summary ---
Author Organization [employer] Address [address] [facility] 7t [place] [address] Care Team Providers Care Sales Operations Coordinator Name Role Phone Marzena Loo MD Primary Care Provider + [phone] Vicky Ibarra MD Unavailable Meka Cuba NP Unavailable June Unavailable Encounter Details Date Type Department Care Team (Latest Contact Info) Description 01/24/2025 Results Follow-Up [facility] [address] [place], [place] [phone] Marzena Loo MD [address] [place] [address] HCG, Qualitative, Urine, hCG, Total, Quantitative Social [...] Description 03/12/2025 9:00 AM EST Office Visit [facility] [address] [place] [address] Marzena Loo MD [address] [place] [address] documented as of this encounter Visit Diagnoses Not on filedocumented in this encounter Additional Health Concerns Assessment Noted Time PHQ-9 Depression Total Score: 5 01/23/20 25 10:25 AM EST documented as of this encounter Care Teams Sales Operations Coordinator Relationship Specialty Start Date End Date Marzena Loo MD [address] [place] [address] PCP - General Family Medicine 03/08/18 Vicky Ibarra MD [address] [place] [address] [place] [address] Neurology 03/16/24 Meka Cuba NP [address] [place] [address] Urology 06/27/24 NiñoJune [address] 3rd [place] [address] Gastroenterology 01/22/25 Dr. Erick Pitts [facility] Pulmonology [address] [address] Pulmonary Disease 03/16/24 [facility] [address] [facility] [address] Optometry 03/16/24 Harish Villafuerte MD Neurology 08/15/24 documented as of this encounter
--- OUTSIDE RECORDS SUMMARY | 2025-02-27 12:40 | XMS_ITS | Encounter Summary ---
Author Organization [employer] Address [address] [facility] 7t [place] [address] Care Team Providers Care Shipping Helper Name Role Phone Marzena Loo MD Primary Care Provider [phone] Vicky Ibarra MD Unavailable Meka Cuba NP Unavailable June Unavailable Encounter Details Date Type Department Care Team (Late st Contact Info) Description 01/30/2022 Abstract [facility] [address] [place], [place] [phone] Marzena Loo MD [address] [place] [address] [phone] Social History Tobacco Use Types Packs/Day Years [...] Description 03/12/2025 9:00 AM EST Office Visit [facility] [address] [place], [place] [phone] Marzena Loo MD [address] [place] [address] [phone] documented as of this encounter Visit Diagnoses Not on filedocumented in this encounter Care Teams Shipping Helper Relationship Specialty Start Date End Date Marzena Loo MD [address] [place] [address] PCP - General Family Medicine 03/08/18 Vicky Ibarra MD [address] [place] [address] [address] [place] [address] Neurology 03/16/24 Meka Cuba NP [address] [place] [address] Urology 06/27/24 Rocio Niño [address] [facility] 3rd [place] [address] Gastroenterology 01/22/25 Dr. Erick Pitts [facility] Pulmonology [address] [address] Pulmonary Disease 03/16/24 [facility] [address] [facility] [phone] Optometry 03/16/24 Harish Villafuerte MD Neurology 08/15/24 documented as of this encounter
--- OUTSIDE RECORDS SUMMARY | 2025-02-27 12:40 | XMS_ITS | Encounter Summary ---
Author Organization [employer] Address [address] [place] [address] Care Team Providers Care [employer] Name Role Phone Marzena Loo MD Primary Care Provider Vicky Ibarra MD Unavailable [phone] Meka Cuba NP Unavailable June Unavailable Encounter Details Date Type Department Care Team (Late st Contact Info) Description 01/24/2025 Orders Only [facility] [address] [place], [place] [phone] Marzena Loo MD [address] [place], [place] [phone] Social History Tobacco Use Types Packs/Day Years [...] Description 03/12/2025 9:00 AM EST Office Visit [facility] [address] [place] [address] Marzena Loo MD [address] [place] [address] documented as of this encounter Procedures Procedure Name Priority Date/Time Associated Diagnosis Comments HEMATOXYLIN AND EOSIN STAIN Routine 01/24/2025 9:40 AM EST documented in this encounter Results * Hematoxylin and Eosin Stain (01/24/2025 9:40 AM EST) 01/24/2025 9:40 AM EST 01/24/2025 12:43 PM EST [facility] - 01/25/2025 2:57 PM EST ----- ------- Name: Leila Fernandez Age/Sex: 45/F : 1980 Unit#: [id number] Attend Dr: Denise Zamora MD Re01/24/25 [address]: [facility] Location: [facility] Disch: ----- ------- SPEC : [id number] RECD: 01/24/25-1242 STATUS: EMY BALTAZAR NUM: [id number] SWETA: 01/24/2540 [facility] DR: Denise Zamora MD ENTERED: 01/24/25-1304 SP TYPE: Surgical OTHR DR: Marzena Loo [...] microscopic examination, 1 piece in cassette A. ([facility]) IHC S/NG Disclaimer NOTE: Unless otherwise stated, all tissue is formalin-fixed and paraffin-embedded. Some or all of the immunohistochemical tests reported herein may have been developed and their performance characteristics determined by [facility]. They have not been cleared or approved by the U.S. Food and Drug Administration (FDA). However, the FDA has determined that such clearance or approval is not necessary. This laboratory is certified under the Clinical Laboratory Improvement Amendments of 1988 (CLIA) as qualified to perform high complexity clinical laboratory testing. Copies To: Marzena Loo MD [address] [phone] Denise Zamora MD [facility] [address] [place] [id number] CONTINUED ON NEXT PAGE ----- ------- Name: Vipin DaljitLeila Srikanth Age/Sex: 45/F : 1980 Unit#: [id number] Attend Dr: Denise Zamora MD Re01/24/25 Status: [facility] Location: [facility] Disch: ----- ------- SPEC : [id number] RECD: 01/24/25-124 STATUS: EMY BALTAZAR NUM: [id number] SWETA: 01/24/25 [facility] DR: Denise Zamora MD ENTERED: 01/24/25 SP TYPE: Surgical OTHR DR: Marzena Loo MD ORDERED: HE Stain/3, Gross Micro L4 Copies To: (Continued) [phone] ----- ------- Signed (signature on file) Prakash Kaufman MD 01/25/25 1457 ----- ------- END OF REPORT us Generic External Data Provider LAB BLOOD ORDERAB LES Final Result [facility] [address] [place] [address] [phone] documented in this encounter Visit Diagnoses Not on filedocumented in this encounter Additional Health Concerns Assessment Noted Time PHQ-9 Depression Total Score: 5 01/23/20 25 10:25 AM EST documented as of this encounter Care Teams [employer] Relationship Specialty Start Date End Date Marzena Loo MD [address] [place] [address] PCP - General Family Medicine 03/08/18 Vicky Ibarra MD [address] [place] [address] [address] [place] [address] Neurology 03/16/24 Meka Cuba NP [address] [place] [address] Urology 06/27/24 Renay June [address] 3rd [place] [address] Gastroenterology 01/22/25 Dr. Erick Pitts [facility] Pulmonology [address] [address] Pulmonary Disease 03/16/24 [facility] [address] [place] [phone] Optometry 03/16/24 Harish Villafuerte MD Neurology 08/15/24 documented as of this encounter
== END 2025-02-27 11:50 | disposition home or self-care (01) ==
LOC: HO.HGS 11:18
PROVIDERS: PCP Family Medicine; Visit Provider Surgery
DX: K43.9 Ventral hernia without obstruction or gangrene (principal)
CPT/HCPCS: 99204

== ENCOUNTER → 2025-02-27 11:17 | Outpatient (BNVA) | payer MEDICAID, SELFPAY | PROVIDERS: PCP Family Medicine; Visit Provider Surgery | DX: K43.9 Ventral hernia without obstruction or gangrene (principal); R19.04 Left lower quadrant abdominal swelling, mass and lump | CPT/HCPCS: 99202 ==